=== PATIENT | female | born 1970 | race Caucasian/White ===

== ENCOUNTER 2019-11-27 11:54 | Emergency (ER) | payer OTHER, SELFPAY ==
[2019-11-27] VITALS (25 sets, daily range): BP systolic 115–133; BP diastolic 71–85; PULSE 66–80; RESP 12–19; TEMP 36.6; O2SAT 98–100
--- NOTE | ~2019-11-27 | XR_ITS ---
EXAMINATION: XR chest 1V portable EXAM DATE: 11/27/2019 12:35 INDICATION: Palpitations, shortness of breath, weakness. TECHNIQUE: Portable AP frontal chest x-ray was obtained. Comparison is made to prior examination from 07/09/2018. FINDINGS: The lungs are clear. There are no pleural effusions. The cardiomediastinal silhouette is within normal limits. There is no pneumothorax suspected. The bones and soft tissues are unremarkab le. There are cholecystectomy clips. IMPRESSION: No acute cardiopulmonary findings. Reviewed, dictated and finalized at location A.
--- NOTE | 2019-11-27 12:20 | ECG_ITS ---
Measurements Intervals [place] Rate: 69 P: 22 WI: 166 QRS: 0 QRSD: 89 T: 19 QT: 428 QTc: 462 Interpretive Statements SINUS RHYTHM BASELINE ARTIFACT- I, II, III, AVR, AVL, AVF NORMAL ECG Electronically Signed On 11-27-2019 13:50:03 CDT by Yariel Beltran D.O.
--- NOTE | 2019-11-27 12:35 | ED.DIZZY ---
HPI - Dizziness General Chief Complaint: Dizziness Stated Complaint: irregular hr Time Seen by Provider: 11/27/19 12:10 Source: patient Mode of arrival: ambulatory Limitations: no limitations History of Present Illness HPI Narrative: A 49 y/o female pt presents to the ED, with c/o dizziness, SOB, confusion, fatigue and generalized weakness x 2 weeks that has worsened over the last 4 days. Pt states that she has noticed a fluctuation in her pulse and states that at night her pulse is around 45 bpm, and during the day between 50-125 bpm. She notes difficulty waking from sleep, but denies cough, sneeze, rhinorrhea, or CP. Pt notes a PMHx of HTN, TIA, mixed connective tissue disease, and systemic lupus. She notes taking Methylprednisolone as needed for flare ups and Duloxetine for depression and pain relief. She notes last seeing her round cutter operator in October for a follow-up appointment. Pt states that she took her PRN steroid for a flare up last week. She denies hx of drinking and states she quit smoking last (11/22/2019). MD elicited complaint: dizziness and other (SOB, confusion, fatigue, generalized weakness) Pertinent past history: other (systemic lupus) Onset (ago): week(s) (2) Associated symptoms: shortness of breath, weakness (generalized) and other (confusion, fatigue, difficulty waking from sleep) Related Data Home Medications Medication Instructions Recorded Confirmed albuterol sulfate 2.5 mg CONTINUOUS NEBULIZATION PRN 11/27/19 PRN amlodipine 10 mg PO DAILY 11/27/19 buprenorphine 10 mcg TRANSDERMAL WEEKLY 11/27/19 duloxetine 60 mg PO DAILY 11/27/19 hydroxychloroquine 200 mg PO DAILY 11/27/19 hyoscyamine sulfate [Levsin] 0.125 mg PO DAILY 11/27/19 meloxicam 7.5 mg PO DAILY 11/27/19 methylprednisolone 4 mg PO DAILY PRN 11/27/19 mycophenolate mofetil 1,000 mg PO BID 11/27/19 rivaroxaban [Xarelto] 20 mg PO DAILY 11/27/19 ropinirole 1 mg PO HS 11/27/19 tizanidine 4 mg PO HS 11/27/19 tramadol 50 mg PO PRN 11/27/19 Allergies Allergy/AdvReac Type Severity Reaction Status Date / Time amitriptyline Allergy Intermediate Other Verified 09/18/18 00:02 aspartame Allergy Intermediate Other Verified 09/18/18 00:02 atomoxetine Allergy Intermediate Unknown Verified 09/18/18 00:02 gabapentin Allergy Intermediate Other Verified 09/18/18 00:02 nortriptyline Allergy Intermediate Other Verified 09/18/18 00:02 prednisone Allergy Intermediate Hyperactive Verified 09/18/18 00:02 methotrexate AdvReac Intermediate Diarrhea Verified 09/18/18 00:02 Review of Systems Review of Systems: All systems reviewed & are unremarkable except as noted in HPI and below Constitutional: Constitutional: Reports fatigue and Reports weakness (generalized) Cardiovascular: Cardiovascular: Denies chest pain Respiratory: Respiratory: Denies cough, Reports dyspnea and Denies other (sneezing, rhinorrhea) Neurologic: Reports confusion, Reports dizziness and Reports other (difficulty waking from sleep) [facility] Past Medical History Medical History (Updated 11/28/19 @ 00:00 by Background Daemon) Arthritis Asthma Colitis Depression Diverticulitis Fibromyalgia History of gastroesophageal reflux (GERD) History of hypercholesterolemia History of TIA (transient ischemic attack) Hypertension Mitral valve prolapse Pneumonia Pulmonary embolism Systemic lupus Surgical History Surgical History (Updated 11/27/19 @ 14:03 by [email or web address] Lieferheld) History of cholecystectomy History of hysterectomy Social History Social History (Updated 11/27/19 @ 14:05 by [place]) Tobacco type: cigarettes Smoking end date: 11/22/19 Course Vital Signs Vital signs: Vital Signs Pulse Rate 74 11/27/19 12:05 Respiratory Rate 13 11/27/19 12:05 Pulse Oximetry 99 11/27/19 12:05 Temperature 36.6 C 11/27/19 12:09 Pulse Rate 71 11/27/19 15:15 Respiratory Rate 16 11/27/19 15:15 Blood Pressure 122/84 11/27/19 15:
[2019-11-27 12:40] LABS: Eosinophils Absolute Auto 0.2 K/mm3 (0-0.3); Eosinophils Percent Auto 3.9 % (0-4.4); Hematocrit 42.3 % (37.0-47.0); Hemoglobin 13.5 g/dL (12.0-15.0); Immature Granulocyte Absolute 0.01 K/mm3 (0.00-0.031); Immature Granulocyte Percent A 0.2 % (0-0.5); Lymphocytes Absolute Auto 1.51 K/mm3 (0.9-3.2); Lymphocytes Percent Auto 37.2 % (18.3-44.2); Mean Corpuscular HGB Conc 31.9 g/dl (32-36); Mean Corpuscular Hemoglobin 30.1 pg (26-34); Mean Corpuscular Volume 94.4 fl (80-100); Mean Platelet Volume 11.4 fl (7.4-10.4); Monocytes Absolute Auto 0.3 K/mm3 (0.1-0.6); Monocytes Percent Auto 7.9 % (2.6-8.5); Neutrophils Percent Auto 49.8 % (45.5-73.1); Platelet Count Result 157 k/mm3 (150-375); Red Blood Count 4.48 M/mm3 (4.2-5.4); Red Cell Distribution Width 12.9 % (11.5-14.5); White Blood Count 4.1 K/mm3 (4.5-10.0)
[2019-11-27 12:53] LABS: Alanine Aminotransferase 48 U/L (4-35); Albumin Level 3.9 g/dL (3.5-5.1); Alkaline Phosphatase 121 U/L (38-126); Aspartate Amino Transferase 54 U/L (14-36); Bilirubin,Total 0.7 mg/dL (0.2-1.3); Blood Urea Nitrogen 18 mg/dL (7-17); Calcium 9.1 mg/dL (8.4-10.2); Carbon Dioxide 25 mmol/L (22-30); Chloride 104 mmol/L (98-107); Estimated CRCL calculation 95 ml/min; Estimated Glomerular Filt Rate > 60; Glucose 88 mg/dL (65-105); Potassium 4.1 mmol/L (3.4-5.0); Sodium 135 mmol/L (137-145)
[2019-11-27 13:08] LABS: Troponin I < 0.012 ng/mL (0.000-0.034)
[2019-11-27 13:37] LABS: Erythrocyte Sedimentation Rate 15 mm/hr (0-20)
[2019-11-27 14:42] LABS: Add Urine Microscopic? NO; Appearance Urine Clear (Clear); Bilirubin Urine Negative (Negative); Blood Urine Negative (Negative); Color Urine Straw (Yellow); Glucose Urine UA Negative (Negative); Ketones Urine Negative (Negative); Leukocyte Esterase Ur Negative LEU/UL (Negative); Nitrate Urine Negative (Negative); Protein Urine Negative (Negative); Specific Grav Ur 1.016 (1.001-1.035); Urobilinogen Urine Negative mg/dL (<2.0)
== END 2019-11-27 16:01 | disposition home or self-care (01) ==
PROVIDERS: Emergency Provider Emergency Medicine
DX: R00.2 Palpitations (principal); M19.90 Unspecified osteoarthritis, unspecified site; J45.909 Unspecified asthma, uncomplicated; F32.9 Major depressive disorder, single episode, unspecified; M79.7 Fibromyalgia; K21.9 Gastro-esophageal reflux disease without esophagitis; E78.00 Pure hypercholesterolemia, unspecified; Z86.73 Personal history of transient ischemic attack (TIA), and cerebral infarction without residual deficits; I10 Essential (primary) hypertension; I34.1 Nonrheumatic mitral (valve) prolapse; Z86.711 Personal history of pulmonary embolism; F17.210 Nicotine dependence, cigarettes, uncomplicated; Z79.01 Long term (current) use of anticoagulants; M35.1 Other overlap syndromes; M32.9 Systemic lupus erythematosus, unspecified
CPT/HCPCS: 36415; 71045; 80053; 81003; 84443; 84484; 85025; 85652; 93005; 99284

== ENCOUNTER 2020-01-22 13:43 | Emergency (ER) | payer OTHER, SELFPAY ==
--- NOTE | ~2020-01-22 | CT_ITS ---
EXAMINATION: CT abdomen pelvis w con EXAM DATE: 01/22/2020 15:30 INDICATION: Abdominal pain, history diverticulitis. TECHNIQUE: Spiral CT of the abdomen and pelvis was performed following intravenous injection of 100 m L Omnipaque 350. Axial, coronal and sagittal images were reviewed. The dose-length product (DLP) fo r this examination was 1424.60 mGy-cm. The exposure was tailored according to patient size (auto mA exposure control), and iterative reconstruction (ASIR) was used as additional dose reduction techniqu e. Comparison is made to prior examination from 02/07/2019. FINDINGS: The liver, spleen, adrenal glands and pancreas are unremarkable. There is cholelithiasis w ithin an otherwise unremarkable gallbladder. No evidence of obstructive biliary disease. Portal and splenic veins are patent. Kidneys enhance symmetrically. There is no hydronephrosis. The uterus is not identified and has likely been surgically resected. The bladder is unremarkable. There is no retroperitoneal or pelvic lymphadenopathy. The appendix is not positively visualized. There is no pericecal inflammatory change to suggest appe ndicitis. There is mild to moderate descending and sigmoid colonic diverticulosis. There is no adjac ent inflammatory change to suggest diverticulitis. There is rectosigmoid anastomosis. The stomach a nd small bowel are unremarkable. There is expected amount of colonic stool. No free intraperitonea l gas. The heart is normal in size. There are no pericardial or pleural effusions. The lung bases are unremarkable. There is large hemangioma in the T11 vertebral body. There are no osteoblastic or osteolytic lesions identified. IMPRESSION: 1. No acute intra-abdominal findings. 2. Colonic diverticulosis. Reviewed, dictated and finalized at location A.
[2020-01-22 13:49] VITALS: BP 151/95; PULSE 95; RESP 20; TEMP 36.6; O2SAT 98
[2020-01-22 14:11] LABS: Basophils Absolute Auto 0.1 K/mm3 (0.0-0.1); Basophils Percent Auto 0.7 % (0.2-1.2); Eosinophils Absolute Auto 0.3 K/mm3 (0-0.3); Eosinophils Percent Auto 3.9 % (0-4.4); Hematocrit 47.2 % (37.0-47.0); Hemoglobin 15.5 g/dL (12.0-15.0); Immature Granulocyte Absolute 0.02 K/mm3 (0.00-0.031); Immature Granulocyte Percent A 0.3 % (0-0.5); Lymphocytes Absolute Auto 2.68 K/mm3 (0.9-3.2); Lymphocytes Percent Auto 38.6 % (18.3-44.2); Mean Corpuscular HGB Conc 32.8 g/dl (32-36); Mean Corpuscular Hemoglobin 31.1 pg (26-34); Mean Corpuscular Volume 94.6 fl (80-100); Mean Platelet Volume 11.5 fl (7.4-10.4); Monocytes Absolute Auto 0.5 K/mm3 (0.1-0.6); Monocytes Percent Auto 7.8 % (2.6-8.5); Neutrophils Absolute Auto 3.4 K/mm3 (1.3-6.7); Neutrophils Percent Auto 48.7 % (45.5-73.1); Platelet Count Result 190 k/mm3 (150-375); Red Blood Count 4.99 M/mm3 (4.2-5.4); White Blood Count 6.9 K/mm3 (4.5-10.0)
[2020-01-22 14:40] VITALS: BP 145/84; PULSE 87; RESP 20; O2SAT 96
[2020-01-22 14:45] LABS: Alanine Aminotransferase 30 U/L (4-35); Albumin Level 4.5 g/dL (3.5-5.1); Alkaline Phosphatase 118 U/L (38-126); Aspartate Amino Transferase 50 U/L (14-36); Bilirubin,Total 0.7 mg/dL (0.2-1.3); Blood Urea Nitrogen 11 mg/dL (7-17); Calcium 9.5 mg/dL (8.4-10.2); Carbon Dioxide 27 mmol/L (22-30); Chloride 105 mmol/L (98-107); Estimated CRCL calculation 97 ml/min; Estimated Glomerular Filt Rate > 60; Glucose 127 mg/dL (65-105); Lipase 83 U/L (23-300); Potassium 4.1 mmol/L (3.4-5.0); Sodium 139 mmol/L (137-145)
[2020-01-22 14:48] LABS: Add Urine Microscopic? NO; Appearance Urine Clear (Clear); Bilirubin Urine Negative (Negative); Blood Urine Negative (Negative); Color Urine Straw (Yellow); Glucose Urine UA Negative (Negative); Ketones Urine Negative (Negative); Leukocyte Esterase Ur Negative LEU/UL (Negative); Nitrate Urine Negative (Negative); Protein Urine Negative (Negative); Specific Grav Ur 1.008 (1.001-1.035); Urobilinogen Urine Negative mg/dL (<2.0)
--- NOTE | 2020-01-22 14:51 | ED.ABDPAIN ---
HPI - Abdominal Pain General Chief Complaint: Abdominal Pain Stated Complaint: abd pain hx of bowel obs/ileus Time Seen by Provider: 01/22/20 14:41 History of Present Illness HPI narrative: Patient presents with 3 weeks of abdominal pain. She has a history of recent diverticulitis for which she took oral antibiotic. She said it did not help. In the past she had recurrent sigmoid diverticulitis, and they remove the sigmoid colon. She is also had her gallbladder out and a hysterectomy. Last week she had bowel impaction, which she removed herself, and it was then followed by days of loose stool. She again feels impacted. She gauges the pain at 8 out of 10. She has no drug allergies. She says she runs dehydration due to her lupus and mixed connective tissue disease and ulcerative colitis. She has been having chills but no documented fever, and night sweats. She smokes drinks but does not use drugs. MD elicited complaint: abdominal pain Pertinent past history: diverticulitis Onset (ago): week(s) Pain Consistency: constant Location: diffuse Severity: severe Related Data Home Medications Medication Instructions Recorded Confirmed albuterol sulfate 2.5 mg CONTINUOUS NEBULIZATION PRN 11/27/19 PRN amlodipine 10 mg PO DAILY 11/27/19 buprenorphine 10 mcg TRANSDERMAL WEEKLY 11/27/19 duloxetine 60 mg PO DAILY 11/27/19 hydroxychloroquine 200 mg PO DAILY 11/27/19 hyoscyamine sulfate [Levsin] 0.125 mg PO DAILY 11/27/19 meloxicam 7.5 mg PO DAILY 11/27/19 methylprednisolone 4 mg PO DAILY PRN 11/27/19 mycophenolate mofetil 1,000 mg PO BID 11/27/19 rivaroxaban [Xarelto] 20 mg PO DAILY 11/27/19 ropinirole 1 mg PO HS 11/27/19 tizanidine 4 mg PO HS 11/27/19 tramadol 50 mg PO PRN 11/27/19 [id number]-vit K tablet PO 01/22/20 [Adults Multivitamin] Allergies Allergy/AdvReac Type Severity Reaction Status Date / Time amitriptyline Allergy Intermediate Other Verified 01/22/20 13:57 aspartame Allergy Intermediate Other Verified 01/22/20 13:57 atomoxetine Allergy Intermediate Unknown Verified 01/22/20 13:57 gabapentin Allergy Intermediate Other Verified 01/22/20 13:57 nortriptyline Allergy Intermediate Other Verified 01/22/20 13:57 prednisone Allergy Intermediate Hyperactive Verified 01/22/20 13:57 methotrexate AdvReac Intermediate Diarrhea Verified 01/22/20 13:57 Review of Systems Review of Systems: Narrative: CONSTITUTIONAL: She has had chills, or sweats. EYES: Denies visual changes, redness, or discharge. ENT: Denies rhinorrhea, congestion, sore throat, or otalgia. CARDIOVASCULAR: Denies chest pain, palpitations, or edema. RESPIRATORY: Denies cough or dyspnea. GASTROINTESTINAL: She has abdominal pain, nausea, but not vomiting, or diarrhea. GENITOURINARY: Denies dysuria or hematuria. SKIN: Denies rash or itching. MUSCULOSKELETAL: Denies back pain, joint pain, or myalgia. NEUROLOGIC: Denies headache, numbness, or weakness. PSYCHIATRIC: Denies anxiety or depression. All systems reviewed & are unremarkable except as noted in HPI and below PMFSH Past Medical History Medical History Arthritis Asthma Colitis Depression Diverticulitis Fibromyalgia History of gastroesophageal reflux (GERD) History of hypercholesterolemia History of TIA (transient ischemic attack) Hypertension Mitral valve prolapse Pneumonia Pulmonary embolism Systemic lupus Surgical History Surgical History History of cholecystectomy History of hysterectomy Social History Social History (Updated 01/22/20 @ 14:55 by Yue Case MD) Smoking status: Current every day smoker Tobacco type: cigarettes Smoking end date: 11/22/19 Alcohol intake: current Alcohol use details: Rare Substance use: never Gender identity (if verbalized by the patient): Female Exam Narrative: Exam Narrative: GENERAL: Well-appearing, well
[2020-01-22] MEDS: MORPHINE SULFATE 4 MG/ML INJ IV PUSH ×2 (15:01→16:09)
[2020-01-22] MEDS: SODIUM CHLORIDE 0.9% IV 1,000 ML 999 ML IV CONT (15:01)
[2020-01-22] MEDS: ONDANSETRON INJ 4 MG/2 ML VIAL IV PUSH (15:01)
[2020-01-22 16:00] VITALS: BP 139/93; PULSE 79; RESP 20; O2SAT 98
[2020-01-22 17:02] VITALS: BP 143/82; PULSE 90; RESP 20; O2SAT 96
[2020-01-22 18:04] VITALS: BP 126/72; PULSE 83; RESP 20; O2SAT 98
[2020-01-22 19:13] VITALS: BP 110/61; PULSE 74; RESP 18; TEMP 37.1; O2SAT 99
== END 2020-01-22 19:16 | disposition home or self-care (01) ==
PROVIDERS: Emergency Provider Emergency Medicine; PCP Physician Assistant
DX: R10.84 Generalized abdominal pain (principal); K58.9 Irritable bowel syndrome, unspecified; M32.9 Systemic lupus erythematosus, unspecified; M19.90 Unspecified osteoarthritis, unspecified site; J45.909 Unspecified asthma, uncomplicated; M79.7 Fibromyalgia; K21.9 Gastro-esophageal reflux disease without esophagitis; Z86.73 Personal history of transient ischemic attack (TIA), and cerebral infarction without residual deficits; E78.00 Pure hypercholesterolemia, unspecified; I34.1 Nonrheumatic mitral (valve) prolapse; M35.1 Other overlap syndromes; I10 Essential (primary) hypertension; Z86.711 Personal history of pulmonary embolism; F17.210 Nicotine dependence, cigarettes, uncomplicated; Z90.49 Acquired absence of other specified parts of digestive tract; F32.9 Major depressive disorder, single episode, unspecified; Z79.01 Long term (current) use of anticoagulants
CPT/HCPCS: 36415; 74177; 80053; 81003; 81025; 83690; 85025; 96361; 96374; 96375; 96376; 99284; J2270; J2405; J7030; Q9967

== ENCOUNTER 2020-01-28 18:55 | Emergency (ER) | payer OTHER, SELFPAY ==
--- NOTE | ~2020-01-28 | CT_ITS ---
EXAMINATION: CT abdomen pelvis w con INDICATION: Abdominal pain, right lower back pain TECHNIQUE: Computed tomographic images of the abdomen and pelvis were obtained after the administrati on of 100 cc of Omnipaque 350 intravenous contrast. The dose-length product (DLP) was 1419.07 mGy-cm. Automated exposure control and iterative reconstruction technique were employed. COMPARISON: 01/22/2020, 07/09/2018 FINDINGS: A stable 7 mm nodule of the right lower lobe is consistent with old granulomatous disease. The gallbladder is surgically absent. There is mild enlargement of the common bile duct and central i ntrahepatic ducts which is likely due to post cholecystectomy state. A stable 7 mm low-attenuation le jony of the spleen likely reflects a cyst or lymphangioma. The liver, pancreas, and adrenal glands ar e normal. The kidneys are unremarkable. There is a surgical anastomosis in the rectum. A chronic port ocaval shunt is noted in the left upper quadrant. A large volume of colonic stool is present. The lonnie endix is normal. There is mild lumbar spondylosis. . Colonic diverticulosis is present without evide nce of diverticulitis. IMPRESSION: 1. No CT correlate for the patient's symptoms. Reviewed, dictated and finalized at location A.
[2020-01-28 18:56] VITALS: BP 154/99; PULSE 103; RESP 16; TEMP 36.7; O2SAT 97
--- NOTE | 2020-01-28 19:17 | ED.ABDPAIN ---
HPI - Abdominal Pain General Chief Complaint: Abdominal Pain Stated Complaint: Possible Rectal Problem, Abd Pain Time Seen by Provider: 01/28/20 19:05 Source: RN notes reviewed and old records reviewed History of Present Illness HPI narrative: Patient presents emergency department from home for abdominal pain. Patient states that she was in the emergency department approximately 1 week ago for abdominal pain. She states that that time she been constipated and had gone home she states that on Tuesday, January 24 she had a large bowel movement and she stated following this she had pain. She is afraid she could have had a rectal prolapse that time noted several small protrusions at her rectum since that time. She states that since that time she is had pain in the right lower abdomen going into the right flank described as aching. She denies any fevers nausea or vomiting or other symptoms. She states it hurts any attempt at having a bowel movement at this time Related Data Home Medications Medication Instructions Recorded Confirmed albuterol sulfate 2.5 mg CONTINUOUS NEBULIZATION PRN 11/27/19 PRN amlodipine 10 mg PO DAILY 11/27/19 buprenorphine 10 mcg TRANSDERMAL WEEKLY 11/27/19 duloxetine 60 mg PO DAILY 11/27/19 hydroxychloroquine 200 mg PO DAILY 11/27/19 hyoscyamine sulfate [Levsin] 0.125 mg PO DAILY 11/27/19 meloxicam 7.5 mg PO DAILY 11/27/19 methylprednisolone 4 mg PO DAILY PRN 11/27/19 mycophenolate mofetil 1,000 mg PO BID 11/27/19 rivaroxaban [Xarelto] 20 mg PO DAILY 11/27/19 ropinirole 1 mg PO HS 11/27/19 tizanidine 4 mg PO HS 11/27/19 tramadol 50 mg PO PRN 11/27/19 bsbjzhetescf-tce-kirq-FA-vit K tablet PO 01/22/20 [Adults Multivitamin] Allergies Allergy/AdvReac Type Severity Reaction Status Date / Time amitriptyline Allergy Intermediate Other Verified 01/28/20 18:59 aspartame Allergy Intermediate Other Verified 01/28/20 18:59 atomoxetine Allergy Intermediate Unknown Verified 01/28/20 18:59 gabapentin Allergy Intermediate Other Verified 01/28/20 18:59 nortriptyline Allergy Intermediate Other Verified 01/28/20 18:59 prednisone Allergy Intermediate Hyperactive Verified 01/28/20 18:59 methotrexate AdvReac Intermediate Diarrhea Verified 01/28/20 18:59 Review of Systems Review of Systems: Narrative: Gen.: Denies fevers or chills ENT: Denies congestion Respiratory: Denies shortness of breath or cough CV: Denies chest pain or palpitations GI: See HPI denies burning, urgency, frequency or hematuria Musculoskeletal: Denies back pain or muscle pain Neuro: Denies numbness, tingling, weakness or focal weakness Skin: Denies rash Except as documented, all other systems reviewed and negative PMFSH Past Medical History Medical History Arthritis Asthma Colitis Depression Diverticulitis Fibromyalgia History of gastroesophageal reflux (GERD) History of hypercholesterolemia History of TIA (transient ischemic attack) Hypertension Mitral valve prolapse Pneumonia Pulmonary embolism Systemic lupus Social History Social History Smoking status: Current every day smoker Tobacco type: cigarettes Smoking end date: 11/22/19 Alcohol intake: current Substance use: never Gender identity (if verbalized by the patient): Female Exam Narrative: Exam Narrative: APPEARANCE: No acute distress, nontoxic, resting in bed EYES: EOMI HEENT: Normocephalic, atraumatic, OMM RESPIRATORY: No respiratory distress Clear to auscultation bilaterally with no rhonchi wheezing or rales. CARDIOVASCULAR: Regular rate and rhythm without murmurs rubs or gallops. ABDOMINAL: Soft, nondistended, tender palpation right upper quadrant right lower quadrant, no tenderness left upper quadrant left lower quadrant, no rebound or guarding Rectal: Several hemorrhoids present with no active bleeding no fissures MUSCULOSKELETAl: Moves
[2020-01-28] MEDS: LACTATED RINGERS 1,000 ML 999 ML IV CONT (19:33)
[2020-01-28 19:55] LABS: Basophils Percent Auto 0.6 % (0.2-1.2); Eosinophils Absolute Auto 0.3 K/mm3 (0-0.3); Eosinophils Percent Auto 4.5 % (0-4.4); Hemoglobin 14.4 g/dL (12.0-15.0); Immature Granulocyte Absolute 0.01 K/mm3 (0.00-0.031); Immature Granulocyte Percent A 0.2 % (0-0.5); Lymphocytes Absolute Auto 2.47 K/mm3 (0.9-3.2); Lymphocytes Percent Auto 39.8 % (18.3-44.2); Mean Corpuscular HGB Conc 33.5 g/dl (32-36); Mean Corpuscular Hemoglobin 31.2 pg (26-34); Mean Corpuscular Volume 93.1 fl (80-100); Mean Platelet Volume 11.4 fl (7.4-10.4); Monocytes Absolute Auto 0.5 K/mm3 (0.1-0.6); Monocytes Percent Auto 8.4 % (2.6-8.5); Neutrophils Absolute Auto 2.9 K/mm3 (1.3-6.7); Neutrophils Percent Auto 46.5 % (45.5-73.1); Platelet Count Result 171 k/mm3 (150-375); Red Blood Count 4.62 M/mm3 (4.2-5.4); Red Cell Distribution Width 12.9 % (11.5-14.5); White Blood Count 6.2 K/mm3 (4.5-10.0)
[2020-01-28 19:57] LABS: Add Urine Microscopic? NO; Appearance Urine Clear (Clear); Bilirubin Urine Negative (Negative); Blood Urine Negative (Negative); Color Urine Yellow (Yellow); Glucose Urine UA Negative (Negative); Ketones Urine Negative (Negative); Leukocyte Esterase Ur Negative LEU/UL (Negative); Nitrate Urine Negative (Negative); Protein Urine Negative (Negative); Urobilinogen Urine Negative mg/dL (<2.0)
[2020-01-28 19:59] VITALS: BP 135/85; PULSE 79; RESP 18; O2SAT 96
[2020-01-28 20:05] LABS: Alanine Aminotransferase 32 U/L (4-35); Albumin Level 3.9 g/dL (3.5-5.1); Alkaline Phosphatase 119 U/L (38-126); Aspartate Amino Transferase 46 U/L (14-36); Bilirubin,Total 0.3 mg/dL (0.2-1.3); Blood Urea Nitrogen 14 mg/dL (7-17); Calcium 9.1 mg/dL (8.4-10.2); Carbon Dioxide 28 mmol/L (22-30); Chloride 106 mmol/L (98-107); Estimated CRCL calculation 95 ml/min; Estimated Glomerular Filt Rate > 60; Glucose 76 mg/dL (65-105); Lipase 78 U/L (23-300); Potassium 4.2 mmol/L (3.4-5.0); Sodium 138 mmol/L (137-145)
[2020-01-28 20:50] VITALS: BP 122/74; PULSE 80; RESP 18; O2SAT 97
[2020-01-28 21:46] VITALS: BP 128/76; PULSE 78; RESP 18; O2SAT 99
[2020-01-28] MEDS: MORPHINE SULFATE 4 MG/ML INJ IV PUSH (21:53)
[2020-01-28] MEDS: ONDANSETRON INJ 4 MG/2 ML VIAL IV PUSH (21:58)
[2020-01-28 22:38] VITALS: BP 141/84; PULSE 75; RESP 18; O2SAT 97
[2020-01-28 23:32] VITALS: BP 140/73; PULSE 70; RESP 15; O2SAT 97
== END 2020-01-28 23:35 | disposition home or self-care (01) ==
PROVIDERS: Emergency Provider Emergency Medicine; PCP Physician Assistant
DX: K64.9 Unspecified hemorrhoids (principal); R10.31 Right lower quadrant pain; M19.90 Unspecified osteoarthritis, unspecified site; J45.909 Unspecified asthma, uncomplicated; M79.7 Fibromyalgia; K21.9 Gastro-esophageal reflux disease without esophagitis; E78.00 Pure hypercholesterolemia, unspecified; Z86.73 Personal history of transient ischemic attack (TIA), and cerebral infarction without residual deficits; Z79.01 Long term (current) use of anticoagulants; I10 Essential (primary) hypertension; I34.1 Nonrheumatic mitral (valve) prolapse; Z86.711 Personal history of pulmonary embolism; M32.9 Systemic lupus erythematosus, unspecified
CPT/HCPCS: 36415; 74177; 80053; 81003; 81025; 83690; 85025; 96361; 96374; 96375; 99284; J0131; J2270; J2405; J7120; Q9967

== ENCOUNTER 2020-03-04 12:40 | Outpatient (CLI) | payer OTHER, SELFPAY ==
[2020-03-04 13:43] LABS: Basophils Percent Auto 0.4 % (0.2-1.2); Eosinophils Absolute Auto 0.1 K/mm3 (0-0.3); Eosinophils Percent Auto 1.6 % (0-4.4); Hematocrit 45.9 % (37.0-47.0); Hemoglobin 15.2 g/dL (12.0-15.0); Immature Granulocyte Absolute 0.02 K/mm3 (0.00-0.031); Immature Granulocyte Percent A 0.3 % (0-0.5); Lymphocytes Absolute Auto 1.14 K/mm3 (0.9-3.2); Lymphocytes Percent Auto 15.2 % (18.3-44.2); Mean Corpuscular HGB Conc 33.1 g/dl (32-36); Mean Corpuscular Hemoglobin 31.2 pg (26-34); Mean Corpuscular Volume 94.3 fl (80-100); Mean Platelet Volume 11.3 fl (7.4-10.4); Monocytes Absolute Auto 0.4 K/mm3 (0.1-0.6); Monocytes Percent Auto 4.9 % (2.6-8.5); Neutrophils Absolute Auto 5.8 K/mm3 (1.3-6.7); Neutrophils Percent Auto 77.6 % (45.5-73.1); Platelet Count Result 171 k/mm3 (150-375); Red Blood Count 4.87 M/mm3 (4.2-5.4); Red Cell Distribution Width 12.4 % (11.5-14.5); White Blood Count 7.5 K/mm3 (4.5-10.0)
[2020-03-04 13:51] LABS: Hemoglobin A1C 5.5 % (<5.7)
[2020-03-04 13:54] LABS: Cholesterol 120 mg/dL (0-200); HDL Direct 58 mg/dL; Triglycerides 56 mg/dL (<150)
[2020-03-04 13:56] LABS: Alanine Aminotransferase 29 U/L (4-35); Albumin Level 4.3 g/dL (3.5-5.1); Alkaline Phosphatase 147 U/L (38-126); Aspartate Amino Transferase 39 U/L (14-36); Bilirubin,Total 0.8 mg/dL (0.2-1.3); Blood Urea Nitrogen 13 mg/dL (7-17); Calcium 9.2 mg/dL (8.4-10.2); Carbon Dioxide 31 mmol/L (22-30); Chloride 105 mmol/L (98-107); Estimated Glomerular Filt Rate > 60; Glucose 118 mg/dL (65-105); Potassium 4.3 mmol/L (3.4-5.0); Sodium 139 mmol/L (137-145)
[2020-03-04 14:05] LABS: LDL Cholesterol Direct 45 mg/dL
== END 2020-03-04 12:41 | disposition home or self-care (01) ==
PROVIDERS: PCP Physician Assistant; Visit Provider Physician Assistant
DX: E78.2 Mixed hyperlipidemia (principal); I10 Essential (primary) hypertension; R53.83 Other fatigue; R73.9 Hyperglycemia, unspecified
CPT/HCPCS: 36415; 80053; 80061; 83036; 85025

== ENCOUNTER 2020-10-08 10:57 | Emergency (ER) | payer OTHER, SELFPAY ==
--- NOTE | ~2020-10-08 | CT_ITS ---
EXAMINATION: CT abdomen pelvis w con DATE: 10/08/2020 15:01 INDICATION: Right upper quadrant abdominal pain TECHNIQUE: Computed tomography (CT) of the abdomen and pelvis was performed with 100 mL Omnipaque-350 intravenous contrast. Automated exposure control and iterative reconstruction technique were employe d. The dose-length product was 1521.84 mGy-cm. COMPARISON: 01/28/2020 and 07/09/2018 FINDINGS: Unchanged 7 mm right lower lobe nodule consistent with old granulomatous disease.. Heart size is norm al. No pericardial or pleural effusion. Common bile duct measures up to 10 mm which is within normal limits post cholecystectomy with surgical clips the gallbladder fossa. No intrahepatic biliary ductal dilation. Liver, pancreas, bilateral adrenal glands and kidneys are normal. Again seen is a subcenti meter low-attenuation likely splenic cyst or hemangioma. Unchanged portacaval shunt in the left upper quadrant. Partially decompressed bladder is normal. The uterus is not identified and has likely been surgically resected. There is mild colonic diverticulosis with a sigmoid predominance. There is no adjacent inflammatory change to suggest diverticulitis. Anastomotic suture line at the rectum. Small bowel and appendix are normal. No free intraperitoneal gas or fluid. No pathologically enlarged abdom inal or pelvic lymphadenopathy. T11 hemangioma. Mild lumbar and lower thoracic spondylosis. Congenita lly unfused L5 spinous process. Tiny supraumbilical fat-containing ventral hernia. IMPRESSION: 1. No acute intra-abdominal/pelvic process. 2. Mild diverticulosis. Reviewed, dictated and finalized at location B. 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
[2020-10-08 11:26] VITALS: BP 181/96; PULSE 106; RESP 16; TEMP 36.5; O2SAT 99
[2020-10-08 11:38] LABS: Basophils Absolute Auto 0.1 K/mm3 (0.0-0.1); Basophils Percent Auto 1.1 % (0.2-1.2); Eosinophils Absolute Auto 0.5 K/mm3 (0-0.3); Eosinophils Percent Auto 9.7 % (0-4.4); Hematocrit 44.8 % (37.0-47.0); Hemoglobin 14.9 g/dL (12.0-15.0); Immature Granulocyte Absolute 0.01 K/mm3 (0.00-0.031); Immature Granulocyte Percent A 0.2 % (0-0.5); Mean Corpuscular HGB Conc 33.3 g/dl (32-36); Mean Corpuscular Hemoglobin 31.4 pg (26-34); Mean Corpuscular Volume 94.3 fl (80-100); Monocytes Absolute Auto 0.4 K/mm3 (0.1-0.6); Neutrophils Absolute Auto 2.4 K/mm3 (1.3-6.7); Platelet Count Result 176 k/mm3 (150-375); Red Blood Count 4.75 M/mm3 (4.2-5.4); Red Cell Distribution Width 12.1 % (11.5-14.5); White Blood Count 5.3 K/mm3 (4.5-10.0)
[2020-10-08 11:49] LABS: Alanine Aminotransferase 30 U/L (4-35); Albumin Level 3.9 g/dL (3.5-5.1); Alkaline Phosphatase 116 U/L (38-126); Anion Gap 7 mmol/L (8-16); Aspartate Amino Transferase 50 U/L (14-36); Bilirubin,Total 0.7 mg/dL (0.2-1.3); Blood Urea Nitrogen 11 mg/dL (7-17); Calcium 9.1 mg/dL (8.4-10.2); Carbon Dioxide 29 mmol/L (22-30); Chloride 102 mmol/L (98-107); Estimated CRCL calculation 96 ml/min; Estimated Glomerular Filt Rate > 60; Glucose 150 mg/dL (65-105); Lipase 79 U/L (23-300); Potassium 3.8 mmol/L (3.4-5.0); Sodium 138 mmol/L (137-145)
[2020-10-08 12:06] LABS: Add Urine Microscopic? NO; Appearance Urine Clear (Clear); Bilirubin Urine Negative (Negative); Blood Urine Negative (Negative); Color Urine Yellow (Yellow); Glucose Urine UA Negative (Negative); Ketones Urine Negative (Negative); Leukocyte Esterase Ur Negative LEU/UL (Negative); Nitrate Urine Negative (Negative); Protein Urine Negative (Negative); Specific Grav Ur 1.013 (1.001-1.035); Urobilinogen Urine Negative mg/dL (<2.0)
--- NOTE | 2020-10-08 16:01 | ED.GENADULT ---
HPI - General Adult General Chief complaint: Abdominal Pain Stated complaint: rt sided abd pain Time Seen by Provider: 10/08/20 12:42 History of Present Illness HPI narrative: Patient is a 50-year-old female who presents ER with right-sided abdominal pain. Ongoing for the last month but more persistent over the last week. Reports she occasionally will have some blood in her stool when she wipes and looks in the toilet. That is been more so over the last couple of days. No loss of consciousness or diarrhea. Denies straining or constipation. No fevers or chills or sweats. Has found no aggravating or alleviating factors. Related Data Home Medications Medication Instructions Recorded Confirmed albuterol sulfate 2.5 mg CONTINUOUS NEBULIZATION PRN 11/27/19 PRN amlodipine 10 mg PO DAILY 11/27/19 buprenorphine 10 mcg TRANSDERMAL WEEKLY 11/27/19 duloxetine 60 mg PO DAILY 11/27/19 hydroxychloroquine 200 mg PO DAILY 11/27/19 hyoscyamine sulfate [Levsin] 0.125 mg PO DAILY 11/27/19 meloxicam 7.5 mg PO DAILY 11/27/19 methylprednisolone 4 mg PO DAILY PRN 11/27/19 mycophenolate mofetil 1,000 mg PO BID 11/27/19 rivaroxaban [Xarelto] 20 mg PO DAILY 11/27/19 ropinirole 1 mg PO HS 11/27/19 tizanidine 4 mg PO HS 11/27/19 tramadol 50 mg PO PRN 11/27/19 okmbqryzhwgj-stq-pvxt-FA-vit K tablet PO 01/22/20 [Adults Multivitamin] Allergies Allergy/AdvReac Type Severity Reaction Status Date / Time amitriptyline Allergy Intermediate Other Verified 10/08/20 13:03 aspartame Allergy Intermediate Other Verified 10/08/20 13:03 atomoxetine Allergy Intermediate Unknown Verified 10/08/20 13:03 gabapentin Allergy Intermediate Other Verified 10/08/20 13:03 nortriptyline Allergy Intermediate Other Verified 10/08/20 13:03 prednisone Allergy Intermediate Hyperactive Verified 10/08/20 13:03 methotrexate AdvReac Intermediate Diarrhea Verified 10/08/20 13:03 Review of Systems Review of Systems: All systems reviewed & are unremarkable except as noted in HPI and below Constitutional: Constitutional: Denies chills, Denies fever(s) and Denies weakness ENT: Denies nasal congestion and Denies sore throat Cardiovascular: Cardiovascular: Denies chest pain, Denies rapid heart rate and Denies radiating jaw, neck or arm pain Respiratory: Respiratory: Denies cough and Denies dyspnea Gastrointestinal: Gastrointestinal: Reports abdominal pain, Denies constipation, Denies diarrhea, Denies nausea and Denies vomiting Comments: Rectal bleeding Genitourinary: Genitourinary: Denies nocturia, Denies dysuria and Denies flank pain PMFSH Past Medical History Medical History (Updated 10/08/20 @ 16:05 by Eris Green MD) Arthritis Asthma Colitis Depression Diverticulitis Fibromyalgia History of gastroesophageal reflux (GERD) History of hypercholesterolemia History of TIA (transient ischemic attack) Hypertension Mitral valve prolapse Pneumonia Pulmonary embolism Systemic lupus Surgical History Surgical History History of cholecystectomy History of hysterectomy Social History Social History Smoking status: Current every day smoker Tobacco type: cigarettes Smoking end date: 11/22/19 Alcohol intake: current Substance use: never Gender identity (if verbalized by the patient): Female Exam Narrative: Exam Narrative: GENERAL: Well-appearing, well-nourished, and in no acute distress. HEAD: Normocephalic, atraumatic. CHEST: Clear to auscultation. No respiratory distress. HEART: Regular rate and rhythm. Normal peripheral pulses. ABDOMEN: Soft, nontender, nondistended. Normal-appearing rectum on external exam without gross blood or occult blood on TONYA. EXTREMITIES: Normal range of motion. No edema. SKIN: Warm, dry, no rash. NEURO: Alert and oriented x3. PSYCH: Normal mood and affect. Course Course Emergency Course: [place]
[2020-10-08 16:34] VITALS: BP 171/74; PULSE 86; RESP 12; O2SAT 99
== END 2020-10-08 16:35 | disposition home or self-care (01) ==
PROVIDERS: Emergency Medicine; Emergency Provider Emergency Medicine; PCP Physician Assistant
DX: R10.9 Unspecified abdominal pain (principal); M19.90 Unspecified osteoarthritis, unspecified site; J45.909 Unspecified asthma, uncomplicated; M79.7 Fibromyalgia; K21.9 Gastro-esophageal reflux disease without esophagitis; E78.5 Hyperlipidemia, unspecified; I10 Essential (primary) hypertension
CPT/HCPCS: 36415; 74177; 80053; 81003; 81025; 83690; 85025; 86850; 86900; 86901; 99284; Q9967

== ENCOUNTER 2021-01-12 14:19 | Emergency (ER) | payer OTHER, SELFPAY ==
--- NOTE | ~2021-01-12 | CT_ITS ---
EXAMINATION: CT abdomen pelvis wo con DATE: 01/12/2021 15:50 INDICATION: Right flank pain. TECHNIQUE: Computed tomography (CT) of the abdomen and pelvis was performed without intravenous contr ast. Automated exposure control and iterative reconstruction technique were employed. The dose-length product was 1612.37 mGy-cm. COMPARISON: CT abdomen and pelvis 10/08/2020 FINDINGS: The visualized portions of the lung bases demonstrate mild atelectasis. A calcified right l nasim nodule is consistent with old granulomatous disease. No pleural effusion. The heart size is briseyda l. No pericardial effusion. The liver and spleen are normal. There are changes of cholecystectomy. Th e pancreas, adrenal glands, and kidneys are normal. There is an anastomosis in the rectosigmoid. Ther e is diverticulosis of the colon without evidence of diverticulitis. There are no dilated loops of dimas wel. The appendix is normal. There are no pathologically enlarged lymph nodes. There is no free intra peritoneal fluid. There is a periumbilical ventral hernia containing fat. There is a hemangioma in T1 2. There is moderate lumbar spondylosis. IMPRESSION: 1. Periumbilical ventral hernia containing fat. Reviewed, dictated and finalized at location A.
[2021-01-12 14:39] VITALS: BP 177/119; PULSE 108; RESP 18; TEMP 36.6; O2SAT 99
[2021-01-12] MEDS: MORPHINE SULFATE (*CRX) 4 MG/ML INJ IV PUSH (14:57)
[2021-01-12 15:02] VITALS: BP 164/87; PULSE 95; RESP 18; O2SAT 98
[2021-01-12 15:10] LABS: Basophils Absolute Auto 0.1 K/mm3 (0.0-0.1); Basophils Percent Auto 0.8 % (0.2-1.2); Eosinophils Absolute Auto 0.4 K/mm3 (0-0.3); Eosinophils Percent Auto 4.8 % (0-4.4); Hematocrit 44.7 % (37.0-47.0); Immature Granulocyte Absolute 0.03 K/mm3 (0.00-0.031); Immature Granulocyte Percent A 0.4 % (0-0.5); Lymphocytes Absolute Auto 1.95 K/mm3 (0.9-3.2); Lymphocytes Percent Auto 24.5 % (18.3-44.2); Mean Corpuscular HGB Conc 33.6 g/dl (32-36); Mean Corpuscular Hemoglobin 31.6 pg (26-34); Mean Corpuscular Volume 94.3 fl (80-100); Mean Platelet Volume 10.1 fl (7.4-10.4); Monocytes Absolute Auto 0.6 K/mm3 (0.1-0.6); Monocytes Percent Auto 7.5 % (2.6-8.5); Platelet Count Result 190 k/mm3 (150-375); Red Blood Count 4.74 M/mm3 (4.2-5.4); Red Cell Distribution Width 12.7 % (11.5-14.5)
[2021-01-12 15:15] LABS: Add Urine Microscopic? YES; Appearance Urine Clear (Clear); Bilirubin Urine Negative (Negative); Blood Urine Negative (Negative); Color Urine Yellow (Yellow); Glucose Urine UA Negative (Negative); Ketones Urine Negative (Negative); Leukocyte Esterase Ur Negative LEU/UL (Negative); Mucus Urine Rare /lpf; Nitrate Urine Negative (Negative); Protein Urine Negative (Negative); RBC Urine 0-2 /hpf (0-2); Specific Grav Ur 1.018 (1.001-1.035); Squamous Epithelial Cell Urine Rare /hpf (Few); WBC Urine 0-3 /hpf
[2021-01-12 15:24] LABS: Anion Gap 3 mmol/L (8-16); Blood Urea Nitrogen 11 mg/dL (7-17); Calcium 9.3 mg/dL (8.4-10.2); Carbon Dioxide 29 mmol/L (22-30); Chloride 109 mmol/L (98-107); Estimated CRCL calculation 95 ml/min; Estimated Glomerular Filt Rate > 60; Glucose 104 mg/dL (65-105); Potassium 3.8 mmol/L (3.4-5.0); Sodium 141 mmol/L (137-145)
[2021-01-12 15:32] VITALS: BP 177/95; PULSE 91; RESP 18; O2SAT 97
[2021-01-12 15:54] VITALS: BP 164/98; PULSE 95; RESP 16; O2SAT 97
[2021-01-12 16:02] VITALS: BP 165/97; PULSE 90; RESP 18; O2SAT 97
--- NOTE | 2021-01-12 16:22 | ED.GENADULT ---
HPI - General Adult General Chief complaint: Urogenital-Female Stated complaint: R FLANK PAIN, HEMATURIA Time Seen by Provider: 01/12/21 14:22 History of Present Illness HPI narrative: Patient is a 50-year-old female who presents ER with hematuria. Ongoing for last week. Occasionally she has dark red urine occasionally is light pink. If she increases her fluid intake it begins to clear up. Over the last day and a half she has developed right-sided flank pain going from her back into her right lower quadrant. No fevers or chills or sweats. Denies nausea or vomiting. Has found no relief with [id number] pain control. Denies previous history of kidney stones. Related Data Home Medications Medication Instructions Recorded Confirmed albuterol sulfate 2.5 mg CONTINUOUS NEBULIZATION PRN 11/27/19 PRN amlodipine 10 mg PO DAILY 11/27/19 buprenorphine 10 mcg TRANSDERMAL WEEKLY 11/27/19 duloxetine 60 mg PO DAILY 11/27/19 hydroxychloroquine 200 mg PO DAILY 11/27/19 hyoscyamine sulfate [Levsin] 0.125 mg PO DAILY 11/27/19 meloxicam 7.5 mg PO DAILY 11/27/19 methylprednisolone 4 mg PO DAILY PRN 11/27/19 mycophenolate mofetil 1,000 mg PO BID 11/27/19 rivaroxaban [Xarelto] 20 mg PO DAILY 11/27/19 ropinirole 1 mg PO HS 11/27/19 tizanidine 4 mg PO HS 11/27/19 tramadol 50 mg PO PRN 11/27/19 axsbpzlngzsn-ecy-cljz-FA-vit K tablet PO 01/22/20 [Adults Multivitamin] Allergies Allergy/AdvReac Type Severity Reaction Status Date / Time amitriptyline Allergy Intermediate Other Verified 01/12/21 14:45 aspartame Allergy Intermediate Other Verified 01/12/21 14:45 atomoxetine Allergy Intermediate Unknown Verified 01/12/21 14:45 gabapentin Allergy Intermediate Other Verified 01/12/21 14:45 nortriptyline Allergy Intermediate Other Verified 01/12/21 14:45 prednisone Allergy Intermediate Hyperactive Verified 01/12/21 14:45 methotrexate AdvReac Intermediate Diarrhea Verified 01/12/21 14:45 Review of Systems Review of Systems: All systems reviewed & are unremarkable except as noted in HPI and below Constitutional: Constitutional: Denies chills and Denies fever(s) Gastrointestinal: Gastrointestinal: Reports abdominal pain, Denies diarrhea, Denies nausea and Denies vomiting Genitourinary: Genitourinary: Denies abnormal vaginal bleeding, Reports hematuria, Denies nocturia, Denies dysuria, Reports flank pain and Denies vaginal discharge Musculoskeletal: Musculoskeletal: Denies back pain and Denies muscle cramps PMFSH Past Medical History Medical History (Updated 01/12/21 @ 16:42 by Eris Green MD) Arthritis Asthma Colitis Depression Diverticulitis Fibromyalgia History of gastroesophageal reflux (GERD) History of hypercholesterolemia History of TIA (transient ischemic attack) Hypertension Mitral valve prolapse Pneumonia Pulmonary embolism Systemic lupus Surgical History Surgical History History of cholecystectomy History of hysterectomy Social History Social History Smoking status: Current every day smoker Tobacco type: cigarettes Smoking end date: 11/22/19 Alcohol intake: current Substance use: never Gender identity (if verbalized by the patient): Female Exam Narrative: Exam Narrative: GENERAL: Well-appearing, well-nourished, and in no acute distress. HEAD: Normocephalic, atraumatic. CHEST: Clear to auscultation. No respiratory distress. HEART: Regular rate and rhythm. Normal peripheral pulses. ABDOMEN: Soft, nontender, nondistended. No CVA tenderness EXTREMITIES: Normal range of motion. No edema. NEURO: Alert and oriented x3. PSYCH: Normal mood and affect. Course Course Emergency Course: Patient informed of results. Pain improved with morphine. Discharge home. No etiology for patient's pain, may have passed a kidney stone. Vital Signs Vital signs: Vital Signs Temperat
== END 2021-01-12 16:52 | disposition home or self-care (01) ==
PROVIDERS: Emergency Provider Emergency Medicine; PCP Physician Assistant
DX: R10.9 Unspecified abdominal pain (principal); J45.909 Unspecified asthma, uncomplicated; E78.00 Pure hypercholesterolemia, unspecified; I10 Essential (primary) hypertension; I34.1 Nonrheumatic mitral (valve) prolapse; M32.9 Systemic lupus erythematosus, unspecified; K21.9 Gastro-esophageal reflux disease without esophagitis; M19.90 Unspecified osteoarthritis, unspecified site; M79.7 Fibromyalgia; F32.9 Major depressive disorder, single episode, unspecified; Z86.73 Personal history of transient ischemic attack (TIA), and cerebral infarction without residual deficits; Z79.01 Long term (current) use of anticoagulants; Z86.711 Personal history of pulmonary embolism; K43.9 Ventral hernia without obstruction or gangrene
CPT/HCPCS: 36415; 74176; 80048; 81001; 85025; 96374; 99284; J2270

== ENCOUNTER 2021-03-18 09:31 | Outpatient (CLI) | payer OTHER, SELFPAY ==
[2021-03-18 09:56] LABS: Basophils Percent Auto 0.7 % (0.2-1.2); Eosinophils Absolute Auto 0.2 K/mm3 (0-0.3); Eosinophils Percent Auto 3.6 % (0-4.4); Hematocrit 43.6 % (37.0-47.0); Hemoglobin 14.8 g/dL (12.0-15.0); Immature Granulocyte Absolute 0.01 K/mm3 (0.00-0.031); Immature Granulocyte Percent A 0.2 % (0-0.5); Lymphocytes Absolute Auto 1.65 K/mm3 (0.9-3.2); Lymphocytes Percent Auto 30.9 % (18.3-44.2); Mean Corpuscular HGB Conc 33.9 g/dl (32-36); Mean Corpuscular Hemoglobin 31.3 pg (26-34); Mean Corpuscular Volume 92.2 fl (80-100); Mean Platelet Volume 10.9 fl (7.4-10.4); Monocytes Absolute Auto 0.4 K/mm3 (0.1-0.6); Monocytes Percent Auto 8.1 % (2.6-8.5); Neutrophils Percent Auto 56.5 % (45.5-73.1); Platelet Count Result 188 k/mm3 (150-375); Red Blood Count 4.73 M/mm3 (4.2-5.4); Red Cell Distribution Width 12.6 % (11.5-14.5); White Blood Count 5.3 K/mm3 (4.5-10.0)
[2021-03-18 10:06] LABS: Alanine Aminotransferase 27 U/L (4-35); Albumin Level 4.3 g/dL (3.5-5.1); Alkaline Phosphatase 180 U/L (38-126); Anion Gap 4 mmol/L (8-16); Aspartate Amino Transferase 41 U/L (14-36); Blood Urea Nitrogen 9 mg/dL (7-17); Calcium 9.6 mg/dL (8.4-10.2); Carbon Dioxide 30 mmol/L (22-30); Chloride 108 mmol/L (98-107); Cholesterol 136 mg/dL (0-200); Estimated Glomerular Filt Rate > 60; Glucose 107 mg/dL (65-105); HDL Direct 69 mg/dL; Potassium 4.2 mmol/L (3.4-5.0); Sodium 142 mmol/L (137-145); Triglycerides 77 mg/dL (<150)
[2021-03-18 10:07] LABS: Hemoglobin A1C 5.4 % (<5.7)
[2021-03-18 10:17] LABS: LDL Cholesterol Direct 50 mg/dL
== END 2021-03-18 09:32 | disposition home or self-care (01) ==
PROVIDERS: PCP Physician Assistant; Visit Provider Physician Assistant
DX: E78.2 Mixed hyperlipidemia (principal); R19.7 Diarrhea, unspecified; R53.83 Other fatigue; I10 Essential (primary) hypertension; R73.9 Hyperglycemia, unspecified
CPT/HCPCS: 36415; 80053; 80061; 83036; 84443; 85025

== ENCOUNTER 2021-10-23 17:30 | Emergency (ER) | payer MEDICARE, SELFPAY ==
--- NOTE | ~2021-10-23 | XR_ITS ---
EXAMINATION: XR chest 1V portable DATE: 10/23/2021 18:23 INDICATION: Shortness of breath. Central chest pain. TECHNIQUE: A single frontal view of the chest was obtained. COMPARISON: Chest single view 11/27/2019, CT abdomen and pelvis 01/12/2021 FINDINGS: The chest demonstrates clear lungs without pneumonia, pleural effusion, or pneumothorax. Th e heart size is normal. IMPRESSION: 1. No acute cardiopulmonary disease. Reviewed, dictated and finalized at location E. 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
[2021-10-23 17:30] VITALS: BP 178/96; PULSE 109; PULSE 110; RESP 16; TEMP 35.9; O2SAT 97
--- NOTE | 2021-10-23 17:53 | ED.GENADULT ---
HPI - General Adult General Chief complaint: Unspecified Stated complaint: high blood pressure Time Seen by Provider: 10/23/21 17:55 History of Present Illness HPI narrative: 51-year-old female patient presents to ER with complaints of elevated blood pressure for the last 2 weeks. She states that it has been between 180-200 systolic. She has not experienced any chest pain or headache for the elevated blood pressure. She has however noticed gradual shortness of breath which has been increasing. Today she noticed that her stomach was getting swollen and her legs where swollen as well. She also complains about abdominal discomfort mostly in the upper abdomen. She denies any nausea or vomiting. She denies any palpitations. No recent cough. No recent exposure to COVID. She has had some chills off and on. Patient is not a smoker. She states that she had COVID in August of 2021. She is not vaccinated. Patient has a multitude of medical problems including all autoimmune disease with rheumatoid arthritis and SLE and ankylosing spondylitis. She also has had past history of pulmonary emboli in 2011 and is on Xarelto of since 2011. Patient states that she is in chronic pain all the time. Related Data Home Medications Medication Instructions Recorded Confirmed amlodipine 10 mg PO DAILY 11/27/19 10/23/21 duloxetine 60 mg PO DAILY 11/27/19 10/23/21 hydroxychloroquine 200 mg PO DAILY 11/27/19 10/23/21 meloxicam 7.5 mg PO DAILY 11/27/19 10/23/21 rivaroxaban [Xarelto] 20 mg PO DAILY 11/27/19 10/23/21 Adderall 15 mg PO BID 10/23/21 10/23/21 Biotene Moisturizing Mouth 1 spry BYMOUTH PRN PRN 10/23/21 10/23/21 Linzess 72 mcg PO DAILY 10/23/21 10/23/21 Tylenol 1,000 mg PO Q8H 10/23/21 10/23/21 budesonide-formoterol [Symbicort] 2 inh INHALATION BID 10/23/21 10/23/21 cetirizine 10 mg PO DAILY 10/23/21 10/23/21 famotidine 40 mg PO HS 10/23/21 10/23/21 fluticasone propionate 1 spray INTRANASAL BID 10/23/21 10/23/21 golimumab [Simponi] 50 mg SUBCUT MONTHLY 10/23/21 10/23/21 morphine 15 mg PO BID 10/23/21 10/23/21 Allergies Allergy/AdvReac Type Severity Reaction Status Date / Time amitriptyline Allergy Intermediate Other Verified 10/23/21 17:58 aspartame Allergy Intermediate Other Verified 10/23/21 17:58 atomoxetine Allergy Intermediate Unknown Verified 10/23/21 17:58 gabapentin Allergy Intermediate Other Verified 10/23/21 17:58 nortriptyline Allergy Intermediate Other Verified 10/23/21 17:58 prednisone Allergy Intermediate Hyperactive Verified 10/23/21 17:58 cyclobenzaprine Allergy Anxiety Verified 10/23/21 17:58 fluoxetine Allergy Unknown Verified 10/23/21 17:58 pregabalin Allergy Anxiety Verified 10/23/21 17:58 sulfasalazine Allergy Unknown Verified 10/23/21 17:58 sumatriptan Allergy Unknown Verified 10/23/21 17:58 methotrexate AdvReac Intermediate Diarrhea Verified 10/23/21 17:58 Review of Systems Review of Systems: All systems reviewed & are unremarkable except as noted in HPI and below Constitutional: Constitutional: Reports no additional constitutional complaints, Reports chills, Denies fatigue, Denies fever(s) and Denies weakness Eyes: Eyes: Reports no additional eye complaints ENT: Reports system reviewed and no additional complaints, except as documented, Denies dysphagia, Denies dizziness, Denies nasal congestion and Denies sore throat Cardiovascular: Cardiovascular: Reports no additional cardiovascular complaints, Denies chest pain, Reports rapid heart rate and Denies radiating jaw, neck or arm pain Respiratory: Respiratory: Denies chest congestion, Denies cough, Reports dyspnea and Denies wheezing Gastrointestinal: Gastrointestinal: Reports abdominal pain, Denies bloating, Denies constipation, Denies heartburn, Denies diarrhea, Denies nausea and Denies vomiting Genitourinary: Genitourinary: Reports no additional female genitourinary complaints Musculoskeletal: Musculoskeletal: Reports no additional musculoskeletal complain
--- NOTE | 2021-10-23 18:03 | ECG_ITS ---
Measurements Intervals [place] Rate: 101 P: 56 NC: 146 QRS: -30 QRSD: 96 T: 47 QT: 372 QTc: 483 Interpretive Statements SINUS TACHYCARDIA LEFT AXIS DEVIATION BORDERLINE R WAVE PROGRESSION, ANTERIOR LEADS BASELINE ARTIFACT- I, II, AVR BORDERLINE ECG Electronically Signed On 10-23-2021 20:52:32 COBBLER APPRENTICE by Yariel Beltran D.O.
[2021-10-23 18:25] LABS: Basophils Absolute Auto 0.05 K/mm3 (0.00-0.10); Basophils Percent Auto 0.6 % (0.0-1.0); Eosinophils Absolute Auto 0.33 K/mm3 (0.02-0.50); Eosinophils Percent Auto 3.9 % (1.0-6.0); Hematocrit 43.6 % (35.0-49.0); Hemoglobin 14.5 g/dL (12.0-15.0); Immature Granulocyte Absolute 0.03 K/mm3 (0.00-0.00); Immature Granulocyte Percent A 0.4 % (0.0-0.0); Lymphocytes Absolute Auto 2.07 K/mm3 (1.10-4.50); Lymphocytes Percent Auto 24.6 % (18.0-42.0); Mean Corpuscular HGB Conc 33.3 g/dL (32.0-36.0); Mean Corpuscular Volume 93.4 fL (78.0-102.0); Mean Platelet Volume 10.4 fl (9.2-11.8); Monocytes Absolute Auto 0.67 K/mm3 (0.10-0.90); Monocytes Percent Auto 7.9 % (2.0-11.0); Neutrophils Absolute Auto 5.3 K/mm3 (1.7-7.2); Neutrophils Percent Auto 62.6 % (50.0-70.0); Platelet Count Result 221 K/mm3 (150-420); Red Blood Count 4.67 M/mm3 (4.20-5.40); Red Cell Distribution Width 13.1 % (11.6-14.4); White Blood Count 8.4 K/mm3 (4.8-10.8)
[2021-10-23 18:33] VITALS: BP 161/83; PULSE 109; RESP 16; O2SAT 100
[2021-10-23 18:38] LABS: D Dimer 0.22 mg/L (0.19-0.50)
[2021-10-23 18:44] LABS: Alanine Aminotransferase 23 U/L (14-59); Albumin Level 3.2 g/dL (3.4-5.0); Alkaline Phosphatase 163 U/L (46-116); Anion Gap 8 mmol/L (8-16); Aspartate Amino Transferase 19 U/L (15-37); Bilirubin,Total 0.5 mg/dL (0.00-1.00); Blood Urea Nitrogen 11 mg/dL (7-18); Calcium 9.2 mg/dL (8.5-10.1); Carbon Dioxide 30 mmol/L (21-32); Chloride 100 mmol/L (98-108); Estimated CRCL calculation 90 ml/min; Estimated Glomerular Filt Rate > 60; Glucose 167 mg/dL (70-99); Magnesium 2.2 mg/dL (1.8-2.4); Osmolality Calculated 289 mOsm/kg (285-295); Potassium 3.2 mmol/L (3.5-5.1); Sodium 138 mmol/L (136-145); Total Protein 6.9 g/dL (6.4-8.2); Troponin I 19.8 ng/L (0.00-60.4)
[2021-10-23 18:49] VITALS: BP 171/97; PULSE 103; RESP 14; O2SAT 100
[2021-10-23 18:49] LABS: NT Pro B Type Natriuretic Pept 46 pg/mL (0-125)
--- NOTE | 2021-10-23 19:08 | PC.NURSE ---
Rn gave report to Amarilis MICHAEL
[2021-10-23 19:15] LABS: Add Urine Microscopic? NO; Appearance Urine Clear (Clear); Bilirubin Urine Negative (Negative); Blood Urine Negative (Negative); Color Urine Yellow (Yellow); Glucose Urine UA Negative (Negative); Ketones Urine Negative (Negative); Leukocyte Esterase Ur Negative (Negative); Nitrate Urine Negative (Negative); Protein Urine Negative (Negative); Urobilinogen Urine 0.2 mg/dL (0.2-1.0)
[2021-10-23] MEDS: cloNIDine HCL 0.1 MG TABLET PO (20:26)
[2021-10-23] MEDS: POTASSIUM BICARBONATE 25 MEQ TABEF 50 MEQ PO (20:26)
[2021-10-23 20:46] VITALS: BP 185/103; PULSE 102; RESP 25; TEMP 36.8; O2SAT 98
== END 2021-10-23 20:48 | disposition home or self-care (01) ==
PROVIDERS: Emergency Provider Emergency Medicine; PCP Internal Medicine
DX: I10 Essential (primary) hypertension (principal); R06.02 Shortness of breath; F17.200 Nicotine dependence, unspecified, uncomplicated; K21.9 Gastro-esophageal reflux disease without esophagitis; E78.00 Pure hypercholesterolemia, unspecified
CPT/HCPCS: 36415; 71045; 80053; 81003; 83735; 83880; 84484; 85025; 85380; 93005; 99284; A9270

== ENCOUNTER 2021-11-06 08:52 | Outpatient (CLI) | payer MEDICARE, SELFPAY ==
[2021-11-06 09:09] LABS: Basophils Absolute Auto 0.05 K/mm3 (0.00-0.10); Basophils Percent Auto 0.7 % (0.0-1.0); Eosinophils Absolute Auto 0.49 K/mm3 (0.02-0.50); Eosinophils Percent Auto 6.4 % (1.0-6.0); Hemoglobin 15.1 g/dL (12.0-15.0); Immature Granulocyte Absolute 0.02 K/mm3 (0.00-0.00); Immature Granulocyte Percent A 0.3 % (0.0-0.0); Lymphocytes Absolute Auto 2.81 K/mm3 (1.10-4.50); Lymphocytes Percent Auto 36.9 % (18.0-42.0); Mean Corpuscular HGB Conc 32.8 g/dL (32.0-36.0); Mean Corpuscular Hemoglobin 30.6 pg (27.0-31.0); Mean Corpuscular Volume 93.1 fL (78.0-102.0); Mean Platelet Volume 10.2 fl (9.2-11.8); Monocytes Percent Auto 9.2 % (2.0-11.0); Neutrophils Absolute Auto 3.5 K/mm3 (1.7-7.2); Neutrophils Percent Auto 46.5 % (50.0-70.0); Platelet Count Result 248 K/mm3 (150-420); Red Blood Count 4.94 M/mm3 (4.20-5.40); White Blood Count 7.6 K/mm3 (4.8-10.8)
[2021-11-06 09:19] LABS: Alanine Aminotransferase 24 U/L (14-59); Albumin Level 3.4 g/dL (3.4-5.0); Alkaline Phosphatase 149 U/L (46-116); Anion Gap 5 mmol/L (8-16); Aspartate Amino Transferase 22 U/L (15-37); Bilirubin,Total 0.7 mg/dL (0.00-1.00); Blood Urea Nitrogen 10 mg/dL (7-18); Calcium 9.5 mg/dL (8.5-10.1); Carbon Dioxide 32 mmol/L (21-32); Chloride 102 mmol/L (98-108); Estimated Glomerular Filt Rate > 60; Glucose 209 mg/dL (70-99); Osmolality Calculated 293 mOsm/kg (285-295); Potassium 4.3 mmol/L (3.5-5.1); Sodium 139 mmol/L (136-145)
[2021-11-06 10:52] LABS: Magnesium 2.1 mg/dL (1.8-2.4)
[2021-11-06 10:58] LABS: Hemoglobin A1C 6.3 % (<5.7)
== END 2021-11-06 08:53 | disposition home or self-care (01) ==
LOC: CHSLAB 08:54
PROVIDERS: PCP Internal Medicine; Visit Provider Internal Medicine
DX: D64.9 Anemia, unspecified (principal); I10 Essential (primary) hypertension; R73.01 Impaired fasting glucose
CPT/HCPCS: 36415; 80053; 83036; 83735; 85025

== ENCOUNTER 2021-11-24 13:53 | Outpatient (CLI) | payer MEDICARE, SELFPAY ==
--- NOTE | ~2021-11-24 | XR_ITS ---
EXAMINATION: XR hip BI 2V w AP pelvis DATE: 11/24/2021 14:24 INDICATION: Rheumatoid arthritis. TECHNIQUE: An anteroposterior pelvis on 2 radiographs and 2 views of each hip were obtained. COMPARISON: CT abdomen and pelvis 01/12/2021 FINDINGS: There is lumbar levocurvature and moderate spondylosis. No fracture. There is mild osteoart hritis of the hips. There is mild osteoarthritis of the sacroiliac joints. Osteitis pubis is noted. IMPRESSION: 1. Mild osteoarthritis of the hips. No evidence of inflammatory arthropathy. Reviewed, dictated and finalized at location A.
== END 2021-11-24 13:54 | disposition home or self-care (01) ==
LOC: CHSIMG 13:56
PROVIDERS: PCP Internal Medicine
DX: M05.79 Rheumatoid arthritis with rheumatoid factor of multiple sites without organ or systems involvement (principal)
CPT/HCPCS: 73521

== ENCOUNTER 2022-02-26 01:00 | Emergency (ER) | payer MEDICARE, SELFPAY ==
[2022-02-26 15:00] LABS: Hematocrit 42.6 % (35.0-49.0); Hemoglobin 14.2 g/dL (12.0-15.0); Mean Corpuscular HGB Conc 33.3 g/dL (32.0-36.0); Mean Corpuscular Hemoglobin 32.6 pg (27.0-31.0); Mean Corpuscular Volume 97.7 fL (78.0-102.0); Mean Platelet Volume 11.3 fl (9.2-11.8); Platelet Count Result 210 K/mm3 (150-420); Red Blood Count 4.36 M/mm3 (4.20-5.40); White Blood Count 7.7 K/mm3 (4.8-10.8)
[2022-02-26 15:01] LABS: Band Neutrophils Percent 0 % (0-6); Basophils Percent Manual 0 % (0-1); Eosinophils Absolute Manual 0.84 K/mm3 (0.02-0.5); Eosinophils Percent Manual 11 % (1-6); Lymphocytes Absolute Manual 3.85 K/mm3 (1.1-4.5); Lymphocytes Percent Manual 50 % (18-44); Monocytes Absolute Manual 1.07 K/mm3 (0.1-0.90); Monocytes Percent Manual 14 % (3-9); Neutrophils Absolute Manual 1.92 K/mm3 (1.7-7.2); Neutrophils Percent Manual 25 % (46-73); Platelet Estimate Adequate (Adequate); Total Cells Counted 100
[2022-02-26 15:02] LABS: Lactic Acid 0.8 mmol/L (0.4-2.0)
[2022-02-26 15:03] LABS: Anion Gap 3 mmol/L (8-16); Blood Urea Nitrogen 14 mg/dL (7-18); Carbon Dioxide 31 mmol/L (21-32); Chloride 106 mmol/L (98-108); Estimated Glomerular Filt Rate 51; Glucose 133 mg/dL (70-99); Osmolality Calculated 292 mOsm/kg (285-295); Potassium 4.1 mmol/L (3.5-5.1); Sodium 140 mmol/L (136-145)
[2022-02-26 15:04] LABS: Alanine Aminotransferase 35 U/L (14-59); Albumin Level 3.2 g/dL (3.4-5.0); Alkaline Phosphatase 123 U/L (46-116); Aspartate Amino Transferase 28 U/L (15-37); Bilirubin,Total 0.5 mg/dL (0.00-1.00); CRP < 0.2 mg/dL (0.0-0.9); Calcium 9.7 mg/dL (8.5-10.1); Total Protein 5.9 g/dL (6.4-8.2)
--- NOTE | 2022-03-18 15:12 | PM.EVENT ---
Event Note Event Note Event Note: Patient was seen during down time and had a clinical impression of GERD with some nausea vomiting Disposition home condition stable.
== END 2022-02-26 02:50 | disposition home or self-care (01) ==
PROVIDERS: Emergency Provider Emergency Medicine; PCP Internal Medicine
DX: K21.9 Gastro-esophageal reflux disease without esophagitis (principal); R11.2 Nausea with vomiting, unspecified
CPT/HCPCS: 36415; 80053; 83605; 85025; 86140; 99283; A9270

== ENCOUNTER 2022-03-02 00:33 | Day surgery (SDC) | payer MEDICARE, SELFPAY ==
[2022-02-25 09:03] VITALS: BMI 46.6
[2022-03-02 12:03] VITALS: BP 132/71; PULSE 74; RESP 20; TEMP 36.4; O2SAT 99
[2022-03-02] MEDS: LACTATED RINGERS 1,000 ML 150 ML IV CONT (12:05)
--- NOTE | 2022-03-02 12:11 | WPDANESEPPF ---
Anes - Initial Pre Proc Eval Procedure: Operation Date: 03/02/22 13:30 Proposed Procedures p Esophagogastroduodenoscopy - Rashid Guillermo MD Date/Time: 03/02/22 12:11 Surgeon: Rashid Guillermo MD Pre Op Diagnosis: nausea Patient Data Age: 51 Gender: F Height: 1.7 m Weight: 143.1 kg Last Vital Signs Temp 36.4 C 03/02/22 12:03 Pulse 74 03/02/22 12:03 Resp 20 03/02/22 12:03 BP 132/71 03/02/22 12:03 Pulse Ox 99 03/02/22 12:03 O2 Del Method Room Air 03/02/22 12:03 Allergies Allergy/AdvReac Type Severity Reaction Status Date / Time amitriptyline Allergy Intermediate Other Verified 03/02/22 12:00 aspartame Allergy Intermediate Other Verified 03/02/22 12:00 atomoxetine Allergy Intermediate Unknown Verified 03/02/22 12:00 gabapentin Allergy Intermediate Other Verified 03/02/22 12:00 nortriptyline Allergy Intermediate Other Verified 03/02/22 12:00 prednisone Allergy Intermediate Hyperactive Verified 03/02/22 12:00 cyclobenzaprine Allergy Anxiety Verified 03/02/22 12:00 fluoxetine Allergy Unknown Verified 03/02/22 12:00 pregabalin Allergy Anxiety Verified 03/02/22 12:00 sulfasalazine Allergy Unknown Verified 03/02/22 12:00 sumatriptan Allergy Unknown Verified 03/02/22 12:00 methotrexate AdvReac Intermediate Diarrhea Verified 03/02/22 12:00 methylprednisolone AdvReac Agitated Verified 03/02/22 12:00 Home Medications Medication Instructions Recorded Confirmed Type hydroxychloroquine 200 mg tablet 200 mg PO DAILY 11/27/19 03/02/22 History meloxicam 7.5 mg tablet 7.5 mg PO DAILY PRN Pain 11/27/19 03/02/22 History rivaroxaban 20 mg tablet (Xarelto) 20 mg PO DAILY 11/27/19 03/02/22 History Biotene Moisturizing Mouth 1 spry BYMOUTH PRN PRN Mouth 10/23/21 03/02/22 History Irritation Linzess 72 mcg PO DAILY 10/23/21 03/02/22 History Tylenol 1,000 mg PO Q8H 10/23/21 03/02/22 History budesonide-formoterol HFA 80 2 inh inhalation BID 10/23/21 03/02/22 History mcg-4.5 mcg/actuation aerosol inhaler (Symbicort) famotidine 40 mg tablet 40 mg PO HS 10/23/21 03/02/22 History fluticasone propionate 50 1 spray intranasal BID 10/23/21 03/02/22 History mcg/actuation nasal spray,suspension amoxicillin 500 mg capsule 1,000 mg PO Q12H 02/25/22 03/02/22 History duloxetine 60 mg capsule,delayed 120 mg PO DAILY 02/25/22 03/02/22 History release methadone 10 mg tablet 10 mg PO TID PRN Pain 02/25/22 03/02/22 History metronidazole 500 mg tablet 1,000 mg PO Q12H 02/25/22 03/02/22 History multivit with minerals-iron 18 1 tablet PO DAILY 02/25/22 03/02/22 History mg-folic ac 400 mcg-vit K 25 mcg tablet (Adults Multivitamin) pitolisant 17.8 mg tablet (Wakix) 17.8 mg PO DAILY 02/25/22 03/02/22 History propranolol 60 mg tablet 60 mg PO HS 02/25/22 03/02/22 History spironolactone 25 mg tablet 25 tablet PO DAILY 02/25/22 03/02/22 History tofacitinib 11 mg tablet,extended 11 mg PO DAILY 02/25/22 03/02/22 History release 24 hr (Xeljanz XR) Patient hx anesthesia problems: none Family hx anesthesia problems: none Results Review: All pre-operative results and documents have been reviewed as part of the pre-operative evaluation. FORMERLY [facility] Past Medical History Medical History Arthritis Asthma Colitis Depression Diverticulitis Fibromyalgia History of gastroesophageal reflux (GERD) History of hypercholesterolemia History of TIA (transient ischemic attack) Hypertension Mitral valve prolapse Pneumonia Pulmonary embolism Systemic lupus Surgical History Surgical History History of cholecystectomy History of hysterectomy Social History Social History Years smoked: 15 Smoking status: Current every day smoker Tobacco type: cigarettes Smoking end date: 11/22/19 Alcohol intake: current Alcohol use details: Rare Substance u
--- NOTE | 2022-03-02 12:36 | WPDGICN ---
Assessment and Plan Assessment and plan (1) Epigastric abdominal pain: Code(s): R10.13 - Epigastric pain Status: Acute Assessment and Plan: Patient with epigastric pain. May represent dyspepsia. Plan is for EGD to assess more thoroughly. She gives a history of H pylori several years ago. Plan is for initial endoscopic evaluation. Consider trial of pantoprazole. Further recommendations may be given after endoscopy. GI Consult Note Consult date/time: 03/02/22 12:36 Reason for consult: Epigastric pain HPI: Ree Carlson is a 51 year old female presents for EGD because of epigastric pain. Patient gives a history that she was having pneumonia in 2019. Apparently during that investigation was found to have H pylori. She was treated with triple antibiotic therapy. She did not have abdominal pain. Patient now reports over the last 1 month has had epigastric and substernal discomfort. She states she was empirically given treatment for H pylori with antibiotic therapy once again. She is now referred for an EGD for which she presents today. Patient is concerned over ongoing epigastric pain and nausea. Not specifically related to diet. She has been treated with Flagyl and amoxicillin. Current medication list does not list a PPI therapy. She patient has multiple allergies listed. Her family history is noncontributory. Review of Systems Review of Systems: Review of systems noncontributory. REPLACED BY [facility] Past Medical History Medical History Arthritis Asthma Colitis Depression Diverticulitis Fibromyalgia History of gastroesophageal reflux (GERD) History of hypercholesterolemia History of TIA (transient ischemic attack) Hypertension Mitral valve prolapse Pneumonia Pulmonary embolism Systemic lupus Surgical History Surgical History History of cholecystectomy History of hysterectomy Social History Social History Years smoked: 15 Smoking status: Current every day smoker Tobacco type: cigarettes Smoking end date: 11/22/19 Alcohol intake: current Alcohol use details: Rare Substance use: never Substance use type: marijuana Living arrangements: alone Gender identity (if verbalized by the patient): Female Meds Home Medications and Allergies Home Medications Medication Instructions Recorded Confirmed Type hydroxychloroquine 200 mg tablet 200 mg PO DAILY 11/27/19 03/02/22 History meloxicam 7.5 mg tablet 7.5 mg PO DAILY PRN Pain 11/27/19 03/02/22 History rivaroxaban 20 mg tablet (Xarelto) 20 mg PO DAILY 11/27/19 03/02/22 History Biotene Moisturizing Mouth 1 spry BYMOUTH PRN PRN Mouth 10/23/21 03/02/22 History Irritation Linzess 72 mcg PO DAILY 10/23/21 03/02/22 History Tylenol 1,000 mg PO Q8H 10/23/21 03/02/22 History budesonide-formoterol HFA 80 2 inh inhalation BID 10/23/21 03/02/22 History mcg-4.5 mcg/actuation aerosol inhaler (Symbicort) famotidine 40 mg tablet 40 mg PO HS 10/23/21 03/02/22 History fluticasone propionate 50 1 spray intranasal BID 10/23/21 03/02/22 History mcg/actuation nasal spray,suspension amoxicillin 500 mg capsule 1,000 mg PO Q12H 02/25/22 03/02/22 History duloxetine 60 mg capsule,delayed 120 mg PO DAILY 02/25/22 03/02/22 History release methadone 10 mg tablet 10 mg PO TID PRN Pain 02/25/22 03/02/22 History metronidazole 500 mg tablet 1,000 mg PO Q12H 02/25/22 03/02/22 History multivit with minerals-iron 18 1 tablet PO DAILY 02/25/22 03/02/22 History mg-folic ac 400 mcg-vit K 25 mcg tablet (Adults Multivitamin) pitolisant 17.8 mg tablet (Wakix) 17.8 mg PO DAILY 02/25/22 03/02/22 History propranolol 60 mg tablet 60 mg PO HS 02/25/22 03/02/22 History spironolactone 25 mg tablet 25 tablet PO DAILY 02/25/22 03/02/22 History tofacitinib 11 mg tablet,extended 11 mg PO DA
[2022-03-02 13:08] VITALS: BP 99/55; PULSE 76; RESP 18; O2SAT 96
[2022-03-02 13:18] VITALS: BP 115/59; PULSE 79; RESP 19; O2SAT 98
[2022-03-02 13:28] VITALS: BP 113/60; PULSE 77; RESP 18; O2SAT 98
== END 2022-03-02 13:51 | disposition home or self-care (01) ==
PROVIDERS: PCP Internal Medicine; Visit Provider Internal Medicine Gastroenterology
PROC: 0DJ08ZZ Inspection of Upper Intestinal Tract, Via Natural or Artificial Opening Endoscopic (ICD-10-PCS; CPT 43235; principal; 2022-03-02 13:30)
DX: R10.13 Epigastric pain (principal); R11.0 Nausea; K31.84 Gastroparesis; J45.909 Unspecified asthma, uncomplicated; M79.7 Fibromyalgia; I10 Essential (primary) hypertension; I34.1 Nonrheumatic mitral (valve) prolapse; M32.9 Systemic lupus erythematosus, unspecified; F17.210 Nicotine dependence, cigarettes, uncomplicated; Z79.01 Long term (current) use of anticoagulants; Z79.51 Long term (current) use of inhaled steroids; Z86.73 Personal history of transient ischemic attack (TIA), and cerebral infarction without residual deficits; E66.01 Morbid (severe) obesity due to excess calories; Z68.42 Body mass index [BMI] 45.0-49.9, adult
CPT/HCPCS: 43239; 87081; J2704; J7120

== ENCOUNTER 2022-03-23 08:11 | Outpatient (CLI) | payer MEDICARE, SELFPAY ==
--- NOTE | ~2022-03-23 | NM_ITS ---
EXAM: NM gastric emptying study DATE: 03/23/2022 14:08 INDICATION: Nausea. Retained gastric food. TECHNIQUE: A gastric emptying study was performed using the methodology of Teresa CAMP, et al. J Nucl Med 2007; 48:568-572. The patient was given a meal consisting of 2 scrambled eggs labeled with 0.942 mCi Tc-99m sulfur colloid, 2 slices of toast, two packages of jam, and approximately 120 mL of water . Simultaneous anterior and posterior 1-min images of the abdomen were obtained with the patient supi ne at multiple time points over a total period of 4 hours. The geometric mean of anterior and posteri or views was determined, and the percentage retention was calculated for each time point. COMPARISON: CT abdomen and pelvis 01/12/2021 FINDINGS: Gastric retention of the radiotracer-labeled meal was 83%, 70%, and 46% at the 1-hour, 2-h our, and 4-hour time points, respectively. With this technique, apparent rapid gastric emptying is fuller ggested by <30% gastric retention at 1 hour. Delayed gastric emptying is defined by gastric retention of >90% at 1 hour, >60% retention at 2 hours, or >10% retention at 4 hours. IMPRESSION: 1. Delayed gastric emptying. Reviewed, dictated and finalized at location A.
== END 2022-03-23 08:12 | disposition home or self-care (01) ==
PROVIDERS: PCP Internal Medicine; Visit Provider Internal Medicine Gastroenterology
DX: K30 Functional dyspepsia (principal)
CPT/HCPCS: 78264; A9541

== ENCOUNTER 2022-04-20 08:26 | Emergency (ER) | payer MEDICARE, SELFPAY ==
[2022-04-20] VITALS (11 sets, daily range): BP systolic 118–163; BP diastolic 70–93; PULSE 70–100; RESP 14–18; TEMP 36.1; O2SAT 97–100
--- NOTE | ~2022-04-20 | CT_ITS ---
EXAMINATION: CT abdomen pelvis w con DATE: 04/20/2022 11:21 INDICATION: Right upper quadrant abdominal pain for 3 days, nausea TECHNIQUE: Computed tomography (CT) of the abdomen and pelvis was performed with 100 ml Omnipaque 350 intravenous contrast. Automated exposure control and iterative reconstruction technique were employe d. Exam dose: 1562.88 mGy-cm total exam DLP. COMPARISON: 01/12/2021 CT abdomen pelvis FINDINGS: There is a calcified pulmonary granuloma in the posterior basilar right lower lobe consiste nt with old granulomatous disease. The lung bases are clear of infiltrate or consolidation. Normal heart size. No pericardial or pleural effusion. Status post cholecystectomy. There is hepatic steatosis. No hepatic, splenic, pancreatic, adrenal or renal space-occupying mass le jony is evident. No bile duct or pancreatic duct dilatation. No urinary tract calculus or hydroureteronephrosis. The urinary bladder is unremarkable. Status post hysterectomy. Normal appendix. There is a suture line of the sigmoid colon. Mild diverticulosis, predominantly the sigmoid and descending colon, with minimal involvement of the right colon. No CT evidence of divertic ulitis. No bowel obstruction, bowel wall thickening, pneumatosis or intraperitoneal free air. Normal caliber of the abdominal aorta. No intraperitoneal or retroperitoneal or pelvic mass lesion, a denopathy or ascites. Small fat-containing umbilical hernia. Left periumbilical small fat-containing hernia. Hemangioma of a lower thoracic vertebral body. Diffuse idiopathic skeletal hyperostosis of the thorac ic spine. Moderately severe degenerative disc disease in the lower lumbar spine. No suspicious osteolytic or osteoblastic lesions are noted. IMPRESSION: Hepatic steatosis Status post cholecystectomy Normal appendix Mild colonic diverticulosis; no evidence of diverticulitis Suture line of distal sigmoid colon; no bowel obstruction or free air Reviewed, dictated and finalized at Location A. Reviewed, dictated and finalized at location B.
--- NOTE | 2022-04-20 08:48 | ED.ABDPAIN ---
HPI - Abdominal Pain General Chief Complaint: Abdominal Pain Stated Complaint: abd pain Time Seen by Provider: 04/20/22 08:49 Source: patient and RN notes reviewed History of Present Illness HPI narrative: patient states that she has a history of diverticulitis and the pain feels similar. MD elicited complaint: abdominal pain Pertinent past history: diverticulitis Onset (ago): day(s) (3) Pain Consistency: intermittent Location: RUQ Severity: moderate Quality: stabbing and sharp Radiation: LUQ Migration to: no migration Exacerbating factors: eating Relieving factors: nothing Context: confirms history of similar episodes Associated symptoms: denies other symptoms Related Data Home Medications Medication Instructions Recorded Confirmed hydroxychloroquine 200 mg tablet 200 mg PO DAILY 11/27/19 04/20/22 meloxicam 7.5 mg tablet 7.5 mg PO DAILY PRN Pain 11/27/19 04/20/22 rivaroxaban 20 mg tablet (Xarelto) 20 mg PO DAILY 11/27/19 04/20/22 Biotene Moisturizing Mouth 1 spry BYMOUTH PRN PRN Mouth 10/23/21 04/20/22 Irritation Linzess 72 mcg PO DAILY 10/23/21 04/20/22 Tylenol 1,000 mg PO Q8H 10/23/21 04/20/22 budesonide-formoterol HFA 80 2 inh inhalation BID 10/23/21 04/20/22 mcg-4.5 mcg/actuation aerosol inhaler (Symbicort) famotidine 40 mg tablet 40 mg PO HS 10/23/21 04/20/22 fluticasone propionate 50 1 spray intranasal BID 10/23/21 04/20/22 mcg/actuation nasal spray,suspension duloxetine 60 mg capsule,delayed 120 mg PO DAILY 02/25/22 04/20/22 release methadone 10 mg tablet 10 mg PO TID PRN Pain 02/25/22 04/20/22 multivit with minerals-iron 18 1 tablet PO DAILY 02/25/22 04/20/22 mg-folic ac 400 mcg-vit K 25 mcg tablet (Adults Multivitamin) pitolisant 17.8 mg tablet (Wakix) 17.8 mg PO DAILY 02/25/22 04/20/22 propranolol 60 mg tablet 60 mg PO HS 02/25/22 04/20/22 spironolactone 25 mg tablet 25 tablet PO DAILY 02/25/22 04/20/22 tofacitinib 11 mg tablet,extended 11 mg PO DAILY 02/25/22 04/20/22 release 24 hr (Xeljanz XR) dextroamphetamine-amphetamine 20 20 mg PO DAILY 04/20/22 04/20/22 mg tablet Allergies Allergy/AdvReac Type Severity Reaction Status Date / Time amitriptyline Allergy Intermediate Other Verified 04/20/22 08:41 aspartame Allergy Intermediate Other Verified 04/20/22 08:41 atomoxetine Allergy Intermediate Unknown Verified 04/20/22 08:41 gabapentin Allergy Intermediate Other Verified 04/20/22 08:41 nortriptyline Allergy Intermediate Other Verified 04/20/22 08:41 prednisone Allergy Intermediate Hyperactive Verified 04/20/22 08:41 cyclobenzaprine Allergy Anxiety Verified 04/20/22 08:41 fluoxetine Allergy Unknown Verified 04/20/22 08:41 pregabalin Allergy Anxiety Verified 04/20/22 08:41 sulfasalazine Allergy Unknown Verified 04/20/22 08:41 sumatriptan Allergy Unknown Verified 04/20/22 08:41 methotrexate AdvReac Intermediate Diarrhea Verified 04/20/22 08:41 methylprednisolone AdvReac Agitated Verified 04/20/22 08:41 Review of Systems Review of Systems: All systems reviewed & are unremarkable except as noted in HPI and below Constitutional: Constitutional: Reports chills and Denies fever(s) Respiratory: Respiratory: Denies cough and Denies dyspnea Gastrointestinal: Gastrointestinal: Reports as per HPI, Denies constipation and Denies diarrhea Genitourinary: Genitourinary: Denies dysuria [facility] Past Medical History Medical History Arthritis Asthma Colitis Depression Diverticulitis Fibromyalgia History of gastroesophageal reflux (GERD) History of hypercholesterolemia History of TIA (transient ischemic attack) Hypertension Mitral valve prolapse Pneumonia Pulmonary embolism Systemic lupus Surgical History Surgical History History of cholecystectomy History of hysterectomy Social History Social History Years smoked:
--- NOTE | 2022-04-20 09:08 | PC.NURSE ---
PT IS AWARE OF NEED OF URINE SPECIMEN, TO NOTIFY RN WHEN SHE IS ABLE TO PROVIDE ONE. CALL LIGHT AT BEDSIDE.
[2022-04-20 09:24] LABS: Basophils Absolute Auto 0.02 K/mm3 (0.00-0.10); Basophils Percent Auto 0.5 % (0.0-1.0); Eosinophils Absolute Auto 0.16 K/mm3 (0.02-0.50); Eosinophils Percent Auto 3.8 % (1.0-6.0); Hematocrit 40.9 % (35.0-49.0); Hemoglobin 13.7 g/dL (12.0-15.0); Immature Granulocyte Absolute 0.01 K/mm3 (0.00-0.00); Immature Granulocyte Percent A 0.2 % (0.0-0.0); Lymphocytes Absolute Auto 1.43 K/mm3 (1.10-4.50); Lymphocytes Percent Auto 34.1 % (18.0-42.0); Mean Corpuscular HGB Conc 33.5 g/dL (32.0-36.0); Mean Corpuscular Hemoglobin 32.5 pg (27.0-31.0); Mean Corpuscular Volume 97.1 fL (78.0-102.0); Mean Platelet Volume 10.5 fl (9.2-11.8); Monocytes Absolute Auto 0.41 K/mm3 (0.10-0.90); Monocytes Percent Auto 9.8 % (2.0-11.0); Neutrophils Absolute Auto 2.2 K/mm3 (1.7-7.2); Neutrophils Percent Auto 51.6 % (50.0-70.0); Platelet Count Result 159 K/mm3 (150-420); Red Blood Count 4.21 M/mm3 (4.20-5.40); Red Cell Distribution Width 12.6 % (11.6-14.4); White Blood Count 4.2 K/mm3 (4.8-10.8)
[2022-04-20 09:38] LABS: CRP < 0.2 mg/dL (0.0-0.9)
[2022-04-20 09:38] LABS: Alanine Aminotransferase 47 U/L (14-59); Albumin Level 3.2 g/dL (3.4-5.0); Alkaline Phosphatase 108 U/L (46-116); Anion Gap 5 mmol/L (8-16); Aspartate Amino Transferase 34 U/L (15-37); Bilirubin,Total 0.6 mg/dL (0.00-1.00); Blood Urea Nitrogen 13 mg/dL (7-18); Calcium 8.8 mg/dL (8.5-10.1); Carbon Dioxide 31 mmol/L (21-32); Chloride 107 mmol/L (98-108); Estimated CRCL calculation 80 ml/min; Estimated Glomerular Filt Rate 54; Glucose 119 mg/dL (70-99); Lipase 73 U/L (73-393); Osmolality Calculated 297 mOsm/kg (285-295); Potassium 4.1 mmol/L (3.5-5.1); Sodium 143 mmol/L (136-145); Total Protein 5.7 g/dL (6.4-8.2)
[2022-04-20 09:43] LABS: Lactic Acid Reflex 0.6 mmol/L (0.4-2.0)
--- NOTE | 2022-04-20 10:15 | PC.NURSE ---
PT AMBULATORY TO RR AT THIS TIME. PT REPORTS TO ERP THAT SHE FEELS IF SHE MAY HAVE A BLOCKAGE, HOWEVER IS PASSING GAS WITHOUT DIFFICULTY AND NO CHANGE IN HER BOWEL HABITS, NO VOMITING, ABD DOES NOT APPEAR DISTENDED, RIGID, TAUGHT. ABD IS SOFT, PT REPORTS PAIN TO ALL QUANDRANTS. INITALLY PT REPORTS THIS FEELS LIKE MY DIVERTICULITIS. PT IS NOW TO HAVE CT. WILL COTNINUE TO MONITOR.
[2022-04-20 10:47] LABS: Add Urine Microscopic? NO; Appearance Urine Clear (Clear); Bilirubin Urine Negative (Negative); Blood Urine Negative (Negative); Color Urine Light Yellow (Yellow); Glucose Urine UA Negative (Negative); Ketones Urine Negative (Negative); Leukocyte Esterase Ur Negative LEU/UL (Negative); Nitrate Urine Negative (Negative); Protein Urine Negative (Negative); Urobilinogen Urine 0.2 mg/dL (0.2-1.0)
[2022-04-20] MEDS: HYDROmorphone HCL INJ (*CRX) 2 MG/ML VIAL 1 MG IV PUSH (10:48)
--- NOTE | 2022-04-20 10:53 | PC.NURSE ---
PAIN MEDICATION ADMINISTERED ORDERED. PT IS TALKING WITH IN EXAM ROOM WITHOUT DISTRESS NOTED. PT IS CHANGED INTO GOWN FOR HER STUDY. WILL CONTINUE TO MONITOR.
--- NOTE | 2022-04-20 11:46 | PC.NURSE ---
PT RETURNS FROM CT, TEXTING ON CELL WITHOUT DIFFICULTY. PT REPORTS PAIN HAS IMPROVED, BUT ITS COMING BACK, I HOPE THEY FIND SOMETHING WRONG. PT IS AWAITING RESULTS AT THIS TIME. WILL CONTINUE TO MONITOR.
== END 2022-04-20 12:20 | disposition home or self-care (01) ==
PROVIDERS: Emergency Provider Emergency Medicine; PCP Internal Medicine
DX: R10.11 Right upper quadrant pain (principal)
CPT/HCPCS: 36415; 74177; 80053; 81003; 83605; 83690; 85025; 86140; 96374; 99284; J1170; Q9967

== ENCOUNTER 2022-06-09 08:25 | Outpatient (CLI) | payer MEDICARE, SELFPAY ==
--- NOTE | ~2022-06-09 | XR_ITS ---
EXAMINATION: XR thoracic spine 3V DATE: 06/09/2022 09:00 INDICATION: Ankylosing spondylitis TECHNIQUE: AP, lateral and lateral swimmer's views of the thoracic spine were obtained. COMPARISON: None. FINDINGS: Bone alignment is normal. There is no fracture. There is mild loss of intervertebral disc s pace height at multiple levels in the thoracic spine. The vertebral body heights are maintained. Smal l degenerative osteophytes project from the anterior endplates of multiple vertebral bodies. IMPRESSION: 1. Moderate thoracic spondylosis without acute findings. Reviewed, dictated and finalized at location A.
== END 2022-06-09 08:26 | disposition home or self-care (01) ==
LOC: CHSIMG 08:32
DX: M45.0 Ankylosing spondylitis of multiple sites in spine (principal)
CPT/HCPCS: 72072

== ENCOUNTER 2022-06-10 16:48 | Outpatient (CLI) | payer MEDICARE, SELFPAY ==
--- NOTE | ~2022-06-10 | XR_ITS ---
XR knee RT min 4V 06/10/2022 17:47 Indication: Right knee pain Procedure: 4 views right knee Comparison: No prior studies for comparison. Findings: No fracture, subluxation or dislocation. There is anatomic alignment. No significant joint space narrowing. No joint effusion. Impression: 1: No significant bone or joint abnormality. Reviewed, dictated and finalized at location B. Impression: 1: No significant bone or joint abnormality.
--- NOTE | ~2022-06-10 | XR_ITS ---
EXAMINATION: XR knee LT min 4V DATE: 06/10/2022 17:48 INDICATION: Bilateral knee pain TECHNIQUE: 1. Weight bearing anteroposterior and Martin, sunrise, and flexed lateral views of the left knee w ere obtained. 2. Weight bearing anteroposterior and Martin, sunrise, and flexed lateral views of the right knee were obtained COMPARISON: None. FINDINGS: Alignment is normal at both knees. No fracture. Mild joint space are at the medial compartment of th e right knee. Joint spaces are normal at the medial compartment the left knee and bilateral at the la teral and patellofemoral compartments of both knees. No joint effusion/layering lipohemarthrosis. Sof t tissues are unremarkable. IMPRESSION: 1. Mild osteoarthritis at the medial compartment of the right knee. 2. Negative left knee radiographs. Reviewed, dictated and finalized at location A.
[2022-06-10 17:14] LABS: Basophils Absolute Auto 0.02 K/mm3 (0.00-0.10); Basophils Percent Auto 0.4 % (0.0-1.0); Eosinophils Absolute Auto 0.18 K/mm3 (0.02-0.50); Eosinophils Percent Auto 3.8 % (1.0-6.0); Hematocrit 40.1 % (35.0-49.0); Hemoglobin 13.6 g/dL (12.0-15.0); Immature Granulocyte Absolute 0.02 K/mm3 (0.00-0.00); Immature Granulocyte Percent A 0.4 % (0.0-0.0); Lymphocytes Absolute Auto 2.05 K/mm3 (1.10-4.50); Lymphocytes Percent Auto 43.7 % (18.0-42.0); Mean Corpuscular HGB Conc 33.9 g/dL (32.0-36.0); Mean Corpuscular Hemoglobin 32.9 pg (27.0-31.0); Mean Corpuscular Volume 96.9 fL (78.0-102.0); Mean Platelet Volume 9.9 fl (9.2-11.8); Monocytes Absolute Auto 0.46 K/mm3 (0.10-0.90); Monocytes Percent Auto 9.8 % (2.0-11.0); Neutrophils Percent Auto 41.9 % (50.0-70.0); Platelet Count Result 194 K/mm3 (150-420); Red Blood Count 4.14 M/mm3 (4.20-5.40); Red Cell Distribution Width 13.2 % (11.6-14.4); White Blood Count 4.7 K/mm3 (4.8-10.8)
[2022-06-10 17:31] LABS: Hemoglobin A1C 5.6 % (<5.7)
[2022-06-10 17:54] LABS: Alanine Aminotransferase 34 U/L (14-59); Albumin Level 3.4 g/dL (3.4-5.0); Alkaline Phosphatase 100 U/L (46-116); Anion Gap 7 mmol/L (8-16); Aspartate Amino Transferase 45 U/L (15-37); Bilirubin,Total 1.2 mg/dL (0.00-1.00); Blood Urea Nitrogen 10 mg/dL (7-18); Calcium 8.8 mg/dL (8.5-10.1); Carbon Dioxide 25 mmol/L (21-32); Chloride 111 mmol/L (98-108); Cholesterol 131 mg/dL (0-200); Estimated Glomerular Filt Rate > 60; Glucose 103 mg/dL (70-99); HDL Direct 56 mg/dL (40-60); LDL Cholesterol Calculated 64 mg/dL (<130); Osmolality Calculated 295 mOsm/kg (285-295); Potassium 4.4 mmol/L (3.5-5.1); Sodium 143 mmol/L (136-145); Thyroid Stimulating Hormone 0.58 uIU/mL (0.36-3.74); Total Protein 6.1 g/dL (6.4-8.2); Triglycerides 56 mg/dL (0-150); Vitamin B12 704 pg/mL (193-986)
== END 2022-06-10 16:49 | disposition home or self-care (01) ==
LOC: CHSLAB 16:55
DX: E66.9 Obesity, unspecified (principal); I10 Essential (primary) hypertension; F31.9 Bipolar disorder, unspecified; J45.909 Unspecified asthma, uncomplicated; Z79.899 Other long term (current) drug therapy
CPT/HCPCS: 36415; 73564; 80053; 80061; 82607; 83036; 84443; 85025

== ENCOUNTER 2022-07-01 16:50 | Outpatient (RCR) | payer MEDICARE, SELFPAY ==
--- NOTE | 2022-07-02 13:10 | PTOPEVAL1 ---
Assessment and note entered by JT File, PT Evaluation Information Assessment Status Evaluation Diagnosis generalized weakness Onset 06/11/22 Subjective Information patient reports she has a lot going on. she reports she has weakness in the legs and hips. she reports she has had a few bad falls about a week ago. she reports she is unsteady and feels like her legs can give out on her any time. she reports she has not tripped over objects or gotten dizzy. she reports she is worse in the mornings. she reports getting up quickly especially will make her symptoms worse. she reports she does try and walk daily. however, she reports she is worse sometimes when she is active several days in a row . she reports she has chronic pain in the back and hips. These treatments will address the objective and functional deficits as defined above. The patient will be advanced safely and appropriately in order for the patient to progress towards his/her prior level of function. Additional exercises will be introduced and as well as a comprehensive home exercise program upon discharge, if needed, ?to ensure carryover of functional gains achieved in the clinic. This treatment plan has been reviewed and agreement upon by the patient.
== END 2022-07-01 23:59 | disposition home or self-care (01) ==
LOC: CHSPT 16:50
DX: M62.81 Muscle weakness (generalized) (principal)
CPT/HCPCS: 97110; 97161

== ENCOUNTER 2022-10-05 18:26 | Emergency (ER) | payer MEDICARE, SELFPAY ==
[2022-10-05] VITALS (16 sets, daily range): BP systolic 102–161; BP diastolic 73–93; PULSE 86–110; RESP 18–20; TEMP 36.6–36.7; O2SAT 96–100
--- NOTE | ~2022-10-05 | XR_ITS ---
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 RESULT: Lines, tubes, and devices: Cholecystectomy clips. Lungs and pleura: Minimal streaky opacities in the left lower lung on the frontal view, likely withi n the lingula. Chronic minimal left posterior costophrenic angle blunting. Cardiomediastinal silhouette: Stable. Other: No acute osseous or upper abdominal finding. IMPRESSION: Minimal scar/atelectasis in the lingula. Chronic pleural scar in the left posterior costophrenic angl e. No acute cardiopulmonary process detected. Reviewed, dictated and finalized at location K. STANT PLANT CONTROLLER IMPRESSION: Minimal scar/atelectasis in the lingula. Chronic pleural scar in the left poste rior costophrenic angle. No acute cardiopulmonary process detected.
--- NOTE | ~2022-10-05 | XR_ITS ---
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 RESULT: Lines, tubes, and devices: None. Lungs and pleura: Slightly low volumes. Obscuration of left hemidiaphragm. Cardiomediastinal silhouette: Stable. Other: No acute osseous or upper abdominal finding. IMPRESSION: Left hemidiaphragm silhouette sign which may be secondary to artifact from technique or a left basila r consolidation. Consider PA and lateral views of the chest for further evaluation. Reviewed, dictated and finalized at location K. ERY STARTER IMPRESSION: Left hemidiaphragm silhouette sign which may be secondary to artifact from tech nique or a left basilar consolidation. Consider PA and lateral views of the sandy st for further evaluation.
--- NOTE | 2022-10-05 18:38 | ECG_ITS ---
Measurements Intervals [place] Rate: 108 P: 49 AR: 151 QRS: -32 QRSD: 96 T: 30 QT: 349 QTc: 469 Interpretive Statements SINUS TACHYCARDIA LEFT AXIS DEVIATION POOR R WAVE PROGRESSION, ANTERIOR LEADS INFERIOR INFARCT, AGE INDETERMINATE BASELINE ARTIFACT- I, II, III, AVR, AVL, AVF ABNORMAL ECG COMPARED TO ECG 10/23/2021 18:26:55 INFERIOR INFARCT, AGE INDETERMINATE NOW PRESENT Electronically Signed On 10-06-2022 6:25:55 AGRONOMY ADVISOR by Yariel Beltran D.O.
--- NOTE | 2022-10-05 18:59 | ED.CHESTPAIN ---
HPI - Chest Pain General Chief Complaint: Chest Pain Stated Complaint: chest pain, neck pain, shoulder pain, head pain Time Seen by Provider: 10/05/22 18:59 History of Present Illness HPI narrative: 52-year-old female patient with known history of hypertension, scleroderma, sarcoidosis and bilateral pulmonary embolism currently on treatment withdrawal to is present in herself to the ER with complaints of chest pain. Patient states that last 2-3 days she has not been feeling well and has had some chest discomfort and tonight it got worse. She describes the discomfort as a burning sensation that went from the epigastric area clear into the left shoulder and behind her ear. She felt a little lightheaded and hot but did not break out in any cold sweat. She is generally short of breath and there was no worsening of the shortness of breath with the chest discomfort. Patient states that she also felt some discomfort going down her left arm. There is no prior history of coronary artery syndrome however the patient does have significant risk factors with high blood pressure, obesity smoking and collagen disorder. She states that the pain was about 8-9 at home and it is down to 4. She denies any nausea or vomiting. Related Data Home Medications Medication Instructions Recorded Confirmed hydroxychloroquine 200 mg tablet 200 mg PO DAILY 11/27/19 10/05/22 meloxicam 7.5 mg tablet 7.5 mg PO DAILY PRN Pain 11/27/19 10/05/22 rivaroxaban 20 mg tablet (Xarelto) 20 mg PO DAILY 11/27/19 10/05/22 Linzess 72 mcg PO DAILY 10/23/21 10/05/22 Tylenol 1,000 mg PO Q8H 10/23/21 10/05/22 budesonide-formoterol HFA 80 2 inh inhalation BID 10/23/21 10/05/22 mcg-4.5 mcg/actuation aerosol inhaler (Symbicort) famotidine 40 mg tablet 40 mg PO HS 10/23/21 10/05/22 fluticasone propionate 50 1 spray intranasal BID 10/23/21 10/05/22 mcg/actuation nasal spray,suspension duloxetine 60 mg capsule,delayed 120 mg PO DAILY 02/25/22 10/05/22 release methadone 10 mg tablet 10 mg PO TID PRN Pain 02/25/22 10/05/22 multivit with minerals-iron 18 1 tablet PO DAILY 02/25/22 10/05/22 mg-folic ac 400 mcg-vit K 25 mcg tablet (Adults Multivitamin) pitolisant 17.8 mg tablet (Wakix) 17.8 mg PO DAILY 02/25/22 10/05/22 propranolol 60 mg tablet 60 mg PO HS 02/25/22 10/05/22 spironolactone 25 mg tablet 25 tablet PO DAILY 02/25/22 10/05/22 tofacitinib 11 mg tablet,extended 11 mg PO DAILY 02/25/22 10/05/22 release 24 hr (Xeljanz XR) dextroamphetamine-amphetamine 20 20 mg PO DAILY 04/20/22 10/05/22 mg tablet Allergies Allergy/AdvReac Type Severity Reaction Status Date / Time amitriptyline Allergy Intermediate Other Verified 10/05/22 18:38 aspartame Allergy Intermediate Other Verified 10/05/22 18:38 atomoxetine Allergy Intermediate Unknown Verified 10/05/22 18:38 gabapentin Allergy Intermediate Other Verified 10/05/22 18:38 nortriptyline Allergy Intermediate Other Verified 10/05/22 18:38 prednisone Allergy Intermediate Hyperactive Verified 10/05/22 18:38 cyclobenzaprine Allergy Anxiety Verified 10/05/22 18:38 fluoxetine Allergy Unknown Verified 10/05/22 18:38 pregabalin Allergy Anxiety Verified 10/05/22 18:38 sulfasalazine Allergy Unknown Verified 10/05/22 18:38 sumatriptan Allergy Unknown Verified 10/05/22 18:38 methotrexate AdvReac Intermediate Diarrhea Verified 10/05/22 18:38 methylprednisolone AdvReac Agitated Verified 10/05/22 18:38 Review of Systems Review of Systems: All systems reviewed & are unremarkable except as noted in HPI and below Constitutional: Constitutional: Reports no additional constitutional complaints and Reports fatigue Eyes: Eyes: Reports no additional eye complaints ENT: Reports system reviewed and no additional complaints, except as documented Cardiovascular: Cardiovascular: Reports chest pain, Denies rapid heart rate, Reports radiating jaw, neck or arm pain and Denies slow heart rate Respiratory: Respiratory: Denies chest congest
--- NOTE | 2022-10-05 19:11 | PC.NURSE ---
PT REPORTS HX OF BILAT PE, CURRENTLY TAKING XERALTO. REPORT TO FERNANDA DUVAL. FAMILY AT BEDSIDE. NAD NOTED.
[2022-10-05 19:26] LABS: Basophils Absolute Auto 0.03 K/mm3 (0.00-0.10); Basophils Percent Auto 0.5 % (0.0-1.0); Eosinophils Absolute Auto 0.32 K/mm3 (0.02-0.50); Eosinophils Percent Auto 5.7 % (1.0-6.0); Hematocrit 41.4 % (35.0-49.0); Hemoglobin 13.9 g/dL (12.0-15.0); Immature Granulocyte Absolute 0.02 K/mm3 (0.00-0.00); Immature Granulocyte Percent A 0.4 % (0.0-0.0); Lymphocytes Absolute Auto 1.51 K/mm3 (1.10-4.50); Mean Corpuscular HGB Conc 33.6 g/dL (32.0-36.0); Mean Corpuscular Volume 95.4 fL (78.0-102.0); Mean Platelet Volume 9.8 fl (9.2-11.8); Monocytes Percent Auto 8.9 % (2.0-11.0); Neutrophils Absolute Auto 3.2 K/mm3 (1.7-7.2); Neutrophils Percent Auto 57.5 % (50.0-70.0); Platelet Count Result 195 K/mm3 (150-420); Red Blood Count 4.34 M/mm3 (4.20-5.40); Red Cell Distribution Width 12.8 % (11.6-14.4); White Blood Count 5.6 K/mm3 (4.8-10.8)
[2022-10-05 19:48] LABS: Alanine Aminotransferase 26 U/L (14-59); Albumin Level 3.2 g/dL (3.4-5.0); Alkaline Phosphatase 111 U/L (46-116); Anion Gap 8 mmol/L (8-16); Aspartate Amino Transferase 25 U/L (15-37); Bilirubin,Total 0.6 mg/dL (0.00-1.00); Blood Urea Nitrogen 10 mg/dL (7-18); Calcium 8.6 mg/dL (8.5-10.1); Carbon Dioxide 28 mmol/L (21-32); Chloride 104 mmol/L (98-108); Estimated CRCL calculation 89 ml/min; Estimated Glomerular Filt Rate > 60; Glucose 99 mg/dL (70-99); NT Pro B Type Natriuretic Pept 20 pg/mL (0-125); Osmolality Calculated 289 mOsm/kg (285-295); Potassium 3.7 mmol/L (3.5-5.1); Sodium 140 mmol/L (136-145); Total Protein 6.3 g/dL (6.4-8.2)
[2022-10-05 19:58] LABS: Troponin I 7.4 ng/L (0.00-60.4)
[2022-10-05 21:30] LABS: Troponin I 7.6 ng/L (0.00-60.4)
[2022-10-05 21:41] LABS: Add Urine Microscopic? YES; Appearance Urine Clear (Clear); Bilirubin Urine Negative (Negative); Blood Urine Negative (Negative); Color Urine Light Yellow (Yellow); Glucose Urine UA Negative (Negative); Ketones Urine Negative (Negative); Leukocyte Esterase Ur Negative LEU/UL (Negative); Nitrate Urine Negative (Negative); Protein Urine Negative (Negative); pH Urine 5.5 (5.0-8.0)
[2022-10-05 21:45] LABS: Bacteria Urine 1+ /hpf; RBC Urine 0-2 /hpf (0-2); Squamous Epithelial Cell Urine Few /hpf (Few); WBC Urine 0-3 /hpf (0-3)
== END 2022-10-05 21:57 | disposition home or self-care (01) ==
PROVIDERS: Emergency Provider Emergency Medicine
DX: R07.89 Other chest pain (principal); R06.02 Shortness of breath; I10 Essential (primary) hypertension; F17.210 Nicotine dependence, cigarettes, uncomplicated; Z86.711 Personal history of pulmonary embolism; Z79.01 Long term (current) use of anticoagulants; Z79.1 Long term (current) use of non-steroidal anti-inflammatories (NSAID); Z86.73 Personal history of transient ischemic attack (TIA), and cerebral infarction without residual deficits
CPT/HCPCS: 36415; 71045; 71046; 80053; 81001; 83880; 84484; 85025; 93005; 99284

== ENCOUNTER 2023-01-07 14:26 | Emergency (ER) | payer MEDICARE, SELFPAY ==
[2023-01-07] VITALS (12 sets, daily range): BP systolic 151–172; BP diastolic 94–108; PULSE 108–131; RESP 16–20; TEMP 36.2; O2SAT 93–98
--- NOTE | 2023-01-07 14:34 | ED.RECABL ---
HPI - Recheck/Abnormal Lab/Rx General Chief Complaint: Arrhythmia/Palpitations Stated Complaint: Hypertension Time Seen by Provider: 01/07/23 14:27 Source: patient and RN notes reviewed Mode of arrival: ambulatory Limitations: no limitations History of Present Illness HPI narrative: patient has been working with her primary care physician to adjust blood pressure medicines and medication for her heart rate. She noticed today that her heart rate is elevated and her blood pressure is elevated as well despite recently being increased on her metoprolol and her lisinopril. She states she is not having any new symptoms no new complaints. Her doctor told her that if her heart rate got over 120 she should come to the emergency room. She also states that she had blood work 1 week ago without any significant abnormalities found. She also had an echocardiogram. Initial visit (ago): hour(s) (6) Description of abnormal result: elevated blood pressure and tachycardia Symptoms since prior visit: no new symptoms Associated symptoms: none Related Data Home Medications Medication Instructions Recorded Confirmed hydroxychloroquine 200 mg tablet 200 mg PO DAILY 11/27/19 10/05/22 meloxicam 7.5 mg tablet 7.5 mg PO DAILY PRN Pain 11/27/19 10/05/22 rivaroxaban 20 mg tablet (Xarelto) 20 mg PO DAILY 11/27/19 10/05/22 Linzess 72 mcg PO DAILY 10/23/21 10/05/22 Tylenol 1,000 mg PO Q8H 10/23/21 10/05/22 budesonide-formoterol HFA 80 2 inh inhalation BID 10/23/21 10/05/22 mcg-4.5 mcg/actuation aerosol inhaler (Symbicort) famotidine 40 mg tablet 40 mg PO HS 10/23/21 10/05/22 fluticasone propionate 50 1 spray intranasal BID 10/23/21 10/05/22 mcg/actuation nasal spray,suspension duloxetine 60 mg capsule,delayed 120 mg PO DAILY 02/25/22 10/05/22 release methadone 10 mg tablet 10 mg PO TID PRN Pain 02/25/22 10/05/22 multivit with minerals-iron 18 1 tablet PO DAILY 02/25/22 10/05/22 mg-folic ac 400 mcg-vit K 25 mcg tablet (Adults Multivitamin) pitolisant 17.8 mg tablet (Wakix) 17.8 mg PO DAILY 02/25/22 10/05/22 propranolol 60 mg tablet 60 mg PO HS 02/25/22 10/05/22 spironolactone 25 mg tablet 25 tablet PO DAILY 02/25/22 10/05/22 tofacitinib 11 mg tablet,extended 11 mg PO DAILY 02/25/22 10/05/22 release 24 hr (Xeljanz XR) dextroamphetamine-amphetamine 20 20 mg PO DAILY 04/20/22 10/05/22 mg tablet Allergies Allergy/AdvReac Type Severity Reaction Status Date / Time amitriptyline Allergy Intermediate Other Verified 10/05/22 18:38 aspartame Allergy Intermediate Other Verified 10/05/22 18:38 atomoxetine Allergy Intermediate Unknown Verified 10/05/22 18:38 gabapentin Allergy Intermediate Other Verified 10/05/22 18:38 nortriptyline Allergy Intermediate Other Verified 10/05/22 18:38 prednisone Allergy Intermediate Hyperactive Verified 10/05/22 18:38 cyclobenzaprine Allergy Anxiety Verified 10/05/22 18:38 fluoxetine Allergy Unknown Verified 10/05/22 18:38 pregabalin Allergy Anxiety Verified 10/05/22 18:38 sulfasalazine Allergy Unknown Verified 10/05/22 18:38 sumatriptan Allergy Unknown Verified 10/05/22 18:38 methotrexate AdvReac Intermediate Diarrhea Verified 10/05/22 18:38 methylprednisolone AdvReac Agitated Verified 10/05/22 18:38 Review of Systems Review of Systems: All systems reviewed & are unremarkable except as noted in HPI and below PMFSH Past Medical History Medical History Arthritis Asthma Colitis Depression Diverticulitis Fibromyalgia History of gastroesophageal reflux (GERD) History of hypercholesterolemia History of TIA (transient ischemic attack) Hypertension Mitral valve prolapse Pneumonia Pulmonary embolism Systemic lupus Surgical History Surgical History History of cholecystectomy History of hysterectomy Social History Social History Years smoked:
[2023-01-07] MEDS: LABETALOL HCL INJ 100 MG/20 ML VIAL IV PUSH ×2 (14:49→15:19)
== END 2023-01-07 15:40 | disposition home or self-care (01) ==
PROVIDERS: Emergency Provider Emergency Medicine
DX: R00.0 Tachycardia, unspecified (principal); I10 Essential (primary) hypertension; J45.909 Unspecified asthma, uncomplicated; F17.210 Nicotine dependence, cigarettes, uncomplicated; Z86.73 Personal history of transient ischemic attack (TIA), and cerebral infarction without residual deficits
CPT/HCPCS: 96374; 99284

== ENCOUNTER 2023-01-20 19:45 | Observation (INO) | payer MEDICARE, SELFPAY ==
[2023-01-20] VITALS (19 sets, daily range): BP systolic 125–164; BP diastolic 77–94; PULSE 98–135; RESP 13–25; TEMP 36.2–36.9; O2SAT 96–100; BMI 53.6
--- NOTE | ~2023-01-20 | XR_ITS ---
EXAMINATION: XR chest 1V portable DATE: 01/20/2023 20:30 INDICATION: Dizziness. TECHNIQUE: A single frontal view of the chest was obtained. COMPARISON: Chest 2 views 10/05/2022 FINDINGS: The chest demonstrates clear lungs without pneumonia, pleural effusion, or pneumothorax. Th e heart size is normal. IMPRESSION: 1. No acute cardiopulmonary disease. Reviewed, dictated and finalized at location E.
--- NOTE | 2023-01-20 19:47 | ECG_ITS ---
Measurements Intervals [place] Rate: 134 P: 61 CT: 130 QRS: -31 QRSD: 90 T: 53 QT: 313 QTc: 468 Interpretive Statements SINUS TACHYCARDIA LEFT AXIS DEVIATION PATTERN CONSISTENT WITH PULMONARY DISEASE INFERIOR INFARCT, AGE INDETERMINATE BASELINE ARTIFACT- V5-V6 ABNORMAL ECG COMPARISON TO PRIOR ECG 10-05-22 18:44:02 HEART RATE HAS INCREASED Electronically Signed On 01-20-2023 21:15:57 CDT by Yariel Beltran D.O.
[2023-01-20] MEDS: METOPROLOL TARTRATE INJ 5 MG/5 ML VIAL IV PUSH (20:20)
[2023-01-20 20:21] LABS: Basophils Absolute Auto 0.04 K/mm3 (0.00-0.10); Basophils Percent Auto 0.4 % (0.0-1.0); Eosinophils Absolute Auto 0.17 K/mm3 (0.02-0.50); Eosinophils Percent Auto 1.8 % (1.0-6.0); Hematocrit 41.7 % (35.0-49.0); Hemoglobin 14.1 g/dL (12.0-15.0); Immature Granulocyte Absolute 0.05 K/mm3 (0.00-0.00); Immature Granulocyte Percent A 0.5 % (0.0-0.0); Lymphocytes Absolute Auto 2.65 K/mm3 (1.10-4.50); Lymphocytes Percent Auto 28.1 % (18.0-42.0); Mean Corpuscular HGB Conc 33.8 g/dL (32.0-36.0); Mean Corpuscular Hemoglobin 32.6 pg (27.0-31.0); Mean Corpuscular Volume 96.5 fL (78.0-102.0); Mean Platelet Volume 10.3 fl (9.2-11.8); Monocytes Absolute Auto 0.66 K/mm3 (0.10-0.90); Neutrophils Absolute Auto 5.9 K/mm3 (1.7-7.2); Neutrophils Percent Auto 62.2 % (50.0-70.0); Platelet Count Result 220 K/mm3 (150-420); Red Blood Count 4.32 M/mm3 (4.20-5.40); White Blood Count 9.4 K/mm3 (4.8-10.8)
[2023-01-20 20:29] LABS: D Dimer 0.47 mg/L (0.19-0.50); INR 0.9; Partial Thromboplastin Time 22.1 SEC (23.90-30.70); Prothrombin Time 10.1 Seconds (9.50-12.10)
[2023-01-20 20:37] LABS: Alanine Aminotransferase 31 U/L (14-59); Albumin Level 3.1 g/dL (3.4-5.0); Alkaline Phosphatase 125 U/L (46-116); Anion Gap 9 mmol/L (8-16); Aspartate Amino Transferase 34 U/L (15-37); Bilirubin,Total 0.6 mg/dL (0.00-1.00); Blood Urea Nitrogen 7 mg/dL (7-18); Carbon Dioxide 26 mmol/L (21-32); Chloride 103 mmol/L (98-108); Estimated Glomerular Filt Rate 57; Glucose 191 mg/dL (70-99); Magnesium 1.8 mg/dL (1.8-2.4); NT Pro B Type Natriuretic Pept 98 pg/mL (0-125); Osmolality Calculated 289 mOsm/kg (285-295); Potassium 3.9 mmol/L (3.5-5.1); Sodium 138 mmol/L (136-145); Total Protein 6.6 g/dL (6.4-8.2); Troponin I 30.9 ng/L (0.00-60.4)
[2023-01-20] MEDS: SODIUM CHLORIDE 0.9% IV 1,000 ML 999 ML IV CONT (20:41)
[2023-01-20 21:24] LABS: Appearance Urine Clear (Clear); Bilirubin Urine Negative (Negative); Blood Urine Negative (Negative); Color Urine Yellow (Yellow); Glucose Urine UA 3+ (Negative); Ketones Urine Negative (Negative); Leukocyte Esterase Ur Negative LEU/UL (Negative); Nitrate Urine Negative (Negative); Protein Urine Negative (Negative); Specific Grav Ur 1.025 (1.010-1.020); Urobilinogen Urine 0.2 mg/dL (0.2-1.0)
--- NOTE | 2023-01-20 21:28 | ED.DIZZY ---
HPI - Dizziness General Chief Complaint: Dizziness Stated Complaint: Dizzyness Source: patient Mode of arrival: ambulatory Limitations: no limitations History of Present Illness HPI Narrative: this is a 52-year-old female with a history of PE presents with shortness of breath and tachycardia, the patient has been out of her Xarelto for the last couple of weeks and presents with elevated heart rate initially the 135 with a blood pressure 161/90 2 respiratory rate of about 13 O2 sats 100%. The patient denies any chest pain no abdominal pain no nausea or vomiting. She has been having lightheadedness and dizzy sensation for last since early this morning with no fainting spells did not pass out no syncopal episode no neurological deficits denies any flank pain or abdominal pain no dysuria no hematuria. There is no calf pain or tenderness no lower extremity edema. MD elicited complaint: dizziness and lightheadedness Onset (ago): hour(s) Timing: gradual onset Severity: moderate Description: lightheadedness Related Data Home Medications Medication Instructions Recorded Confirmed meloxicam 7.5 mg tablet 7.5 mg PO DAILY PRN Pain 11/27/19 01/20/23 Tylenol 1,000 mg PO Q8H 10/23/21 01/20/23 budesonide-formoterol HFA 80 2 inh inhalation BID 10/23/21 01/20/23 mcg-4.5 mcg/actuation aerosol inhaler (Symbicort) famotidine 40 mg tablet 40 mg PO HS 10/23/21 01/20/23 duloxetine 60 mg capsule,delayed 120 mg PO DAILY 02/25/22 01/20/23 release pitolisant 17.8 mg tablet (Wakix) 17.8 mg PO DAILY 02/25/22 01/20/23 tofacitinib 11 mg tablet,extended 11 mg PO DAILY 02/25/22 01/20/23 release 24 hr (Xeljanz XR) dextroamphetamine-amphetamine 20 20 mg PO DAILY 04/20/22 01/20/23 mg tablet aripiprazole 10 mg tablet 10 mg DAILY 01/20/23 01/20/23 bismuth subsalicylate 262 mg 2 tablet PO Q1H PRN upset stomach 01/20/23 01/20/23 chewable tablet ketorolac 10 mg tablet 10 mg PO Q6H PRN Pain 01/20/23 01/20/23 lisinopril 40 mg tablet 40 mg PO DAILY 01/20/23 01/20/23 loratadine 10 mg capsule 10 mg PO DAILY PRN Allergy Symptoms 01/20/23 01/20/23 metoprolol succinate 25 mg 25 mg PO DAILY 01/20/23 01/20/23 tablet,extended release 24 hr (Toprol XL) pregabalin 50 mg capsule 50 mg PO DAILY 01/20/23 01/20/23 tramadol 50 mg tablet 50 mg PO Q6H PRN Pain 01/20/23 01/20/23 Allergies Allergy/AdvReac Type Severity Reaction Status Date / Time amitriptyline Allergy Intermediate Other Verified 10/05/22 18:38 aspartame Allergy Intermediate Other Verified 10/05/22 18:38 atomoxetine Allergy Intermediate Unknown Verified 10/05/22 18:38 gabapentin Allergy Intermediate Other Verified 10/05/22 18:38 nortriptyline Allergy Intermediate Other Verified 10/05/22 18:38 prednisone Allergy Intermediate Hyperactive Verified 10/05/22 18:38 cyclobenzaprine Allergy Anxiety Verified 10/05/22 18:38 fluoxetine Allergy Unknown Verified 10/05/22 18:38 pregabalin Allergy Anxiety Verified 10/05/22 18:38 sulfasalazine Allergy Unknown Verified 10/05/22 18:38 sumatriptan Allergy Unknown Verified 10/05/22 18:38 methotrexate AdvReac Intermediate Diarrhea Verified 10/05/22 18:38 methylprednisolone AdvReac Agitated Verified 10/05/22 18:38 Review of Systems Review of Systems: All systems reviewed & are unremarkable except as noted in HPI and below PMFSH Past Medical History Medical History Arthritis Asthma Colitis Depression Diverticulitis Fibromyalgia History of gastroesophageal reflux (GERD) History of hypercholesterolemia History of TIA (transient ischemic attack) Hypertension Mitral valve prolapse Pneumonia Pulmonary embolism Systemic lupus Surgical History Surgical History History of cholecystectomy History of hysterectomy Social History Social History Years smoked: 15 Smoking status: Current every day
[2023-01-20 21:31] LABS: Amphetamine Screen Urine Positive (Negative); Barbiturate Screen Urine Negative (Negative); Benzodiazepines Screen Urine Negative (Negative); Cannabinoid Screen Urine Negative (Negative); Cocaine Screen Urine Negative (Negative); Methadone Screen Urine Negative (Negative); Opiate Screen Urine Negative (Negative); Phencyclidine Screen Urine Negative (Negative)
[2023-01-20 21:32] LABS: Add Urine Microscopic? YES; Bacteria Urine Trace /hpf; RBC Urine 0-2 /hpf (0-2); Squamous Epithelial Cell Urine Rare /hpf (Few); WBC Urine 0-3 /hpf (0-3)
[2023-01-20] MEDS: RIVAROXABAN 10 MG TABLET PO (21:43)
--- NOTE | 2023-01-20 22:42 | ADMGEN ---
This patient, Ree Carlson, was admitted to 2nd Floor Room 204-2. Patient/family oriented to hospital policies and general routines including ID bracelet, bed and alarms, visiting hours, pain management, procedures, bathroom and other care routines, personal items, smoking policy, room service/diet, and visiting hours. Information on how to activate the Rapid Response Team has been discussed. Patient/Family are encouraged to report perceived risks to care and to ask questions if they do not understand what they are told or what they should do.
[2023-01-20 23:04] LABS: Reflex Lactic Acid Yes or No Add Lactic
[2023-01-20] MEDS: SODIUM CHLORIDE 0.9% IV 1,000 ML 100 ML IV CONT (23:08)
--- NOTE | 2023-01-20 23:14 | PC.NURSE ---
Pt would like to speak w/social service worker w/care for herself due to chronic health conditions and Lupus.
--- NOTE | 2023-01-20 23:26 | PC.NURSE ---
Pt's home medications along w/her keys are locked in the med room on the 2nd floor. Pt's phone, it technical architect, and glasses are in pt room
--- NOTE | 2023-01-20 23:29 | PC.NURSE ---
This RN notified Saba Vu RN (charge nurse) of pt's suicide score and that the pt has not had suicidal thoughts for over 20 years.
[2023-01-21 03:30] VITALS: PULSE 90
[2023-01-21 04:00] VITALS: BP 117/51; PULSE 60; RESP 17; TEMP 36.3; O2SAT 96
[2023-01-21 05:27] LABS: Hematocrit 38.6 % (35.0-49.0); Mean Corpuscular HGB Conc 33.7 g/dL (32.0-36.0); Mean Corpuscular Hemoglobin 32.4 pg (27.0-31.0); Mean Corpuscular Volume 96.3 fL (78.0-102.0); Mean Platelet Volume 10.2 fl (9.2-11.8); Platelet Count Result 205 K/mm3 (150-420); Red Blood Count 4.01 M/mm3 (4.20-5.40); Red Cell Distribution Width 13.2 % (11.6-14.4); White Blood Count 7.4 K/mm3 (4.8-10.8)
[2023-01-21 05:44] LABS: Anion Gap 7 mmol/L (8-16); Blood Urea Nitrogen 7 mg/dL (7-18); Calcium 8.4 mg/dL (8.5-10.1); Carbon Dioxide 27 mmol/L (21-32); Chloride 108 mmol/L (98-108); Estimated CRCL calculation 94 ml/min; Estimated Glomerular Filt Rate > 60; Glucose 165 mg/dL (70-99); Osmolality Calculated 296 mOsm/kg (285-295); Potassium 3.8 mmol/L (3.5-5.1); Sodium 142 mmol/L (136-145)
[2023-01-21 05:54] LABS: Lactic Acid 1.5 mmol/L (0.4-2.0)
[2023-01-21] MEDS: traMADol HCL (*CRX) 50 MG TABLET PO (06:19)
[2023-01-21 08:00] VITALS: BP 117/61; PULSE 85; PULSE 88; RESP 14; TEMP 36.4; O2SAT 98
[2023-01-21] MEDS: BUDESONIDE/FORMOTEROL 80/4.5 MCG 6.9 GM INHALER (*SP) 2 PUFF INHALATION (09:19)
[2023-01-21] MEDS: DULoxetine HCL 30 MG CAPSULE.DR 120 MG PO (09:20)
[2023-01-21 09:21] VITALS: PULSE 72
[2023-01-21] MEDS: RIVAROXABAN 10 MG TABLET PO (09:21)
[2023-01-21] MEDS: METOPROLOL SUCCINATE EXT REL 25 MG TABCR PO (09:21)
[2023-01-21] MEDS: PREGABALIN (*CRX) 50 MG CAPSULE PO (09:21)
[2023-01-21] MEDS: lisinopriL 20 MG TABLET 40 MG PO (09:24)
--- NOTE | 2023-01-21 09:30 | PM.SD2 ---
Same Day Admit/Disch: HPI History of Present Illness Chief complaint: DEHYDRATION TACHYCARDIA SOB Narrative: Ree Carlson is a 52 year old female who presented to the ER at [facility] with Dyspnea and Tachycardia with significant hx of being out of her Xarelto for two weeks that she took for previous PE. Other PMH includes arthritis, asthma, colitis, depression, diverticulitis, FM, GERD, HLD, TIA, HTN, MVP, PE and Lupus. She was admitted to the hospital for observation after she was found to be overtly tachycardic in the ER. D-dimer was negative for active PE. Pt. states she has been out of her Xarelto because she is between PCP's. After admission to the hospital, her pulse decreased with IVF hydration and she is without complaint. Her Lactic acid has decreased from 3.0-->1.5, and her pulse is 70s-90s. She is agreeable to discharge today and we will provide her with a prescription for Xarelto. She denies any CP, dyspnea, N/V. PMFSH Past Medical History Medical History Arthritis Asthma Colitis Depression Diverticulitis Fibromyalgia History of gastroesophageal reflux (GERD) History of hypercholesterolemia History of TIA (transient ischemic attack) Hypertension Mitral valve prolapse Pneumonia Pulmonary embolism Systemic lupus Surgical History Surgical History History of cholecystectomy History of hysterectomy Social History Social History Years smoked: 20 Smoking status: Former smoker Tobacco type: cigarettes Second hand tobacco smoke exposure: No Smoking end date: 11/29/22 Alcohol intake: former Alcohol use details: Rare Substance use: current Substance use type: marijuana, amphetamines and prescription drug Last use: 01/06/2023 Lack of Transportation: No Lack of Food: Never True Current Housing: I Have Housing Concerned About Future Housing: No Difficulty Paying Gas/Electric Bills: No Difficulty Paying for Meds: No Currently Unemployed: No Education: High School Diploma/GED Difficulty w/ Childcare or Family Care: No Living arrangements: alone Gender identity (if verbalized by the patient): Female Spiritual care concerns: Yes ([employer]) Same Day Admit/Disch: Med Pre-admit Medications Home Medications Medication Instructions Recorded Confirmed Type meloxicam 7.5 mg tablet 7.5 mg PO DAILY PRN Pain 11/27/19 01/20/23 History Tylenol 1,000 mg PO Q8H 10/23/21 01/20/23 History budesonide-formoterol HFA 80 2 inh inhalation BID 10/23/21 01/20/23 History mcg-4.5 mcg/actuation aerosol inhaler (Symbicort) famotidine 40 mg tablet 40 mg PO HS 10/23/21 01/20/23 History duloxetine 60 mg capsule,delayed 120 mg PO DAILY 02/25/22 01/20/23 History release pitolisant 17.8 mg tablet (Wakix) 17.8 mg PO DAILY 02/25/22 01/20/23 History tofacitinib 11 mg tablet,extended 11 mg PO DAILY 02/25/22 01/20/23 History release 24 hr (Xeljanz XR) dextroamphetamine-amphetamine 20 20 mg PO DAILY 04/20/22 01/20/23 History mg tablet aripiprazole 10 mg tablet 10 mg DAILY 01/20/23 01/20/23 History bismuth subsalicylate 262 mg 2 tablet PO Q1H PRN upset stomach 01/20/23 01/20/23 History chewable tablet ketorolac 10 mg tablet 10 mg PO Q6H PRN Pain 01/20/23 01/20/23 History lisinopril 40 mg tablet 40 mg PO DAILY 01/20/23 01/20/23 History loratadine 10 mg capsule 10 mg PO DAILY PRN Allergy Symptoms 01/20/23 01/20/23 History metoprolol succinate 25 mg 25 mg PO DAILY 01/20/23 01/20/23 History tablet,extended release 24 hr (Toprol XL) pregabalin 50 mg capsule 50 mg PO DAILY 01/20/23 01/20/23 History tramadol 50 mg tablet 50 mg PO Q6H PRN Pain 01/20/23 01/20/23 History rivaroxaban 20 mg tablet (Xarelto) 20 mg PO DAILY #30 tabs 01/21/23 Rx Exam Const: General: comfortable and no acute di
--- NOTE | 2023-01-21 10:51 | PC.NURSE ---
Pt discharged home with stable VS. Home meds and car keys returned to pt. Medication instructions given to pt as well as follow up appointment with PCP. Pt verbalized understanding of instructions. RN transported to car via .
--- NOTE | 2023-01-25 14:08 | PC.NURSE ---
Unable to contact for discharge call back.
== END 2023-01-21 10:30 | disposition home or self-care (01) ==
LOC: CHSED 22:01 → CHS2ND 22:05
PROVIDERS: Nurse Practitioner Family; Admitting Provider Internal Medicine; Emergency Provider Emergency Medicine; Visit Provider Internal Medicine
DX: E86.0 Dehydration (principal); I10 Essential (primary) hypertension; J45.909 Unspecified asthma, uncomplicated; I34.1 Nonrheumatic mitral (valve) prolapse; K57.30 Diverticulosis of large intestine without perforation or abscess without bleeding; K21.9 Gastro-esophageal reflux disease without esophagitis; E78.5 Hyperlipidemia, unspecified; E78.00 Pure hypercholesterolemia, unspecified; M79.7 Fibromyalgia; M32.9 Systemic lupus erythematosus, unspecified; R00.0 Tachycardia, unspecified; F17.210 Nicotine dependence, cigarettes, uncomplicated; F32.A Depression, unspecified; Z86.711 Personal history of pulmonary embolism; Z86.73 Personal history of transient ischemic attack (TIA), and cerebral infarction without residual deficits
CPT/HCPCS: 36415; 71045; 80048; 80053; 80307; 81001; 83605; 83735; 83880; 84484; 85025; 85027; 85380; 85610; 85730; 87040; 93005; 96360; 96361; 96374; 99284; A9270; G0378; J7030

== ENCOUNTER 2023-06-01 07:57 | Outpatient (CLI) | payer MEDICARE, SELFPAY ==
[2023-06-01 08:38] LABS: Hemoglobin A1C 5.9 % (<5.7)
== END 2023-06-01 07:58 | disposition home or self-care (01) ==
DX: E11.9 Type 2 diabetes mellitus without complications (principal)
CPT/HCPCS: 36415; 83036

== ENCOUNTER 2023-08-05 18:06 | Emergency (ER) | payer MEDICARE, SELFPAY ==
[2023-08-05 18:06] VITALS: BP 144/105; PULSE 85; RESP 12; TEMP 37.1; O2SAT 99
--- NOTE | 2023-08-05 18:20 | ED.DIZZY ---
HPI - Dizziness General Chief Complaint: Dizziness Stated Complaint: dizziness Time Seen by Provider: 08/05/23 18:19 Source: patient and RN notes reviewed Mode of arrival: ambulatory Limitations: no limitations History of Present Illness MD elicited complaint: dizziness Onset (ago): day(s) (1) Timing: sudden onset Severity: moderate Description: lightheadedness and off-balance Context: change in body position Exacerbating factors: standing Relieving factors: remaining still Associated symptoms: other ( Headache and it hurts to take a deep breath in her lungs) Associated neuro symptoms: other (none) Related Data Home Medications Medication Instructions Recorded Confirmed Tylenol 1,000 mg PO Q8H 10/23/21 08/05/23 budesonide-formoterol HFA 80 2 inh inhalation BID 10/23/21 08/05/23 mcg-4.5 mcg/actuation aerosol inhaler (Symbicort) duloxetine 60 mg capsule,delayed 120 mg PO DAILY 02/25/22 08/05/23 release pitolisant 17.8 mg tablet (Wakix) 17.8 mg PO DAILY 02/25/22 08/05/23 dextroamphetamine-amphetamine 20 20 mg PO DAILY 04/20/22 08/05/23 mg tablet aripiprazole 10 mg tablet 10 mg DAILY 01/20/23 08/05/23 bismuth subsalicylate 262 mg 2 tablet PO Q1H PRN upset stomach 01/20/23 08/05/23 chewable tablet lisinopril 40 mg tablet 40 mg PO DAILY 01/20/23 08/05/23 metoprolol succinate 25 mg 25 mg PO DAILY 01/20/23 08/05/23 tablet,extended release 24 hr (Toprol XL) aripiprazole 5 mg tablet 5 mg PO DAILY 07/06/23 08/05/23 bupropion HCl 100 mg tablet 100 mg PO ONCE 07/06/23 08/05/23 buspirone 15 mg tablet 15 mg PO BID 07/06/23 08/05/23 diclofenac sodium 50 mg 50 mg PO BID 07/06/23 08/05/23 tablet,delayed release multivitamin 1 tablet PO DAILY 07/06/23 08/05/23 omeprazole 20 mg capsule,delayed 20 mg PO DAILY 07/06/23 08/05/23 release ropinirole 0.25 mg tablet 0.25 mg PO DAILY 08/05/23 08/05/23 tirzepatide 7.5 mg/0.5 mL 7.5 mg subcut WEEKLY 08/05/23 08/05/23 subcutaneous pen injector (Mounjaro) Allergies Allergy/AdvReac Type Severity Reaction Status Date / Time amitriptyline Allergy Intermediate Other Verified 08/05/23 19:03 aspartame Allergy Intermediate Other Verified 08/05/23 19:03 atomoxetine Allergy Intermediate Unknown Verified 08/05/23 19:03 gabapentin Allergy Intermediate Other Verified 08/05/23 19:03 nortriptyline Allergy Intermediate Other Verified 08/05/23 19:03 prednisone Allergy Intermediate Hyperactive Verified 08/05/23 19:03 cyclobenzaprine Allergy Anxiety Verified 08/05/23 19:03 fluoxetine Allergy Unknown Verified 08/05/23 19:03 pregabalin Allergy Anxiety Verified 08/05/23 19:03 sulfasalazine Allergy Unknown Verified 08/05/23 19:03 sumatriptan Allergy Unknown Verified 08/05/23 19:03 methotrexate AdvReac Intermediate Diarrhea Verified 08/05/23 19:03 methylprednisolone AdvReac Agitated Verified 08/05/23 19:03 Review of Systems Review of Systems: All systems reviewed & are unremarkable except as noted in HPI and below Gastrointestinal: Gastrointestinal: Denies nausea and Denies vomiting PMFSH Past Medical History Medical History Arthritis Asthma Colitis Depression Diverticulitis Fibromyalgia History of gastroesophageal reflux (GERD) History of hypercholesterolemia History of TIA (transient ischemic attack) Hypertension Mitral valve prolapse Pneumonia Pulmonary embolism Systemic lupus Surgical History Surgical History History of cholecystectomy History of hysterectomy Social History Social History Years smoked: 20 Smoking status: Former smoker Tobacco type: cigarettes Second hand tobacco smoke exposure: No Smoking end date: 11/29/22 Alcohol intake: former Alcohol use details: Rare Substance use: current Substance use type: marijuana, amphetamines and prescription drug Last use: 01/06/2023 Lack
--- NOTE | 2023-08-05 18:26 | ECG_ITS ---
Measurements Intervals [place] Rate: 76 P: 38 WI: 156 QRS: -34 QRSD: 89 T: 45 QT: 397 QTc: 447 Interpretive Statements SINUS RHYTHM LEFT AXIS DEVIATION INCOMPLETE RIGHT BUNDLE BRANCH BLOCK LOW QRS VOLTAGE IN PRECORDIAL LEADS PATTERN CONSISTENT WITH PULMONARY DISEASE BASELINE ARTIFACT- I, III, AVR, AVL, AVF, V1-V6 ABNORMAL ECG COMPARED TO ECG 01/20/2023 19:57:14 SINUS RHYTHM NOW PRESENT Electronically Signed On 08-05-2023 19:56:20 UTILITY SYSTEM OPERATOR by Yariel Beltran D.O.
[2023-08-05 18:39] LABS: Basophils Absolute Auto 0.04 K/mm3 (0.00-0.10); Basophils Percent Auto 0.6 % (0.0-1.0); Eosinophils Absolute Auto 0.33 K/mm3 (0.02-0.50); Eosinophils Percent Auto 4.6 % (1.0-6.0); Hematocrit 46.7 % (35.0-49.0); Hemoglobin 15.4 g/dL (12.0-15.0); Immature Granulocyte Absolute 0.04 K/mm3 (0.00-0.00); Immature Granulocyte Percent A 0.6 % (0.0-0.0); Lymphocytes Absolute Auto 2.23 K/mm3 (1.10-4.50); Lymphocytes Percent Auto 31.1 % (18.0-42.0); Mean Corpuscular Volume 96.9 fL (78.0-102.0); Mean Platelet Volume 10.6 fl (9.2-11.8); Monocytes Absolute Auto 0.53 K/mm3 (0.10-0.90); Monocytes Percent Auto 7.4 % (2.0-11.0); Neutrophils Percent Auto 55.7 % (50.0-70.0); Platelet Count Result 207 K/mm3 (150-420); Red Blood Count 4.82 M/mm3 (4.20-5.40); White Blood Count 7.2 K/mm3 (4.8-10.8)
[2023-08-05 18:53] LABS: D Dimer 0.19 mg/L (0.19-0.50); Partial Thromboplastin Time 27.6 SEC (23.90-30.70); Prothrombin Time 10.6 Seconds (9.50-12.10)
[2023-08-05 18:54] LABS: Alanine Aminotransferase 60 U/L (14-59); Albumin Level 3.3 g/dL (3.4-5.0); Alkaline Phosphatase 123 U/L (46-116); Anion Gap 7 mmol/L (8-16); Aspartate Amino Transferase 33 U/L (15-37); Bilirubin,Total 0.6 mg/dL (0.00-1.00); Blood Urea Nitrogen 16 mg/dL (7-18); Carbon Dioxide 30 mmol/L (21-32); Chloride 103 mmol/L (98-108); Estimated CRCL calculation 65 ml/min; Estimated Glomerular Filt Rate 43; Glucose 108 mg/dL (70-99); Osmolality Calculated 292 mOsm/kg (285-295); Potassium 3.7 mmol/L (3.5-5.1); Sodium 140 mmol/L (136-145); Total Protein 6.8 g/dL (6.4-8.2)
[2023-08-05] MEDS: MECLIZINE HCL 25 MG TABLET PO (19:06)
== END 2023-08-05 19:17 | disposition home or self-care (01) ==
PROVIDERS: Emergency Provider Emergency Medicine
DX: H81.10 Benign paroxysmal vertigo, unspecified ear (principal); J45.909 Unspecified asthma, uncomplicated; F32.A Depression, unspecified; I10 Essential (primary) hypertension; M32.9 Systemic lupus erythematosus, unspecified; Z79.899 Other long term (current) drug therapy; Z86.73 Personal history of transient ischemic attack (TIA), and cerebral infarction without residual deficits; Z86.711 Personal history of pulmonary embolism; Z87.891 Personal history of nicotine dependence
CPT/HCPCS: 36415; 80053; 85025; 85380; 85610; 85730; 93005; 99283; A9270

== ENCOUNTER 2024-05-09 15:16 | Outpatient (CLI) | payer MEDICARE, SELFPAY ==
[2024-05-09 15:37] LABS: Hematocrit 45.6 % (35.0-49.0); Hemoglobin 15.2 g/dL (12.0-15.0); Mean Corpuscular HGB Conc 33.3 g/dL (32-36); Mean Corpuscular Hemoglobin 31.1 pg (27.0-31.0); Mean Corpuscular Volume 93.4 fL (78.0-102.0); Mean Platelet Volume 10.4 fl (9.2-11.8); Platelet Count Result 182 K/mm3 (150-420); Red Blood Count 4.88 M/mm3 (4.20-5.40); Red Cell Distribution Width 13.2 % (11.6-14.4)
[2024-05-09 15:51] LABS: Hemoglobin A1C 5.4 % (<5.7)
[2024-05-09 16:21] LABS: Alanine Aminotransferase 23 U/L (14-59); Albumin Level 3.4 g/dL (3.4-5.0); Alkaline Phosphatase 111 U/L (46-116); Anion Gap 9 mmol/L (4-12); Aspartate Amino Transferase 28 U/L (15-37); Bilirubin,Total 1.1 mg/dL (0.00-1.00); Blood Urea Nitrogen 16 mg/dL (7-18); CRP 0.5 mg/dL (0.0-0.9); Carbon Dioxide 26 mmol/L (21-32); Chloride 105 mmol/L (98-108); Cholesterol 154 mg/dL (0-200); Estimated Glomerular Filt Rate 55; Free T4 Free Thyroxine 0.86 ng/dL (0.76-1.46); Glucose 107 mg/dL (70-99); HDL Direct 55 mg/dL (40-60); LDL Cholesterol Calculated 80 mg/dL (<130); Osmolality Calculated 291 mOsm/kg (285-295); Potassium 4.1 mmol/L (3.5-5.1); Sodium 140 mmol/L (136-145); Thyroid Stimulating Hormone 1.42 uIU/mL (0.36-3.74); Total Protein 6.1 g/dL (6.4-8.2); Triglycerides 96 mg/dL (0-150); Vitamin B12 715 pg/mL (193-986)
[2024-05-09 16:40] LABS: Erythrocyte Sedimentation Rate 9 mm/hr (0-20)
== END 2024-05-09 15:17 | disposition home or self-care (01) ==
LOC: CHSLAB 15:22
DX: E78.5 Hyperlipidemia, unspecified (principal); I10 Essential (primary) hypertension; E66.9 Obesity, unspecified; M45.9 Ankylosing spondylitis of unspecified sites in spine; M06.9 Rheumatoid arthritis, unspecified; F41.9 Anxiety disorder, unspecified; E11.9 Type 2 diabetes mellitus without complications
CPT/HCPCS: 36415; 80053; 80061; 82607; 83036; 84439; 84443; 85027; 85652; 86140

== ENCOUNTER 2024-07-28 16:19 | Emergency (ER) | payer MEDICARE, SELFPAY ==
[2024-07-28] VITALS (19 sets, daily range): BP systolic 100–119; BP diastolic 64–79; PULSE 74–85; RESP 18; TEMP 36.9; O2SAT 94–99
--- NOTE | ~2024-07-28 | CT_ITS ---
EXAMINATION: CT abdomen pelvis w con DATE: 07/28/2024 17:51 INDICATION: Rt. flank pain/ nausea/ diarrhea x3 days TECHNIQUE: Computed tomography (CT) of the abdomen and pelvis was performed with 100 mL Omnipaque-350 intravenous contrast. Automated exposure control and iterative reconstruction technique were employe d. The dose-length product was 1499.94 mGy-cm. COMPARISON: None. FINDINGS: Lower thorax: Unremarkable Liver: Normal. Biliary/Gallbladder: Gallbladder is absent. Mild intra and extrahepatic bile duct dilation likely sec ondary to cholecystectomy. Pancreas: No mass or duct dilation. Spleen: Normal. Adrenals:No mass. Kidneys: No suspicious mass, obstructing stone, or hydronephrosis. GI tract: No small or large bowel dilation. Normal appendix. Diverticulosis without diverticulitis. Mesentery/Peritoneum: No ascites, mass, or free air. Retroperitoneum: No mass. Pelvis: Normal urinary bladder. Absent uterus. Bilateral ovaries not visualized. Soft Tissues: Scattered prominent lower abdominal subcutaneous lymph nodes/injection granulomas. Bones: No acute osseous finding. IMPRESSION: No acute abdominopelvic process detected. Reviewed, dictated and finalized at location K. OCAPTIONER
[2024-07-28] MEDS: SODIUM CHLORIDE 0.9% IV 1,000 ML 999 ML IV CONT (16:57)
[2024-07-28] MEDS: MORPHINE SULFATE (*CRX) 4 MG/ML INJ IV PUSH (16:57)
[2024-07-28] MEDS: ONDANSETRON INJ 4 MG/2 ML VIAL IV PUSH (16:57)
--- NOTE | 2024-07-28 17:07 | PC.NURSE ---
pt informed of need for urine specimen. declined need to urinate at this time. call real in reach
[2024-07-28 17:13] LABS: Basophils Absolute Auto 0.03 K/mm3 (0.00-0.10); Basophils Percent Auto 0.6 % (0.0-1.0); Eosinophils Absolute Auto 0.26 K/mm3 (0.02-0.50); Eosinophils Percent Auto 5.1 % (1.0-6.0); Hematocrit 42.4 % (35.0-49.0); Hemoglobin 14.8 g/dL (12.0-15.0); Immature Granulocyte Absolute 0.02 K/mm3 (0.00-0.00); Immature Granulocyte Percent A 0.4 % (0.0-0.0); Lymphocytes Absolute Auto 2.08 K/mm3 (1.10-4.50); Lymphocytes Percent Auto 40.5 % (18.0-42.0); Mean Corpuscular HGB Conc 34.9 g/dL (32-36); Mean Corpuscular Hemoglobin 31.9 pg (27.0-31.0); Mean Corpuscular Volume 91.4 fL (78.0-102.0); Mean Platelet Volume 10.9 fl (9.2-11.8); Monocytes Absolute Auto 0.43 K/mm3 (0.10-0.90); Monocytes Percent Auto 8.4 % (2.0-11.0); Neutrophils Absolute Auto 2.32 K/mm3 (1.70-7.20); Platelet Count Result 205 K/mm3 (150-420); Red Blood Count 4.64 M/mm3 (4.20-5.40); Red Cell Distribution Width 12.8 % (11.6-14.4); White Blood Count 5.1 K/mm3 (4.8-10.8)
[2024-07-28 17:27] LABS: Alanine Aminotransferase 57 U/L (14-59); Albumin Level 3.5 g/dL (3.4-5.0); Alkaline Phosphatase 89 U/L (46-116); Anion Gap 10 mmol/L (4-12); Aspartate Amino Transferase 30 U/L (15-37); Bilirubin,Total 0.9 mg/dL (0.00-1.00); Blood Urea Nitrogen 21 mg/dL (7-18); CRP 1.2 mg/dL (0.0-0.9); Calcium 9.3 mg/dL (8.5-10.1); Carbon Dioxide 25 mmol/L (21-32); Chloride 103 mmol/L (98-108); Estimated CRCL calculation 55 ml/min; Estimated Glomerular Filt Rate 39; Glucose 84 mg/dL (70-99); Lipase 31 U/L (16-77); Osmolality Calculated 288 mOsm/kg (285-295); Partial Thromboplastin Time 31.7 Sec (23.9-30.70); Potassium 3.6 mmol/L (3.5-5.1); Prothrombin Time 10.7 Seconds (9.50-12.1); Sodium 138 mmol/L (136-145); Total Protein 6.6 g/dL (6.4-8.2)
--- NOTE | 2024-07-28 17:38 | PC.NURSE ---
pt to xray via wheelchair with xray staff.
--- NOTE | 2024-07-28 17:46 | PC.NURSE ---
pt return to room via wheelchair from xray dept. call farhan in reach
--- NOTE | 2024-07-28 18:34 | ED_ITS ---
HPI - Nausea/Vomiting/Diarrhea General Chief complaint: Nausea/Vomiting/Diarrhea Stated complaint: diarrhea Time Seen by Provider: 07/28/24 16:24 Source: patient Mode of arrival: ambulatory Limitations: no limitations History of Present Illness HPI Narrative: this is a 54-year-old female with history of ulcerative colitis presents with abdominal cramping with some diarrhea that is mucus and some streaks of blood currently no bleeding, with nausea vomiting and crampy abdominal pain. There is no fever chills no chest pain or shortness of breath. MD elicited complaint: nausea, vomiting and diarrhea Onset (ago): day(s) Description of vomiting: watery Description of diarrhea: blood and mucus Associated nausea: Yes Associated abdominal pain: Yes Related Data Home Medications Medication Instructions Recorded Confirmed Tylenol 1,000 mg PO Q8H 10/23/21 08/05/23 budesonide-formoterol HFA 80 2 inh inhalation BID 10/23/21 08/05/23 mcg-4.5 mcg/actuation aerosol inhaler (Symbicort) duloxetine 60 mg capsule,delayed 120 mg PO DAILY 02/25/22 08/05/23 release pitolisant 17.8 mg tablet (Wakix) 17.8 mg PO DAILY 02/25/22 08/05/23 dextroamphetamine-amphetamine 20 20 mg PO DAILY 04/20/22 08/05/23 mg tablet aripiprazole 10 mg tablet 10 mg DAILY 01/20/23 08/05/23 bismuth subsalicylate 262 mg 2 tablet PO Q1H PRN upset stomach 01/20/23 08/05/23 chewable tablet lisinopril 40 mg tablet 40 mg PO DAILY 01/20/23 08/05/23 metoprolol succinate 25 mg 25 mg PO DAILY 01/20/23 08/05/23 tablet,extended release 24 hr (Toprol XL) aripiprazole 5 mg tablet 5 mg PO DAILY 07/06/23 08/05/23 bupropion HCl 100 mg tablet 100 mg PO ONCE 07/06/23 08/05/23 buspirone 15 mg tablet 15 mg PO BID 07/06/23 08/05/23 diclofenac sodium 50 mg 50 mg PO BID 07/06/23 08/05/23 tablet,delayed release multivitamin 1 tablet PO DAILY 07/06/23 08/05/23 omeprazole 20 mg capsule,delayed 20 mg PO DAILY 07/06/23 08/05/23 release ropinirole 0.25 mg tablet 0.25 mg PO DAILY 08/05/23 08/05/23 tirzepatide 7.5 mg/0.5 mL 7.5 mg subcut WEEKLY 08/05/23 08/05/23 subcutaneous pen injector (Mounjaro) Allergies Allergy/AdvReac Type Severity Reaction Status Date / Time amitriptyline Allergy Intermediate Other Verified 08/05/23 19:03 aspartame Allergy Intermediate Other Verified 08/05/23 19:03 atomoxetine Allergy Intermediate Unknown Verified 08/05/23 19:03 gabapentin Allergy Intermediate Other Verified 08/05/23 19:03 nortriptyline Allergy Intermediate Other Verified 08/05/23 19:03 prednisone Allergy Intermediate Hyperactive Verified 08/05/23 19:03 cyclobenzaprine Allergy Anxiety Verified 08/05/23 19:03 fluoxetine Allergy Unknown Verified 08/05/23 19:03 pregabalin Allergy Anxiety Verified 08/05/23 19:03 sulfasalazine Allergy Unknown Verified 08/05/23 19:03 sumatriptan Allergy Unknown Verified 08/05/23 19:03 methotrexate AdvReac Intermediate Diarrhea Verified 08/05/23 19:03 methylprednisolone AdvReac Agitated Verified 08/05/23 19:03 Review of Systems Review of Systems: All systems reviewed & are unremarkable except as noted in HPI and below PMFSH Past Medical History Medical History Arthritis Asthma Colitis Depression Diverticulitis Fibromyalgia History of gastroesophageal reflux (GERD) History of hypercholesterolemia History of TIA (transient ischemic attack) Hypertension Mitral valve prolapse Pneumonia Pulmonary embolism Systemic lupus Surgical History Surgical History History of cholecystectomy History of hysterectomy Social History Social History Years smoked: 20 Smoking status: Former smoker Tobacco type: cigarettes Second hand tobacco smoke exposure: No Smoking end date: 11/29/22 Alcohol intake: former Alcohol use details: Rare Substance use: current Substance use type: marijuana, amphetamines and prescription drug Last use: 01/06/2023 Lack of Transportation: No Lack of Food: Never True Current Housing: I Have Housing Concerned About Future Housing: No Difficulty Paying Gas/Electric Bills: No Difficulty Paying for Meds: No Currently Unemployed: No Education: High School Diploma/GED Difficulty w/ Childcare or Family Care: No Living arrangements: alone Gender identity (if verbalized by the patient): Female Spiritual care concerns: Yes (Christianity Faith) Exam Const: General: healthy appearing and no acute distress Nutritional Appearance: well nourished Orientation/consciousness: patient oriented x3 Limitations: no limitations Neck: Neck: normal visual inspection Chest: Chest palpation & inspection: normal inspection of the chest Resp: Effort & Inspection: normal respiratory effort Auscultation: clear to auscultation bilaterally Cardio: Rate: regular rate Rhythm: regular rhythm GI: GI Palp: Yes Soft to palpation and Yes Tenderness to palpation present (GI) Auscultation: normal bowel sounds Urinary Catheter: Urinary Catheter: patent and draining and urine clear Back/Spine/Pelvis: Back: no CVA tenderness Skin: General skin exam: normal color Rashes: no rashes Course Course Emergency Course: Patient had blood work performed which normal white blood cell count the rest of her blood work was unremarkable, patient received pain medication with IV morphine, with IV Zofran and IV fluids. Patient with history of ulcerative colitis had his disease and which showed no acute intra-abdominal process. Vital Signs Vital signs: Vital Signs Temperature 36.9 C 07/28/24 16:19 Pulse Rate 85 07/28/24 16:19 Respiratory Rate 18 07/28/24 16:19 Blood Pressure 107/66 07/28/24 16:19 Pulse Oximetry 96 07/28/24 16:19 Oxygen Delivery Room Air 07/28/24 16:19 Temperature 36.9 C 07/28/24 16:19 Pulse Rate 85 07/28/24 16:19 Respiratory Rate 18 07/28/24 16:19 Blood Pressure 107/66 07/28/24 16:19 Pulse Oximetry 96 07/28/24 16:19 Oxygen Delivery Room Air 07/28/24 16:19 MDM - Nausea/Vomiting/Diarrhea Lab Data 07/28/24 17:07 07/28/24 17:07 Labs: Lab Results 07/28/24 Range/Units 17:07 WBC 5.1 (4.8-10.8) K/mm3 RBC 4.64 (4.20-5.40) M/mm3 Hgb 14.8 (12.0-15.0) g/dL Hct 42.4 (35.0-49.0) % MCV 91.4 (78.0-102.0) fL MCH 31.9 H (27.0-31.0) pg MCHC 34.9 (32-36) g/dL RDW 12.8 (11.6-14.4) % Plt Count 205 (150-420) K/mm3 MPV 10.9 (9.2-11.8) fl Immature Gran % (Auto) 0.4 H (0.0-0.0) % Neut % (Auto) 45.0 L (50.0-70.0) % Lymph % (Auto) 40.5 (18.0-42.0) % [place] % (Auto) 8.4 (2.0-11.0) % Eos % (Auto) 5.1 (1.0-6.0) % Baso % (Auto) 0.6 (0.0-1.0) % Lymph # (Auto) 2.08 (1.10-4.50) K/mm3 [place] # (Auto) 0.43 (0.10-0.90) K/mm3 Eos # (Auto) 0.26 (0.02-0.50) K/mm3 Baso # (Auto) 0.03 (0.00-0.10) K/mm3 Abs Immat Gran (auto) 0.02 H (0.00-0.00) K/mm3 Absolute Neuts (auto) 2.32 (1.70-7.20) K/mm3 Absolute Nucleated RBC 0.00 (0.00-0.00) K/mm3 Nucleated RBC % 0.0 (0-0.0) % PT 10.7 (9.50-12.1) Seconds INR 1.0 APTT 31.7 H (23.9-30.70) Sec Sodium 138 (136-145) mmol/L Potassium 3.6 (3.5-5.1) mmol/L Chloride 103 (98-108) mmol/L Carbon Dioxide 25 (21-32) mmol/L Anion Gap 10 (4-12) mmol/L BUN 21 H (7-18) mg/dL Creatinine 1.41 H (0.55-1.02) mg/dL Estim Creat Clear Calc 55 ml/min Estimated GFR 39 L (59 - ) Glucose 84 (70-99) mg/dL Calculated Osmolality 288 (285-295) mOsm/kg Lactic Acid 1.0 (0.4-2.0) mmol/L Calcium 9.3 (8.5-10.1) mg/dL Total Bilirubin 0.9 (0.00-1.00) mg/dL AST 30 (15-37) U/L ALT 57 (14-59) U/L Alkaline Phosphatase 89 (46-116) U/L C-Reactive Protein 1.2 H (0.0-0.9) mg/dL Total Protein 6.6 (6.4-8.2) g/dL Albumin 3.5 (3.4-5.0) g/dL Lipase 31 (16-77) U/L Critical Care Time Critical Care Time Critical Care Time: No Discharge Plan Discharge Clinical Impression: Gastroenteritis Ulcerative colitis Qualifiers: Ulcerative colitis location: unspecified ulcerative colitis location Digestive disease complication type: without complication Qualified Code(s): K51.90 - Ulcerative colitis, unspecified, without complications Patient Disposition: Home, Self-Care Condition: Stable Instructions: Antibiotic Form, Clear Liquid Diet (ED), Gastroenteritis (ED), Ulcerative Colitis (ED) Additional Instructions: take medication as prescribed and follow-up with primary in a week for further evaluation and treatment. Prescriptions: New methylprednisolone 4 mg tablets,dose pack See Rx Instructions .ROUTE .COMPLEX Qty: 21 0RF Rx Instructions: for 6 days ondansetron HCl 4 mg tablet 4 mg PO Q6H PRN (Reason: nausea and vomiting) Qty: 14 0RF No Action budesonide-formoterol [Symbicort] 80-4.5 mcg/actuation HFA aerosol inhaler 2 inh INHALATION BID Tylenol 1,000 mg PO Q8H dextroamphetamine-amphetamine 20 mg tablet 20 mg PO DAILY metoprolol succinate [Toprol XL] 25 mg tablet extended release 24 hr 25 mg PO DAILY lisinopril 40 mg tablet 40 mg PO DAILY bismuth subsalicylate 262 mg Tablet,Chewable 2 tablet PO Q1H PRN (Reason: upset stomach) Rx Instructions: do not exceed 16 tabs per 24 hrs aripiprazole 10 mg Tablet 10 mg DAILY Xarelto 20 mg tablet 20 mg PO DAILY Qty: 30 0RF Rx Instructions: must administer with evening meal ropinirole 0.25 mg tablet 0.25 mg PO DAILY Mounjaro 7.5 mg/0.5 mL pen injector 7.5 mg SUBCUT WEEKLY meclizine 25 mg tablet 25 mg PO TID PRN (Reason: dizziness) Qty: 30 0RF aripiprazole 5 mg tablet 5 mg PO DAILY omeprazole 20 mg capsule,delayed release(DR/EC) 20 mg PO DAILY diclofenac sodium 50 mg tablet,delayed release (DR/EC) 50 mg PO BID bupropion HCl 100 mg tablet 100 mg PO ONCE buspirone 15 mg tablet 15 mg PO BID multivitamin Tablet 1 tablet PO DAILY metoclopramide HCl [Reglan] 10 mg tablet 10 mg PO BID Qty: 60 4RF Rx Instructions: Take before largest meal of the day and at bedtime. duloxetine 60 mg Capsule,Delayed Release(Dr/Ec) 120 mg PO DAILY Wakix 17.8 mg Tablet 17.8 mg PO DAILY Follow-up/Referrals: Odin,Taylor [Other] Time of Disposition: 18:40
--- NOTE | 2024-07-30 12:29 | PC.NURSE ---
PRELIMINARY BLOOD CULTURE: NO GROWTH TO DATE.
== END 2024-07-28 18:47 | disposition home or self-care (01) ==
PROVIDERS: Emergency Provider Emergency Medicine
DX: K52.9 Noninfective gastroenteritis and colitis, unspecified (principal); K51.90 Ulcerative colitis, unspecified, without complications; I10 Essential (primary) hypertension; Z86.73 Personal history of transient ischemic attack (TIA), and cerebral infarction without residual deficits; Z87.891 Personal history of nicotine dependence
CPT/HCPCS: 36415; 74177; 80053; 83605; 83690; 85025; 85610; 85730; 86140; 87040; 96361; 96374; 96375; 99284; J2270; J2405; J7030; Q9967

== ENCOUNTER 2024-11-29 12:52 | Outpatient (RCR) | payer MEDICARE, SELFPAY ==
--- NOTE | 2024-11-29 13:49 | OPREHPOC ---
Outpatient Therapy Plan of Care This is a Multidisciplinary Plan of Care that may contain components documented by all disciplines (PT, OT, and ST.) PT Problem 1 PT Problem #1 Knowledge Deficit PT Goal 1 Goal / Goal Update Independent with HEP. Target Visit 4 PT Problem 2 PT Problem #2 Pain PT Goal 1 Goal / Goal Update Pt to report no more than 4/10 at rest. Pt to report no more than 5/10 pain with activity. Target Visit 10 PT Problem 3 PT Problem #3 Impaired Range of Motion PT Goal 1 Goal / Goal Update Pt to improve lumbar flexion to toes. Pt to improve R lumbar lateral flexion AROM to 30 degrees or better. Pt to improve lumbar extension to 25 degrees or better. Target Visit 10 PT Problem 4 PT Problem #4 Impaired Strength PT Goal 1 Goal / Goal Update Pt to improve hip strength to 5/5 bilaterally. Pt to improve upper and lower abdominal strength to 4+/5. Target Visit 10 PT Problem 5 PT Problem #5 Impaired Functional Mobility PT Goal 1 Goal / Goal Update Pt to report being able to sit for two hours at work before onset of back pain. Pt to be able to walk for more than 30 minutes before onset of back pain. Pt to note less than 30% disability on back index. Target Visit 10
--- NOTE | 2024-11-29 13:51 | PTOPEVAL1 ---
Assessment and note entered by Lanette Grimaldo, PT Evaluation Information Assessment Status Evaluation ICD-10 Condition Codes (PT) Pain in low back M54.50 Other ICD-10 Condition Codes ( M46.1 PT) Subjective Information Pt reports long standing history of R sided low back pain and SI joint pain. She recently had an MRI that shows posterior disc protrusions and central stenosis in the area of L4-S2. She recently got a lidocaine injection in the back for pain relief. She was also recently participating in a water aerobics class but has had to stop that due to it aggravating her back pain. Pain is localized to the low back and SI regions, however she reports when her pain is really aggravated it can go up into her ribs. 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 She takes her hot pack to work to get some pain relief . She also states that her doctor has talked to her about getting a nerve ablation to help relieve pain. Reported Pain Level Pain Score 6: Self Report Assessment PT Clinical Summary Mrs. Carlson is a 54 yo female presenting with low back pain after starting a water aerobics class around 6 months ago. Most recent MRI shows posterior disc protrusions and central canal stenosis in L4-S2 region and pt also has a history of sacroiliitis and ankylosing spondylitis. She demonstrates impaired abdominal and hip strength bilaterally as well as impaired lumbar AROM with pain at end ranges. Her pain interferes with her ability to work as a hotel receptionist as she's not able to sit for more than an hour without onset of back pain. She will benefit from skilled physical therapy intervention to reduce pain, improve mobility and allow her to perform daily functional tasks with less pain. Plan of Care Interventions Electrical Stimulation,Gait Training,Hot Pack/Cold Pack,Manual Therapy,Mechanical Traction,Neuro Re- education,Patient/Caregiver Education,Therapeutic Activities,Therapeutic Exercise,Self-Care/Home Management PT Services Indicated Yes Treatment Frequency and 2x/week for 10 visits Duration These treatments will address the objective and functional deficits as defined above. The patient will be advanced safely and appropriately in order for the patient to progress towards his/her prior level of function. Additional exercises will be introduced and as well as a comprehensive home exercise program upon discharge, if needed, ?to ensure carryover of functional gains achieved in the clinic. This treatment plan has been reviewed and agreement upon by the patient.
--- NOTE | 2024-12-20 08:54 | OPREHPOC ---
Outpatient Therapy Plan of Care This is a Multidisciplinary Plan of Care that may contain components documented by all disciplines (PT, OT, and ST.) PT Problem 1 PT Problem #1 Knowledge Deficit PT Goal 1 Goal / Goal Update Independent with HEP. Target Visit 4 Progress Met PT Problem 2 PT Problem #2 Pain PT Goal 1 Goal / Goal Update Pt to report no more than 4/10 at rest. Pt to report no more than 5/10 pain with activity. Target Visit 10 Progress Not Met PT Problem 3 PT Problem #3 Impaired Range of Motion PT Goal 1 Goal / Goal Update Pt to improve lumbar flexion to toes. Pt to improve R lumbar lateral flexion AROM to 30 degrees or better. Pt to improve lumbar extension to 25 degrees or better. Target Visit 10 Progress Not Met PT Problem 4 PT Problem #4 Impaired Strength PT Goal 1 Goal / Goal Update Pt to improve hip strength to 5/5 bilaterally. - met Pt to improve upper and lower abdominal strength to 4+/5. Target Visit 10 Progress Partially Met PT Problem 5 PT Problem #5 Impaired Functional Mobility PT Goal 1 Goal / Goal Update Pt to report being able to sit for two hours at work before onset of back pain. Pt to be able to walk for more than 30 minutes before onset of back pain. Pt to note less than 30% disability on back index. Target Visit 10 Progress Not Met
--- NOTE | 2024-12-20 08:55 | PTOPPROG ---
Assessment and note entered by Lanette Grimaldo, PT Evaluation Information Assessment Status Progress ICD-10 Condition Codes (PT) Pain in low back M54.50 Other ICD-10 Condition Codes ( M46.1 PT) Subjective Information Ree reports the severity of her back pain is relatively unchanged since starting PT. However she does report that her exercises have been helping and she's able to sit in her chair for longer periods of time at work before onset of pain. She reports she's getting an injection in her back today after PT and has a follow up appointment in [place] on the . She states that if the injection is effective, they'll move forward with a nerve ablation at that follow up appointment. Assessment PT Clinical Summary Mrs. Keenan has attended 6 total skilled physical therapy visits for chronic low back pain. Since beginning therapy her status is relatively unchanged, however she is now able to sit for longer periods of time at work before the onset of pain. She will be getting an injection in her low back today and may possibly get a nerve ablation at the end of the month. She would benefit from additional skilled physical therapy intevention but will hold therapy at this time pending pt's following up doctor and pt to continue independent performance of HEP. Plan of Care Interventions Electrical Stimulation,Gait Training,Hot Pack/Cold Pack,Manual Therapy,Mechanical Traction,Neuro Re- education,Patient/Caregiver Education,Therapeutic Activities,Therapeutic Exercise,Self-Care/Home Management PT Services Indicated Yes Treatment Frequency and Hold at this time pending injection and pt's Duration follow up with on 01/06/25 These treatments will address the objective and functional deficits as defined above. The patient will be advanced safely and appropriately in order for the patient to progress towards his/her prior level of function. Additional exercises will be introduced and as well as a comprehensive home exercise program upon discharge, if needed, ?to ensure carryover of functional gains achieved in the clinic. This treatment plan has been reviewed and agreement upon by the patient.
--- NOTE | 2024-12-20 09:55 | PTOPPROG ---
Assessment and note entered by Lanette Grimaldo, PT Evaluation Information Assessment Status Progress ICD-10 Condition Codes (PT) Pain in low back M54.50 Other ICD-10 Condition Codes ( M46.1 PT) Subjective Information Ree reports the severity of her back pain is relatively unchanged since starting PT. However she does report that her exercises have been helping and she's able to sit in her chair for longer periods of time at work before onset of pain. She reports she's getting an injection in her back today after PT and has a follow up appointment in [place] on the . She states that if the injection is effective, they'll move forward with a nerve ablation at that follow up appointment. Assessment PT Clinical Summary Mrs. Keenan has attended 6 total skilled physical therapy visits for chronic low back pain. Since beginning therapy her status is relatively unchanged, however she is now able to sit for longer periods of time at work before the onset of pain. She will be getting an injection in her low back today and may possibly get a nerve ablation at the end of the month. She would benefit from additional skilled physical therapy intervention to continue improving strength and reducing pain to be able to work and perform daily functional activities with less pain. Plan of Care Interventions Electrical Stimulation,Gait Training,Hot Pack/Cold Pack,Manual Therapy,Mechanical Traction,Neuro Re- education,Patient/Caregiver Education,Therapeutic Activities,Therapeutic Exercise,Self-Care/Home Management PT Services Indicated Yes Treatment Frequency and 2x/week for 6 additional visits Duration These treatments will address the objective and functional deficits as defined above. The patient will be advanced safely and appropriately in order for the patient to progress towards his/her prior level of function. Additional exercises will be introduced and as well as a comprehensive home exercise program upon discharge, if needed, ?to ensure carryover of functional gains achieved in the clinic. This treatment plan has been reviewed and agreement upon by the patient.
== END 2025-02-27 23:59 | disposition home or self-care (01) ==
LOC: CHSPT 12:52
PROVIDERS: Visit Provider Nurse Practitioner Adult Health
DX: M46.1 Sacroiliitis, not elsewhere classified (principal)
CPT/HCPCS: 97014; 97110; 97140; 97161; 97530; G0283

== ENCOUNTER 2025-01-29 13:50 | Emergency (ER) | payer MEDICARE, SELFPAY ==
[2025-01-29 13:50] VITALS: BP 126/72; PULSE 88; RESP 18; TEMP 36.4; O2SAT 98
--- OUTSIDE RECORDS SUMMARY | 2025-01-29 14:02 | XMS_ITS | Encounter Summary ---
Author Organization [facility] Healthcare Address [address] [place] [address] Care Team Providers Care Border Guard Name Role Phone Reggie Kimbrough MD Unavailable [phone] Mike Monsivais MD Unavailable [phone] Mynor Biswas MD Unavailable Clementina Polo MD Unavailable Martina Yanez Primary Care Provider [phone] Jorge Maravilla MD Primary Care Provider [phone] Taylor Newby Primary Care Provider Kieran Massey MD Unavailable [phone] Reason for Visit * Reason Onset Date Comments Scheduling Appointments 03/19/2020 Called f or DEXA appointment, No answer Encounter Details Date Type Department Care Team (Late st Contact Info) Description 03/19/2020 Telephone [facility] [address] [place] [phone] Jackie Tong RT Scheduling Appointments (Called for DEXA appointment, No answer) Social History Tobacco Use Types Packs/Day Years Used Date Smoking Tobacco: Former Cigarettes Smokeless Tobacco: Never Comments:quit february 14 Alcohol Use Standard Drinks/Week Comments Yes 0 (1 standard drink = 0.6 oz pur e alcohol) Very rarely PHQ-2 Answer Date Recorded PHQ-2 Score 0 08/10/2019 Comments No Sex and Gender Information Value Date Recorded Sex Assigned at Not on file Legal Sex Female 7:20 PM [employer] Gender Identity Not on file Sexual Orientation Straight 07/09/2020 12 :32 PM CDT Occupation Industry Job Start Date Job End Date 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 Not on file Not on file Not on file documented as of this encounter Plan of Treatment Not on file documented as of this encounter Visit Diagnoses Not on filedocumented in this encounter Additional Health Concerns Infection Onset Date Last Indicated Resolved Time Respiratory Infection (TONI), contact + droplet Comment:Automatically added due to negative COVID-19 result. 03/13/2020 03/13/2020 03/27/2020 3:0 7 AM CDT COVID: Suspected 07/02/2020 07/02/2020 07/03/2020 7:49 PM CDT Respiratory Infection (TONI), contact + droplet Comment:Automatically added due to negative COVID-19 result. 07/03/2020 07/03/2020 07/17/2020 3:0 6 AM [employer] COVID: Suspected 11/05/2020 11/06/2020 11/06/2020 11:21 PM [employer] COVID: Suspected 05/21/2021 05/22/2021 05/22/2021 6:46 PM CDT COVID: Suspected 08/20/2021 08/20/2021 08/20/2021 8:02 PM [employer] documented as of this encounter Care Teams Border Guard Relationship Specialty Start Date End Date Martina Yanez PA [address] [place] [address] PCP - General Internal Medicine 12/05/19 10/18/21 Jorge Maravilla MD [address] [place] [address] PCP - General Internal Medicine 10/19/21 01/16/23 Taylor Newby PA [address] [place] [address] PCP - General Physician Van Owner Operator 01/17/23 [place] [address] [place] [address] Consulting Physician Pain Management 01/12/18 09/26/24 Mike Monsivais MD [address] [place] [address] Consulting Physician Rheumatology 05/11/18 09/26/24 [place] [address] [facility] [address] [place] [address] Consulting Physician Ophthalmology 08/12/18 09/26/24 [place] [address] [facility] [address] [place] [address] Consulting Physician Obstetrics and Gynecology 10/09/19 09/26/24 Kieran Massey MD [address] [place] [address] Consulting Physician Internal Medicine 05/25/23 5 documented as of this encounter
--- OUTSIDE RECORDS SUMMARY | 2025-01-29 14:02 | XMS_ITS | Clinical Summary ---
Author Organization [facility] Address [address] [place] [address] Care Team Providers Care Kiln Labourer Name Role Phone Unavailable Primary Care Provider Unavailabl e Allergies Active Allergy Reactions Criticality Noted Date Comments Atomoxetine Anaphylaxis High 12/26/2024 Gabapentin Hallucination Low 12/26/2024 Methylprednisolone Unknown 12/26/2024 Prednisone Unknown 12/26/2024 Medications tirzepatide (Mounjaro) 10 mg/0.5 mL Pen Injector Inject 10 mg by subcutaneous injection every 7 days. Active pitolisant HCl (WAKIX ORAL) Take 13.8 mg by mouth daily. Active pregabalin (LYRICA) 150 mg Capsule Take 150 mg by mouth. Active ARIPiprazole (ABILIFY) 5 mg tablet Take 5 mg by mouth daily. Active diclofenac sodium (VOLTAREN) 75 mg Tablet, Delayed Release (E.C.) Take 75 mg by mouth 2 times daily. Active enoxaparin (LOVENOX) 120 mg/0.8 mL injection Inject 120 mg by subcutaneous injection. Active metoprolol succinate (TOPROL XL) 25 mg Extended Release 24 hour tablet Take 25 mg by mouth daily. Active omeprazole (PriLOSEC) 20 mg Capsule, Delayed Release(E.C.) Take 20 mg by mouth daily. Active lisinopriL (PRINIVIL) 5 mg tablet Take 5 mg by mouth daily. Active albuterol sulfate (VOSPIRE ER) 8 mg Extended Release 12 hour tablet Take 8.5 mg by mouth every 12 hours. Active budesonide-form oteroL (SYMBICORT) 160-4.5 mcg/actuation HFA Aerosol Inhaler Take 2 Puffs by inhalation 2 times daily. Active tiZANidine (ZANAFLEX) 2 mg Tablet Take 2 mg by mouth. Active buPROPion HCL (WELLBUTRIN SR) 100 mg Sustained Release 12 hour tablet Take 100 mg by mouth 2 times daily. Active busPIRone (BUSPAR) 15 mg Tablet Take 15 mg by mouth. Active Active Problems No known active problems Encounters Date Type Department Care Team Description 01/01/2025 External Device Data [facility] ABSTRACTION Provider, Abstract 01/01/2025 External Device Data [facility] ABSTRACTION Provider, Abstract 01/01/2025 External Device Data [facility] ABSTRACTION Provider, Abstract 12/26/2024 11:00 AM CDT Office Visit [facility] Bariatrics and General Surgery at the [address] [place] [address] Ingrid Vargas MD Morbid obesity with body mass index of 40.0-49.9 (CMS/[facility]) (Primary Dx) 12/20/2024 Chart Note [facility] Bariatrics and General Surgery at the [address] [place] [address] Ingrid Vargas MD 12/19/2024 Chart Note [facility] Bariatrics and General Surgery at the [address] [place] [address] Ingrid Vargas MD from Last 3 Months Social History Tobacco Use Types Packs/Day Years Used Date Smoking Tobacco: Never Assessed Comments Unknown Sex and Gender Information Value Date Recorded Sex Assigned at Not on file Legal Sex Female 10:49 PM CDT Gender Identity Not on file Sexual Orientation Not on file Last Filed Vital Signs Vital Sign Reading Time Taken Comments Blood Pressure 105/77 12/26/2024 10:53 AM CDT Pulse 87 12/26/2024 10:53 AM CDT Temperature - - Respiratory Rate - - Oxygen Saturation 100% 12/26/2024 10:53 AM CDT Inhaled Oxygen Concentration - - Weight 120.7 kg (266 lb) 12/26/2024 10:53 AM CDT Height 170.2 cm (5' 7 ) 12/26/2024 10:53 AM CDT Body Mass Index 41.66 12/26/2024 10:53 AM CDT Plan of Treatment Health Maintenance Due Date Last Done Comments DIABETES ANNUAL FOOT EXAM 1986 DIABETES ANNUAL RETINAL EXAM 1986 DIABETES MICROALBUMIN ANNUAL SCREEN 1986 LDL CHOLESTEROL ANNUAL 1986 DTAP/TDAP/TD VACCINES (1 - Tdap) 1987 HEPATITIS B VACCINES (1 of 3 - 19+ 3-dose series) 1987 ZOSTER VACCINE (1 of 2) 1987 BREAST CANCER SCREENING 04/01/2017 04/01/2016, 04/01 INFLUENZA VACCINE (#1) 2024 9, 06/28/2017, 06/24/2016, Additional history exists DIABETES HBA1C Q 6 MONTHS 06/01/2024 11/30/2023, 03/2021 COLORECTAL SCREENING Discontinued 06/16/2020, 06/16/2020, 09/12/2011 Colorectal Cancer Screening Discontinued FIT-DNA Q 3 years Discontinued FIT/FOBT Q 1 year Discontinued Flex Sig/CT Colonography Q 5 years Discontinued
--- OUTSIDE RECORDS SUMMARY | 2025-01-29 14:02 | XMS_ITS | Continuity of Care Document ---
Author Organization [facility] Address [address] [place] [address] Phone Care Team Providers Care Enterprise Software Engineer Name Role Phone Neeraj Dominguez MD Unavailable [...] Diagnoses Date Provider Providers [facility] [address], [place], [place], [id number] , tel:[phone] [facility] Ne No Information 5 Angelica Pickard. [facility] [place], [facility], [place]. tel:[phone] Referring Provider: Melva Alcaraz, [address], [place], [address]. tel:[phone] [facility], [address], [place], [place], [id number] , tel:[phone] [facility] HemorrhoidsAbdomi nal painPortal hypertension 5 Angelica Pickard. [address] [place] [address], [facility], [place]. tel:[phone] Referring Provider: Neeraj Dominguez, [facility] [place], [facility]. tel:[phone] [facility], [address], [place], [place], [id number] , tel:[phone] [facility] Left lower quadrant painDiarrheaDiver ticulitis 5 Erika Delaney. [address], [place], [address], [place]. tel:[phone] Referring Provider: Sariah Mar, [address] [place], [address]. tel:[phone] [facility], [address], [place], [place], [id number] , [phone] [facility] Abdominal pain (chief complaint) DiverticulitisRhe umatoid arthritis 4 Dominguez Neeraj. [facility] [place], [facility], [place]. tel:[phone] Referring Provider: Neeraj Dominguez, [facility] [place], [address]. tel:[phone] Family History Family Member Type Diagnosis Age At Onset No Information Payers Payer name Insurance type Covered republican ID Authorashley griffith(s) [facility] [id number] [place] [id number] Social History Type Description Quantity Date Captured [...] in 3- 4 weeks. had coilon resection [facility] 2009, 8 inches removed. well til 6 months later. had diverticulitis on CT, got antibiotics. pain better. occ diarrhea and contstipation. had had antibiotics 4 times in past [address] abd pelvis last week negative, [facility] [place]. CBC normal. Got antibiotics. Functional Status Date [...]
--- OUTSIDE RECORDS SUMMARY | 2025-01-29 14:02 | XMS_ITS | Referral Summary ---
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 Name Role Phone Taylor Newby Primary Care Provider Encounters Date Type Department Care Team Description 01/22/2025 Documentation [facility] Oncology 4 [facility] Medical Office [address]ld[address] [phone] Mariana Kimbrough RN 12/08/2024 11:04 AM CDT - 12/08/2024 12:09 PM CDT Emergency [facility] Emergency Department [address] [place] [address] Contusion of multiple sites of left leg, subsequent encounter (Primary Dx); Elevated LFTs; Decreased GFR Discharge Disposition: Discharge to home or self care 12/07/2024 7:04 PM CDT - 12/07/2024 8:37 PM CDT Emergency [facility] Emergency Department [address] [place] [address] Ecchymosis (Primary Dx) Discharge Disposition: Discharge to home or self care 12/07/2024 4:00 PM CDT Office Visit [facility] Care at [address] [phone] Lizett Gamboa NP Pain and swelling of left lower leg (Primary Dx) from Last 3 Months Allergies Active Allergy Reactions Criticality Noted Date Comments Amitriptyline Other (See comments) Low 11/12/2016 Depression Aspartame Atomoxetine Anaphylaxis High 08/25/2017 anaphylaxis Cyclobenzaprine Hcl Unknown 07/19/2014 Fluoxetine Fluoxetine Hcl Other (See comments) Low 07/07/2022 Gabapentin Other (See comments) Low 02/07/2018 Meperidine Rash Medium 05/22/2014 Nortriptyline Other (See comments) Low 02/07/2018 Prednisone Other (See comments) Low 02/07/2018 Pregabalin Other (See comments) Medium 10/08/2016 Other reaction(s): Hallucinations, Other (See Comments) PER PT PER PT PER PT Sulfasalazine Unknown 08/25/2017 Pt states she has lupus Sumatriptan Medications acetaminophen (TYLENOL) 500 mg tablet Take 2 tablets (1,000 mg total) by mouth every 8 (eight) hours as needed for pain Active multivitamin tablet Take 1 tablet by mouth daily Active budesonide-formot Cecilio (SYMBICORT) 80-4.5 mcg/actuation inhaler Inhale 2 puffs 2 (two) times a day 3 Inhaler 2 1 Active albuterol HFA (PROVENTIL HFA,VENTOLIN HFA,PROAIR HFA) 90 mcg/actuation inhaler Inhale 1 puff every 6 (six) hours as needed for wheezing or shortness of breath 3 Active ARIPiprazole (ABILIFY) 5 mg tablet Take 1 tablet (5 mg total) by mouth daily 3 Active OneTouch Ultra Test strip USE TO TEST BLOOD SUGAR DAILY NEEDED WHEN FEELING ILL 3 Active OneTouch Delica Plus Lancet 33 gauge misc USE TO TEST BLOOD SUGAR DAILY NEEDED WHEN FEELING ILL 3 Active metoprolol XL (TOPROL-XL) 25 mg extended release tablet Take 1 tablet (25 mg total) by mouth daily 3 Active busPIRone (BUSPAR) 15 mg tablet Take 2 tablets (30 mg total) by mouth 2 (two) times a day 3 Active buPROPion SR (WELLBUTRIN SR) 100 mg 12 hr tablet Take 1 tablet (100 mg total) by mouth daily [address] (VOLTAREN) 50 mg EC tablet Take 1 tablet (50 mg total) by mouth 2 (two) times a day 3 Active omeprazole (PriLOSEC) 20 mg capsule Take 1 capsule (20 mg total) by mouth daily Active methylphenidate ER (METADATE ER) 20 mg CR tabletIndications :Attention-Defici t Hyperactivity Disorder Take 1 tablet (20 mg total) by mouth 2 (two) times a day 60 tablet 4 Active lidocaine (LIDODERM) 5 % Place 1 patch on the skin as needed 4 Active lisinopriL (PRINIVIL,ZESTRIL ) 5 mg tablet Take 1 tablet (5 mg total) by mouth daily 4 Active rOPINIRole (REQUIP) 1 mg tablet Take 1 tablet (1 mg total) by mouth daily 4 Active Mounjaro 7.5 mg/0.5 mL pen injector INJECT 7.5 MG UNDER THE SKIN EVERY WEEK 4 Active Wakix 17.8 mg tabletIndications :Narcolepsy without cataplexy(347.00) Take two tablets (35.6 mg) by mouth daily upon awakening 60 tablet 10 5 Active enoxaparin (LOVENOX) 120 mg/0.8 mL syringeIndication s:Pulmonary embolism, unspecified chronicity, unspecified pulmonary embolism type, unspecified whether acute cor pulmonale present (HCC) iNJECT 0.8 ML UNDER THE SKIN EVERY 12 HOURS FOR 240 DOSES. Strength:120 mg/0.8ml 0.8 mL 3 5 Active dextroamphetamine -amphetamine (ADDERALL) 20 mg tabletIndications :Narcolepsy without cataplexy(347.00) Take 1 tablet (20 mg total) by mouth 2 (two) times a day 60 tablet 5 Active dextroamphetamine -amphetamine (ADDERALL) 20 mg tabletIndications :Narcolepsy without cataplexy(347.00) Take 1 tablet (20 mg total) by mouth 2 (two) times a day 60 tablet 5 025 Discontin ued(Reord er) Active Problems Problem Noted Date Diagnosed Date Contusion of multiple sites of left leg, subsequent encounter 12/08/2024 Elevated LFTs 12/08/2024 Decreased GFR 12/08/2024 Ecchymosis 12/07/2024 Type 2 diabetes mellitus wit h other specified complication, unspecified whether correction insulin use 06/25/2024 Pulmonary embolism, unspecif ied chronicity, unspecified pulmonary embolism type, unspecified whether acute cor pulmonale present 05/23/2023 Morbid obesity with body mas s index (BMI) of 50.0 to 59.9 in adult 01/24/2023 Assessment & Plan (01/24/2023 11:42 AM CDT): Patients current weight provides with a BMI over 53. Would highly encouraged her to keep the appointment with her dietitian and work on a weight reduction program. This will reduce stress on her hip and lower back. Arthritis of right hip 01/24/2023 Assessment & Plan (01/24/2023 11:41 AM CDT): Radiographically the patient has mild arthritis of the right hip. The groin pain may be a by product of a strain of the hip flexors and conjunction with any potential labral pathology. She is a poor operative candidate and would recommend conservative treatment with physical therapy. Long-term weight loss would likely be helpful. Patient was encouraged to continue with the stretching program as she completes out the formal therapy. Neck pain 08/08/2021 Assessment & Plan (08/08/2021 7:58 PM MEDIA SPECIALIST): Patient was persistent cervical thoracic and lumbar back pain. She also has rheumatoid on symptoms. She has not been responding to those medicines only. [employer] Consultant is concerned something else may be come into play. Will start with x-rays of C-spine and L-spine and T-spine. Start physical therapy. Her consider MRI upon completion of physical if the food seen improvement. Reviewed with patient next difficult to get an MRI done with therapy completion. She is very concerned about a hemangioma that was for T11 with previous MRIs. I have reviewed them the. She had MRIs done into 2016 and most recently in May of 2019. Hemangiomas appear to be present in L2, L4 and L5. They do seem to be stable. Chronic bilateral thoracic back pain 08/08/2021 Assessment & Plan (08/08/2021 7:58 PM MEDIA SPECIALIST): Patient was persistent cervical thoracic and lumbar back pain. She also has rheumatoid on symptoms. She has not been responding to those medicines only. Remed[employer] Consultant is concerned something else may be come into play. Will start with x-rays of C-spine and L-spine and T-spine. Start physical therapy. Her consider MRI upon completion of physical if the food seen improvement. Reviewed with patient next difficult to get an MRI done with therapy completion. She is very concerned about a hemangioma that was for T11 with previous MRIs. I have reviewed them the. She had MRIs done into does 2016 and most recently in May of 2019. Hemangiomas appear to be present in L2, L4 and L5. They do seem to be stable. Chronic midline low back pain 08/08/2021 Assessment & Plan (08/08/2021 7:59 PM MEDIA SPECIALIST): Patient was persistent cervical thoracic and lumbar back pain. She also has rheumatoid on symptoms. She has not been responding to those medicines only. Remediation Bioanal[employer] Consultant is concerned something else may be come into play. Will start with x-rays of C-spine and L-spine and T-spine. Start physical therapy. Her consider MRI upon completion of physical if the food seen improvement. Reviewed with patient next difficult to get an MRI done with therapy completion. She is very concerned about a hemangioma that was for T11 with previous MRIs. I have reviewed them the. She had MRIs done into does 2016 and most recently in May of 2019. Hemangiomas appear to be present in L2, L4 and L5. They do seem to be stable. Patient has full control of bowels and also bladder and no paresthesia in the perineum. Hip pain 08/08/2021 Assessment & Plan (08/08/2021 7:58 PM MEDIA SPECIALIST): Check hip x-rays and start physical therapy. Cigarette smoker 06/06/2021 Rhinorrhea 06/06/2021 Assessment & Plan (06/06/2021 11:30 PM CDT): Patient to presume positive COVID until results are available and self isolate for 10 days from the onset of sxs. Check COVID test thru [facility] collection site in [place]. If positive, complete quarantine and consider monoclonal antibodies. If negative, treat sxs and observe. Will start Antibiotic as suspect URI/sinusitis. Treat sxs with Tylenol, Cough/cold medication otc and add VitD 5,000IU daily and Zinc 50mg daily. Monitor sxs and call or go to the ER if has any of the following: --trouble breathing --persistent pain or pressure in the chest --new confusion --inability to wake or stay awake -- bluish lips or face If patient has been in close contact with anyone, they should be notified and instructed to quarantine per CDC guidelines for 14 days after last exposure to the positive COVID patient and monitor closely for symptoms of COVID. If they appear they should be tested. Close contact includes: --You were within 6 feet of someone who has COVID-19 for a total of 15 minutes or more --You provided care at home to someone who is sick with COVID-19 --You had direct physical contact with the person (hugged or kissed them) --You shared eating or drinking utensils --They sneezed, coughed, or somehow got respiratory droplets on you Additional Steps to avoid exposure/spread include: Avoid crowded places where close contact with others may occur, such as shopping centers, movie theaters, dormitories, or stadiums. Avoid transit where close contact with others may occur, such as planes, trains, and buses. Maintain a distance of approximately 6 feet from other people whenever possible (spacing out if you are in a line, leaving 2 seats in between others at a waiting room when possible). Wash your hands with soap and water often. If needed, use a hand scale balancer that contains at least 60% alcohol. Clean and disinfect frequently touched surfaces such as tables, doorknobs, countertops, etc daily. Avoid touching your eyes, nose, and mouth when possible. Medicare annual wellness visit, subsequent 04/23 Assessment & Plan (04/23/2021 10:25 PM CDT): Encouraged healthy lifestyle, good nutrition and exercise. Encouraged Calcium and Vitamin D and weight bearing exercise for bone health. Reviewed immunizations. Reviewed age appropirate screenings. Medicare Wellness Documentation is completed within the chart Fatigue 03/07/2021 Assessment & Plan (03/07/2021 6:05 PM CDT): Probably multifactorial. Check labs and followup to re-evaluate Tinea cruris 03/07/2021 Assessment & Plan (03/07/2021 6:05 PM CDT): lotrisone to a clean dry area. Use hair spinner after shower. Will also try short course of diflucan since she is having difficulty getting control of the rash. Check DM labs. Diarrhea 03/07/2021 Assessment & Plan (03/07/2021 6:03 PM CDT): Unknown etiology but because she is concerned of her water sores smelling different and multiple people in her home as well as and the Community air having symptoms will go ahead and do stool cultures. Encouraged to monitor closely. Follow brat diet push fluids and monitor for signs and symptoms of dehydration. She is to follow-up in a few weeks if her symptoms worsen or do not improve or immediately if she starts to notice blood in her stool mucus or dark tarry stools. BMI 40.0-44.9, adult 03/05/2021 Assessment & Plan (06/24/2021 7:32 AM CDT): Obesity is unchanged. Discussed the patient's BMI. The BMI is above average. BMI management plan is completed. BMI Follow-up includes: nutrition counseling, exercise counseling and education provided. Assessment & Plan (03/05/2021 1:13 PM CDT): Obesity is unchanged. Discussed the patient's BMI. The BMI is above average. BMI management plan is completed. BMI Follow-up includes: nutrition counseling, exercise counseling and education provided. Morbid obesity with BMI of 40.0-44.9, adult 02/11 Assessment & Plan (06/24/2021 7:32 AM CDT): Obesity is unchanged. Discussed the patient's BMI. The BMI is above average. BMI management plan is completed. BMI Follow-up includes: nutrition counseling, exercise counseling and education provided. Assessment & Plan (05/03/2021 9:33 PM CDT): Obesity is unchanged. Discussed the patient's BMI. The BMI is above average. BMI management plan is completed. BMI Follow-up includes: nutrition counseling, exercise counseling and education provided. Assessment & Plan (03/05/2021 1:13 PM CDT): Obesity is unchanged. Discussed the patient's BMI. The BMI is above average. BMI management plan is completed. BMI Follow-up includes: nutrition counseling, exercise counseling and education provided. Urinary hesitancy 11/29/2020 Assessment & Plan (11/29/2020 10:26 AM CDT): This is a significant, separately identifiable problem that was evaluated and managed on the same day as the wellness exam Patient has noted increased need to reposition and feels like she is retaining urine. Denies any dysuria. Recommend referral to Urology for further evaluation. Acute non-recurrent frontal sinusitis 11/05/2020 Assessment & Plan (11/05/2020 10:07 AM MEDIA SPECIALIST): Start antibiotic, antihistamine (Claritin OR Zyrtec), Mucinex 12hour and Steroid nasal spray (Flonase). Push fluids. Rest. Supportive care. If sxs worsen or don\\'t improve, pt is to followup in the office. Advised this still could be COVID sxs so will test. See Congestion below Chronic nasal congestion 11/05/2020 Assessment & Plan (11/05/2020 10:08 AM MEDIA SPECIALIST): Patient to presume positive COVID until results are available and self isolate for 10 days from the onset of sxs. If negative, isolate until on antibiotic x 24hours and fever free x 24 hours without medication. Check COVID test thru [facility] collection site in [place]. Treat sxs with Tylenol, Cough/cold medication otc and add VitD 5,000IU daily and Zinc 50mg daily. Monitor sxs and call or go to the ER if has any of the following: --trouble breathing --persistent pain or pressure in the chest --new confusion --inability to wake or stay awake -- bluish lips or face If patient has been in close contact with anyone, they should be notified and instructed to quarantine per CDC guidelines for 14 days after last exposure to the positive COVID patient and monitor closely for symptoms of COVID. If they appear they should be tested. Close contact includes: --You were within 6 feet of someone who has COVID-19 for a total of 15 minutes or more --You provided care at home to someone who is sick with COVID-19 --You had direct physical contact with the person (hugged or kissed them) --You shared eating or drinking utensils --They sneezed, coughed, or somehow got respiratory droplets on you Additional Steps to avoid exposure/spread include: Avoid crowded places where close contact with others may occur, such as shopping centers, movie theaters, dormitories, or stadiums. Avoid transit where close contact with others may occur, such as planes, trains, and buses. Maintain a distance of approximately 6 feet from other people whenever possible (spacing out if you are in a line, leaving 2 seats in between others at a waiting room when possible). Wash your hands with soap and water often. If needed, use a hand scale balancer that contains at least 60% alcohol. Clean and disinfect frequently touched surfaces such as tables, doorknobs, countertops, etc daily. Avoid touching your eyes, nose, and mouth when possible. Narcolepsy 07/09/2020 Assessment & Plan (05/03/2021 9:36 PM CDT): Continue with Dr. Falk, Sleep medicine. Still working on medication regimen Assessment & Plan (11/29/2020 10:23 AM CDT): Continue per Sleep Dr. Falk Assessment & Plan (07/09/2020 10:48 PM CDT): Sleep specialist started her on Modafinil bid. Feels overstimulated, especially with later dose. Take one in the AM and monitor. Followup with Dr. Falk as instructed. History of colon polyps 05/21/2020 Overview (05/21/2020): Added automatically from request for surgery [id number] Hemorrhoid 04/09/2020 Overview (04/09/2020): Added automatically from request for surgery [id number] Assessment & Plan (04/12/2020 9:34 AM CDT): Awaiting recommendations from Dr. Aguilar/GI [facility] for screening mamm ogram for malignant neoplasm of breast 02/05/2020 Assessment & Plan (02/05/2020 10:27 PM CDT): Mammogram order provided Hyperglycemia 02/05/2020 Assessment & Plan (05/03/2021 9:33 PM CDT): Pre-diabetes/hyperglycemia is a precursor to Dm. Stressed importance of working on diet (decrease your simple sugars and one carbohydrate with each meal) and increase you exercise to achieve weight loss and this will help prevent you from progressing to diabetes. Assessment & Plan (03/07/2021 6:03 PM CDT): Pre-diabetes/hyperglycemia is a precursor to Dm. Stressed importance of working on diet (decrease your simple sugars and one carbohydrate with each meal) and increase you exercise to achieve weight loss and this will help prevent you from progressing to diabetes. Assessment & Plan (11/29/2020 10:22 AM CDT): Pre-diabetes/hyperglycemia is a precursor to Dm. Stressed importance of working on diet (decrease your simple sugars and one carbohydrate with each meal) and increase you exercise to achieve weight loss and this will help prevent you from progressing to diabetes. Assessment & Plan (02/05/2020 10:27 PM CDT): Check labs Mixed hyperlipidemia 02/05/2020 Assessment & Plan (05/03/2021 9:33 PM CDT): Encouraged patient to follow fat/low chol diet like the Mediterranean diet. Increase good fats in the diet. Increase exercise. Monitor labs as needed. Assessment & Plan (03/07/2021 6:02 PM CDT): Encouraged patient to follow fat/low chol diet like the Mediterranean diet. Increase good fats in the diet. Increase exercise. Monitor labs as needed. Assessment & Plan (11/29/2020 10:22 AM CDT): Encouraged patient to follow fat/low chol diet like the Mediterranean diet. Increase good fats in the diet. Increase exercise. Monitor labs as needed. Assessment & Plan (02/05/2020 10:27 PM CDT): Check labs Other fatigue 02/05/2020 Assessment & Plan (02/05/2020 10:26 PM CDT): Probably multifactorial. Check labs and followup to re-evaluate Slow transit constipation 02/05/2020 Assessment & Plan (05/03/2021 9:34 PM CDT): Continue linzess Assessment & Plan (11/29/2020 10:31 AM CDT): This is a significant, separately identifiable problem that was evaluated and managed on the same day as the wellness exam Discussed treatment options--she has tried multiple otc without consistent effects. Reviewed risks, benefit, alternatives, side effects and proper use. Start Linzess at 72mcg daily. If not enough to help with sxs can control Assessment & Plan (07/09/2020 10:47 PM CDT): Negative colonosocpy Start colace and increase fiber, exercise and fluids. Monitor. Assessment & Plan (02/05/2020 10:28 PM CDT): Increase fiber, exercise, fluids. Colace bid Polyp of colon 02/05/2020 Assessment & Plan (04/12/2020 9:34 AM CDT): Repeat colonoscopy scheduled Assessment & Plan (02/05/2020 10:29 PM CDT): Pt states had colonscopy a few years ago and told had large polyp and needed to repeat in [address] Garcia so will refer back to him as has her records and has other GI concerns. Mixed stress and urge urinary incontinence 09/11 Assessment & Plan (02/05/2020 10:20 PM CDT): Sxs have improved with weight loss. Will monitor IBS (irritable bowel syndrome) 05/07/2018 Overview (11/29/2020): Normal EGD and Colonoscopy 12/13/17 other than 12 mm polyp and mild gastritis - recommend repeat colonoscopy in 2020 Colonoscopy done 06/2020 -->2024 Assessment & Plan (05/03/2021 9:35 PM CDT): Continue FODMAP and bentyl prn Assessment & Plan (11/29/2020 10:14 AM CDT): Continue Bentyl and Linzess Assessment & Plan (07/09/2020 10:47 PM CDT): Continue fiber, exercise and fiber. Start colace. 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 Recommend continue cortisone. May add Recticare otc for comfort. Increase fiber, exercise and water to help normalize stools. Assessment & Plan (02/05/2020 10:19 PM CDT): Increase fiber, exercise, fluids. Continue Colace bid. Refer to GI for treatment of the constipation. Pending workup, may need referral to colorectal as pt concerned about side of the hemorrhoids. Portal hypertension 04/05/2018 Overview (02/05/2020): 2018 noted icidentally with some imaging. Pt states no longer present Sacroiliitis 03/08/2018 Fibromyalgia 03/08/2018 Overview (02/05/2020): Dr. Monsivais manages tramadol, cymbalta, butrans, tizanidide, mobic, plaquenil, Medrol prn and cellcept. Encouraged continued activity/exercise. Assessment & Plan (05/03/2021 9:35 PM CDT): Continue per Rheum Assessment & Plan (02/05/2020 10:06 PM CDT): Managed by dr. Monsivais. Encouraged continue activity/exercise Myofascial muscle pain 03/08/2018 Mixed connective tissue disease 03/08/2018 Assessment & Plan (05/03/2021 9:35 PM CDT): Continue per Rheumatology Assessment & Plan (11/29/2020 10:15 AM CDT): conitnue per Rheum Assessment & Plan (02/05/2020 10:21 PM CDT): Continue per Dr. Monsivais Assessment & Plan (08/10/2019 4:56 AM MEDIA SPECIALIST): Patient states she is on Butrans patch for this. She is due to have her patch changed on Tuesday. Patch is non formulary, patient advised to have family bring in home prescription to change if patient is still be here on Tuesday. Cocaine use disorder, moderate, in sustained rem ission 02/07/2018 Assessment & Plan (02/05/2020 2:18 PM CDT): History in 2002 No use since Ecstasy use disorder, moderate, in sustained rem ission 02/07/2018 Assessment & Plan (02/05/2020 2:18 PM CDT): 2002. NO use since Major depressive disorder, recurrent episode, mo derate 02/07/2018 Assessment & Plan (05/03/2021 9:35 PM CDT): Continue cymbalta -- Assessment & Plan (11/29/2020 10:23 AM CDT): Stable on cymbalta for pain and depression Assessment & Plan (02/05/2020 10:24 PM CDT): Stable with Cymbalta Hypertension 01/12/2018 Assessment & Plan (05/03/2021 9:30 PM CDT): Bp is stable/in acceptable range for any co-morbidities. Encouraged to limit sodium intake and exercise for weight control. Continue amlodipine Assessment & Plan (03/07/2021 6:02 PM CDT): Bp is stable/in acceptable range for any co-morbidities. Encouraged to limit sodium intake and exercise for weight control. Continue amlodipine Assessment & Plan (07/09/2020 10:46 PM CDT): Bp is stable/in acceptable range for any co-morbidities. Encouraged to limit sodium intake and exercise for weight control. Assessment & Plan (02/05/2020 10:18 PM CDT): Bp is stable/in acceptable range for any co-morbidities. Encouraged to limit sodium intake and exercise for weight control. Stable with amlodipine Assessment & Plan (08/10/2019 4:44 AM MEDIA SPECIALIST): Continue Norvasc with hold parameters GERD (gastroesophageal reflux disease) 8 Assessment & Plan (05/03/2021 9:34 PM CDT): Continue PPI and bentyl Assessment & Plan (11/29/2020 10:13 AM CDT): Continue PPI Assessment & Plan (02/05/2020 10:19 PM CDT): Continue with PPI prn Chronic anticoagulation 01/12/2018 Assessment & Plan (05/03/2021 9:33 PM CDT): History PE> Continue Xarelto Assessment & Plan (02/05/2020 10:22 PM CDT): Restart Xarelto. Pt states has history PE and Clotting factor. Will request records to determine clotting factor as she states she needs to be on AC for lifetime. Has been off for a few months as ran out. History of pulmonary embolism 01/12/2018 Overview (02/05/2020): History of PE in 2011. Request records from [facility] in [place] to determine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
--- OUTSIDE RECORDS SUMMARY | 2025-01-29 14:02 | XMS_ITS | CONTINUITY OF CARE DOCUMENT ---
Author Name jameson barba Address Unknown Organization [facility] Address [address] [place] [address] Phone [phone] Care Team Providers Care Er Registrar Name Role Phone Jayce Diez MD Unavailable MYA KINCAID MD Unavailable CHAVA LOMBARDO Unavailable [phone] PROBLEMS Condition Status Date Provider Notes SOB active Juan Zurita Chest pain active Jayce Diez MD Tobacco abuse active Jayce Diez MD Rheumatoid arthritis active Jayce Diez MD FAMILY HISTORY OF HEART DISEASE active Karla Diez MD h/o Pulmonary embolism active Jayce Diez MD ENCOUNTERS Date Type Provider Location Encounter Diag nosis - In-person encounter Office Visit Jayce Diez MD [facility] Chest painTobacco abuseRheumatoid arthritish/o Pulmonary embolismFAMILY HISTORY OF HEART DISEASE VITAL SIGNS Date Observation Value Provider blood pressure, diastolic 90 mm[Hg] Conner Sims'Jordan blood pressure, systolic 130 mm[Hg] Brie Sims'Jordan pulse rate 94 /min Cassie O'Jordan oxygen saturation, oximetry 98 % Cassie O'Jordan respiratory rate E&M 18 /min Cassie O'Jordan Body Mass Index (Ratio) 44.01 kg/m2 Gabo Sims'Jordan weight E&M 281 [lb_av] Cassie O'Jordan height E&M 67 [in_i] Cassie O'Jordan ALLERGIES Allergy Name Onset Date Reaction Criticality Status STRATERRA Low Criticality active TRAMADOL Low Criticality active IMITREX Low Criticality active HISTORY OF MEDICATION USE Medication Status Instructions Dates Provider Indications Com ments ENDOCET 7.5-325 MG ORAL TABLET active THREE TAIMES DAILY NEEDED Cassie O'Jordan REQUIP 5 MG ORAL TABLET active ONCE DAILY Cassie O'Jordan MULTIVITAMINS ORAL CAPSULE active ONE TAB. DAILY Cassie O'Jordan ASPIRIN 81 MG ORAL TABLET active ONE TAB. DAILY Cassie O'Jordan XARELTO 20 MG ORAL TABLET active One tab. daily with evening meal Cassie O'Jordan PLAQUENIL 200 MG ORAL TABLET active TWICE DAILY Cassie O'Jordan SULFADIAZINE TABLET active 50 MG TWO TAB TWICE DAILY Cassie O'Jordan ZOLOFT 50 MG ORAL TABLET active ONCE DAILY Cassie Sims'Jordan SOCIAL HISTORY Date Observation Value Provider smoking/tobacco cess ation, patient education and counseling yes Jayce Diez MD social history E&M Patient sandip escalante smokes every day. Smoking History: P atient currently smokes every day. Jayce Diez MD social history reviewed E&M revi ewed - no changes required Jayce Diez MD smoking, date started 2007 Cassie Ko smoking history, tot al pack/day 0.5 Cassie Ko cigarette use yes Cassie Ko smoking status current every day smoker U keturah Diez MD FAMILY HISTORY Family Member Condition Mother Family History of Co ronary Artery Disease: INSURANCE PROVIDERS Payer name Policy type / Coverage type [place] [employer] party ID [employer] Other [id number] TREATMENT PLAN Date Name Performer Cardiology:The Patie nt was reencouraged to stop smoking. Jayce Diez MD Cardiology:Continues on Xarelto Jayce Diez MD Cardiology Jayce Diez MD Date Name Complete Echo Complete Echo HISTORY OF PROCEDURES Procedure Date Procedure Name Provider Procedure Notes S tatus SNOMED-CT: 091709939 [id number] Current Medications Documented Jayce Diez MD completed SNOMED-CT: 844177590 Smoking Cessation Counseling Jayce Diez MD completed SNOMED-CT: 76051639 Physical Exam, Performed: Pulse Exam of Foot Jayce Diez MD completed
--- NOTE | 2025-01-29 14:32 | ED.SKABFB ---
HPI - Skin/Abscess/Foreign Bdy General Chief complaint: Abdominal Pain Stated complaint: possible infection Time Seen by Provider: 01/29/25 14:08 Source: patient Mode of arrival: ambulatory Limitations: no limitations History of Present Illness MD complaint: rash and discoloration Onset (ago): day(s) Tetanus up to date: yes Location: generalized (abdomen left side) Severity: mild Severity scale (1-10): 2 Quality: burning Pain Consistency: constant Relieving factors: none Exacerbating factors: none Context: none Associated symptoms: denies other symptoms Treatments prior to arrival: none Related Data Home Medications Medication Instructions Recorded Confirmed Last Taken Type Tylenol 1,000 mg PO Q8H 10/23/21 08/05/23 01/20/23 History budesonide-formoterol HFA 80 2 inh inhalation BID 10/23/21 08/05/23 01/20/23 History mcg-4.5 mcg/actuation aerosol inhaler (Symbicort) duloxetine 60 mg capsule,delayed 120 mg PO DAILY 02/25/22 08/05/23 1 Day Ago History release ~01/19/23 pitolisant 17.8 mg tablet (Wakix) 17.8 mg PO DAILY 02/25/22 08/05/23 01/20/23 History dextroamphetamine-amphetamine 20 20 mg PO DAILY 04/20/22 08/05/23 01/20/23 History mg tablet aripiprazole 10 mg tablet 10 mg DAILY 01/20/23 08/05/23 01/20/23 History bismuth subsalicylate 262 mg 2 tablet PO Q1H PRN upset stomach 01/20/23 08/05/23 01/20/23 History chewable tablet lisinopril 40 mg tablet 40 mg PO DAILY 01/20/23 08/05/23 1 Day Ago History ~01/19/23 metoprolol succinate 25 mg 25 mg PO DAILY 01/20/23 08/05/23 01/20/23 History tablet,extended release 24 hr (Toprol XL) aripiprazole 5 mg tablet 5 mg PO DAILY 07/06/23 08/05/23 Unknown History bupropion HCl 100 mg tablet 100 mg PO ONCE 07/06/23 08/05/23 Unknown History buspirone 15 mg tablet 15 mg PO BID 07/06/23 08/05/23 Unknown History diclofenac sodium 50 mg 50 mg PO BID 07/06/23 08/05/23 Unknown History tablet,delayed release multivitamin 1 tablet PO DAILY 07/06/23 08/05/23 Unknown History omeprazole 20 mg capsule,delayed 20 mg PO DAILY 07/06/23 08/05/23 Unknown History release ropinirole 0.25 mg tablet 0.25 mg PO DAILY 08/05/23 08/05/23 Unknown History tirzepatide 7.5 mg/0.5 mL 7.5 mg subcut WEEKLY 08/05/23 08/05/23 Unknown History subcutaneous pen injector (Mounjaro) Allergies Allergy/AdvReac Type Severity Reaction Status Date / Time amitriptyline Allergy Intermediate Other Verified 01/29/25 13:59 aspartame Allergy Intermediate Other Verified 01/29/25 13:59 atomoxetine Allergy Intermediate Unknown Verified 01/29/25 13:59 gabapentin Allergy Intermediate Other Verified 01/29/25 13:59 nortriptyline Allergy Intermediate Other Verified 01/29/25 13:59 prednisone Allergy Intermediate Hyperactive Verified 01/29/25 13:59 cyclobenzaprine Allergy Anxiety Verified 01/29/25 13:59 fluoxetine Allergy Unknown Verified 01/29/25 13:59 pregabalin Allergy Anxiety Verified 01/29/25 13:59 sulfasalazine Allergy Unknown Verified 01/29/25 13:59 sumatriptan Allergy Unknown Verified 01/29/25 13:59 methotrexate AdvReac Intermediate Diarrhea Verified 01/29/25 13:59 methylprednisolone AdvReac Agitated Verified 01/29/25 13:59 Review of Systems Review of Systems: All systems reviewed & are unremarkable except as noted in HPI and below Constitutional: Constitutional: Reports as per HPI Eyes: Eyes: Reports as per HPI ENT: Reports system reviewed and no additional complaints, except as documented Cardiovascular: Cardiovascular: Reports as per HPI Respiratory: Respiratory: Reports as per HPI Gastrointestinal: Gastrointestinal: Reports as per HPI Genitourinary: Genitourinary: Reports no additional female genitourinary complaints Musculoskeletal: Musculoskeletal: Reports no additional musculoskeletal complaints Integumentary/Breasts: Skin/Breast: Reports erythema and Reports rash Comments: left abdominal lower area erythema /Edema /cystic in nature. Neurologic: Reports system reviewed and no additional complaints, except as documented Psychiatric: Psychiatric: Reports no additional psychiatric complaints Endocrine: Endocrine: Reports no additional endocrine complaints Hematologic/Lymphatic: Hematologic/Lymphatic: Reports no additional hematologic/lymphatic complaints Allergic/Immunologic: Allergic/Immunologic: Reports no additional allergic/immunologic complaints [facility] Past Medical History Medical History Depression Arthritis Fibromyalgia History of gastroesophageal reflux (GERD) Diverticulitis Colitis Pneumonia Pulmonary embolism Asthma Hypertension History of hypercholesterolemia Mitral valve prolapse History of TIA (transient ischemic attack) Systemic lupus Surgical History Surgical History History of hysterectomy History of cholecystectomy Social History Social History Years smoked: 20 Smoking status: Former smoker Tobacco type: cigarettes Second hand tobacco smoke exposure: No Smoking end date: 11/29/22 Alcohol intake: former Alcohol use details: Rare Substance use: current Substance use type: marijuana, amphetamines and prescription drug Last use: 01/06/2023 Lack of Transportation: No Lack of Food: Never True Current Housing: I Have Housing Concerned About Future Housing: No Difficulty Paying Gas/Electric Bills: No Difficulty Paying for Meds: No Currently Unemployed: No Education: High School Diploma/GED Difficulty w/ Childcare or Family Care: No Living arrangements: alone Gender identity (if verbalized by the patient): Female Spiritual care concerns: Yes (Yarsani Zoroastrianism) Exam Const: General: healthy appearing Nutritional Appearance: well nourished Orientation/consciousness: patient oriented x3 HENMT: Head: normal to inspection Ears: external ears normal Face/Nose/Sinus: Normal external nose present Face and sinus: normal facial exam Mouth: Yes Normal oral and palatal mucosa present Eyes: Conjunctivae: conjunctivae normal Pupils: Equal, round and reactive pupils present EOM: EOMs intact bilaterally Neck: Neck: normal visual inspection Chest: Chest palpation & inspection: normal inspection of the chest Resp: Effort & Inspection: normal respiratory effort Auscultation: clear to auscultation bilaterally Cardio: Rate: regular rate Rhythm: regular rhythm GI: GI Palp: Yes Soft to palpation Back/Spine/Pelvis: Back: no CVA tenderness Skin: General skin exam: normal color Rashes: no rashes Wounds: wounds noted Other: Erythema/ edema the left lower quadrant of the abdomen on the skin, nonfluctuant nonmovable hard area around 5 x 7 cm Neuro: General: patient oriented x3 Cranial nerves: Yes Nystagmus not present Speech: normal speech Extrem: General: normal to inspection Psych: Mental Status: mental status grossly normal Affect: normal affect Attitude: cooperative Course Vital Signs Vital signs: Vital Signs Temperature 97.5 F L 01/29/25 13:50 Pulse Rate 88 01/29/25 13:50 Respiratory Rate 18 01/29/25 13:50 Blood Pressure 126/72 01/29/25 13:50 Pulse Oximetry 98 01/29/25 13:50 Oxygen Delivery Room Air 01/29/25 13:50 Temperature 97.5 F L 01/29/25 13:50 Pulse Rate 88 01/29/25 13:50 Respiratory Rate 18 01/29/25 13:50 Blood Pressure 126/72 01/29/25 13:50 Pulse Oximetry 98 01/29/25 13:50 Oxygen Delivery Room Air 01/29/25 13:50 MDM - Skin/Abscess/Foreign Bdy MDM Narrative Medical decision making narrative: patient has what seems to be a cyst in the lower left abdomen is her thymus and edematous and is very hard nonfluctuant non moveable. Is not abscess in nature it is definitely a cyst. However I do not think this is what causes the infection I think there is cellulitis on top of this. This cyst is still very pretty deep and not superficial not good to open and open it to infection. Will give her antibiotics for the cellulitis started on doxycycline here and send her home on doxycycline. Differential Diagnosis Differential diagnosis: Likely cellulitis and other (abdominal cyst ) Medical Records Attestation: I reviewed the patient's medical records. Lab Data Attestation: I reviewed the patient's lab results. ABG Data Attestation: I personally reviewed and interpreted this ABG as follows: Imaging Data Attestation: I personally reviewed and interpreted this imaging study as follows: Discharge Plan Discharge Clinical Impression: Cellulitis, Abdominal cyst Patient Disposition: Home Condition: Stable Instructions: Antibiotic Form, Cellulitis (ED) Patient Language: Botswanan Prescriptions: New doxycycline hyclate 100 mg tablet 100 mg PO Q12H Qty: 20 0RF No Action budesonide-formoterol [Symbicort] 80-4.5 mcg/actuation HFA aerosol inhaler 2 inh INHALATION BID Tylenol 1,000 mg PO Q8H dextroamphetamine-amphetamine 20 mg tablet 20 mg PO DAILY metoprolol succinate [Toprol XL] 25 mg tablet extended release 24 hr 25 mg PO DAILY lisinopril 40 mg tablet 40 mg PO DAILY bismuth subsalicylate 262 mg Tablet,Chewable 2 tablet PO Q1H PRN (Reason: upset stomach) Rx Instructions: do not exceed 16 tabs per 24 hrs aripiprazole 10 mg Tablet 10 mg DAILY Xarelto 20 mg tablet 20 mg PO DAILY Qty: 30 0RF Rx Instructions: must administer with evening meal ropinirole 0.25 mg tablet 0.25 mg PO DAILY Mounjaro 7.5 mg/0.5 mL pen injector 7.5 mg SUBCUT WEEKLY meclizine 25 mg tablet 25 mg PO TID PRN (Reason: dizziness) Qty: 30 0RF methylprednisolone 4 mg tablets,dose pack See Rx Instructions .ROUTE .COMPLEX Qty: 21 0RF Rx Instructions: for 6 days ondansetron HCl 4 mg tablet 4 mg PO Q6H PRN (Reason: nausea and vomiting) Qty: 14 0RF aripiprazole 5 mg tablet 5 mg PO DAILY omeprazole 20 mg capsule,delayed release(DR/EC) 20 mg PO DAILY diclofenac sodium 50 mg tablet,delayed release (DR/EC) 50 mg PO BID bupropion HCl 100 mg tablet 100 mg PO ONCE buspirone 15 mg tablet 15 mg PO BID multivitamin Tablet 1 tablet PO DAILY metoclopramide HCl [Reglan] 10 mg tablet 10 mg PO BID Qty: 60 4RF Rx Instructions: Take before largest meal of the day and at bedtime. duloxetine 60 mg Capsule,Delayed Release(Dr/Ec) 120 mg PO DAILY Wakix 17.8 mg Tablet 17.8 mg PO DAILY Follow-up/Referrals: UNKNOWN,DOCTOR [Non-Staff] - Time of Disposition: 14:55
[2025-01-29] MEDS: DOXYCYCLINE HYCLATE 100 MG TABLET PO (14:34)
--- OUTSIDE RECORDS SUMMARY | 2025-01-29 14:35 | XMS_ITS | Continuity of Care Document ---
Author Organization [facility] Address [address] [place] [address] Phone Care Team Providers Care Ware Dresser Name Role Phone Neeraj Dominguez MD Unavailable [...] Diagnoses Date Provider Providers [facility] [address], [place], [place], [id number] , tel:[phone] [facility] Ne No Information 5 Angelica Pickard. [facility] [place], [facility], [place]. tel:[phone] Referring Provider: Melva Alcaraz, [address], [place], [address]. tel:[phone] [facility], [address], [place], [place], [id number] , tel:[phone] [facility] HemorrhoidsAbdomi nal painPortal hypertension 5 Angelica Pickard. [address] [place] [address], [facility], [place]. tel:[phone] Referring Provider: Neeraj Dominguez, [facility] [place], [facility]. tel:[phone] [facility], [address], [place], [place], [id number] , tel:[phone] [facility] Left lower quadrant painDiarrheaDiver ticulitis 5 Erika Delaney. [address], [place], [address], [place]. tel:[phone] Referring Provider: Sariah Mar, [address] [place], [address]. tel:[phone] [facility], [address], [place], [place], [id number] , [phone] [facility] Abdominal pain (chief complaint) DiverticulitisRhe umatoid arthritis 4 Dominguez Neeraj. [facility] [place], [facility], [place]. tel:[phone] Referring Provider: Neeraj Dominguez, [facility] [place], [address]. tel:[phone] Family History Family Member Type Diagnosis Age At Onset No Information Payers Payer name Insurance type Covered republican ID Authorashley griffith(s) [facility] [id number] MEDICARE MB [id number] Social History Type Description Quantity Date Captured [...] 4 weeks. had coilon resection [facility] 2009, 8 inches removed. well til 6 months later. had diverticulitis on CT, got antibiotics. pain better. occ diarrhea and contstipation. had had antibiotics 4 times in past [address] abd pelvis last week negative, [facility] in [place]. CBC normal. Got antibiotics. Functional Status Date [...]
--- OUTSIDE RECORDS SUMMARY | 2025-01-29 14:35 | XMS_ITS | CONTINUITY OF CARE DOCUMENT ---
Author Name jameson barba Address Unknown Organization [facility] Address [address] [place] [address] Phone [phone] Care Team Providers Care Nonprofit Director Name Role Phone Rg SIBLEY, Jayce Unavailable MYA KINCAID MD Unavailable [phone] CHAVA LOMBARDO Unavailable [phone] PROBLEMS Condition Status Date Provider Notes SOB active Juan Zurita Chest pain active Jayce Diez MD Tobacco abuse active Jayce Diez MD Rheumatoid arthritis active Jayce Diez MD h/o Pulmonary embolism active Jayce Diez MD FAMILY HISTORY OF HEART DISEASE active Karla Diez MD ENCOUNTERS Date Type Provider Location Encounter Diag nosis - In-person encounter Office Visit Jayce Diez MD [facility] Chest painTobacco abuseRheumatoid arthritish/o Pulmonary embolismFAMILY [...] Payer name Policy type / Coverage type [place] red democrat ID [employer] Other [id number] TREATMENT PLAN Date Name Performer Cardiology:The Patie nt was reencouraged to stop smoking. Jayce Diez MD Cardiology:Continues on Xarelto Jayce Diez MD Cardiology Jayce Diez MD Date Name Complete Echo Complete Echo HISTORY OF PROCEDURES Procedure Date Procedure Name Provider Procedure Notes S tatus SNOMED-CT: 248208644 [id number] Current Medications Documented Jayce Diez MD completed SNOMED-CT: 241687937 Smoking Cessation Counseling Jayce Diez MD completed SNOMED-CT: 79332964 Physical Exam, Performed: Pulse Exam of Foot Jayce Diez MD completed
--- OUTSIDE RECORDS SUMMARY | 2025-01-29 14:35 | XMS_ITS | Clinical Summary ---
Author Organization [facility] Address [address] [place] [address] Care Team Providers Care Sales Recruitment Specialist Name Role Phone Unavailable Primary Care Provider [...] Abstract 12/26/2024 11:00 AM CDT Office Visit [facility] and General Surgery at the [address] [place] [address] Ingrid Vargas MD Morbid obesity with body mass index of 40.0-49.9 (CMS/[facility]) (Primary Dx) 12/20/2024 Chart Note [facility] Bariat[facility] and General Surgery at the [address] [place] [address] Ingrid Vargas MD 12/19/2024 Chart Note [facility] Bariatrics and General Surgery at the [address] [place] [address] Ingrid Vargas MD from Last 3 Months [...]
--- OUTSIDE RECORDS SUMMARY | 2025-01-29 14:35 | XMS_ITS | Referral Summary ---
Author Organization [facility] Address [address] [place] [address] Care Team Providers Care Document Reviewer Name Role Phone Taylor Newby Primary Care Provider Encounters Date Type Department Care Team Description 01/22/2025 Documentation [facility] Oncology 4 [facility] Medical Office [address] [phone] Mariana Kimbrough RN 12/08/2024 11:04 AM CDT - 12/08/2024 12:09 PM CDT Emergency [facility] Emergency Department [address] [place] [address] Contusion of multiple sites of left leg, subsequent encounter (Primary Dx); Elevated LFTs; Decreased GFR Discharge Disposition: Discharge to home or self care 12/07/2024 7:04 PM CDT - 12/07/2024 8:37 PM CDT Emergency [facility] Emergency Department [address] [place] [address] Ecchymosis (Primary Dx) Discharge Disposition: Discharge to home or self care 12/07/2024 4:00 PM CDT Office Visit [facility] Replaced By [facility] at [address] [phone] Lizett Gamboa NP Pain and [...] wit h other specified complication, unspecified whether jail insulin use 06/25/2024 Pulmonary embolism, unspecif ied [...] 08/08/2021 Assessment & Plan (08/08/2021 7:58 PM MANAGER MEDICAL): Patient was persistent cervical thoracic and lumbar back pain. She also has rheumatoid on symptoms. She has not been responding to those medicines only. Outsole Paraffiner is concerned something else may be come [...] 08/08/2021 Assessment & Plan (08/08/2021 7:58 PM MANAGER MEDICAL): Patient was persistent cervical thoracic and lumbar back pain. She also has rheumatoid on symptoms. She has not been responding to those medicines only. Outsole Paraffiner is concerned something else may be come [...] 08/08/2021 Assessment & Plan (08/08/2021 7:59 PM MANAGER MEDICAL): Patient was persistent cervical thoracic and lumbar back pain. She also has rheumatoid on symptoms. She has not been responding to those medicines only. Outsole Paraffiner is concerned something else may be come [...] 08/08/2021 Assessment & Plan (08/08/2021 7:58 PM MANAGER MEDICAL): Check hip x-rays and start physical therapy. Cigarette smoker 06/06/2021 Rhinorrhea 06/06/2021 Assessment & Plan (06/06/2021 11:30 PM CDT): Patient to presume positive COVID until results are available and self isolate for 10 days from the onset of sxs. Check COVID test thru [facility] collection site in [place]. If positive, complete quarantine and consider monoclonal [...] water often. If needed, use a hand yarn rewinder that contains at least 60% alcohol. Clean [...] lotrisone to a clean dry area. Use criminal justice department chair after shower. Will also try short course [...] 11/05/2020 Assessment & Plan (11/05/2020 10:07 AM MANAGER MEDICAL): Start antibiotic, antihistamine (Claritin OR Zyrtec), Mucinex 12hour and Steroid nasal spray (Flonase). Push fluids. Rest. Supportive care. If sxs worsen or don\\'t improve, pt is to followup in the office. Advised this still could be COVID sxs so will test. See Congestion below Chronic nasal congestion 11/05/2020 Assessment & Plan (11/05/2020 10:08 AM MANAGER MEDICAL): Patient to presume positive COVID until results are available and self isolate for 10 days from the onset of sxs. If negative, isolate until on antibiotic x 24hours and fever free x 24 hours without medication. Check COVID test thru [facility] collection site in [place]. Treat sxs with Tylenol, Cough/cold medication otc [...] water often. If needed, use a hand yarn rewinder that contains at least 60% alcohol. Clean [...] (05/21/2020): Added automatically from request for surgery [id number] Hemorrhoid 04/09/2020 Overview (04/09/2020): Added automatically from request for surgery [id number] Assessment & Plan (04/12/2020 9:34 AM CDT): [...] Monsivais Assessment & Plan (08/10/2019 4:56 AM MANAGER MEDICAL): Patient states she is on Butrans patch [...] amlodipine Assessment & Plan (08/10/2019 4:44 AM MANAGER MEDICAL): Continue Norvasc with hold parameters GERD (gastroesophageal [...] in 2011. Request records from [facility] in [place] to determine clotting factor. Assessment & Plan (03/02/2020 4:12 PM CDT): Encouraged patient to followup with pharmacist as I can not explain why her AC is so much as this is preferred by [facility]. Assessment & Plan (02/05/2020 10:23 PM CDT): History PE in 2011. Request records from [facility] in [place] to determine clotting factor. Assessment & Plan (08/10/2019 4:55 AM MANAGER MEDICAL): Continue Xarelto. Patient counseled on the importance [...] cymbalta Assessment & Plan (10/16/2017 3:50 PM MANAGER MEDICAL): Plan to refill alprazaolam to Xanax 0.25 [...] Monsivais Assessment & Plan (08/10/2019 4:44 AM MANAGER MEDICAL): With mixed connective tissue disorder. Continue with [...] 11/07/2008 Overview (02/05/2020): 2003 - dx at [facility] with spinal tap No current sxs. Resolved Problems Problem Noted Date Diagnosed Date Resolved Date BMI 45.0-49.9, adult 10/15/2020 021 Morbid obesity 10/15/2020 03/05/2021 Assessment & Plan (10/15/2020 7:43 AM MANAGER MEDICAL): Obesity is unchanged. Discussed the patient's BMI. [...] 02/05/2020 Assessment & Plan (08/10/2019 4:42 AM MANAGER MEDICAL): Suspected. Continue with ceftriaxone and azithromycin. Will order respiratory virus panel to rule out viral infection. Continue to monitor. Asthma exacerbation 08/10/2019 02/05/20 20 Assessment & Plan (08/10/2019 4:43 AM MANAGER MEDICAL): With possible undiagnosed COPD. Patient still having expiratory wheezing. Continue with Solu-Medrol 60 q.6. Continue with duo nebs every 4 hours. Continue Symbicort. Morbid obesity with BMI of 40.0-44.9, adult 08/10/2019 02/05/2020 Sciatica of right side 05/05/201802/04 Cervical radiculopathy 05/05/201802/04 Cervicalgia 05/05/2018 02/05/2020 Abdominal pain 04/05/2018 04/05/2018 Diverticulitis of colon 04/05/2018 0701/2018 Abdominal pain, left lower quadrant 04/05/2018 04/05/2018 Neuromuscular disorder 04/05/201802/04 Other chronic pain 02/07/2018 0 Connective tissue disease 02/07/2018 Leg pain 02/07/2018 02/05/2020 Lower back pain 02/07/2018 04/05/2018 Whole body pain 02/07/2018 04/05/2018 Body mass index (BMI) of 45. 0 to 49.9 in adult 10/16/2017 01/12/2018 Assessment & Plan (10/16/2017 3:51 PM MANAGER MEDICAL): As above. Mass 10/11/2017 01/12/2018 Assessment & Plan (10/16/2017 3:49 PM MANAGER MEDICAL): Plan to obtain CT scan of chest without contrast. Atypical chest pain 08/25/2017 02/05/20 20 Nausea & vomiting 08/25/2017 04/05/2018 Near syncope 08/25/2017 04/05/2018 Carbuncle, thigh 07/01/2017 01/12/2018 Assessment & Plan (07/06/2017 1:35 PM CDT): Plan to start Bactrim DS BID x 10 days. Continue with washing with mild soap. Apply warm compresses Multiple joint pain 02/28/2017 02/05/20 20 Overview (01/21/2018): Scheduled with [facility] 02/07/18 Assessment & Plan (02/28/2017 1:25 PM CDT): Awaiting lab results today-has appt with Dr. Monsivais this afternoon. ? If related to [id number]|2025-01-29 14:35:00|2025-01-29 14:35:00|XMS_ITS|ALECIA HO|External Medical Summaries|[id number]|" Clinical Summary Created on: January 29, 2025 Ree Carlson : 1970 Sex: Female Author Organization [facility] Address [address] [place] [phone] Care Team Providers Care Document Reviewer Name Role Phone Taylor Newby Primary Care [...] wit h other specified complication, unspecified whether intermodal dispatcher insulin use 06/25/2024 Pulmonary embolism, unspecif ied [...] 08/08/2021 Assessment & Plan (08/08/2021 7:58 PM MANAGER MEDICAL): Patient was persistent cervical thoracic and lumbar back pain. She also has rheumatoid on symptoms. She has not been responding to those medicines only. Outsole Paraffiner is concerned something else may be come [...] 08/08/2021 Assessment & Plan (08/08/2021 7:58 PM MANAGER MEDICAL): Patient was persistent cervical thoracic and lumbar back pain. She also has rheumatoid on symptoms. She has not been responding to those medicines only. Outsole Paraffiner is concerned something else may be come [...] 08/08/2021 Assessment & Plan (08/08/2021 7:59 PM MANAGER MEDICAL): Patient was persistent cervical thoracic and lumbar back pain. She also has rheumatoid on symptoms. She has not been responding to those medicines only. Outsole Paraffiner is concerned something else may be come [...] 08/08/2021 Assessment & Plan (08/08/2021 7:58 PM MANAGER MEDICAL): Check hip x-rays and start physical therapy. Cigarette smoker 06/06/2021 Rhinorrhea 06/06/2021 Assessment & Plan (06/06/2021 11:30 PM CDT): Patient to presume positive COVID until results are available and self isolate for 10 days from the onset of sxs. Check COVID test thru [facility] collection site in [place]. If positive, complete quarantine and consider monoclonal [...] water often. If needed, use a hand yarn rewinder that contains at least 60% alcohol. Clean [...] lotrisone to a clean dry area. Use criminal justice department chair after shower. Will also try short course [...] 11/05/2020 Assessment & Plan (11/05/2020 10:07 AM MANAGER MEDICAL): Start antibiotic, antihistamine (Claritin OR Zyrtec), Mucinex 12hour and Steroid nasal spray (Flonase). Push fluids. Rest. Supportive care. If sxs worsen or don\\'t improve, pt is to followup in the office. Advised this still could be COVID sxs so will test. See Congestion below Chronic nasal congestion 11/05/2020 Assessment & Plan (11/05/2020 10:08 AM MANAGER MEDICAL): Patient to presume positive COVID until results are available and self isolate for 10 days from the onset of sxs. If negative, isolate until on antibiotic x 24hours and fever free x 24 hours without medication. Check COVID test thru [facility] collection site in [place]. Treat sxs with Tylenol, Cough/cold medication otc [...] water often. If needed, use a hand yarn rewinder that contains at least 60% alcohol. Clean [...] (05/21/2020): Added automatically from request for surgery [id number] Hemorrhoid 04/09/2020 Overview (04/09/2020): Added automatically from request for surgery [id number] Assessment & Plan (04/12/2020 9:34 AM CDT): [...] Monsivais Assessment & Plan (08/10/2019 4:56 AM MANAGER MEDICAL): Patient states she is on Butrans patch [...] amlodipine Assessment & Plan (08/10/2019 4:44 AM MANAGER MEDICAL): Continue Norvasc with hold parameters GERD (gastroesophageal [...] in 2011. Request records from [facility] in [place] to determine clotting factor. Assessment & Plan (03/02/2020 4:12 PM CDT): Encouraged patient to followup with pharmacist as I can not explain why her AC is so much as this is preferred by [facility]. Assessment & Plan (02/05/2020 10:23 PM CDT): History PE in 2011. Request records from [facility] in [place] to determine clotting factor. Assessment & Plan (08/10/2019 4:55 AM MANAGER MEDICAL): Continue Xarelto. Patient counseled on the importance [...] cymbalta Assessment & Plan (10/16/2017 3:50 PM MANAGER MEDICAL): Plan to refill alprazaolam to Xanax 0.25 [...] Monsivais Assessment & Plan (08/10/2019 4:44 AM MANAGER MEDICAL): With mixed connective tissue disorder. Continue with [...] 11/07/2008 Overview (02/05/2020): 2003 - dx at [facility] with spinal tap No current sxs. Resolved Problems Problem Noted Date Diagnosed Date Resolved Date BMI 45.0-49.9, adult 10/15/2020 021 Morbid obesity 10/15/2020 03/05/2021 Assessment & Plan (10/15/2020 7:43 AM MANAGER MEDICAL): Obesity is unchanged. Discussed the patient's BMI. [...] 02/05/2020 Assessment & Plan (08/10/2019 4:42 AM MANAGER MEDICAL): Suspected. Continue with ceftriaxone and azithromycin. Will order respiratory virus panel to rule out viral infection. Continue to monitor. Asthma exacerbation 08/10/2019 02/05/20 20 Assessment & Plan (08/10/2019 4:43 AM MANAGER MEDICAL): With possible undiagnosed COPD. Patient still having [...] 01/12/2018 Assessment & Plan (10/16/2017 3:51 PM MANAGER MEDICAL): As above. Mass 10/11/2017 01/12/2018 Assessment & Plan (10/16/2017 3:49 PM MANAGER MEDICAL): Plan to obtain CT scan of chest without contrast. Atypical chest pain 08/25/2017 02/05/20 20 Nausea & vomiting 08/25/2017 04/05/2018 Near syncope 08/25/2017 04/05/2018 Carbuncle, thigh 07/01/2017 01/12/2018 Assessment & Plan (07/06/2017 1:35 PM CDT): Plan to start Bactrim DS BID x 10 days. Continue with washing with mild soap. Apply warm compresses Multiple joint pain 02/28/2017 02/05/20 Overview (01/21/2018): Scheduled with [facility] 02/07/18 Assessment & Plan (02/28/2017 1:25 PM CDT): Awaiting lab results today-has appt with Dr. Monsivais this afternoon. ? If related to lupus. Racing heart beat 02/28/2017 04/05/2018 Assessment & Plan (02/28/2017 8:50 PM CDT): Plan to check thyroid profile. Morbid obesity due to excess calories 02/28/2017 04/05/2018 Assessment & Plan (10/16/2017 3:50 PM MANAGER MEDICAL): Obesity is unchanged. Discussed the patient's BMI. [...]
--- OUTSIDE RECORDS SUMMARY | 2025-01-29 14:36 | XMS_ITS | Encounter Summary ---
Author Organization [facility] Healthcare Address [address] [place] [address] Care Team Providers Care Industrial Staff Nurse Name Role Phone Reggie Kimbrough MD Unavailable [phone] Mike Monsivais MD Unavailable [phone] Mynor Biswas MD Unavailable [phone] Clementina Polo MD Unavailable Martina aYnez Primary Care Provider [phone] Jorge Maravilla MD Primary Care Provider [phone] Taylor Newby Primary Care Provider Kieran Massey MD Unavailable [phone] Reason for Visit * Reason Onset Date Comments Scheduling Appointments 03/19/2020 Called f or DEXA appointment, No answer Encounter Details Date Type Department Care Team (Late st Contact Info) Description 03/19/2020 Telephone [facility] [address] [place] [id number] Jackie Tong RT Scheduling Appointments (Called for [...] on file Legal Sex Female 7:20 PM VETERANS' COUNSELOR Gender Identity Not on file Sexual Orientation [...] result. 07/03/2020 07/03/2020 07/17/2020 3:0 6 AM VETERANS' COUNSELOR COVID: Suspected 11/05/2020 11/06/2020 11/06/2020 11:21 PM VETERANS' COUNSELOR COVID: Suspected 05/21/2021 05/22/2021 05/22/2021 6:46 PM CDT COVID: Suspected 08/20/2021 08/20/2021 08/20/2021 8:02 PM VETERANS' COUNSELOR documented as of this encounter Care Teams Industrial Staff Nurse Relationship Specialty Start Date End Date Martina Yanez PA [address] [place] [address] PCP - General Internal Medicine 12/05/19 10/18/21 Jorge Maravilla MD [address] [place] [address] PCP - General Internal Medicine 10/19/21 01/16/23 Taylor Newby PA [address] [place] [id number] PCP - General Physician Operations Clerk 01/17/23 [place] [address] [place] [address] Consulting Physician Pain Management 01/12/18 09/26/24 Mike Monsivais MD [address] [facility] [address] [place] [address] Consulting Physician Rheumatology 05/11/18 09/26/24 [place] [address] [facility] [address] [place] [address] Consulting Physician Ophthalmology 08/12/18 09/26/24 [place] [address] [facility] [address] [place] [address] Consulting Physician Obstetrics and Gynecology 10/09/19 09/26/24 Kieran Massey MD [address] [place] [address] Consulting Physician Internal Medicine 05/25/23 5 documented as of this encounter
[2025-01-29 15:00] VITALS: BP 110/80; PULSE 83; RESP 18; TEMP 36.3
== END 2025-01-29 15:02 | disposition home or self-care (01) ==
PROVIDERS: Emergency Provider Family Medicine
DX: L03.311 Cellulitis of abdominal wall (principal); L72.9 Follicular cyst of the skin and subcutaneous tissue, unspecified; Z86.711 Personal history of pulmonary embolism; Z86.73 Personal history of transient ischemic attack (TIA), and cerebral infarction without residual deficits; I10 Essential (primary) hypertension; Z87.891 Personal history of nicotine dependence
CPT/HCPCS: 99283; A9270

== ENCOUNTER 2025-02-07 07:08 | Outpatient (CLI) | payer MEDICARE, SELFPAY ==
--- NOTE | ~2025-02-07 | US_ITS ---
Ultrasound of the left lower abdomen Clinical history: Cellulitis TECHNIQUE: Targeted sonographic imaging performed at the left lower quadrant abdominal wall at the ar ea of clinical concern. FINDINGS: At the area of concern, as an irregular fluid collection measuring up to approximately 4.7 x 2.7 cm in overall dimension, with mild internal debris or complexity. IMPRESSION: 4.7 x 2.7 cm irregular, complex fluid collection in the left lower abdominal wall at the area of clin ical concern. This could reflect abscess versus other cystic mass or collection. Correlate clinically . Consider aspiration. Reviewed, dictated and finalized at location M. IMPRESSION: 4.7 x 2.7 cm irregular, complex fluid collection in the left lower abdominal wa ll at the area of clinical concern. This could reflect abscess versus other cys tic mass or collection. Correlate clinically. Consider aspiration.
--- OUTSIDE RECORDS SUMMARY | 2025-02-07 07:13 | XMS_ITS | Referral Summary ---
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 Electronically signed by Caio Aguilar M.D. Caio Aguilar M.D. 06/16/2020 10:20:51 AM Number of Addenda: 0 Note Initiated On: 06/16/2020 9:32 AM Procedure Code(s): --- Professional --- 43453, Colonoscopy, flexible; diagnostic, including collection of specimen(s) by brushing or washing, when performed (separateprocedure) Diagnosis Code(s): --- Professional --- K57.30, Diverticulosis of large intestine without perforation orabscess without bleeding Z98.0, Intestinal bypass and anastomosis status K64.9, Unspecified hemorrhoids CPT copyright 2017 [employer]. All rights reserved. The codes documented in this report are preliminary and upon him coder reviewmay be revised to meet current compliance requirements. Recognized by the [employer] for promoting quality in endoscopy us Caio Aguilar MD ENDOSCOPY PROCEDURES Final Re sult * DIAGNOSTIC MAMMOGRAM BILATERAL W BOB (04/01/2016 12:40 PM CDT) Anatomical Region Laterality Modality Breast Bilateral Mammography 04/01/2016 12:4 0 PM CDT Narrative 04/01/2016 4:03 PM CDT Acc#: [id number] [facility] 0031 - Diag Mamm W Bob Bi DATE OF EXAM: Apr 01 2016 12:40PM DIAGNOSIS: OTH ABN AND INCONCLUSIVE FINDINGS ON DX CLINICAL HISTORY: lump in breast RESULT: BILATERAL DIAGNOSTIC MAMMOGRAM WITH TOMOSYNTHESIS, 04/01/16 HISTORY: Patient states she has three palpable lumps in the right breast which are all located superior and lateral. COMPARISON: No previous mammograms are available for comparison. TECHNIQUE: Full view digital CC, MLO, and ML views of the breasts were obtained using 2D and 3D technique with tomosynthesis. The images were subjected to R2/CAD analysis. FINDINGS: There are scattered areas of fibroglandular density. There is no evidence of a suspicious mass lesion, clustered microcalcifications, architectural distortion, or skin thickening. There are three markers in the upper outer right breast where the patient feels palpable abnormalities. There are no underlying abnormalities at these sites. Limited ultrasound of the right breast was performed where the patient has palpable abnormalities. No abnormality was seen on the ultrasound at these locations. IMPRESSION: 1. BIRADS CATEGORY 1, NEGATIVE. 2. ANNUAL BILATERAL SCREENING MAMMOGRAPHY IS RECOMMENDED. IMPRESSION OF OVERALL ASSESSMENT CATEGORY 1 -- NEGATIVE TECHNOLOGIST: RADHA PILLAI TECHNOLOGIST MEDICAL IMAGING DIRECTOR PRODUCT: DD2 TRANSCRIBE DATE/TIME: Apr 01 2016 1:43P RADIOLOGIST: LAURI GREEN M.D. READ ON: Apr 01 2016 1:34P ORDERING DR: ART TEJADA N.P. THIS DOCUMENT HAS BEEN ELECTRONICALLY SIGNED BY: LAURI GREEN M.D. ON: Apr 01 2016 4:03P Attending: ART TEJADA Requesting: ART TEJADA Requesting Attending Attending ID: [id number] Requesting ID: [id number] Report To 1 ID: Report To 1 Name: , Report To 1 FAX: -- Report To 2 ID: Report To 2 Name: , Report To 2 FAX: -- NextGen Order #: Procedure Note Provider, MD Emigdio - 01/04/2017 Acc#: [id number] [facility] 0031 - Diag Mamm W Bob Bi DATE OF EXAM: Apr 01 2016 12:40PM DIAGNOSIS: OTH ABN AND INCONCLUSIVE FINDINGS ON DX CLINICAL HISTORY: lump in breast RESULT: BILATERAL DIAGNOSTIC MAMMOGRAM WITH TOMOSYNTHESIS, 04/01/16 HISTORY: Patient states she has three palpable lumps in the right breast which are all located superior and lateral. COMPARISON: No previous mammograms are available for comparison. TECHNIQUE: Full view digital CC, MLO, and ML views of the breasts were obtained using 2D and 3D technique with tomosynthesis. The images were subjected to R2/CAD analysis. FINDINGS: There are scattered areas of fibroglandular density. There is no evidence of a suspicious mass lesion, clustered microcalcifications, architectural distortion, or skin thickening. There are three markers in the upper outer right breast where the patient feels palpable abnormalities. There are no underlying abnormalities at these sites. Limited ultrasound of the right breast was performed where the patient has palpable abnormalities. No abnormality was seen on the ultrasound at these locations. IMPRESSION: 1. BIRADS CATEGORY 1, NEGATIVE. 2. ANNUAL BILATERAL SCREENING MAMMOGRAPHY IS RECOMMENDED. IMPRESSION OF OVERALL ASSESSMENT CATEGORY 1 -- NEGATIVE TECHNOLOGIST: RADHA PILLAI, TECHNOLOGIST MEDICAL IMAGING DIRECTOR PRODUCT: DD2 TRANSCRIBE DATE/TIME: Apr 01 2016 1:43P RADIOLOGIST: LAURI GREEN M.D. READ ON: Apr 01 2016 1:34P ORDERING DR: ART TEJADA N.P. THIS DOCUMENT HAS BEEN ELECTRONICALLY SIGNED BY: LAURI GREEN M.D. ON: Apr 01 2016 4:03P Attending: ART TEJADA Requesting: ART TEJADA Requesting Attending Attending ID: [id number] Requesting ID: [id number] Report To 1 ID: Report To 1 Name: , Report To 1 FAX: -- Report To 2 ID: Report To 2 Name: , Report To 2 FAX: -- NextGen Order #: Historical Provider MD [facility] PROCEDURES Nava l Result * Serum Hepatitis panel (03/18/2015 4:25 PM CDT) HBV core ab, IgM Negative Negative HISTORICAL RESULTS HBV surface ag Negative Negative HISTO RICAL RESULTS HCV ab Negative Negative HISTORICAL RESULTS HAV ab, IgM Negative Negative HISTORIC AL RESULTS Serum 03/18/2015 4:25 PM CDT Mimi Kelley TECHNICAL ENGINEER LAB BLOOD ORDERABLES Nava l Result HISTORICAL RESULTS from Last 3 Months or Most Recently Relevant to Health Maintenance Insurance [facility] MEDICARE ADVANTAGE MEDICARE UHC MEDICARE ADVANTAGE Advance Directives For more information, please contact: [phone] * Full Code (Latest Code Status on File) Date Activated Date Inactivated Comments 05/23/2023 10:43 PM 05/25/2023 7:39 PM * Full Code Date Activated Date Inactivated Comments 06/16/2020 9:20 AM 06/16/2020 3:35 PM * Full Code Date Activated Date Inactivated Comments 08/10/2019 4:24 AM 08/14/2019 10:24 PM Care Teams Financial Reserve Clerk Relationship Specialty Start Date End Date Taylor Newby PA [address] [place] [address] PCP - General Physician Superintendent Track 01/17/23
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
--- OUTSIDE RECORDS SUMMARY | 2025-02-07 07:13 | XMS_ITS | Encounter Summary ---
Author Organization [facility] Address [address] [place] [address] Phone Care Team Providers Care Toll Test Worker Name Role Phone Taylor Newby Primary Care Provider Encounter Details Date Type Department Care Team (Late st Contact Info) Description 01/31/[address] [facility] Oncology [address] [place] [address] Medical Office [address] [facility] [address] [place] [address] Eduarda Vann, LEVY Social History Tobacco Use Types Packs/Day Years [...] often do you attend chur ch or restorationism services? Never 05/25/2023 Do you belong to any clubs o r organizations such as adventism groups, unions, fraternal or athletic groups, or [...] place to sleep or slept in a nursing home (including now)? No 05/25/2023 Personal Safety Answer Date Recorded Have you ever been in or are you currently in a harmful physical or emotional relationship or is someone making you feel afraid or unsafe? Denies 12/08/2024 Comments No Sex and Gender Information Value Date Recorded Sex Assigned at Not on file Legal Sex Female 7:20 PM DRESSMAKER OR TAILOR Gender Identity Not on file Sexual Orientation Straight 07/09/2020 12 :32 PM CDT Occupation Industry Job Start Date Job End Date 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 Not on file Not on file Not on file documented as of this encounter Miscellaneous Notes * Telephone Encounter - Mariana Kimbrough RN - 01/31/2025 12:27 PM CDT Eduarda, Was able to leave a message at [phone]./res * Telephone Encounter - Mariana Kimbrough RN - 01/31/2025 12:10 PM CDT Eduarda, I have tried to call this number and it is no longer in service * Telephone Encounter - Eduarda Vann CLT - 01/31/2025 11:13 AM CDT WANTS PATIENT TO STOP LOVENOX FOR COLONOSCOPY [phone] OPTION 4 documented in this encounter Plan of Treatment Not on file documented as of this encounter Visit Diagnoses Not on filedocumented in this encounter Care Teams Toll Test Worker Relationship Specialty Start Date End Date Taylor Newby PA [address] [place] [id number] PCP - General Physician Social Media Project Manager 01/17/23 documented as of this encounter
--- OUTSIDE RECORDS SUMMARY | 2025-02-07 07:13 | XMS_ITS | Encounter Summary ---
Author Organization [facility] Healthcare Address [address] [place] [address] Care Team Providers Care Mental Health Technician Name Role Phone Reggie Kimbrough MD Unavailable [phone] Mike Monsivais MD Unavailable [phone] Mynor Biswas MD Unavailable [phone] Clementina Polo MD Unavailable Martina Yanez Primary Care Provider [phone] Jorge Maravilla MD Primary Care Provider [phone] Taylor Newby Primary Care Provider Kieran Massey MD Unavailable [phone] Reason for Visit * Reason Onset Date Comments Scheduling Appointments 03/19/2020 Called f or DEXA appointment, No answer Encounter Details Date Type Department Care Team (Late st Contact Info) Description 03/19/2020 Telephone [facility] [address] [place] [phone] Jackie Tong RT Scheduling Appointments (Called for [...] on file Legal 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 07/03/2020 07/03/2020 07/17/2020 3:0 6 AM AIRCRAFT MAINTENANCE MANAGER COVID: Suspected 11/05/2020 11/06/2020 11/06/2020 11:21 PM AIRCRAFT MAINTENANCE MANAGER COVID: Suspected 05/21/2021 05/22/2021 05/22/2021 6:46 PM CDT COVID: Suspected 08/20/2021 08/20/2021 08/20/2021 8:02 PM AIRCRAFT MAINTENANCE MANAGER documented as of this encounter Care Teams Mental Health Technician Relationship Specialty Start Date End Date Martina Yanez PA [address] [place] [address] PCP - General Internal Medicine 12/05/19 10/18/21 Jorge Maravilla MD [address] [place] [address] PCP - General Internal Medicine 10/19/21 01/16/23 Taylor Newby PA [address] [place] [address] PCP - General Physician Actuarial Consultant 01/17/23 [place] [address] [place] [address] Consulting Physician Pain Management 01/12/18 09/26/24 Mike Monsivais MD [address] [facility] [address] [place] [address] Consulting Physician Rheumatology 05/11/18 09/26/24 [place] [address] [facility] [address] [place] [address] Consulting Physician Ophthalmology 08/12/18 09/26/24 [place] [address] [facility] [address] [place] [address] Consulting Physician Obstetrics and Gynecology 10/09/19 09/26/24 Kieran Massey MD [address] [place] [address] Consulting Physician Internal Medicine 05/25/23 5 documented as of this encounter
--- OUTSIDE RECORDS SUMMARY | 2025-02-07 07:13 | XMS_ITS | Clinical Summary ---
Author Organization [facility] Address [address] [place] [address] Care Team Providers Care Motor Teacher Name Role Phone Unavailable Primary Care Provider [...] Encounters Date Type Department Care Team Description 01/31/2025 External Device Data [facility] ABSTRACTION Provider, Abstract 01/30/2025 External Device Data [facility] ABSTRACTION Provider, Abstract 01/29/2025 External Device Data [facility] ABSTRACTION Provider, Abstract 01/01/2025 External Device Data [facility] ABSTRACTION Provider, Abstract 01/01/2025 External Device Data [facility] ABSTRACTION Provider, Abstract 01/01/2025 External Device Data [facility] ABSTRACTION Provider, Abstract 12/26/2024 11:00 AM CDT Office Visit [facility] Bariatrics and General Surgery at the [facility] Medicine [address] [place] [address] [address] [place] [address] Ingrid Vargas MD Morbid obesity with body mass index of 40.0-49.9 (CMS/HCC) (Primary Dx) 12/20/2024 Chart Note [facility] Bariatrics and General Surgery at the [address] [place] [address] Ingrid Vargas MD 12/19/2024 Chart Note [facility] Bariatrics and General Surgery at the [address] [place] [address] Ingrid Vargas MD from Last 3 Months [...] 10:53 AM CDT Height 170.2 cm (5' 7) 12/26/2024 10:53 AM CDT Body Mass Index [...]
--- OUTSIDE RECORDS SUMMARY | 2025-02-07 07:13 | XMS_ITS | Continuity of Care Document ---
Author Organization [facility] Address [address] [place] [address] Care Team Providers Care Environmental Engineering Aide Name Role Phone Taylor Newby Primary Care Physician [phone] Carlyn Calderon Unavailable Unavailable Encounter [facility] [id number] Date(s): 02/05/25 - 02/05/[address] [address]- (0 ) - Encounter Diagnosis Cellulitis(Discharge Diagnosis) - 02/05/25 Benign hypertension(Discharge Diagnosis) - 02/05/25 Discharge Disposition: Home or Self Care Attending Physician: Taylor Newby PA-C Encounter Type: Clinic Allergies, Adverse Reactions, Alerts Substance Criticality Severity Reaction Reaction Severity Status nortriptyline Unable to assess criticality Unknown Active amitriptyline Unable to assess criticality Unknown Active cyclobenzaprine Unable to assess criticality Unknown Active gabapentin Unable to assess criticality Unknown Active selective serotonin reuptake inhibitors Unable to assess criticality Unknown Active predniSONE Unable to assess criticality Unknown Active pregabalin Unable to assess criticality Unknown Active Morphine Sulfate Unable to assess criticality Unknown Active Strattera Unable to assess criticality Unknown Active FLUoxetine Unable to assess criticality Unknown Active sulfaSALAzine Unable to assess criticality Unknown Active SUMAtriptan Succinate Unable to assess criticality Unknown Active Aspartame Unable to assess criticality Unknown Active Assessment and Plan Future Appointments Appointment Date:04/18/2025 09:00:00 AM Scheduled Provider:Taylor Newby PA-C Location:[facility] Appointment Type:Check Up (JERS) Future Scheduled Tests Laboratory* Comprehensive Metabolic Panel 11/13/24 * Lipid Panel 11/13/24 * Sed Rate By Modified Westergren QST 11/13/24 Radiology* IR Facet Injection Lumb/Sacr Lv1 Bilat 12/06/24 * IR Facet Injection Lumb/Sacr Lv1 Bilat 01/02/25 * IR Injection Sacroiliac Joint Right 11/13/24 * MG Mammo Screening Bilateral w/ Bob. 04/24/24 Immunizations Given and Recorded Vaccine Date Status Refusal Reason pneumococcal 20-valent conjugate vaccine 06/26/24 Given influenza virus vaccine, inactivated 06/19/24 Delon rded influenza virus vaccine, inactivated 06/12/19 Delon rded influenza virus vaccine, inactivated 06/28/17 Delon rded pneumococcal 23-polyvalent vaccine 12/20/13 Record ed Medications Albuterol (Eqv-ProAir HFA) 90 mcg/inh inhalation aerosol See Instructions, 1-2 puffs every 4-6 hours as needed, # 8.5 gm, 3 Refill(s), Pharmacy: [facility] #[id number] Start Date: 05/30/24 Status: Ordered Quantity: 8.5 Unit: g Repeat number: 4 ARIPiprazole 5 mg oral tablet = 1 tab, Oral, Daily, # 30 tab, 1 Refill(s), Pharmacy: [facility] #[id number] Start Date: 11/25/24 Stop Date: 01/24/25 Status: Ordered Quantity: 30.0 Unit: Repeat number: 2 buPROPion 100 mg/12 hours (SR) oral tablet, extended release = 1 tab, Oral, BID, # 60 tab, 1 Refill(s), Pharmacy: [facility] #[id number] Start Date: 11/25/24 Stop Date: 01/24/25 Status: Ordered Quantity: 60.0 Unit: Repeat number: 2 busPIRone 15 mg oral tablet = 1 tab, Oral, TID, # 90 tab, 1 Refill(s), Pharmacy: [facility] #[id number] Start Date: 11/25/24 Stop Date: 01/24/25 Status: Ordered Quantity: 90.0 Unit: Repeat number: 2 Celebrate Multivitamin 0 Refill(s) Start Date: 05/30/24 Status: Ordered Repeat number: 1 dextroamphetamine-amphetamine 20 mg oral tablet 60 EA, 0 Refill(s), 0 Refill(s) Start Date: 03/28/24 Status: Ordered Repeat number: 1 diclofenac sodium 75 mg oral delayed release tablet = 1 tab, Oral, BID, # 180 tab, 2 Refill(s), Pharmacy: [facility] #[id number] Start Date: 08/28/24 Status: Ordered Quantity: 180.0 Unit: Repeat number: 3 doxycycline hyclate 100 mg oral tablet TAKE 1 TABLET BY MOUTH EVERY 12 HOURS Start Date: 02/05/25 Status: Ordered Repeat number: 1 enoxaparin 120 mg/0.8 mL injectable solution INJECT 0.8 ML UNDER THE SKIN EVERY 12 HOURS FOR 240 DOSES Start Date: 07/18/24 Status: Ordered Repeat number: 1 lisinopril 5 mg oral tablet = 1 tab, Oral, Daily, # 90 tab, 3 Refill(s), Pharmacy: [facility] #[id number] Start Date: 08/29/24 Status: Ordered Quantity: 90.0 Unit: Repeat number: 4 metoclopramide 10 mg oral tablet 60 EA, 0 Refill(s), TAKE 1 TABLET BY MOUTH TWICE DAILY BEFORE LARGEST MEAL OF THE DAY AND AT BEDTIME, 0 Refill(s) Start Date: 03/28/24 Status: Ordered Repeat number: 1 Metoprolol Succinate ER 25 mg oral tablet, extended release = 1 tab, Oral, Daily, # 90 tab, 3 Refill(s), Pharmacy: [facility] #[id number] Start Date: 11/02/24 Status: Ordered Quantity: 90.0 Unit: Repeat number: 1 Mounjaro 12.5 mg/0.5 mL subcutaneous solution 12.5 mg, Subcutaneous, every week, rotate injection sites, # 4 EA, 2 Refill(s), Pharmacy: [facility] #[id number] Start Date: 01/15/25 Status: Ordered Quantity: 4.0 Unit: Repeat number: 3 omeprazole 20 mg oral delayed release capsule = 1 cap, Oral, Daily, # 90 cap, 3 Refill(s), Pharmacy: [facility] #[id number] Start Date: 11/02/24 Status: Ordered Quantity: 90.0 Unit: Repeat number: 1 pregabalin 150 mg oral capsule = 1 cap, Oral, BID, # 180 cap, 0 Refill(s), Pharmacy: [facility] #[id number] Start Date: 10/18/24 Status: Ordered Quantity: 180.0 Unit: Repeat number: 1 rOPINIRole 1 mg oral tablet = 1 tab, Oral, Daily, # 90 tab, 1 Refill(s), Pharmacy: [facility] #[id number] Start Date: 01/22/25 Status: Ordered Quantity: 90.0 Unit: Repeat number: 1 Symbicort 160 mcg-4.5 mcg/inh inhalation aerosol 2 puffs, Inhale, BID, # 10.2 gm, 3 Refill(s), Pharmacy: [facility] #[id number] Start Date: 05/30/24 Status: Ordered Quantity: 10.2 Unit: g Repeat number: 4 tiZANidine 2 mg oral tablet 60 EA, 0 Refill(s), TAKE 1 TABLET BY MOUTH TWICE DAILY NEEDED FOR MUSCLE SPASM, 0 Refill(s) Start Date: 03/28/24 Status: Ordered Repeat number: 1 Tylenol 0 Refill(s) Start Date: 05/30/24 Status: Ordered Repeat number: 1 Wakix 17.8 mg oral tablet 39 tab, 0 Refill(s), 0 Refill(s) Start Date: 03/28/24 Status: Ordered Repeat number: 1 Problem List Condition Confirmation Course Effective Dates Status Health St atus Informant Chronic pain Confirmed Active Sacroiliitis Confirmed Active Lumbar spondylosis Confirmed Active Morbid obesity Confirmed Active Restless leg syndrome Confirmed Active Lumbar stenosis Confirmed Active Controlled diabetes mellitus type II without complication Confirmed Active Diagnosis Diagnosis Type Effective Dates Health Status Clinical Service Informant Cellulitis Discharge Diagnosis 02/05/25 Non-Specified Benign hypertension Discharge Diagnosis 02/05/25 Procedures Procedure Date Related Diagnosis Body Site Status Cholecystectomy Completed Colon Resection Completed Excisional biopsy of breast Completed Hysterectomy Completed Vital Signs Most recent to oldest [Reference Range]: 1 Peripheral Pulse Rate [60-100 bpm] 90 bp m (02/05/25 10:00 AM) Respiratory Rate [14-20 br/min] 20 br/mi n (02/05/25 10:00 AM) Blood Pressure [90-120/60-80 mmHg] 82/60 mmHg *LOW* (02/05/25 10:00 AM) Mean Arterial Pressure, Cuff [70-110 mmH g] 67 mmHg *LOW* (02/05/25 10:00 AM) Social History Social History Type Response Smoking Status Former smoker, quit more than 30 days ago; Number of years: 14; Stopped at age: 54; 1 entered on: 06/26/24 Sex Female Sex Representation Female (finding) 1quit in September of 2023 Patient Care team information Care Team Personnel Name: Carlyn Calderon LPN Position: Ambulatory - Monomer Purification Operator Member Role: Monomer Purification Operator Name: Taylor Newby PA-C Position: [facility] Auth Member Role: Primary Care Physician Address: [address] [place] [address] Telecom: Care Team Related Persons Name: BHAVANA KAUR Insurance Providers Guarantor name: AZUL MENDOZA myZamana Plan Information #: 1 Payer: [employer] Member Number: [id number] Policy Number: NA Group Number: NA Payer Identifier: NA Health Plan Information #: 2 Payer: [employer] Member Number: [id number] Policy Number: NA Group Number: NA Payer Identifier: NA
--- OUTSIDE RECORDS SUMMARY | 2025-02-07 07:13 | XMS_ITS | Encounter Summary ---
Author Organization [facility] Address [address] [place] [address] Phone Care Team Providers Care Metal Container Maker Name Role Phone Taylor Newby Primary Care Provider Encounter Details Date Type Department Care Team (Late st Contact Info) Description 02/05/2025 Telephone [facility] Oncology [address] [place] [address] [address] [facility] [address] [place] [address] Eduarda Vann, LEVY Social History Tobacco Use [...] often do you attend chur ch or hinduism services? Never 05/25/2023 Do you belong to any clubs o r organizations such as moravian groups, unions, fraternal or athletic groups, or [...] place to sleep or slept in a half-way (including now)? No 05/25/2023 Personal Safety Answer Date Recorded Have you ever been in or are you currently in a harmful physical or emotional relationship or is someone making you feel afraid or unsafe? 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 Not on file Not on file Not on file documented as of this encounter Miscellaneous Notes * Telephone Encounter - Mariana Kimbrough RN - 02/05/2025 4:32 PM CDT Called patient and explained to her that due to her dosing, it is not available in one injection. She does use asceptic technique during her injections, but she said she would try cleansing her abdominal skin with Hibiclens prior to her injection. Then, use an alcohol prep pad, let it dry and then perform her injection. Told her that would help./res * Telephone Encounter - Mariana Kimbrough RN - 02/05/2025 12:[address] Mcguire, I called Ree. She is currently on Enoxaparin 120 mg bid. The above injection site if from one of her enoxaparin injections. She went to an ER, and was told by the ER physician that she could do thisonce a day to cut down on the possibility of infections from these injections twice a day. Althoughthis sounds good, I looked up Enoxaparin dosing availability, and she will still have to inject 2 syringes. Enoxaparin is not prepared in syringes greater than 150 mg. I will call her and let her know. * Telephone Encounter - Eduarda Vann CLT - 02/05/2025 10:50 AM CDT Infection from injection site please call documented in this encounter Plan of Treatment Not on file documented as of this encounter Visit Diagnoses Not on filedocumented in this encounter Care Teams Metal Container Maker Relationship Specialty Start Date End Date Taylor Newby PA [address] [place] [address] PCP - General Physician Parts Counter Representative 01/17/23 documented as of this encounter
== END 2025-02-07 07:09 | disposition home or self-care (01) ==
DX: L03.90 Cellulitis, unspecified (principal)
CPT/HCPCS: 76705

== ENCOUNTER 2025-02-08 20:47 | Emergency (ER) | payer MEDICARE, SELFPAY ==
--- OUTSIDE RECORDS SUMMARY | 2025-02-08 20:50 | XMS_ITS | Clinical Summary ---
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 She also has rheumatoid on symptoms. She has not been responding to those medicines only. Olap Developer is concerned something else may be come [...] 08/08/2021 Assessment & Plan (08/08/2021 7:58 PM ENVELOPE FOLDER): Patient was persistent cervical thoracic and lumbar back pain. She also has rheumatoid on symptoms. She has not been responding to those medicines only. Olap Developer is concerned something else may be come [...] 08/08/2021 Assessment & Plan (08/08/2021 7:59 PM ENVELOPE FOLDER): Patient was persistent cervical thoracic and lumbar back pain. She also has rheumatoid on symptoms. She has not been responding to those medicines only. Olap Developer is concerned something else may be come [...] 08/08/2021 Assessment & Plan (08/08/2021 7:58 PM ENVELOPE FOLDER): Check hip x-rays and start physical therapy. Cigarette smoker 06/06/2021 Rhinorrhea 06/06/2021 Assessment & Plan (06/06/2021 11:30 PM CDT): Patient to presume positive COVID until results are available and self isolate for 10 days from the onset of sxs. Check COVID test thru [facility] collection site in [place]. If positive, complete quarantine and consider monoclonal [...] water often. If needed, use a hand assistant superintendent that contains at least 60% alcohol. Clean [...] lotrisone to a clean dry area. Use mathematics academic chair after shower. Will also try short [...] 11/05/2020 Assessment & Plan (11/05/2020 10:07 AM ENVELOPE FOLDER): Start antibiotic, antihistamine (Claritin OR Zyrtec), Mucinex 12hour and Steroid nasal spray (Flonase). Push fluids. Rest. Supportive care. If sxs worsen or don\'t improve, pt is to followup in the office. Advised this still could be COVID sxs so will test. See Congestion below Chronic nasal congestion 11/05/2020 Assessment & Plan (11/05/2020 10:08 AM ENVELOPE FOLDER): Patient to presume positive COVID until results are available and self isolate for 10 days from the onset of sxs. If negative, isolate until on antibiotic x 24hours and fever free x 24 hours without medication. Check COVID test thru [facility] collection site in [place]. Treat sxs with Tylenol, Cough/cold medication otc [...] water often. If needed, use a hand assistant superintendent that contains at least 60% alcohol. Clean [...] (05/21/2020): Added automatically from request for surgery [id number] Hemorrhoid 04/09/2020 Overview (04/09/2020): Added automatically from request for surgery [id number] Assessment & Plan (04/12/2020 9:34 AM CDT): [...] Monsivais Assessment & Plan (08/10/2019 4:56 AM ENVELOPE FOLDER): Patient states she is on Butrans patch [...] amlodipine Assessment & Plan (08/10/2019 4:44 AM ENVELOPE FOLDER): Continue Norvasc with hold parameters GERD (gastroesophageal [...] of PE in 2011. Request records from [facility] in [place] to determine clotting factor. Assessment & Plan (03/02/2020 4:12 PM CDT): Encouraged patient to followup with pharmacist as I can not explain why her AC is so much as this is preferred by [facility]. Assessment & Plan (02/05/2020 10:23 PM CDT): History PE in 2011. Request records from [facility] in [place] to determine clotting factor. Assessment & Plan (08/10/2019 4:55 AM ENVELOPE FOLDER): Continue Xarelto. Patient counseled on the importance [...] cymbalta Assessment & Plan (10/16/2017 3:50 PM ENVELOPE FOLDER): Plan to refill alprazaolam to Xanax 0.25 [...] Monsivais Assessment & Plan (08/10/2019 4:44 AM ENVELOPE FOLDER): With mixed connective tissue disorder. Continue with [...] Overview (02/05/2020): 2003 - dx at [facility] with spinal tap No current sxs. Resolved Problems Problem Noted Date Diagnosed Date Resolved Date BMI 45.0-49.9, adult 10/15/2020 021 Morbid obesity 10/15/2020 03/05/2021 Assessment & Plan (10/15/2020 7:43 AM ENVELOPE FOLDER): Obesity is unchanged. Discussed the patient's BMI. [...] 02/05/2020 Assessment & Plan (08/10/2019 4:42 AM ENVELOPE FOLDER): Suspected. Continue with ceftriaxone and azithromycin. Will order respiratory virus panel to rule out viral infection. Continue to monitor. Asthma exacerbation 08/10/2019 02/05/20 20 Assessment & Plan (08/10/2019 4:43 AM ENVELOPE FOLDER): With possible undiagnosed COPD. Patient still having [...] 01/12/2018 Assessment & Plan (10/16/2017 3:51 PM ENVELOPE FOLDER): As above. Mass 10/11/2017 01/12/2018 Assessment & Plan (10/16/2017 3:49 PM ENVELOPE FOLDER): Plan to obtain CT scan of chest without contrast. Atypical chest pain 08/25/2017 02/05/20 20 Nausea & vomiting 08/25/2017 04/05/2018 Near syncope 08/25/2017 04/05/2018 Carbuncle, thigh 07/01/2017 01/12/2018 Assessment & Plan (07/06/2017 1:35 PM CDT): Plan to start Bactrim DS BID x 10 days. Continue with washing with mild soap. Apply warm compresses Multiple joint pain 02/28/2017 02/05/20 20 Overview (01/21/2018): Scheduled with [facility] 02/07/18 Assessment & Plan (02/28/2017 1:25 PM CDT): Awaiting lab results today-has appt with Dr. Monsivais this afternoon. ? If related to lupus. Racing heart beat 02/28/2017 04/05/2018 Assessment & Plan (02/28/2017 8:50 PM CDT): Plan to check thyroid profile. Morbid obesity due to excess calories 02/28/2017 04/05/2018 Assessment & Plan (10/16/2017 3:50 PM ENVELOPE FOLDER): Obesity is unchanged. Discussed the patient's BMI. [...] Depression Assessment & Plan (08/10/2019 4:45 AM ENVELOPE FOLDER): Continue Zoloft Assessment & Plan (02/28/2017 8:49 [...] Type Department Care Team Description 02/05/2025 Telephone [facility] Oncology 4 [facility] Medical Office [facility] B [address] [address] Eduarda Vann, CLT 01/31/2025 Documentation [facility] Oncology [address] [place] [address] Office [facility] B [facility] [address] [place] [address] Mariana Kimbrough RN 01/31/2025 Telephone [facility] Oncology [address] [place] [address] Office [facility] B [facility] [address] [place] [address] Eduarda Vann, CLT 01/22/[address] Office [facility] [address] [facility] [address] [place] [address] Mariana Kimbrough, FERNANDA 12/08/2024 11:04 AM CDT - 12/08/2024 12:09 PM CDT Emergency [facility] Emergency Department [address] [place] [address] Contusion of multiple sites of left leg, subsequent encounter (Primary Dx); Elevated LFTs; Decreased GFR Discharge Disposition: Discharge to home or self care 12/07/2024 7:04 PM CDT - 12/07/2024 8:37 PM CDT Emergency [facility] Emergency Department [address] [place] [address] Ecchymosis (Primary Dx) Discharge Disposition: Discharge to home or self care 12/07/2024 4:00 PM CDT Office Visit [facility] Care at [address] [address] Lizett Gamboa NP Pain and [...] History Date Comments Asthma Asthma; Comments : [facility] 09/30/2014 - Depression [...] often do you attend chur ch or roman catholic services? Never 05/25/2023 Do you belong to any clubs o r organizations such as mormonism groups, unions, fraternal or athletic groups, or [...] place to sleep or slept in a longterm (including now)? No 05/25/2023 Personal Safety Answer Date Recorded Have you ever been in or are you currently in a harmful physical or emotional relationship or is someone making you feel afraid or unsafe? Denies 12/08/2024 Comments No Sex and Gender Information Value Date Recorded Sex Assigned at Not on file Legal Sex Female 7:20 PM ENVELOPE FOLDER Gender Identity Not on file Sexual Orientation [...] BLOOD ORDERABLES Final R esult [facility] ([place]) 1 [facility] [place] [address] * Differential, auto (12/08/2024 10:43 AM CDT) Neutrophil abs 4.1 1.5 - 6.5 K/cumm Imm gran abs 0.0 0.0 - 0.1 K/cumm [facility] ([place]) Lymphocyte abs 1.8 0.8 - 3.3 K/cumm [facility] ([place]) Monocyte abs 0.4 0.2 - 0.8 K/cumm [facility] ([place]) Eosinophil abs 0.2 0.0 - 0.5 K/cumm [facility] ([place]) Basophil abs 0.0 0.0 - 0.1 K/cumm [facility] ([place]) Neutrophil pct 62.6 % [facility] ([place]) Comment: Interpretive Data Percent cell count reference ranges are not reported, since discordance with absolute values may lead to misinterpretation of CBC data. Current Interpretive Data was last revised on 2017. Imm gran pct 0.2 % [facility] ([place]) Comment: Interpretive Data Percent cell count reference [...] 2017. Monocyte pct 6.5 % [facility] ([place]) Comment: Interpretive Data Percent cell count reference ranges are not reported, since discordance with absolute values may lead to misinterpretation of CBC data. Current Interpretive Data was last revised on 2017. Eosinophil pct 3.1 % [facility] ([place]) Comment: Interpretive Data Percent cell count reference [...] Final R esult [facility] ([place]) 1 [facility] Department [place] [address] * (ABNORMAL) CBC with auto differential (12/08/2024 [...] Final R esult [facility] ([place] 1 [facility] [place] [address] * (ABNORMAL) Comprehensive metabolic panel (12/08/2024 10:43 [...] BLOOD ORDERABLES Final R esult [facility] ([place]) 1 [facility] [place] [address] * US VEIN DUPLEX LOWER EXTREMITY LEFT [...] Liat Walsh M.D. FT: FT Report ID: [id number] Reading Location: [id number] Procedure Note Liat Vail MD - 12/08/2024 [...] Liat Walsh M.D. FT: FT Report ID: [id number] Reading Location: [id number] Result [facility] Jaiden Evans MD IMG US PROCEDURES Final Resu lt * ECG 12 lead (12/08/2024 9:35 AM CDT) 12/08/2024 9:35 AM CDT Narrative [facility] - 12/08/2024 1:54 PM CDT Vent Rate: 76 bpm RR Interval: 783 msec AK Interval: 157 msec QRS Duration: 106 msec QT Interval: 374 msec QTC Interval: 405 msec P-R-T [place]: 12 - -24 - 11 degrees IMPRESSION: SINUS RHYTHM BORDERLINE LEFT AXIS DEVIATION [QRS AXIS < -20] BORDERLINE ECG Electronically Signed By: Iftikhar Zuniga MD, [facility] Jaiden Evans MD ECG ORDERABLES Final Result Performing Organization Address City/State/[facility] Co de Phone Number [facility] * Hemoglobin A1c (03/18/2021) SCRIBED Hemoglobin A1c 5.4 <5.7 [facility] Blood specimen (specimen) 03/18/2021 Martina Yanez PA LAB BLOOD ORDERABLES Final Result Performing Organization Address City/[facility]/ZIP Co de Phone Number [facility] * Lipid [...] Aguilar MD - 06/16/2020 9:32 AM CDT [facility] Patient Name: Azul Carlson Procedure Date: 06/16/2020 9:32 AM Date of : 1970 Admit Type: Outpatient Age: 50 Gender: Female Attending MD: Caio Aguilar M.D. Room: [facility] ENDOSCOPY ROOM 2 Note Status: Finalized Patient [...] was passed under direct vision. The Colonoscope [id number] was introduced through the anusand advanced to [...] 9:32 AM Procedure Code(s): --- Professional --- 99932, Colonoscopy, flexible; diagnostic, including collection of specimen(s) by brushing or washing, when performed (separateprocedure) Diagnosis Code(s): --- Professional --- K57.30, Diverticulosis of large intestine without perforation orabscess without bleeding Z98.0, Intestinal bypass and anastomosis status K64.9, Unspecified hemorrhoids CPT copyright 2017 [employer]. All rights reserved. The codes documented in this report are preliminary and upon construction mgr reviewmay be revised to meet current compliance requirements. Recognized by the [employer] for promoting quality in endoscopy us Caio Aguilar MD ENDOSCOPY PROCEDURES Final Re sult * DIAGNOSTIC MAMMOGRAM BILATERAL W BOB (04/01/2016 12:40 PM CDT) Anatomical Region Laterality Modality Breast Bilateral Mammography 04/01/2016 12:4 0 PM CDT Narrative 04/01/2016 4:03 PM CDT Acc#: [id number] [facility] 0031 - Diag Mamm W Bob Bi [...] NEGATIVE TECHNOLOGIST: RADHA PILLAI, TECHNOLOGIST MEDICAL IMAGING BATTERY FILLER: SUNI TRANSCRIBE DATE/TIME: Apr 01 2016 1:43P RADIOLOGIST: LAURI GREEN M.D. READ ON: Apr 01 2016 1:34P ORDERING DR: ART TEJADA N.P. THIS DOCUMENT HAS BEEN ELECTRONICALLY SIGNED BY: LAURI GREEN M.D. ON: Apr 01 2016 4:03P Attending: ART TEJADA Requesting: ART TEJADA Requesting Attending Attending ID: [id number] Requesting ID: [id number] Report To 1 ID: Report To 1 Name: , Report To 1 FAX: -- Report To 2 ID: Report To 2 Name: , Report To 2 FAX: -- NextGen Order #: Procedure Note Provider, MD Emigdio - 01/04/2017 Acc#: [id number] [facility] 0031 - Diag Mamm W Bob Bi [...] NEGATIVE TECHNOLOGIST: RADHA PILLAI, TECHNOLOGIST MEDICAL IMAGING BATTERY FILLER: DD2 TRANSCRIBE DATE/TIME: Apr 01 2016 1:43P RADIOLOGIST: LAURI GREEN M.D. READ ON: Apr 01 2016 1:34P ORDERING DR: ART TEJADA N.P. THIS DOCUMENT HAS BEEN ELECTRONICALLY SIGNED BY: LAURI GREEN M.D. ON: Apr 01 2016 4:03P Attending: ART TEJADA Requesting: ART TEJADA Requesting Attending Attending ID: [id number] Requesting ID: [id number] Report To 1 ID: Report To 1 [...] Serum 03/18/2015 4:25 PM CDT Mimi Kelley STRIPPER CUTTER MACHINE LAB BLOOD ORDERABLES Nava l Result HISTORICAL RESULTS from Last 3 Months or Most Recently Relevant to Health Maintenance Insurance MEDICARE ADVANTAGE [facility] MEDICARE Address: [facility] [address] [place] [address] MEDICARE [facility] MEDICARE ADVANTAGE [facility] MEDICARE Address: [address] [address] [place] [address] Advance Directives For more information, please contact: [phone] * Full Code (Latest Code Status on File) Date Activated Date Inactivated Comments 05/23/2023 10:43 PM 05/25/2023 7:39 PM * Full Code Date Activated Date Inactivated Comments 06/16/2020 9:20 AM 06/16/2020 3:35 PM * Full Code Date Activated Date Inactivated Comments 08/10/2019 4:24 AM 08/14/2019 10:24 PM Care Teams Slackline Operator Relationship Specialty Start Date End Date Taylor Newby PA [address] [place] [address] PCP - General Physician Wireless Sales Associate 01/17/23
--- OUTSIDE RECORDS SUMMARY | 2025-02-08 20:50 | XMS_ITS | Continuity of Care Document ---
Author Organization [facility] Address [address] [place] [address] Phone Care Team Providers Care Testing And Regulating Technician Name Role Phone Neeraj Dominguez MD Unavailable [...] Diagnoses Date Provider Providers Copied on [facility]counter [facility], [address], [place], [place], [address] , tel:[phone] [facility] Ne No Information 5 Angelica Pickard. [facility] [place], [place], [place]. tel:[phone] Referring Provider: Melva Alcaraz, [address], [place], [address]. tel:[phone] [facility], [address], [place], [place], [address] , tel:[phone] [facility] HemorrhoidsAbdomi nal painPortal hypertension 5 Angelica Pickard. [facility] [place], [address], [place]. tel:[phone] Referring Provider: Neeraj Dominguez, [facility] [place], [place]. tel:[phone] [facility], [address], [place], [place], [id number] , tel:[phone] [facility] Left lower quadrant painDiarrheaDiver ticulitis 5 Erika Delaney. [address] [facility], [place], [address], [place]. tel:[phone] Referring Provider: Sariah Mar, [address] [facility], [place], [address]. tel:[phone] [facility], [address], [place], [place], [address] , [phone] [facility] Abdominal pain (chief complaint) DiverticulitisRhe umatoid arthritis 4 Dominguez Neeraj. [facility] [place], [place], [place], [place]. tel:[phone] Referring Provider: Neeraj Dominguez, [facility] [place], [address]. tel:[phone] Family History Family Member Type Diagnosis Age At Onset No Information Payers Payer name Insurance type Covered alliance party ID Authorashley griffith(s) [facility] [id number] MEDICARE MB [id number] Social History Type Description Quantity Date Captured Comments Sex Female Smoking Status No Information Sexual Orientation Choose not to disclose Chief Complaint And Reason For Visit No Information Reason For Referral Reason For Referral No Information History Of Present Illness Encounter Date Complaint History Of Prese nt Illness Abdominal pain Onset: 4 weeks a go. Severity is 4. Duration is 20 Days. Abdominal pain (comments) LLQ pa in 3- 4 weeks. had coilon resection [facility] 2009, 8 inches removed. well til 6 months later. had diverticulitis on CT, got antibiotics. pain better. occ diarrhea and contstipation. had had antibiotics 4 times in past [address] abd pelvis last week negative, [facility] [place]. CBC normal. Got antibiotics. Functional Status Date [...]
--- OUTSIDE RECORDS SUMMARY | 2025-02-08 20:50 | XMS_ITS | Clinical Summary ---
Author Organization [facility] Address [address] [place] [address] Care Team Providers Care Damper Worker Name Role Phone Unavailable Primary Care Provider [...] Abstract 12/26/2024 11:00 AM CDT Office Visit [facility]ariatrics and General Surgery at the [facility] Medicine [address] [place] [address] RD [address] [place] [address] Ingrid Vargas MD Morbid obesity with body mass index of 40.0-49.9 (CMS/HCC) (Primary Dx) 12/20/2024 Chart Note [facility] Bariatrics and General Surgery at the [address] [place] [address] Ingrid Vargas MD 12/19/2024 Chart Note [facility] Bariatrics and General Surgery at the [address] [place] [address] Ingrid Vargas MD from Last 3 Months [...]
--- OUTSIDE RECORDS SUMMARY | 2025-02-08 20:50 | XMS_ITS | Encounter Summary ---
Author Organization [facility] Address [address] [place] [address] Phone Care Team Providers Care Email Administrator Name Role Phone Taylor Newby Primary Care Provider Encounter Details Date Type Department Care Team (Late st Contact Info) Description 02/05/2025 Telephone [facility] Oncology [address] [place] [address] [address] [facility] [address] [place] [address] Eduarda Vann, LEVY Social History Tobacco Use [...] often do you attend chur ch or mormon services? Never 05/25/2023 Do you belong to any clubs o r organizations such as buddhism groups, unions, fraternal or athletic groups, or [...] place to sleep or slept in a correction (including now)? No 05/25/2023 Personal Safety Answer Date Recorded Have you ever been in or are you currently in a harmful physical or emotional relationship or is someone making you feel afraid or unsafe? Denies 12/08/2024 Comments No Sex and Gender Information Value Date Recorded Sex Assigned at Not on file Legal Sex Female 7:20 PM HYDROGRAPHICAL TECHNICAL OFFICER Gender Identity Not on file Sexual Orientation [...] on filedocumented in this encounter Care Teams Email Administrator Relationship Specialty Start Date End Date Taylor Newby PA [address] [place] [address] PCP - General Physician Psych Tech 01/17/23 documented as of this encounter
--- OUTSIDE RECORDS SUMMARY | 2025-02-08 20:50 | XMS_ITS | Encounter Summary ---
Author Organization [facility] Address [address] [place] [address] Phone Care Team Providers Care Thermo Cementing Folder Operator Name Role Phone Taylor Newby Primary Care Provider Encounter Details Date Type Department Care Team (Late st Contact Info) Description 01/31/2025 Telephone [facility] Oncology [address] [place] [address] [address] [facility] [address] [place] [address] Eduarda Vann, LEVY Social History Tobacco Use [...] often do you attend chur ch or yazidi services? Never 05/25/2023 Do you belong to any clubs o r organizations such as restorationist groups, unions, fraternal or athletic groups, or [...] place to sleep or slept in a skilled nursing (including now)? No 05/25/2023 Personal Safety Answer Date Recorded Have you ever been in or are you currently in a harmful physical or emotional relationship or is someone making you feel afraid or unsafe? Denies 12/08/2024 Comments No Sex and Gender Information Value Date Recorded Sex Assigned at Not on file Legal Sex Female 7:20 PM SHOT GRINDER OPERATOR Gender Identity Not on file Sexual Orientation Straight 07/09/2020 12 :32 PM CDT Occupation Industry Job Start Date Job End Date 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 Not on file Not on file Not on file documented as of this encounter Miscellaneous Notes * Telephone Encounter - Mariana Kimbrough RN - 01/31/2025 12:27 PM CDT Eduadra, Was able to leave a message at [phone]./res * Telephone Encounter - Mariana Kimbrough RN - 01/31/2025 12:10 PM CDT Eduarda, I have tried to call this number and it is no longer in service * Telephone Encounter - Eduarda Vann CLT - 01/31/2025 11:13 AM CDT WANTS PATIENT TO STOP LOVENOX FOR COLONOSCOPY [phone] OPTION 4 documented in this encounter Plan of Treatment Not on file documented as of this encounter Visit Diagnoses Not on filedocumented in this encounter Care Teams Thermo Cementing Folder Operator Relationship Specialty Start Date End Date Taylor Newby PA [address] [place] [address] PCP - General Physician Set Up Mechanic Crown Assembly Machine 01/17/23 documented as of this encounter
--- OUTSIDE RECORDS SUMMARY | 2025-02-08 20:50 | XMS_ITS | Encounter Summary ---
Author Organization [facility] Healthcare Address [address] [place] [address] Care Team Providers Care Rn Primary Care Name Role Phone Reggie Kimbrough MD Unavailable [phone] Mike Monsivais MD Unavailable [phone] Mynor Biswas MD Unavailable [phone] Clementina Polo MD Unavailable Martina Yanez Primary Care Provider [phone] Jorge Maravilla MD Primary Care Provider Taylor Newby Primary Care Provider Kieran Massey MD Unavailable [phone] Reason for Visit * Reason Onset Date Comments Scheduling Appointments 03/19/2020 Called f or DEXA appointment, No answer Encounter Details Date Type Department Care Team (Late st Contact Info) Description 03/19/2020 Telephone [facility] [address] [place] [id number] Jackie Tong RT Scheduling Appointments (Called for [...] on file Legal Sex Female 7:20 PM HELICOPTER SPECIALIST Gender Identity Not on file Sexual Orientation [...] result. 07/03/2020 07/03/2020 07/17/2020 3:0 6 AM HELICOPTER SPECIALIST COVID: Suspected 11/05/2020 11/06/2020 11/06/2020 11:21 PM HELICOPTER SPECIALIST COVID: Suspected 05/21/2021 05/22/2021 05/22/2021 6:46 PM CDT COVID: Suspected 08/20/2021 08/20/2021 08/20/2021 8:02 PM HELICOPTER SPECIALIST documented as of this encounter Care Teams Rn Primary Care Relationship Specialty Start Date End Date Martina Yanez PA [address] [place] [address] PCP - General Internal Medicine 12/05/19 10/18/21 Jorge Maravilla MD [address] [place] [address] PCP - General Internal Medicine 10/19/21 01/16/23 Taylor Newby PA [address] [place] [address] PCP - General Physician Caustics Loader 01/17/23 [place] [address] [place] [address] Consulting Physician Pain Management 01/12/18 09/26/24 Mike Monsivais MD [address] [facility] [address] [place] [address] Consulting Physician Rheumatology 05/11/18 09/26/24 [place] [address] [facility] [address] [place] [address] Consulting Physician Ophthalmology 08/12/18 09/26/24 [place] [address] [facility] [address] [place] [address] Consulting Physician Obstetrics and Gynecology 10/09/19 09/26/24 Kieran Massey MD [address] [place] [address] Consulting Physician Internal Medicine 05/25/23 5 documented as of this encounter
--- OUTSIDE RECORDS SUMMARY | 2025-02-08 20:50 | XMS_ITS | CONTINUITY OF CARE DOCUMENT ---
Author Name jameson barba Address Unknown Organization [facility] Address [address] [facility] [address] [place] [address] Phone [phone] Care Team Providers Care Continuous Drier Operator Name Role Phone Rg SIBLEY, Jayce Unavailable [phone] MYA KINCAID MD Unavailable CHAVA LOMBARDO Unavailable PROBLEMS Condition Status Date Provider Notes SOB active Juan Zurita Chest pain active Jayce Diez MD Tobacco abuse active Jayce Diez MD Rheumatoid arthritis active Jayce Diez MD h/o Pulmonary embolism active Jayce Diez MD FAMILY HISTORY OF HEART DISEASE active Karla Diez MD ENCOUNTERS Date Type Provider Location Encounter Diag nosis - In-person encounter Office Visit Jayce Diez MD [facility] Office Chest painTobacco abuseRheumatoid arthritish/o Pulmonary embolismFAMILY [...] Payer name Policy type / Coverage type Haslet red libertarian ID [employer] Other [id number] TREATMENT PLAN Date Name Performer Cardiology:The Patie nt was reencouraged to stop smoking. Jayce Diez MD Cardiology:Continues on Xarelto Jayce Diez MD Cardiology Jayce Diez MD Date Name Complete Echo Complete Echo HISTORY OF PROCEDURES Procedure Date Procedure Name Provider Procedure Notes S tatus SNOMED-CT: 763273212 [id number] Current Medications Documented Jayce Diez MD completed SNOMED-CT: 571466175 Smoking Cessation Counseling Jayce Diez MD completed SNOMED-CT: 98246176 Physical Exam, Performed: Pulse Exam of Foot Jayce Diez MD completed
--- OUTSIDE RECORDS SUMMARY | 2025-02-08 20:50 | XMS_ITS | Referral Summary ---
Author Organization Address [address] [place] [address] Care Team Providers Care Manager Hris Name Role Phone Taylor Newby Primary Care Provider Encounters Date Type Department Care Team Description 02/05/2025 Telephone [facility] Oncology [address] [place] [address] Office [facility] [address] [place] [address] Eduarda Vann, CLT 01/31/2025 Documentation [facility] Oncology [address] [place] [address] Office [facility] [address] [place] [address] Mariana Kimbrough, FERNANDA 01/31/2025 Telephone [facility] Oncology [address] [place] [address] [address] [place] [address] Eduarda Vann, CLT 01/22/2025 Documentation [facility] Oncology [address] [place] [address] Office [facility] [address] [place] [address] Mariana Kimbrough, FERNANDA 12/08/2024 11:04 AM CDT - 12/08/2024 12:09 PM CDT Emergency [facility] Emergency Department [address] [place] [address] Contusion of multiple sites of left leg, subsequent encounter (Primary Dx); Elevated LFTs; Decreased GFR Discharge Disposition: Discharge to home or self care 12/07/2024 7:04 PM CDT - 12/07/2024 8:37 PM CDT Emergency [facility] Emergency Department [address] [place] [address] Ecchymosis (Primary Dx) Discharge Disposition: Discharge to home or self care 12/07/2024 4:00 PM CDT Office Visit [facility] at [address] [address] Lizett Gamboa NP Pain and [...] h other specified complication, unspecified whether terminal clerk insulin use 06/25/2024 Pulmonary embolism, unspecif ied [...] 08/08/2021 Assessment & Plan (08/08/2021 7:58 PM BEATER ROOM HELPER): Patient was persistent cervical thoracic and lumbar back pain. She also has rheumatoid on symptoms. She has not been responding to those medicines only. Rubber Engraver is concerned something else may be come [...] 08/08/2021 Assessment & Plan (08/08/2021 7:58 PM BEATER ROOM HELPER): Patient was persistent cervical thoracic and lumbar back pain. She also has rheumatoid on symptoms. She has not been responding to those medicines only. Rubber Engraver is concerned something else may be come [...] 08/08/2021 Assessment & Plan (08/08/2021 7:59 PM BEATER ROOM HELPER): Patient was persistent cervical thoracic and lumbar back pain. She also has rheumatoid on symptoms. She has not been responding to those medicines only. Rubber Engraver is concerned something else may be come [...] 08/08/2021 Assessment & Plan (08/08/2021 7:58 PM BEATER ROOM HELPER): Check hip x-rays and start physical therapy. Cigarette smoker 06/06/2021 Rhinorrhea 06/06/2021 Assessment & Plan (06/06/2021 11:30 PM CDT): Patient to presume positive COVID until results are available and self isolate for 10 days from the onset of sxs. Check COVID test thru [facility] collection site in [place]. If positive, complete quarantine and consider monoclonal [...] water often. If needed, use a hand accounting systems analyst that contains at least 60% alcohol. Clean [...] lotrisone to a clean dry area. Use chair lift operator after shower. Will also try short course [...] 11/05/2020 Assessment & Plan (11/05/2020 10:07 AM BEATER ROOM HELPER): Start antibiotic, antihistamine (Claritin OR Zyrtec), Mucinex 12hour and Steroid nasal spray (Flonase). Push fluids. Rest. Supportive care. If sxs worsen or don\'t improve, pt is to followup in the office. Advised this still could be COVID sxs so will test. See Congestion below Chronic nasal congestion 11/05/2020 Assessment & Plan (11/05/2020 10:08 AM BEATER ROOM HELPER): Patient to presume positive COVID until results are available and self isolate for 10 days from the onset of sxs. If negative, isolate until on antibiotic x 24hours and fever free x 24 hours without medication. Check COVID test thru [facility] collection site in [place]. Treat sxs with Tylenol, Cough/cold medication otc [...] water often. If needed, use a hand accounting systems analyst that contains at least 60% alcohol. Clean [...] (05/21/2020): Added automatically from request for surgery [id number] Hemorrhoid 04/09/2020 Overview (04/09/2020): Added automatically from request for surgery [id number] Assessment & Plan (04/12/2020 9:34 AM CDT): [...] Monsivais Assessment & Plan (08/10/2019 4:56 AM BEATER ROOM HELPER): Patient states she is on Butrans patch [...] amlodipine Assessment & Plan (08/10/2019 4:44 AM BEATER ROOM HELPER): Continue Norvasc with hold parameters GERD (gastroesophageal [...] in 2011. Request records from [facility] in [place] to determine clotting factor. Assessment & Plan (03/02/2020 4:12 PM CDT): Encouraged patient to followup with pharmacist as I can not explain why her AC is so much as this is preferred by [facility]. Assessment & Plan (02/05/2020 10:23 PM CDT): History PE in 2011. Request records from [facility] in [place] to determine clotting factor. Assessment & Plan (08/10/2019 4:55 AM BEATER ROOM HELPER): Continue Xarelto. Patient counseled on the importance [...] cymbalta Assessment & Plan (10/16/2017 3:50 PM BEATER ROOM HELPER): Plan to refill alprazaolam to Xanax 0.25 [...] Monsivais Assessment & Plan (08/10/2019 4:44 AM BEATER ROOM HELPER): With mixed connective tissue disorder. Continue with [...] 11/07/2008 Overview (02/05/2020): 2003 - dx at [facility] with spinal tap No current sxs. Resolved Problems Problem Noted Date Diagnosed Date Resolved Date BMI 45.0-49.9, adult 10/15/2020 021 Morbid obesity 10/15/2020 03/05/2021 Assessment & Plan (10/15/2020 7:43 AM BEATER ROOM HELPER): Obesity is unchanged. Discussed the patient's BMI. [...] 02/05/2020 Assessment & Plan (08/10/2019 4:42 AM BEATER ROOM HELPER): Suspected. Continue with ceftriaxone and azithromycin. Will order respiratory virus panel to rule out viral infection. Continue to monitor. Asthma exacerbation 08/10/2019 02/05/20 20 Assessment & Plan (08/10/2019 4:43 AM BEATER ROOM HELPER): With possible undiagnosed COPD. Patient still having [...] 01/12/2018 Assessment & Plan (10/16/2017 3:51 PM BEATER ROOM HELPER): As above. Mass 10/11/2017 01/12/2018 Assessment & Plan (10/16/2017 3:49 PM BEATER ROOM HELPER): Plan to obtain CT scan of chest [...] 02/05/20 20 Overview (01/21/2018): Scheduled with [facility] Management 02/07/18 Assessment & Plan (02/28/2017 1:25 PM CDT): Awaiting lab results today-has appt with Dr. Monsivais this afternoon. ? If related to lupus. Racing heart beat 02/28/2017 04/05/2018 Assessment & Plan (02/28/2017 8:50 PM CDT): Plan to check thyroid profile. Morbid obesity due to excess calories 02/28/2017 04/05/2018 Assessment & Plan (10/16/2017 3:50 PM BEATER ROOM HELPER): Obesity is unchanged. Discussed the patient's BMI. [...] Depression Assessment & Plan (08/10/2019 4:45 AM BEATER ROOM HELPER): Continue Zoloft Assessment & Plan (02/28/2017 8:49 [...] often do you attend chur ch or adventist services? Never 05/25/2023 Do you belong to any clubs o r organizations such as anabaptism groups, unions, fraternal or athletic groups, or [...] on file Legal Sex Female 7:20 PM BEATER ROOM HELPER Gender Identity Not on file Sexual Orientation [...] BLOOD ORDERABLES Final R esult [facility] [address] [facility] [place] [address] * Differential, auto (12/08/2024 10:43 AM CDT) [...] Final R esult [facility] ([facility] [address] [facility] [place] [address] * (ABNORMAL) CBC with auto differential (12/08/2024 [...] Final R esult [facility] ([facility]) [address] [facility] [place] [address] * (ABNORMAL) Comprehensive metabolic panel (12/08/2024 10:43 [...] Final R esult [facility] ([facility]) [address] [facility] [place] [address] * US VEIN DUPLEX LOWER EXTREMITY LEFT [...] Liat Walsh M.D. FT: FT Report ID: [id number] Reading Location: [id number] Procedure Note Liat Vail MD - 12/08/2024 [...] Liat Walsh M.D. FT: FT Report ID: [id number] Reading Location: [id number] Jaiden Evans MD IMG US PROCEDURES Final Resu lt * ECG 12 lead (12/08/2024 9:35 AM CDT) 12/08/2024 9:35 AM CDT Narrative [facility] - 12/08/2024 1:54 PM CDT Vent Rate: 76 bpm RR Interval: 783 msec [place] Interval: 157 msec QRS Duration: 106 msec QT Interval: 374 msec QTC Interval: 405 msec P-R-T Milligan: 12 - -24 - 11 degrees IMPRESSION: SINUS RHYTHM BORDERLINE LEFT AXIS DEVIATION [QRS AXIS < -20] BORDERLINE ECG Electronically Signed By: Iftikhar Zuniga MD, [facility] us Jaiden Evans MD ECG ORDERABLES Final Result [facility] * Hemoglobin A1c (03/18/2021) SCRIBED Hemoglobin A1c 5.4 <5.7 [facility] Blood specimen (specimen) 03/18/2021 Martina LOWERY LAB BLOOD ORDERABLES Final Result Performing Organization Address City/[facility] Co de Phone Number [facility] * Lipid panel (03/18/2021) SCRIBED Cholesterol, Total 136 0 - 200 [facility] SCRIBED HDL 69 0 [facility] SCRIBED LDL 50 0 [facility] SCRIBED Triglycerides 77 <150 [facility] Blood specimen (specimen) 03/18/2021 Martina LOWERY LAB BLOOD ORDERABLES Final Result Performing Organization Address [facility] Co de Phone Number [facility] * COLONOSCOPY (06/16/2020 9:32 AM CDT) Anatomical Region Laterality Modality Other Narrative Procedure Note Caio Aguilar MD - 06/16/2020 9:32 AM CDT [facility] Patient Name: Azul Carlson Procedure Date: 06/16/2020 9:32 AM Date of : 1970 Admit Type: Outpatient Age: 50 Gender: Female Attending MD: Caio Aguilar M.D. Room: [facility] ENDOSCOPY ROOM 2 Note Status: Finalized Patient [...] was passed under direct vision. The Colonoscope [id number] was introduced through the anusand advanced to [...] 9:32 AM Procedure Code(s): --- Professional --- 55898, Colonoscopy, flexible; diagnostic, including collection of specimen(s) by brushing or washing, when performed (separateprocedure) Diagnosis Code(s): --- Professional --- K57.30, Diverticulosis of large intestine without perforation orabscess without bleeding Z98.0, Intestinal bypass and anastomosis status K64.9, Unspecified hemorrhoids CPT copyright 2017 [employer]. All rights reserved. The codes documented in this report are preliminary and upon computer forensics examiner reviewmay be revised to meet current compliance requirements. Recognized by the [employer] for promoting quality in endoscopy us Caio Aguilar MD ENDOSCOPY PROCEDURES Final Re sult * DIAGNOSTIC MAMMOGRAM BILATERAL W BOB (04/01/2016 12:40 PM CDT) Anatomical Region Laterality Modality Breast Bilateral Mammography 04/01/2016 12:4 0 PM CDT Narrative 04/01/2016 4:03 PM CDT Acc#: [id number] [facility] 0031 - Diag Mamm W Bob [...] NEGATIVE TECHNOLOGIST: RADHA PILLAI TECHNOLOGIST MEDICAL IMAGING PATTERN FILER: DD2 TRANSCRIBE DATE/TIME: Apr 01 2016 1:43P RADIOLOGIST: LAURI GREEN M.D. READ ON: Apr 01 2016 1:34P ORDERING DR: ART TEJADA N.P. THIS DOCUMENT HAS BEEN ELECTRONICALLY SIGNED BY: LAURI GREEN M.D. ON: Apr 01 2016 4:03P Attending: ART TEJADA Requesting: ART TEJADA Requesting Attending Attending ID: [id number] Requesting ID: [id number] Report To 1 ID: Report To 1 Name: , Report To 1 FAX: -- Report To 2 ID: Report To 2 Name: , Report To 2 FAX: -- NextGen Order #: Procedure Note Provider, MD Emigdio - 01/04/2017 Acc#: [id number] [facility] 0031 - Diag Mamm W Bob [...] NEGATIVE TECHNOLOGIST: RADHA PILLAI, TECHNOLOGIST MEDICAL IMAGING PATTERN FILER: DD2 TRANSCRIBE DATE/TIME: Apr 01 2016 1:43P RADIOLOGIST: LAURI GREEN M.D. READ ON: Apr 01 2016 1:34P ORDERING DR: ART TEJADA N.P. THIS DOCUMENT HAS BEEN ELECTRONICALLY SIGNED BY: LAURI GREEN M.D. ON: Apr 01 2016 4:03P Attending: ART TEJADA Requesting: ART TEJADA Requesting Attending Attending ID: [id number] Requesting ID: [id number] Report To 1 ID: Report To 1 [...] Serum 03/18/2015 4:25 PM CDT Mimi Kelley FAILURE ANALYSIS TECHNICIAN LAB BLOOD ORDERABLES Nava l Result HISTORICAL RESULTS from Last 3 Months or Most Recently Relevant to Health Maintenance Insurance [facility] MEDICARE ADVANTAGE [facility] Address: [address] [address] [place] [address] MEDICARE UHC MEDICARE ADVANTAGE Advance Directives For more information, please contact: [phone] * Full Code (Latest Code Status on File) Date Activated Date Inactivated Comments 05/23/2023 10:43 PM 05/25/2023 7:39 PM * Full Code Date Activated Date Inactivated Comments 06/16/2020 9:20 AM 06/16/2020 3:35 PM * Full Code Date Activated Date Inactivated Comments 08/10/2019 4:24 AM 08/14/2019 10:24 PM Care Teams Manager Hris Relationship Specialty Start Date End Date Taylor Newby PA [address] [place] [address] PCP - General Physician Window Glazier 01/17/23
[2025-02-08 21:00] VITALS: BP 122/83; PULSE 86; RESP 15; TEMP 36.6; O2SAT 99
--- NOTE | 2025-02-08 21:02 | ED.SKABFB ---
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 She has been on doxycycline by the primary doctor. An ultrasound was ordered and done yesterday but no one has seen the results today per the patient. I will review ultrasound. Pain is increased in this left lower abdomen area. this all started about a week ago. MD complaint: lesion ( Left lower abdomen hardened area) Onset (ago): week(s) ( One week) Location: generalized ( left lower abdomen nodularity where she gives Lovenox shots twice a day) Severity: moderate Severity scale (1-10): 4 Quality: sharp Pain Consistency: constant Relieving factors: none Exacerbating factors: palpation Context: other ( patient has left lower abdomen nodularity after Lovenox given in the area 1 week ago for beginning symptoms) Associated symptoms: denies other symptoms Treatments prior to arrival: other ( patient finished antibiotic of doxycycline today) Related Data Home Medications ?Medication ?Instructions ?Recorded ?Confirmed ?Last Taken ?Type Tylenol 1,000 mg PO Q8H 10/23/21 08/05/23 01/20/23 History budesonide-formoterol HFA 80 2 inh inhalation BID 10/23/21 08/05/23 01/20/23 History mcg-4.5 mcg/actuation aerosol inhaler (Symbicort) duloxetine 60 mg capsule,delayed 120 mg PO DAILY 02/25/22 08/05/23 1 Day Ago History release ~01/19/23 pitolisant 17.8 mg tablet (Wakix) 17.8 mg PO DAILY 02/25/22 08/05/23 01/20/23 History dextroamphetamine-amphetamine 20 20 mg PO DAILY 04/20/22 08/05/23 01/20/23 History mg tablet aripiprazole 10 mg tablet 10 mg DAILY 01/20/23 08/05/23 01/20/23 History bismuth subsalicylate 262 mg 2 tablet PO Q1H PRN upset stomach 01/20/23 08/05/23 01/20/23 History chewable tablet lisinopril 40 mg tablet 40 mg PO DAILY 01/20/23 08/05/23 1 Day Ago History ~01/19/23 metoprolol succinate 25 mg 25 mg PO DAILY 01/20/23 08/05/23 01/20/23 History tablet,extended release 24 hr (Toprol XL) aripiprazole 5 mg tablet 5 mg PO DAILY 07/06/23 08/05/23 Unknown History bupropion HCl 100 mg tablet 100 mg PO ONCE 07/06/23 08/05/23 Unknown History buspirone 15 mg tablet 15 mg PO BID 07/06/23 08/05/23 Unknown History diclofenac sodium 50 mg 50 mg PO BID 07/06/23 08/05/23 Unknown History tablet,delayed release multivitamin 1 tablet PO DAILY 07/06/23 08/05/23 Unknown History omeprazole 20 mg capsule,delayed 20 mg PO DAILY 07/06/23 08/05/23 Unknown History release ropinirole 0.25 mg tablet 0.25 mg PO DAILY 08/05/23 08/05/23 Unknown History tirzepatide 7.5 mg/0.5 mL 7.5 mg subcut WEEKLY 08/05/23 08/05/23 Unknown History subcutaneous pen injector (Brynn) Allergies Allergy/AdvReac Type Severity Reaction Status Date / Time amitriptyline Allergy Intermediate Other Verified 02/08/25 21:03 aspartame Allergy Intermediate Other Verified 02/08/25 21:03 atomoxetine Allergy Intermediate Unknown Verified 02/08/25 21:03 gabapentin Allergy Intermediate Other Verified 02/08/25 21:03 nortriptyline Allergy Intermediate Other Verified 02/08/25 21:03 prednisone Allergy Intermediate Hyperactive Verified 02/08/25 21:03 cyclobenzaprine Allergy Anxiety Verified 02/08/25 21:03 fluoxetine Allergy Unknown Verified 02/08/25 21:03 pregabalin Allergy Anxiety Verified 02/08/25 21:03 sulfasalazine Allergy Unknown Verified 02/08/25 21:03 sumatriptan Allergy Unknown Verified 02/08/25 21:03 methotrexate AdvReac Intermediate Diarrhea Verified 02/08/25 21:03 methylprednisolone AdvReac Agitated Verified 02/08/25 21:03 Review of Systems Review of Systems: All systems reviewed & are unremarkable except as noted in HPI and below Constitutional: Constitutional: Reports no additional constitutional complaints Eyes: Eyes: Reports no additional eye complaints ENT: Reports system reviewed and no additional complaints, except as documented Cardiovascular: Cardiovascular: Reports no additional cardiovascular complaints Respiratory: Respiratory: Reports no additional respiratory complaints Gastrointestinal: Gastrointestinal: Reports no additional gastrointestinal complaints Genitourinary: Genitourinary: Reports no additional female genitourinary complaints Musculoskeletal: Musculoskeletal: Reports no additional musculoskeletal complaints Integumentary/Breasts: Skin/Breast: Reports system reviewed and no additional complaints, except as docu Neurologic: Reports system reviewed and no additional complaints, except as documented Psychiatric: Psychiatric: Reports no additional psychiatric complaints Endocrine: Endocrine: Reports no additional endocrine complaints Hematologic/Lymphatic: Hematologic/Lymphatic: Reports no additional hematologic/lymphatic complaints Allergic/Immunologic: Allergic/Immunologic: Reports no additional allergic/immunologic complaints PMFSH Past Medical History Medical History Depression Arthritis Fibromyalgia History of gastroesophageal reflux (GERD) Diverticulitis Colitis Pneumonia Pulmonary embolism Asthma Hypertension History of hypercholesterolemia Mitral valve prolapse History of TIA (transient ischemic attack) Systemic lupus Surgical History Surgical History History of hysterectomy History of cholecystectomy Social History Social History Years smoked: 20 Smoking status: Former smoker Tobacco type: cigarettes Second hand tobacco smoke exposure: No Smoking end date: 11/29/22 Alcohol intake: former Alcohol use details: Rare Substance use: current Substance use type: marijuana, amphetamines and prescription drug Last use: 01/06/2023 Lack of Transportation: No Lack of Food: Never True Current Housing: I Have Housing Concerned About Future Housing: No Difficulty Paying Gas/Electric Bills: No Difficulty Paying for Meds: No Currently Unemployed: No Education: High School Diploma/GED Difficulty w/ Childcare or Family Care: No Living arrangements: alone Gender identity (if verbalized by the patient): Female Spiritual care concerns: Yes ([employer] Confucianism) Exam Const: General: healthy appearing Nutritional Appearance: well nourished Orientation/consciousness: patient oriented x3 HENMT: Head: normal to inspection Ears: external ears normal Face/Nose/Sinus: Normal external nose present Eyes: Conjunctivae: conjunctivae normal Pupils: Equal, round and reactive pupils present EOM: EOMs intact bilaterally Neck: Neck: normal visual inspection Chest: Chest palpation & inspection: normal inspection of the chest Resp: Effort & Inspection: normal respiratory effort and not labored Auscultation: clear to auscultation bilaterally and no crackles Cardio: Rate: regular rate Rhythm: regular rhythm Heart sounds: no murmurs GI: Inspection: non-distended GI Palp: Yes Soft to palpation and No Tenderness to palpation present (GI) Auscultation: normal bowel sounds : General: Yes bladder normal to palpation Back/Spine/Pelvis: Back: no CVA tenderness Skin: General skin exam: No normal color Rashes: no rashes Wounds: no wounds Other: left lower abdomen skin of the pannus has a nodularity formation of irregularity around 5 x 4 cm; this area is tender to palpation Neuro: General: patient oriented x3 Cranial nerves: Yes Nystagmus not present Speech: normal speech Extrem: General: normal to inspection Psych: Mental Status: mental status grossly normal Affect: normal affect Attitude: cooperative Course Vital Signs Vital signs: Vital Signs Temperature 36.6 C 02/08/25 21:00 Pulse Rate 86 02/08/25 21:00 Respiratory Rate 15 02/08/25 21:00 Blood Pressure 122/83 02/08/25 21:00 Pulse Oximetry 99 02/08/25 21:00 Oxygen Delivery Room Air 02/08/25 21:00 Temperature 36.6 C 02/08/25 21:00 Pulse Rate 86 02/08/25 21:00 Respiratory Rate 15 02/08/25 21:00 Blood Pressure 122/83 02/08/25 21:00 Pulse Oximetry 99 02/08/25 21:00 Oxygen Delivery Room Air 02/08/25 21:00 MDM - Skin/Abscess/Foreign Bdy MDM Narrative Medical decision making narrative: patient is a 54-year-old female with left lower abdomen skin nodularity/irregularity seen on ultrasound done yesterday as a complex lesion. I reviewed the ultrasound from yesterday. Aspiration suggested. She finished doxycycline today. We will get labs to see if her body is responding to this area. This is not an area that is good for opening in emergency room as it overlies the intestinal tract. This is also a very deep structure. We will need a surgeon to assist us with this if there is a body response in her laboratory studies. Workup was negative for acute stress response. Lab Data Attestation: I reviewed the patient's lab results. 02/08/25 21:39 02/08/25 21:39 Labs: Lab Results 02/08/25 Range/Units 21:39 WBC 5.5 (4.8-10.8) K/mm3 RBC 4.24 (4.20-5.40) M/mm3 Hgb 13.1 (12.0-15.0) g/dL Hct 39.5 (35.0-49.0) % MCV 93.2 (78.0-102.0) fL MCH 30.9 (27.0-31.0) pg MCHC 33.2 (32-36) g/dL RDW 13.2 (11.6-14.4) % Plt Count 186 (150-420) K/mm3 MPV 10.7 (9.2-11.8) fl Immature Gran % (Auto) 0.2 H (0.0-0.0) % Neut % (Auto) 50.8 (50.0-70.0) % Lymph % (Auto) 36.6 (18.0-42.0) % Sumner % (Auto) 8.5 (2.0-11.0) % Eos % (Auto) 3.4 (1.0-6.0) % Baso % (Auto) 0.5 (0.0-1.0) % Lymph # (Auto) 2.02 (1.10-4.50) K/mm3 Sumner # (Auto) 0.47 (0.10-0.90) K/mm3 Eos # (Auto) 0.19 (0.02-0.50) K/mm3 Baso # (Auto) 0.03 (0.00-0.10) K/mm3 Abs Immat Gran (auto) 0.01 H (0.00-0.00) K/mm3 Absolute Neuts (auto) 2.80 (1.70-7.20) K/mm3 Absolute Nucleated RBC 0.00 (0.00-0.00) K/mm3 Nucleated RBC % 0.0 (0-0.0) % Sodium 137 (137-145) mmol/L Potassium 3.6 (3.4-5.0) mmol/L Chloride 110 H (98-107) mmol/L Carbon Dioxide 25 (22-30) mmol/L Anion Gap 2 L (4-12) mmol/L BUN 19 H D (7-17) mg/dL Creatinine 1.03 H (0.7-1.0) mg/dL Estim Creat Clear Calc 72 ml/min Estimated GFR 55 L (59 - ) Glucose 91 (65-110) mg/dL Calculated Osmolality 286 (285-295) mOsm/kg Lactic Acid 0.8 (0.4-2.0) mmol/L Calcium 8.5 (8.4-10.2) mg/dL Total Bilirubin 0.6 (0.2-1.3) mg/dL AST 36 (14-36) U/L ALT 32 (6-35) U/L Alkaline Phosphatase 77 (38-126) U/L C-Reactive Protein < 0.5 (<1.0) mg/dL Total Protein 5.7 L (6.3-8.2) g/dL Albumin 3.2 L (3.5-5.1) g/dL Imaging Data Attestation: I personally reviewed and interpreted this imaging study as follows: Radiologist's impression: Ultrasound abdomen soft tissue of concerning area done yesterday here at this facility shows 4.7 x 2.7 cm irregular, complex fluid collection in the left lower abdominal wall at the area of clinical concern. This could reflect abscess versus other cystic mass or collection. Correlate clinically. Consider aspiration. Discharge Plan Discharge Clinical Impression: Mass of soft tissue Patient Disposition: Home Condition: Stable Instructions: Antibiotic Form, Soft Tissue Mass (ED) Additional Instructions: please follow-up with the primary doctor in the next week. You will need to see a surgeon to have this area aspirated in the next 1-2 weeks. Meanwhile I have given pain medication for as needed. Come back to the ER for worse symptoms. At this time your blood work does not show a response to this area. I added an antibiotic to cross cover possible residual infection. Patient Language: Tongan Prescriptions: New hydrocodone-acetaminophen 5-325 mg tablet 1 tablet PO Q8H PRN (Reason: pain) Qty: 20 0RF Rx Instructions: 1-2 tabs per dose cephalexin 500 mg capsule 500 mg PO BID 7 Days Qty: 14 0RF No Action budesonide-formoterol [Symbicort] 80-4.5 mcg/actuation HFA aerosol inhaler 2 inh INHALATION BID Tylenol 1,000 mg PO Q8H dextroamphetamine-amphetamine 20 mg tablet 20 mg PO DAILY metoprolol succinate [Toprol XL] 25 mg tablet extended release 24 hr 25 mg PO DAILY lisinopril 40 mg tablet 40 mg PO DAILY bismuth subsalicylate 262 mg Tablet,Chewable 2 tablet PO Q1H PRN (Reason: upset stomach) Rx Instructions: do not exceed 16 tabs per 24 hrs aripiprazole 10 mg Tablet 10 mg DAILY Xarelto 20 mg tablet 20 mg PO DAILY Qty: 30 0RF Rx Instructions: must administer with evening meal ropinirole 0.25 mg tablet 0.25 mg PO DAILY Mounjaro 7.5 mg/0.5 mL pen injector 7.5 mg SUBCUT WEEKLY meclizine 25 mg tablet 25 mg PO TID PRN (Reason: dizziness) Qty: 30 0RF methylprednisolone 4 mg tablets,dose pack See Rx Instructions .ROUTE .COMPLEX Qty: 21 0RF Rx Instructions: for 6 days ondansetron HCl 4 mg tablet 4 mg PO Q6H PRN (Reason: nausea and vomiting) Qty: 14 0RF doxycycline hyclate 100 mg tablet 100 mg PO Q12H Qty: 20 0RF aripiprazole 5 mg tablet 5 mg PO DAILY omeprazole 20 mg capsule,delayed release(DR/EC) 20 mg PO DAILY diclofenac sodium 50 mg tablet,delayed release (DR/EC) 50 mg PO BID bupropion HCl 100 mg tablet 100 mg PO ONCE buspirone 15 mg tablet 15 mg PO BID multivitamin Tablet 1 tablet PO DAILY metoclopramide HCl [Reglan] 10 mg tablet 10 mg PO BID Qty: 60 4RF Rx Instructions: Take before largest meal of the day and at bedtime. duloxetine 60 mg Capsule,Delayed Release(Dr/Ec) 120 mg PO DAILY Wakix 17.8 mg Tablet 17.8 mg PO DAILY Follow-up/Referrals: UNKNOWN,DOCTOR [Non-Staff] - Time of Disposition: 22:20
--- NOTE | 2025-02-08 21:09 | PC.NURSE ---
DR PALACIOS AT THE BEDSIDE
--- OUTSIDE RECORDS SUMMARY | 2025-02-08 21:12 | XMS_ITS | Encounter Summary ---
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 Never 05/25/2023 Do you belong to any clubs o r organizations such as zoroastrian groups, unions, fraternal or athletic groups, or [...] place to sleep or slept in a alf (including now)? No 05/25/2023 Personal Safety Answer Date Recorded Have you ever been in or are you currently in a harmful physical or emotional relationship or is someone making you feel afraid or unsafe? 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 Gender Identity Not on file Sexual [...] Was able to leave a message at [phone]./res * Telephone Encounter - Mariana Kimbrough RN - 01/31/2025 12:10 PM CDT Eduarda, I have tried to call this number and it is no longer in service * Telephone Encounter - Eduarda Vann CLT - 01/31/2025 11:13 AM CDT WANTS PATIENT TO STOP LOVENOX FOR COLONOSCOPY [phone] OPTION 4 documented in this encounter Plan of Treatment Not on file documented as of this encounter Visit Diagnoses Not on filedocumented in this encounter Care Teams Band Reamer Machine Operator Relationship Specialty Start Date End Date Taylor Newby PA [address] [place] [id number] PCP - General Physician Logistics/Shipper 01/17/23 documented as of this encounter
--- OUTSIDE RECORDS SUMMARY | 2025-02-08 21:12 | XMS_ITS | Referral Summary ---
Author Organization [facility] Address [address] [place] [id number] Care Team Providers Care Director Of Financial Planning Name Role Phone Taylor Newby Primary Care Provider Encounters Date Type Department Care Team Description 02/05/[address] [facility] On[facility] [address] [place] [address] Office [facility] [address] [place] [address] Eduarda Vann, CLT 01/31/[address] [facility] [address] [place] [address] Office [facility] [address] [place] [address] Mariana Kimbrough, FERNANDA 01/31/[address] [facility] [address] [place] [address] [address] [facility] [address] [place] [address] Eduarda Vann, CLT 01/22/[address] [facility] [address] [place] [address] Office [facility] [address] [place] [address] Mariana Kimbrough, FERNANDA 12/08/2024 11:04 AM CDT - 12/08/2024 12:09 PM CDT Emergency [facility] Emergency Department [address] [place] [address] Contusion of multiple sites of left leg, subsequent encounter (Primary Dx); Elevated LFTs; Decreased GFR Discharge Disposition: Discharge to home or self care 12/07/2024 7:04 PM CDT - 12/07/2024 8:37 PM CDT Emergency [facility] Emergency Department [address] [place] [address] Ecchymosis (Primary Dx) Discharge Disposition: Discharge to home or self care 12/07/2024 4:00 PM CDT Office Visit [facility] at [address] [address] Lizett Gamboa NP Pain and [...] wit h other specified complication, unspecified whether exterminator helper insulin use 06/25/2024 Pulmonary embolism, unspecif ied [...] 08/08/2021 Assessment & Plan (08/08/2021 7:58 PM TRADE ANALYST): Patient was persistent cervical thoracic and lumbar back pain. She also has rheumatoid on symptoms. She has not been responding to those medicines only. Marine Equipment Sales Engineer is concerned something else may be come [...] 08/08/2021 Assessment & Plan (08/08/2021 7:58 PM TRADE ANALYST): Patient was persistent cervical thoracic and lumbar back pain. She also has rheumatoid on symptoms. She has not been responding to those medicines only. Marine Equipment Sales Engineer is concerned something else may be come [...] 08/08/2021 Assessment & Plan (08/08/2021 7:59 PM TRADE ANALYST): Patient was persistent cervical thoracic and lumbar back pain. She also has rheumatoid on symptoms. She has not been responding to those medicines only. Marine Equipment Sales Engineer is concerned something else may be come [...] 08/08/2021 Assessment & Plan (08/08/2021 7:58 PM TRADE ANALYST): Check hip x-rays and start physical therapy. Cigarette smoker 06/06/2021 Rhinorrhea 06/06/2021 Assessment & Plan (06/06/2021 11:30 PM CDT): Patient to presume positive COVID until results are available and self isolate for 10 days from the onset of sxs. Check COVID test thru [facility] collection site in [place]. If positive, complete quarantine and consider monoclonal [...] water often. If needed, use a hand pharmacy grad intern that contains at least 60% alcohol. Clean [...] to a clean dry area. Use chair mechanic after shower. Will also try short course [...] 11/05/2020 Assessment & Plan (11/05/2020 10:07 AM TRADE ANALYST): Start antibiotic, antihistamine (Claritin OR Zyrtec), Mucinex 12hour and Steroid nasal spray (Flonase). Push fluids. Rest. Supportive care. If sxs worsen or don\'t improve, pt is to followup in the office. Advised this still could be COVID sxs so will test. See Congestion below Chronic nasal congestion 11/05/2020 Assessment & Plan (11/05/2020 10:08 AM TRADE ANALYST): Patient to presume positive COVID until results are available and self isolate for 10 days from the onset of sxs. If negative, isolate until on antibiotic x 24hours and fever free x 24 hours without medication. Check COVID test thru [facility] collection site in [place]. Treat sxs with Tylenol, Cough/cold medication otc [...] water often. If needed, use a hand pharmacy grad intern that contains at least 60% alcohol. Clean [...] (05/21/2020): Added automatically from request for surgery [id number] Hemorrhoid 04/09/2020 Overview (04/09/2020): Added automatically from request for surgery [id number] Assessment & Plan (04/12/2020 9:34 AM CDT): [...] Monsivais Assessment & Plan (08/10/2019 4:56 AM TRADE ANALYST): Patient states she is on Butrans patch [...] amlodipine Assessment & Plan (08/10/2019 4:44 AM TRADE ANALYST): Continue Norvasc with hold parameters GERD (gastroesophageal [...] in 2011. Request records from [facility] in [place] to determine clotting factor. Assessment & Plan (03/02/2020 4:12 PM CDT): Encouraged patient to followup with pharmacist as I can not explain why her AC is so much as this is preferred by [facility]. Assessment & Plan (02/05/2020 10:23 PM CDT): History PE in 2011. Request records from [facility] in [place] to determine clotting factor. Assessment & Plan (08/10/2019 4:55 AM TRADE ANALYST): Continue Xarelto. Patient counseled on the importance [...] cymbalta Assessment & Plan (10/16/2017 3:50 PM TRADE ANALYST): Plan to refill alprazaolam to Xanax 0.25 [...] Monsivais Assessment & Plan (08/10/2019 4:44 AM TRADE ANALYST): With mixed connective tissue disorder. Continue with [...] 11/07/2008 Overview (02/05/2020): 2003 - dx at [facility] with spinal tap No current sxs. Resolved Problems Problem Noted Date Diagnosed Date Resolved Date BMI 45.0-49.9, adult 10/15/2020 021 Morbid obesity 10/15/2020 03/05/2021 Assessment & Plan (10/15/2020 7:43 AM TRADE ANALYST): Obesity is unchanged. Discussed the patient's BMI. [...] 02/05/2020 Assessment & Plan (08/10/2019 4:42 AM TRADE ANALYST): Suspected. Continue with ceftriaxone and azithromycin. Will order respiratory virus panel to rule out viral infection. Continue to monitor. Asthma exacerbation 08/10/2019 02/05/20 20 Assessment & Plan (08/10/2019 4:43 AM TRADE ANALYST): With possible undiagnosed COPD. Patient still having [...] 01/12/2018 Assessment & Plan (10/16/2017 3:51 PM TRADE ANALYST): As above. Mass 10/11/2017 01/12/2018 Assessment & Plan (10/16/2017 3:49 PM TRADE ANALYST): Plan to obtain CT scan of chest without contrast. Atypical chest pain 08/25/2017 02/05/20 20 Nausea & vomiting 08/25/2017 04/05/2018 Near syncope 08/25/2017 04/05/2018 Carbuncle, thigh 07/01/2017 01/12/2018 Assessment & Plan (07/06/2017 1:35 PM CDT): Plan to start Bactrim DS BID x 10 days. Continue with washing with mild soap. Apply warm compresses Multiple joint pain 02/28/2017 02/05/20 20 Overview (01/21/2018): Scheduled with [facility] 02/07/18 Assessment & Plan (02/28/2017 1:25 PM CDT): Awaiting lab results today-has appt with Dr. Monsivais this afternoon. ? If related to lupus. Racing heart beat 02/28/2017 04/05/2018 Assessment & Plan (02/28/2017 8:50 PM CDT): Plan to check thyroid profile. Morbid obesity due to excess calories 02/28/2017 04/05/2018 Assessment & Plan (10/16/2017 3:50 PM TRADE ANALYST): Obesity is unchanged. Discussed the patient's BMI. [...] Depression Assessment & Plan (08/10/2019 4:45 AM TRADE ANALYST): Continue Zoloft Assessment & Plan (02/28/2017 8:49 [...] often do you attend chur ch or alevism services? Never 05/25/2023 Do you belong to any clubs o r organizations such as taoist groups, unions, fraternal or athletic groups, or [...] place to sleep or slept in a senior living (including now)? No 05/25/2023 Personal Safety Answer Date Recorded Have you ever been in or are you currently in a harmful physical or emotional relationship or is someone making you feel afraid or unsafe? Denies 12/08/2024 Comments No Sex and Gender Information Value Date Recorded Sex Assigned at Not on file Legal Sex Female 7:20 PM TRADE ANALYST Gender Identity Not on file Sexual Orientation [...] BLOOD ORDERABLES Final R esult [facility] [place] [address] * Differential, auto (12/08/2024 10:43 AM CDT) [...] Final R esult [facility] ([place] [place] [address] * (ABNORMAL) CBC with auto differential (12/08/2024 [...] Final R esult [facility] ([place] [address] [facility] [place] [address] * (ABNORMAL) Comprehensive metabolic panel (12/08/2024 10:43 [...] Final R esult [facility] ([place] [place] [address] * US VEIN DUPLEX LOWER EXTREMITY LEFT [...] Liat Walsh M.D. FT: FT Report ID: [id number] Reading Location: [id number] Procedure Note Liat Vail MD - 12/08/2024 [...] Liat Walsh M.D. FT: FT Report ID: [id number] Reading Location: [id number] Jaiden Evans MD IMG US PROCEDURES Final Resu lt * ECG 12 lead (12/08/2024 9:35 AM CDT) 12/08/2024 9:35 AM CDT Narrative [facility] - 12/08/2024 1:54 PM CDT Vent Rate: 76 bpm RR Interval: 783 msec OK Interval: 157 msec QRS Duration: 106 msec QT Interval: 374 msec QTC Interval: 405 msec P-R-T [place]: 12 - -24 - 11 degrees IMPRESSION: SINUS RHYTHM BORDERLINE LEFT AXIS DEVIATION [QRS AXIS < -20] BORDERLINE ECG Electronically Signed By: Iftikhar Zuniga MD, [facility] us Jaiden Evans MD ECG ORDERABLES Final Result [facility] * Hemoglobin A1c (03/18/2021) SCRIBED Hemoglobin A1c 5.4 <5.7 [facility] Blood specimen (specimen) 03/18/2021 [facility] BLOOD ORDERABLES Final Result Performing Organization Address City/[facility] Co de Phone Number [facility] * Lipid panel (03/18/2021) SCRIBED Cholesterol, Total 136 0 - 200 [facility] SCRIBED HDL 69 0 [facility] SCRIBED LDL 50 0 [facility] SCRIBED Triglycerides 77 <150 [facility] Blood specimen (specimen) 03/18/2021 [facility] BLOOD ORDERABLES Final Result Performing Organization Address [facility] Co de Phone Number [facility] * COLONOSCOPY (06/16/2020 9:32 AM CDT) Anatomical Region Laterality Modality Other Narrative Procedure Note Caio Aguilar MD - 06/16/2020 9:32 AM CDT [facility] Patient Name: Azul Carlson Procedure Date: 06/16/2020 9:32 AM Date of : 1970 Admit Type: Outpatient Age: 50 Gender: Female Attending MD: Caio Aguilar M.D. Room: [facility] ENDOSCOPY ROOM 2 Note Status: Finalized Patient [...] was passed under direct vision. The Colonoscope [id number] was introduced through the anusand advanced to [...] 9:32 AM Procedure Code(s): --- Professional --- 86539, Colonoscopy, flexible; diagnostic, including collection of specimen(s) by brushing or washing, when performed (separateprocedure) Diagnosis Code(s): --- Professional --- K57.30, Diverticulosis of large intestine without perforation orabscess without bleeding Z98.0, Intestinal bypass and anastomosis status K64.9, Unspecified hemorrhoids CPT copyright 2017 [employer]. All rights reserved. The codes documented in this report are preliminary and upon director of healthcare systems reviewmay be revised to meet current compliance requirements. Recognized by the [employer] for promoting quality in endoscopy us Caio Aguilar MD ENDOSCOPY PROCEDURES Final Re sult * DIAGNOSTIC MAMMOGRAM BILATERAL W BOB (04/01/2016 12:40 PM CDT) Anatomical Region Laterality Modality Breast Bilateral Mammography 04/01/2016 12:4 0 PM CDT Narrative 04/01/2016 4:03 PM CDT Acc#: [id number] [facility] 0031 - Diag Mamm W Bob [...] NEGATIVE TECHNOLOGIST: RADHA PILLAI TECHNOLOGIST MEDICAL IMAGING MARGIN ANALYST: DD2 TRANSCRIBE DATE/TIME: Apr 01 2016 1:43P RADIOLOGIST: LAURI GREEN M.D. READ ON: Apr 01 2016 1:34P ORDERING DR: ART TEJADA N.P. THIS DOCUMENT HAS BEEN ELECTRONICALLY SIGNED BY: LAURI GREEN M.D. ON: Apr 01 2016 4:03P Attending: ART TEJADA Requesting: ART TEJADA Requesting Attending Attending ID: [id number] Requesting ID: [id number] Report To 1 ID: Report To 1 Name: , Report To 1 FAX: -- Report To 2 ID: Report To 2 Name: , Report To 2 FAX: -- NextGen Order #: Procedure Note Provider, MD Emigdio - 01/04/2017 Acc#: [id number] [facility] 0031 - Diag Mamm W Bob [...] NEGATIVE TECHNOLOGIST: RADHA PILLAI, TECHNOLOGIST MEDICAL IMAGING MARGIN ANALYST: DD2 TRANSCRIBE DATE/TIME: Apr 01 2016 1:43P RADIOLOGIST: LAURI GREEN M.D. READ ON: Apr 01 2016 1:34P ORDERING DR: ART TEJADA N.P. THIS DOCUMENT HAS BEEN ELECTRONICALLY SIGNED BY: LAURI GREEN M.D. ON: Apr 01 2016 4:03P Attending: ART TEJADA Requesting: ART TEJADA Requesting Attending Attending ID: [id number] Requesting ID: [id number] Report To 1 ID: Report To 1 [...] Serum 03/18/2015 4:25 PM CDT Mimi Kelley MANUFACTURE SPECIALIST LAB BLOOD ORDERABLES Nava l Result HISTORICAL RESULTS from Last 3 Months or Most Recently Relevant to Health Maintenance Insurance [facility] MEDICARE ADVANTAGE [facility] Address: [address] [address] [place] [address] MEDICARE UHC MEDICARE ADVANTAGE Advance Directives For more information, please contact: [phone] * Full Code (Latest Code Status on File) Date Activated Date Inactivated Comments 05/23/2023 10:43 PM 05/25/2023 7:39 PM * Full Code Date Activated Date Inactivated Comments 06/16/2020 9:20 AM 06/16/2020 3:35 PM * Full Code Date Activated Date Inactivated Comments 08/10/2019 4:24 AM 08/14/2019 10:24 PM Care Teams Director Of Financial Planning Relationship Specialty Start Date End Date Taylor Newby PA [address] [place] [address] PCP - General Physician Manual Lathe Operator 01/17/23
--- OUTSIDE RECORDS SUMMARY | 2025-02-08 21:12 | XMS_ITS | Clinical Summary ---
Author Organization [facility] Address [address] [place] [address] Care Team Providers Care Leasing Property Manager Name Role Phone Taylor Newby Primary Care [...] other specified complication, unspecified whether long term care phlebotomist insulin use 06/25/2024 Pulmonary embolism, unspecif ied [...] 08/08/2021 Assessment & Plan (08/08/2021 7:58 PM MULTIPLE SPINDLE SCREW MACHINE OPERATOR): Patient was persistent cervical thoracic and lumbar back pain. She also has rheumatoid on symptoms. She has not been responding to those medicines only. Rehab Aid is concerned something else may be come [...] 08/08/2021 Assessment & Plan (08/08/2021 7:58 PM MULTIPLE SPINDLE SCREW MACHINE OPERATOR): Patient was persistent cervical thoracic and lumbar back pain. She also has rheumatoid on symptoms. She has not been responding to those medicines only. Rehab Aid is concerned something else may be come [...] 08/08/2021 Assessment & Plan (08/08/2021 7:59 PM MULTIPLE SPINDLE SCREW MACHINE OPERATOR): Patient was persistent cervical thoracic and lumbar back pain. She also has rheumatoid on symptoms. She has not been responding to those medicines only. Rehab Aid is concerned something else may be come [...] 08/08/2021 Assessment & Plan (08/08/2021 7:58 PM MULTIPLE SPINDLE SCREW MACHINE OPERATOR): Check hip x-rays and start physical therapy. Cigarette smoker 06/06/2021 Rhinorrhea 06/06/2021 Assessment & Plan (06/06/2021 11:30 PM CDT): Patient to presume positive COVID until results are available and self isolate for 10 days from the onset of sxs. Check COVID test thru [facility] collection site in [place]. If positive, complete quarantine and consider monoclonal [...] water often. If needed, use a hand program writer that contains at least 60% alcohol. Clean [...] lotrisone to a clean dry area. Use electric wheelchair repairer after shower. Will also try short course [...] 11/05/2020 Assessment & Plan (11/05/2020 10:07 AM MULTIPLE SPINDLE SCREW MACHINE OPERATOR): Start antibiotic, antihistamine (Claritin OR Zyrtec), Mucinex 12hour and Steroid nasal spray (Flonase). Push fluids. Rest. Supportive care. If sxs worsen or don\'t improve, pt is to followup in the office. Advised this still could be COVID sxs so will test. See Congestion below Chronic nasal congestion 11/05/2020 Assessment & Plan (11/05/2020 10:08 AM MULTIPLE SPINDLE SCREW MACHINE OPERATOR): Patient to presume positive COVID until results are available and self isolate for 10 days from the onset of sxs. If negative, isolate until on antibiotic x 24hours and fever free x 24 hours without medication. Check COVID test thru [facility] collection site in [place]. Treat sxs with Tylenol, Cough/cold medication otc [...] water often. If needed, use a hand program writer that contains at least 60% alcohol. Clean [...] (05/21/2020): Added automatically from request for surgery [id number] Hemorrhoid 04/09/2020 Overview (04/09/2020): Added automatically from request for surgery [id number] Assessment & Plan (04/12/2020 9:34 AM CDT): [...] Monsivais Assessment & Plan (08/10/2019 4:56 AM MULTIPLE SPINDLE SCREW MACHINE OPERATOR): Patient states she is on Butrans patch [...] amlodipine Assessment & Plan (08/10/2019 4:44 AM MULTIPLE SPINDLE SCREW MACHINE OPERATOR): Continue Norvasc with hold parameters GERD (gastroesophageal [...] of PE in 2011. Request records from [facility] in [place] to determine clotting factor. Assessment & Plan (03/02/2020 4:12 PM CDT): Encouraged patient to followup with pharmacist as I can not explain why her AC is so much as this is preferred by [facility]. Assessment & Plan (02/05/2020 10:23 PM CDT): History PE in 2011. Request records from [facility] in [place] to determine clotting factor. Assessment & Plan (08/10/2019 4:55 AM MULTIPLE SPINDLE SCREW MACHINE OPERATOR): Continue Xarelto. Patient counseled on the importance [...] cymbalta Assessment & Plan (10/16/2017 3:50 PM MULTIPLE SPINDLE SCREW MACHINE OPERATOR): Plan to refill alprazaolam to Xanax 0.25 [...] Monsivais Assessment & Plan (08/10/2019 4:44 AM MULTIPLE SPINDLE SCREW MACHINE OPERATOR): With mixed connective tissue disorder. Continue with [...] 11/07/2008 Overview (02/05/2020): 2003 - dx at [facility] with spinal tap No current sxs. Resolved Problems Problem Noted Date Diagnosed Date Resolved Date BMI 45.0-49.9, adult 10/15/2020 021 Morbid obesity 10/15/2020 03/05/2021 Assessment & Plan (10/15/2020 7:43 AM MULTIPLE SPINDLE SCREW MACHINE OPERATOR): Obesity is unchanged. Discussed the patient's BMI. [...] 02/05/2020 Assessment & Plan (08/10/2019 4:42 AM MULTIPLE SPINDLE SCREW MACHINE OPERATOR): Suspected. Continue with ceftriaxone and azithromycin. Will order respiratory virus panel to rule out viral infection. Continue to monitor. Asthma exacerbation 08/10/2019 02/05/20 20 Assessment & Plan (08/10/2019 4:43 AM MULTIPLE SPINDLE SCREW MACHINE OPERATOR): With possible undiagnosed COPD. Patient still having [...] 01/12/2018 Assessment & Plan (10/16/2017 3:51 PM MULTIPLE SPINDLE SCREW MACHINE OPERATOR): As above. Mass 10/11/2017 01/12/2018 Assessment & Plan (10/16/2017 3:49 PM MULTIPLE SPINDLE SCREW MACHINE OPERATOR): Plan to obtain CT scan of chest without contrast. Atypical chest pain 08/25/2017 02/05/20 20 Nausea & vomiting 08/25/2017 04/05/2018 Near syncope 08/25/2017 04/05/2018 Carbuncle, thigh 07/01/2017 01/12/2018 Assessment & Plan (07/06/2017 1:35 PM CDT): Plan to start Bactrim DS BID x 10 days. Continue with washing with mild soap. Apply warm compresses Multiple joint pain 02/28/2017 02/05/20 20 Overview (01/21/2018): Scheduled with [facility] 02/07/18 Assessment & Plan (02/28/2017 1:25 PM CDT): Awaiting lab results today-has appt with Dr. Monsivais this afternoon. ? If related to lupus. Racing heart beat 02/28/2017 04/05/2018 Assessment & Plan (02/28/2017 8:50 PM CDT): Plan to check thyroid profile. Morbid obesity due to excess calories 02/28/2017 04/05/2018 Assessment & Plan (10/16/2017 3:50 PM MULTIPLE SPINDLE SCREW MACHINE OPERATOR): Obesity is unchanged. Discussed the patient's BMI. [...] Depression Assessment & Plan (08/10/2019 4:45 AM MULTIPLE SPINDLE SCREW MACHINE OPERATOR): Continue Zoloft Assessment & Plan (02/28/2017 8:49 [...] Type Department Care Team Description 02/05/2025 Telephone [facility] Oncology 4 [facility] Medical Office [facility] B [address] [address] Eduarda Vann, CLT 01/31/2025 Documentation [facility] Oncology [address] [place] [address] Office [facility] B [facility] [address] [place] [address] Mariana Kimbrough RN 01/31/2025 Telephone [facility] Oncology [address] [place] [address] Office [facility] B [facility] [address] [place] [address] Eduarda Vann, CLT 01/22/[address] Office [facility] B [facility] [address] [place] [address] Mariana Kimbrough, FERNANDA 12/08/2024 11:04 AM CDT - 12/08/2024 12:09 PM CDT Emergency [facility] Emergency Department [address] [place] [address] Contusion of multiple sites of left leg, subsequent encounter (Primary Dx); Elevated LFTs; Decreased GFR Discharge Disposition: Discharge to home or self care 12/07/2024 7:04 PM CDT - 12/07/2024 8:37 PM CDT Emergency [facility] Emergency Department [address] [place] [address] Ecchymosis (Primary Dx) Discharge Disposition: Discharge to home or self care 12/07/2024 4:00 PM CDT Office Visit [facility] Medical Group [facility] Care at [address] [address] Lizett Gamboa NP Pain and [...] History Date Comments Asthma Asthma; Comments : [facility] 09/30/2014 - Depression [...] often do you attend chur ch or yarsani services? Never 05/25/2023 Do you belong to any clubs o r organizations such as gnosticist groups, unions, fraternal or athletic groups, or [...] on file Legal Sex Female 7:20 PM MULTIPLE SPINDLE SCREW MACHINE OPERATOR Gender Identity Not on file Sexual [...] BLOOD ORDERABLES Final R esult [facility] ([place]) 1 [facility] [place] [address] * Differential, auto (12/08/2024 10:43 AM CDT) Neutrophil abs 4.1 1.5 - 6.5 K/cumm Imm gran abs 0.0 0.0 - 0.1 K/cumm [facility] ([place] Lymphocyte abs 1.8 0.8 - 3.3 K/cumm [facility] ([place]) Monocyte abs 0.4 0.2 - 0.8 K/cumm [facility] ([place]) Eosinophil abs 0.2 0.0 - 0.5 K/cumm [facility] ([place]) Basophil abs 0.0 0.0 - 0.1 K/cumm [facility] ([place]) Neutrophil pct 62.6 % [facility] ([place]) Comment: Interpretive Data Percent cell count reference ranges are not reported, since discordance with absolute values may lead to misinterpretation of CBC data. Current Interpretive Data was last revised on 2017. Imm gran pct 0.2 % [facility] ([place]) Comment: Interpretive Data Percent cell count reference [...] 2017. Monocyte pct 6.5 % [facility] ([place]) Comment: Interpretive Data Percent cell count reference ranges are not reported, since discordance with absolute values may lead to misinterpretation of CBC data. Current Interpretive Data was last revised on 2017. Eosinophil pct 3.1 % [facility] ([place]) Comment: Interpretive Data Percent cell count reference [...] Final R esult [facility] ([place]) 1 [facility] Department [place] [address] * (ABNORMAL) CBC with auto differential (12/08/2024 [...] Final R esult [facility] ([place]) 1 [facility] [place] [address] * (ABNORMAL) Comprehensive metabolic panel (12/08/2024 10:43 [...] 81 70 - 199 mg/dL [facility] ([place]) Comment: Interpretive Data Fasting glucose >/= 126 [...] BLOOD ORDERABLES Final R esult [facility] ([place]) 1 [facility] [place] [address] * US VEIN DUPLEX LOWER EXTREMITY LEFT [...] Liat Walsh M.D. FT: FT Report ID: [id number] Reading Location: [id number] Procedure Note Liat Vail MD - 12/08/2024 [...] Liat Walsh M.D. FT: FT Report ID: [id number] Reading Location: [id number] Result [facility] Jaiden Evans MD IMG US PROCEDURES Final Resu lt * ECG 12 lead (12/08/2024 9:35 AM CDT) 12/08/2024 9:35 AM CDT Narrative [facility] - 12/08/2024 1:54 PM CDT Vent Rate: 76 bpm RR Interval: 783 msec ND Interval: 157 msec QRS Duration: 106 msec QT Interval: 374 msec QTC Interval: 405 msec P-R-T [place]: 12 - -24 - 11 degrees IMPRESSION: SINUS RHYTHM BORDERLINE LEFT AXIS DEVIATION [QRS AXIS < -20] BORDERLINE ECG Electronically Signed By: Iftikhar Zuniga MD, [facility] Jaiden Evans MD ECG ORDERABLES Final Result Performing Organization Address City/State/[facility] Co de Phone Number [facility] [employer] [facility] * Hemoglobin A1c (03/18/2021) SCRIBED Hemoglobin A1c 5.4 <5.7 [facility] Blood specimen (specimen) 03/18/2021 Martina Yanze PA LAB BLOOD ORDERABLES Final Result Performing Organization Address City/[facility] [address]/ZIP Co de Phone Number [facility] * Lipid [...] Aguilar MD - 06/16/2020 9:32 AM CDT [facility] Patient Name: Azul Carlson Procedure Date: 06/16/2020 9:32 AM Date of : 1970 Admit Type: Outpatient Age: 50 Gender: Female Attending MD: Caio Aguilar M.D. Room: [facility] ENDOSCOPY ROOM 2 Note Status: Finalized [...] was passed under direct vision. The Colonoscope [id number] was introduced through the anusand advanced to [...] 9:32 AM Procedure Code(s): --- Professional --- 25582, Colonoscopy, flexible; diagnostic, including collection of specimen(s) by brushing or washing, when performed (separateprocedure) Diagnosis Code(s): --- Professional --- K57.30, Diverticulosis of large intestine without perforation orabscess without bleeding Z98.0, Intestinal bypass and anastomosis status K64.9, Unspecified hemorrhoids CPT copyright 2017 [employer]. All rights reserved. The codes documented in this report are preliminary and upon back tender cylinder reviewmay be revised to meet current compliance requirements. Recognized by the [place] [employer] for promoting quality in endoscopy us Caio Aguilar MD ENDOSCOPY PROCEDURES Final Re sult * DIAGNOSTIC MAMMOGRAM BILATERAL W BOB (04/01/2016 12:40 PM CDT) Anatomical Region Laterality Modality Breast Bilateral Mammography 04/01/2016 12:4 0 PM CDT Narrative 04/01/2016 4:03 PM CDT Acc#: [id number] [facility] 0031 - Diag Mamm W Bob Bi [...] NEGATIVE TECHNOLOGIST: RADHA PILLAI, TECHNOLOGIST MEDICAL IMAGING CLIENT SERVICES COORDINATOR: SUNI TRANSCRIBE DATE/TIME: Apr 01 2016 1:43P RADIOLOGIST: LAURI GREEN M.D. READ ON: Apr 01 2016 1:34P ORDERING DR: ART TEJADA N.P. THIS DOCUMENT HAS BEEN ELECTRONICALLY SIGNED BY: LAURI GREEN M.D. ON: Apr 01 2016 4:03P Attending: ART TEJADA Requesting: ART TEJADA Requesting Attending Attending ID: [id number] Requesting ID: [id number] Report To 1 ID: Report To 1 Name: , Report To 1 FAX: -- Report To 2 ID: Report To 2 Name: , Report To 2 FAX: -- NextGen Order #: Procedure Note Provider, MD Emigdio - 01/04/2017 Acc#: [id number] [facility] 0031 - Diag Mamm W Bob Bi [...] NEGATIVE TECHNOLOGIST: RADHA PILLAI, TECHNOLOGIST MEDICAL IMAGING CLIENT SERVICES COORDINATOR: DD2 TRANSCRIBE DATE/TIME: Apr 01 2016 1:43P RADIOLOGIST: LAURI GREEN M.D. READ ON: Apr 01 2016 1:34P ORDERING DR: ART TEJADA N.P. THIS DOCUMENT HAS BEEN ELECTRONICALLY SIGNED BY: LAURI GREEN M.D. ON: Apr 01 2016 4:03P Attending: ART TEJADA Requesting: ART TEJADA Requesting Attending Attending ID: [id number] Requesting ID: [id number] Report To 1 ID: Report To 1 [...] Serum 03/18/2015 4:25 PM CDT Mimi Kelley ASSISTANT REAL ESTATE MANAGER LAB BLOOD ORDERABLES Nava l Result HISTORICAL RESULTS from Last 3 Months or Most Recently Relevant to Health Maintenance Insurance MEDICARE ADVANTAGE MEDICARE [facility] MEDICARE ADVANTAGE Advance Directives For more information, please contact: [phone] * Full Code (Latest Code Status on File) Date Activated Date Inactivated Comments 05/23/2023 10:43 PM 05/25/2023 7:39 PM * Full Code Date Activated Date Inactivated Comments 06/16/2020 9:20 AM 06/16/2020 3:35 PM * Full Code Date Activated Date Inactivated Comments 08/10/2019 4:24 AM 08/14/2019 10:24 PM Care Teams Leasing Property Manager Relationship Specialty Start Date End Date Taylor Newby PA [address] [place] [address] PCP - General Physician Workers Compensation Legal Secretary 01/17/23
--- OUTSIDE RECORDS SUMMARY | 2025-02-08 21:12 | XMS_ITS | Clinical Summary ---
Author Organization [facility] Address [address] [place] [address] Care Team Providers Care Plate Shear Operator Name Role Phone Unavailable Primary Care Provider [...] [facility] [address] [place] [address] [address] [place] [address] Ingrid Vargas MD Morbid obesity with body mass index of 40.0-49.9 (CMS/HCC) (Primary Dx) 12/20/2024 Chart Note [facility] Bariatrics and General Surgery at the [address] [place] [address] Ingrid Vargas MD 12/19/2024 Chart Note [facility] Bariatrics and General Surgery at the [address] [place] [address] Ingrid Vargas MD from Last 3 Months [...]
--- OUTSIDE RECORDS SUMMARY | 2025-02-08 21:12 | XMS_ITS | Encounter Summary ---
Author Organization [facility] Address [address] [place] [address] Phone Care Team Providers Care Residence Supervisor Name Role Phone Taylor Newby Primary Care Provider Encounter Details Date Type Department Care Team (Late st Contact Info) Description 02/05/2025 Telephone [facility] Oncology [address] [place] [address] [address] [facility] [address] [place] [address] Eduarda Vann, LEVY Social History Tobacco Use [...] often do you attend chur ch or worship services? Never 05/25/2023 Do you belong to any clubs o r organizations such as mandaen groups, unions, fraternal or athletic groups, or [...] on file Legal Sex Female 7:20 PM BATTERY RECHARGER Gender Identity Not on file Sexual Orientation [...] on filedocumented in this encounter Care Teams Residence Supervisor Relationship Specialty Start Date End Date Taylor Newby PA [address] [place] [address] PCP - General Physician Silviculture Professor 01/17/23 documented as of this encounter
--- OUTSIDE RECORDS SUMMARY | 2025-02-08 21:12 | XMS_ITS | CONTINUITY OF CARE DOCUMENT ---
Author Name jameson barba Address Unknown Organization [facility] Address [address] [place] [address] Phone [phone] Care Team Providers Care Grades 1 Through 5 Teacher Name Role Phone Rg SIBLEY, Jayce Unavailable MYA KINCAID MD Unavailable [phone] CHAVA LOMBARDO Unavailable PROBLEMS Condition Status Date Provider Notes SOB active Juan Zurita Chest pain active Jayce Diez MD Tobacco abuse active Jayce Diez MD Rheumatoid arthritis active Jayce Diez MD h/o Pulmonary embolism active Jayce Diez MD FAMILY HISTORY OF HEART DISEASE active Karla Diez MD ENCOUNTERS Date Type Provider Location Encounter Diag nosis - In-person encounter Office Visit Jayce Diez MD [facility] Office Chest painTobacco abuseRheumatoid arthritish/o Pulmonary [...] Payer name Policy type / Coverage type [place] [employer] party ID [facility] [employer] Other [id number] TREATMENT PLAN Date Name Performer Cardiology:The Patie nt was reencouraged to stop smoking. Jayce Diez MD Cardiology:Continues on Xarelto Jayce Diez MD Cardiology Jayce Diez MD Date Name Complete Echo Complete Echo HISTORY OF PROCEDURES Procedure Date Procedure Name Provider Procedure Notes S tatus SNOMED-CT: 922422813 [id number] Current Medications Documented Jayce Diez MD completed SNOMED-CT: 961741188 Smoking Cessation Counseling Jayce Diez MD completed SNOMED-CT: 03054799 Physical Exam, Performed: Pulse Exam of Foot Jayce Diez MD completed
--- OUTSIDE RECORDS SUMMARY | 2025-02-08 21:12 | XMS_ITS | Encounter Summary ---
Author Organization [facility] Address [address] [place] [address] Care Team Providers Care Heel Coverer Machine Operator Name Role Phone Reggie Kimbrough MD Unavailable [phone] Mike Monsivais MD Unavailable [phone] Mynor Biswas MD Unavailable [phone] Clementina Polo MD Unavailable Martina Yanez Primary Care Provider [phone] Jorge Maravilla MD Primary Care Provider [phone] Taylor Newby Primary Care Provider Kieran Massey MD Unavailable [phone] Reason for Visit * Reason Onset Date Comments Scheduling Appointments 03/19/2020 Called f or DEXA appointment, No answer Encounter Details Date Type Department Care Team (Late st Contact Info) Description 03/19/2020 Telephone [facility] [address] [place] [id number] Jackie Tong RT Scheduling Appointments (Called for [...] on file Legal Sex Female 7:20 PM GLASS TUBE BENDER Gender Identity Not on file Sexual Orientation [...] result. 07/03/2020 07/03/2020 07/17/2020 3:0 6 AM GLASS TUBE BENDER COVID: Suspected 11/05/2020 11/06/2020 11/06/2020 11:21 PM GLASS TUBE BENDER COVID: Suspected 05/21/2021 05/22/2021 05/22/2021 6:46 PM CDT COVID: Suspected 08/20/2021 08/20/2021 08/20/2021 8:02 PM GLASS TUBE BENDER documented as of this encounter Care Teams Heel Coverer Machine Operator Relationship Specialty Start Date End Date Matrina Yanez PA [address] [place] [address] PCP - General Internal Medicine 12/05/19 10/18/21 Jorge Maravilla MD [address] [place] [address] PCP - General Internal Medicine 10/19/21 01/16/23 Taylor Newby PA [address] [place] [address] PCP - General Physician Junior Technical Writer 01/17/23 [place] [address] [place] [address] Consulting Physician Pain Management 01/12/18 09/26/24 Mike Monsivais MD [address] [facility] [address] [place] [address] Consulting Physician Rheumatology 05/11/18 09/26/24 [place] [address] [facility] [address] [place] [address] Consulting Physician Ophthalmology 08/12/18 09/26/24 [place] [address] [facility] [address] [place] [address] Consulting Physician Obstetrics and Gynecology 10/09/19 09/26/24 Kieran Massey MD [address] [place] [address] Consulting Physician Internal Medicine 05/25/23 5 documented as of this encounter
--- NOTE | 2025-02-08 21:37 | PC.NURSE ---
LAB AT THE BEDSIDE
[2025-02-08 21:44] LABS: Basophils Absolute Auto 0.03 K/mm3 (0.00-0.10); Basophils Percent Auto 0.5 % (0.0-1.0); Eosinophils Absolute Auto 0.19 K/mm3 (0.02-0.50); Eosinophils Percent Auto 3.4 % (1.0-6.0); Hematocrit 39.5 % (35.0-49.0); Hemoglobin 13.1 g/dL (12.0-15.0); Immature Granulocyte Absolute 0.01 K/mm3 (0.00-0.00); Immature Granulocyte Percent A 0.2 % (0.0-0.0); Lymphocytes Absolute Auto 2.02 K/mm3 (1.10-4.50); Lymphocytes Percent Auto 36.6 % (18.0-42.0); Mean Corpuscular HGB Conc 33.2 g/dL (32-36); Mean Corpuscular Hemoglobin 30.9 pg (27.0-31.0); Mean Corpuscular Volume 93.2 fL (78.0-102.0); Mean Platelet Volume 10.7 fl (9.2-11.8); Monocytes Absolute Auto 0.47 K/mm3 (0.10-0.90); Monocytes Percent Auto 8.5 % (2.0-11.0); Neutrophils Percent Auto 50.8 % (50.0-70.0); Platelet Count Result 186 K/mm3 (150-420); Red Blood Count 4.24 M/mm3 (4.20-5.40); Red Cell Distribution Width 13.2 % (11.6-14.4); White Blood Count 5.5 K/mm3 (4.8-10.8)
[2025-02-08 21:57] LABS: Lactic Acid Reflex 0.8 mmol/L (0.4-2.0)
[2025-02-08 21:59] LABS: Alanine Aminotransferase 32 U/L (6-35); Albumin Level 3.2 g/dL (3.5-5.1); Alkaline Phosphatase 77 U/L (38-126); Anion Gap 2 mmol/L (4-12); Aspartate Amino Transferase 36 U/L (14-36); Bilirubin,Total 0.6 mg/dL (0.2-1.3); Blood Urea Nitrogen 19 mg/dL (7-17); CRP < 0.5 mg/dL (<1.0); Calcium 8.5 mg/dL (8.4-10.2); Carbon Dioxide 25 mmol/L (22-30); Chloride 110 mmol/L (98-107); Estimated CRCL calculation 72 ml/min; Estimated Glomerular Filt Rate 55; Glucose 91 mg/dL (65-110); Osmolality Calculated 286 mOsm/kg (285-295); Potassium 3.6 mmol/L (3.4-5.0); Sodium 137 mmol/L (137-145); Total Protein 5.7 g/dL (6.3-8.2)
[2025-02-08 22:34] VITALS: BP 118/76; PULSE 82; RESP 20; O2SAT 94
--- NOTE | 2025-02-11 13:21 | PC.NURSE ---
preliminary blood culture, no growth
--- NOTE | 2025-02-15 12:34 | PC.NURSE ---
final blood culture, no growth
== END 2025-02-08 22:34 | disposition home or self-care (01) ==
PROVIDERS: Emergency Provider Emergency Medicine
DX: R22.2 Localized swelling, mass and lump, trunk (principal); I10 Essential (primary) hypertension; J45.909 Unspecified asthma, uncomplicated; Z86.73 Personal history of transient ischemic attack (TIA), and cerebral infarction without residual deficits; Z86.711 Personal history of pulmonary embolism; Z87.891 Personal history of nicotine dependence
CPT/HCPCS: 36415; 80053; 83605; 85025; 86140; 87040; 99283

== ENCOUNTER 2025-03-21 20:27 | Emergency (ER) | payer MEDICARE, SELFPAY ==
[2025-03-21 20:30] VITALS: BP 157/91; PULSE 101; RESP 18; TEMP 36; O2SAT 96
--- OUTSIDE RECORDS SUMMARY | 2025-03-21 20:30 | XMS_ITS | Clinical Summary ---
Author Organization [facility] Address [address] [place] [phone] Care Team Providers Care Family Medicine Chair Name Role Phone Taylor Newby Primary Care [...] 60 tablet 5 025 Discontin ued(Reord er) dextroamphetamine -amphetamine (ADDERALL) 20 mg tabletIndications :Narcolepsy [...] wit h other specified complication, unspecified whether longterm insulin use 06/25/2024 Pulmonary embolism, unspecif ied [...] 08/08/2021 Assessment & Plan (08/08/2021 7:58 PM IMMIGRATION CONSULTANT): Patient was persistent cervical thoracic and lumbar back pain. She also has rheumatoid on symptoms. She has not been responding to those medicines only. Artificial Breeding Distributor is concerned something else may be come [...] 08/08/2021 Assessment & Plan (08/08/2021 7:58 PM IMMIGRATION CONSULTANT): Patient was persistent cervical thoracic and lumbar back pain. She also has rheumatoid on symptoms. She has not been responding to those medicines only. Artificial Breeding Distributor is concerned something else may be come [...] 08/08/2021 Assessment & Plan (08/08/2021 7:59 PM IMMIGRATION CONSULTANT): Patient was persistent cervical thoracic and lumbar back pain. She also has rheumatoid on symptoms. She has not been responding to those medicines only. Artificial Breeding Distributor is concerned something else may be come [...] 08/08/2021 Assessment & Plan (08/08/2021 7:58 PM IMMIGRATION CONSULTANT): Check hip x-rays and start physical therapy. Cigarette smoker 06/06/2021 Rhinorrhea 06/06/2021 Assessment & Plan (06/06/2021 11:30 PM CDT): Patient to presume positive COVID until results are available and self isolate for 10 days from the onset of sxs. Check COVID test thru [facility] collection site in [place]. If positive, complete quarantine and consider monoclonal [...] water often. If needed, use a hand aircraft instrument repairer that contains at least 60% alcohol. Clean [...] lotrisone to a clean dry area. Use hairmasters manager after shower. Will also try short course [...] 11/05/2020 Assessment & Plan (11/05/2020 10:07 AM IMMIGRATION CONSULTANT): Start antibiotic, antihistamine (Claritin OR Zyrtec), Mucinex 12hour and Steroid nasal spray (Flonase). Push fluids. Rest. Supportive care. If sxs worsen or don\'t improve, pt is to followup in the office. Advised this still could be COVID sxs so will test. See Congestion below Chronic nasal congestion 11/05/2020 Assessment & Plan (11/05/2020 10:08 AM IMMIGRATION CONSULTANT): Patient to presume positive COVID until results are available and self isolate for 10 days from the onset of sxs. If negative, isolate until on antibiotic x 24hours and fever free x 24 hours without medication. Check COVID test thru [facility] collection site in [place]. Treat sxs with Tylenol, Cough/cold medication otc [...] water often. If needed, use a hand aircraft instrument repairer that contains at least 60% alcohol. Clean [...] (05/21/2020): Added automatically from request for surgery [id number] Hemorrhoid 04/09/2020 Overview (04/09/2020): Added automatically from request for surgery [id number] Assessment & Plan (04/12/2020 9:34 AM CDT): [...] Monsivais Assessment & Plan (08/10/2019 4:56 AM IMMIGRATION CONSULTANT): Patient states she is on Butrans patch [...] amlodipine Assessment & Plan (08/10/2019 4:44 AM IMMIGRATION CONSULTANT): Continue Norvasc with hold parameters GERD (gastroesophageal [...] in 2011. Request records from [facility] in [place] to determine clotting factor. Assessment & Plan (03/02/2020 4:12 PM CDT): Encouraged patient to followup with pharmacist as I can not explain why her AC is so much as this is preferred by [facility]. Assessment & Plan (02/05/2020 10:23 PM CDT): History PE in 2011. Request records from [facility] in [place] to determine clotting factor. Assessment & Plan (08/10/2019 4:55 AM IMMIGRATION CONSULTANT): Continue Xarelto. Patient counseled on the importance [...] cymbalta Assessment & Plan (10/16/2017 3:50 PM IMMIGRATION CONSULTANT): Plan to refill alprazaolam to Xanax 0.25 [...] Monsivais Assessment & Plan (08/10/2019 4:44 AM IMMIGRATION CONSULTANT): With mixed connective tissue disorder. Continue with [...] resolved' Pseudotumor cerebri syndrome 11/07/2008 Overview (02/05/2020): 2002 - dx at [facility] with spinal tap No current sxs. Resolved Problems Problem Noted Date Diagnosed Date Resolved Date BMI 45.0-49.9, adult 10/15/2020 021 Morbid obesity 10/15/2020 03/05/2021 Assessment & Plan (10/15/2020 7:43 AM IMMIGRATION CONSULTANT): Obesity is unchanged. Discussed the patient's BMI. [...] 02/05/2020 Assessment & Plan (08/10/2019 4:42 AM IMMIGRATION CONSULTANT): Suspected. Continue with ceftriaxone and azithromycin. Will order respiratory virus panel to rule out viral infection. Continue to monitor. Asthma exacerbation 08/10/2019 02/05/20 20 Assessment & Plan (08/10/2019 4:43 AM IMMIGRATION CONSULTANT): With possible undiagnosed COPD. Patient still having [...] 01/12/2018 Assessment & Plan (10/16/2017 3:51 PM IMMIGRATION CONSULTANT): As above. Mass 10/11/2017 01/12/2018 Assessment & Plan (10/16/2017 3:49 PM IMMIGRATION CONSULTANT): Plan to obtain CT scan of chest without contrast. Atypical chest pain 08/25/2017 02/05/20 20 Nausea & vomiting 08/25/2017 04/05/2018 Near syncope 08/25/2017 04/05/2018 Carbuncle, thigh 07/01/2017 01/12/2018 Assessment & Plan (07/06/2017 1:35 PM CDT): Plan to start Bactrim DS BID x 10 days. Continue with washing with mild soap. Apply warm compresses Multiple joint pain 02/28/2017 02/05/20 Overview (01/21/2018): Scheduled with [facility] 02/07/18 Assessment & Plan (02/28/2017 1:25 PM CDT): Awaiting lab results today-has appt with Dr. Monsivais this afternoon. ? If related to lupus. Racing heart beat 02/28/2017 04/05/2018 Assessment & Plan (02/28/2017 8:50 PM CDT): Plan to check thyroid profile. Morbid obesity due to excess calories 02/28/2017 04/05/2018 Assessment & Plan (10/16/2017 3:50 PM IMMIGRATION CONSULTANT): Obesity is unchanged. Discussed the patient's BMI. [...] Depression Assessment & Plan (08/10/2019 4:45 AM IMMIGRATION CONSULTANT): Continue Zoloft Assessment & Plan (02/28/2017 8:49 [...] Type Department Care Team Description 02/05/2025 Telephone [facility] [address] [place] [address] Office [facility] [place] [address] [place] [phone] Eduarda Vann, CLT 01/31/2025 Documentation [facility] [address] [place] [address] Office [facility] [place] [address] [place] [phone] Mariana Kimbrough, FERNANDA 01/31/2025 Telephone [facility] [address] [place] [address] Office [facility] [place] [address] [place] [phone] Eduarda Vann, CLT 01/22/2025 Documentation [facility] [address] [place] [address] Office [facility] [place] [address] [place] [phone] Mariana Kimbrough, FERNANDA from Last 3 Months Immunizations Immunization Administration [...] History Date Comments Asthma Asthma; Comments : NHChantal 09/30/2014 - Depression Depression Hx Other Medical [...] any clubs o r organizations such as jewish groups, unions, fraternal or athletic groups, or [...] place to sleep or slept in a group home (including now)? No 05/25/2023 Personal Safety Answer Date Recorded Have you ever been in or are you currently in a harmful physical or emotional relationship or is someone making you feel afraid or unsafe? Denies 12/08/2024 Comments No Sex and Gender Information Value Date Recorded Sex Assigned at Not on file Legal Sex Female 7:20 PM IMMIGRATION CONSULTANT Gender Identity Not on file Sexual Orientation [...] 11/30/2023, 07/0 03/2021, 03/18/2017, Additional history exists Influenza Vaccine (#1) 2025 , 06/12/2019, 05/29/2019, Additional history exists Colon Cancer Screening-Colonoscopy 06/16/2025 06/16/2020, 12/13/2017, 07/28/2015 eGFR 12/08/2025 12/08/2024, 06/12, 05/25/2023, Additional history exists Hepatitis C Screening Completed 03/18/2015, 014 Colon Cancer Screening-CT Colonography Discontinued 06/16/2020, 12/13/2017, 07/28/2015 Colon Cancer Screening-DNA Stool Discontinued 06/16/2020, 12/13/2017, 07/28/2015 Colon Cancer Screening-FIT Discontinued 06/16, 12/13/2017, 07/28/2015 Colon Cancer Screening-Sigmoidoscopy Discontinued 06/16/2020, 12/13/2017, 07/28/2015 Procedures Procedure Name Priority Date/Time Associated Diagnosis Comments EGFR STAT 12/08/2024 10:43 AM CDT HEMOGLOBIN A1C Routine 03/18/2021 Hyperglycemia [...] 3 AM CDT 12/08/2024 10:46 AM CDT Jaiden Evans MD LAB BLOOD ORDERABLES Final R esult [facility] [address] Department of Laboratories [place] [id number] * Hemoglobin A1c (03/18/2021) SCRIBED Hemoglobin A1c 5.4 <5.7 [facility] Blood specimen (specimen) 03/18/2021 Martina LOWERY LAB BLOOD ORDERABLES Final Result [facility] * Lipid panel (03/18/2021) SCRIBED Cholesterol, Total 136 0 - 200 [facility] SCRIBED HDL 69 0 [facility] SCRIBED LDL 50 0 [facility] SCRIBED Triglycerides 77 <150 [facility] Blood specimen (specimen) 03/18/2021 Martina LOWERY LAB BLOOD ORDERABLES Final Result [facility] * COLONOSCOPY (06/16/2020 9:32 AM CDT) Anatomical Region Laterality Modality Other Narrative Procedure Note Caio Aguilar MD - 06/16/2020 9:32 AM CDT [facility] Patient Name: Azul Carlson Procedure Date: 06/16/2020 9:32 AM Date of : 1970 Admit Type: Outpatient Age: 50 Gender: Female Attending MD: Caio Aguilar M.D. Room: [facility] ENDOSCOPY ROOM 2 Note Status: Finalized Patient Profile: Refer to note in patient chart for documentation of history and physical. Procedure: Colonoscopy Indications: Last colonoscopy: 2018 Referring MD: SONIYA HermanC Providers: aCio Aguilar M.D. Impression: - Hemorrhoids found on [...] was passed under direct vision. The Colonoscope [id number] was introduced through the anusand advanced to [...] 9:32 AM Procedure Code(s): --- Professional --- 16832, Colonoscopy, flexible; diagnostic, including collection of specimen(s) by brushing or washing, when performed (separateprocedure) Diagnosis Code(s): --- Professional --- K57.30, Diverticulosis of large intestine without perforation orabscess without bleeding Z98.0, Intestinal bypass and anastomosis status K64.9, Unspecified hemorrhoids CPT copyright 2017 [employer]. All rights reserved. The codes documented in this report are preliminary and upon sole layer reviewmay be revised to meet current compliance requirements. Recognized by the [employer] [place] for promoting quality in endoscopy us Caio Aguilar MD ENDOSCOPY PROCEDURES Final Re sult * DIAGNOSTIC MAMMOGRAM BILATERAL W BOB (04/01/2016 12:40 PM CDT) Anatomical Region Laterality Modality Breast Bilateral Mammography 04/01/2016 12:4 0 PM CDT Narrative 04/01/2016 4:03 PM CDT Acc#: [id number] [facility] 0031 - Diag Mamm W Bob Bi [...] NEGATIVE TECHNOLOGIST: RADHA PILLAI TECHNOLOGIST MEDICAL IMAGING OPERATOR AUTOMATED PROCESS: DD2 TRANSCRIBE DATE/TIME: Apr 01 2016 1:43P RADIOLOGIST: LAURI GREEN M.D. READ ON: Apr 01 2016 1:34P ORDERING DR: ART TEJADA N.P. THIS DOCUMENT HAS BEEN ELECTRONICALLY SIGNED BY: LAURI GREEN M.D. ON: Apr 01 2016 4:03P Attending: ART TEJADA Requesting: ART TEJADA Requesting Attending Attending ID: [id number] Requesting ID: [id number] Report To 1 ID: Report To 1 Name: , Report To 1 FAX: -- Report To 2 ID: Report To 2 Name: , Report To 2 FAX: -- NextGen Order #: Procedure Note Provider, MD Emigdio - 01/04/2017 Acc#: [id number] [facility] 0031 - Diag Mamm W Bob Bi [...] NEGATIVE TECHNOLOGIST: RADHA PILLAI TECHNOLOGIST MEDICAL IMAGING OPERATOR AUTOMATED PROCESS: DD2 TRANSCRIBE DATE/TIME: Apr 01 2016 1:43P RADIOLOGIST: LAURI GREEN M.D. READ ON: Apr 01 2016 1:34P ORDERING DR: ART TEJADA N.P. THIS DOCUMENT HAS BEEN ELECTRONICALLY SIGNED BY: LAURI GREEN M.D. ON: Apr 01 2016 4:03P Attending: ART TEJADA Requesting: ART TEJADA Requesting Attending Attending ID: [id number] Requesting ID: [id number] Report To 1 ID: Report To 1 [...] Serum 03/18/2015 4:25 PM CDT Mimi Kelley MOTOR SCOOTER REPAIRER LAB BLOOD ORDERABLES Nava l Result Performing Organization Address City/State/[facility] Co de Phone Number HISTORICAL RESULTS from Last 3 Months or Most Recently Relevant to Health Maintenance Insurance UHC MEDICARE ADVANTAGE MEDICARE [facility] MEDICARE ADVANTAGE Advance Directives For more information, please contact: [phone] * Full Code (Latest Code Status on File) Date Activated Date Inactivated Comments 05/23/2023 10:43 PM 05/25/2023 7:39 PM * Full Code Date Activated Date Inactivated Comments 06/16/2020 9:20 AM 06/16/2020 3:35 PM * Full Code Date Activated Date Inactivated Comments 08/10/2019 4:24 AM 08/14/2019 10:24 PM Care Teams Family Medicine Chair Relationship Specialty Start Date End Date Taylor Newby PA [address] [place] [id number] PCP - General Physician [employer] Science Teacher 01/17/23
--- OUTSIDE RECORDS SUMMARY | 2025-03-21 20:30 | XMS_ITS | Clinical Summary ---
Author Organization [facility] Address [address] [place] [address] Care Team Providers Care Credit Coordinator Name Role Phone Unavailable Primary Care Provider [...] Encounters Date Type Department Care Team Description 02/26/2025 External Device Data [facility] ABSTRACTION Provider, Abstract 01/31/2025 External Device Data [facility]STRACTION Provider, Abstract 01/30/2025 External Device Data [facility]STRACTION Provider, Abstract 01/29/2025 External Device Data [facility]STRACTION Provider, Abstract 01/01/2025 External Device Data [facility]STRACTION Provider, Abstract 01/01/2025 External Device Data [facility] ABSTRACTION Provider, Abstract 01/01/2025 External Device Data [facility] ABSTRACTION Provider, Abstract 12/26/2024 11:00 AM CDT Office Visit [facility] at the [address] [place] [address] Ingrid Vargas MD Morbid obesity with body mass index of 40.0-49.9 (CMS/[facility]) (Primary Dx) 12/20/2024 Chart Note [facility] at the [address] [place] [phone] Ingrid Vargas MD from Last 3 Months [...] 1987 BREAST CANCER SCREENING 04/01/2017 04/01/2016, 04/01 DIABETES HBA1C Q 6 MONTHS 06/01/2024 11/30/2023, 03/2021 INFLUENZA VACCINE (#1) 2025 9, 06/28/2017, 06/24/2016, Additional history exists COLORECTAL SCREENING Discontinued 06/16/2020, 06/16/2020, 09/12/2011 Colorectal Cancer Screening Discontinued FIT-DNA Q 3 years Discontinued FIT/FOBT Q 1 year Discontinued Flex Sig/CT Colonography Q 5 years Discontinued
--- OUTSIDE RECORDS SUMMARY | 2025-03-21 20:30 | XMS_ITS | Referral Summary ---
Author Organization [facility] Address [address] [place] [address] Care Team Providers Care Software Test And Validation Engineer Name Role Phone Taylor Newby Primary Care Provider Encounters Date Type Department Care Team Description 02/05/2025 Telephone [facility] Oncology [address] [place] [address] [address] [place] [address] Eduarda Vann, CLT 01/31/2025 Documentation [facility] Oncology [address] [place] [address] [address] [place] [address] Mariana Kimbrough, FERNANDA 01/31/2025 Telephone [facility] Oncology [address] [place] [address] [address] [place] [address] Eduarda Vann, CLT 01/22/2025 Documentation [facility] Oncology [address] [place] [address] [address] [place] [address] Mariana Kimbrough, FERNANDA from Last 3 Months Allergies Active Allergy [...] wit h other specified complication, unspecified whether mcc insulin use 06/25/2024 Pulmonary embolism, unspecif ied [...] 08/08/2021 Assessment & Plan (08/08/2021 7:58 PM DIVISION SALES MANAGER): Patient was persistent cervical thoracic and lumbar back pain. She also has rheumatoid on symptoms. She has not been responding to those medicines only. Precision Filer Hand is concerned something else may be come [...] 08/08/2021 Assessment & Plan (08/08/2021 7:58 PM DIVISION SALES MANAGER): Patient was persistent cervical thoracic and lumbar back pain. She also has rheumatoid on symptoms. She has not been responding to those medicines only. Precision Filer Hand is concerned something else may be come [...] 08/08/2021 Assessment & Plan (08/08/2021 7:59 PM DIVISION SALES MANAGER): Patient was persistent cervical thoracic and lumbar back pain. She also has rheumatoid on symptoms. She has not been responding to those medicines only. Precision Filer Hand is concerned something else may be come [...] 08/08/2021 Assessment & Plan (08/08/2021 7:58 PM DIVISION SALES MANAGER): Check hip x-rays and start physical therapy. Cigarette smoker 06/06/2021 Rhinorrhea 06/06/2021 Assessment & Plan (06/06/2021 11:30 PM CDT): Patient to presume positive COVID until results are available and self isolate for 10 days from the onset of sxs. Check COVID test thru [facility] collection site in [place]. If positive, complete quarantine and consider monoclonal [...] water often. If needed, use a hand clerk rating that contains at least 60% alcohol. Clean [...] lotrisone to a clean dry area. Use chairlift operator after shower. Will also try short [...] 11/05/2020 Assessment & Plan (11/05/2020 10:07 AM DIVISION SALES MANAGER): Start antibiotic, antihistamine (Claritin OR Zyrtec), Mucinex 12hour and Steroid nasal spray (Flonase). Push fluids. Rest. Supportive care. If sxs worsen or don\'t improve, pt is to followup in the office. Advised this still could be COVID sxs so will test. See Congestion below Chronic nasal congestion 11/05/2020 Assessment & Plan (11/05/2020 10:08 AM DIVISION SALES MANAGER): Patient to presume positive COVID until results are available and self isolate for 10 days from the onset of sxs. If negative, isolate until on antibiotic x 24hours and fever free x 24 hours without medication. Check COVID test thru [facility] collection site in [place]. Treat sxs with Tylenol, Cough/cold medication otc [...] water often. If needed, use a hand clerk rating that contains at least 60% alcohol. Clean [...] (05/21/2020): Added automatically from request for surgery [id number] Hemorrhoid 04/09/2020 Overview (04/09/2020): Added automatically from request for surgery [id number] Assessment & Plan (04/12/2020 9:34 AM CDT): Awaiting recommendations from Dr. Aguilar/ULICES Esposito for screening mamm ogram for malignant neoplasm [...] Monsivais Assessment & Plan (08/10/2019 4:56 AM DIVISION SALES MANAGER): Patient states she is on Butrans patch [...] Assessment & Plan (02/05/2020 2:18 PM CDT): 2003. NO use since Major depressive disorder, recurrent [...] amlodipine Assessment & Plan (08/10/2019 4:44 AM DIVISION SALES MANAGER): Continue Norvasc with hold parameters GERD (gastroesophageal [...] in 2011. Request records from [facility] in [place] to determine clotting factor. Assessment & Plan (03/02/2020 4:12 PM CDT): Encouraged patient to followup with pharmacist as I can not explain why her AC is so much as this is preferred by [facility]. Assessment & Plan (02/05/2020 10:23 PM CDT): History PE in 2011. Request records from [facility] in [place] to determine clotting factor. Assessment & Plan (08/10/2019 4:55 AM DIVISION SALES MANAGER): Continue Xarelto. Patient counseled on the importance [...] cymbalta Assessment & Plan (10/16/2017 3:50 PM DIVISION SALES MANAGER): Plan to refill alprazaolam to Xanax 0.25 [...] Monsivais Assessment & Plan (08/10/2019 4:44 AM DIVISION SALES MANAGER): With mixed connective tissue disorder. Continue with [...] 11/07/2008 Overview (02/05/2020): 2003 - dx at [facility] with spinal tap No current sxs. Resolved Problems Problem Noted Date Diagnosed Date Resolved Date BMI 45.0-49.9, adult 10/15/2020 021 Morbid obesity 10/15/2020 03/05/2021 Assessment & Plan (10/15/2020 7:43 AM DIVISION SALES MANAGER): Obesity is unchanged. Discussed the patient's BMI. [...] 02/05/2020 Assessment & Plan (08/10/2019 4:42 AM DIVISION SALES MANAGER): Suspected. Continue with ceftriaxone and azithromycin. Will order respiratory virus panel to rule out viral infection. Continue to monitor. Asthma exacerbation 08/10/2019 02/05/20 20 Assessment & Plan (08/10/2019 4:43 AM DIVISION SALES MANAGER): With possible undiagnosed COPD. Patient still having [...] 01/12/2018 Assessment & Plan (10/16/2017 3:51 PM DIVISION SALES MANAGER): As above. Mass 10/11/2017 01/12/2018 Assessment & Plan (10/16/2017 3:49 PM DIVISION SALES MANAGER): Plan to obtain CT scan of chest without contrast. Atypical chest pain 08/25/2017 02/05/20 20 Nausea & vomiting 08/25/2017 04/05/2018 Near syncope 08/25/2017 04/05/2018 Carbuncle, thigh 07/01/2017 01/12/2018 Assessment & Plan (07/06/2017 1:35 PM CDT): Plan to start Bactrim DS BID x 10 days. Continue with washing with mild soap. Apply warm compresses Multiple joint pain 02/28/2017 02/05/20 20 Overview (01/21/2018): Scheduled with [facility] 02/07/18 Assessment & Plan (02/28/2017 1:25 PM CDT): Awaiting lab results today-has appt with Dr. Monsivais this afternoon. ? If related to lupus. Racing heart beat 02/28/2017 04/05/2018 Assessment & Plan (02/28/2017 8:50 PM CDT): Plan to check thyroid profile. Morbid obesity due to excess calories 02/28/2017 04/05/2018 Assessment & Plan (10/16/2017 3:50 PM DIVISION SALES MANAGER): Obesity is unchanged. Discussed the patient's BMI. [...] of tarsometatarsal joint 09/30/2014 04/05/2018 Overview (12/17/2016): Lisfranc's sprain Shoulder pain 09/13/2014 02/05/2020 Overview (12/17/2016): Shoulder pain Encounter for preventive health examination 05/03/2014 04/05/2018 Depression 04/17/2014 02/05/2020 Overview (12/17/2016): Depression Assessment & Plan (08/10/2019 4:45 AM DIVISION SALES MANAGER): Continue Zoloft Assessment & Plan (02/28/2017 8:49 [...] often do you attend chur ch or jain services? Never 05/25/2023 Do you belong to any clubs o r organizations such as rastafarian groups, unions, fraternal or athletic groups, or [...] on file Legal Sex Female 7:20 PM DIVISION SALES MANAGER Gender Identity Not on file Sexual [...] LAB BLOOD ORDERABLES Final R esult [facility]) [address] [facility] [place] [address] * Hemoglobin A1c (03/18/2021) SCRIBED Hemoglobin A1c 5.4 <5.7 [facility] Blood specimen (specimen) 03/18/2021 us Martina LOWERY LAB BLOOD ORDERABLES Final Result [...] Aguilar MD - 06/16/2020 9:32 AM CDT [facility] Patient Name: Azul Carlson Procedure Date: 06/16/2020 9:32 AM Date of : 1970 Admit Type: Outpatient Age: 50 Gender: Female Attending MD: Caio Aguilar M.D. [facility] 2 Note Status: Finalized Patient Profile: Refer to note in patient chart for documentation of history and physical. Procedure: Colonoscopy Indications: Last colonoscopy: 2018 Referring MD: Martina Yanez PA-C Providers: Caio Aguialr M.D. Impression: - Hemorrhoids found on perianal [...] was passed under direct vision. The Colonoscope [id number] was introduced through the anusand advanced to [...] 9:32 AM Procedure Code(s): --- Professional --- 48520, Colonoscopy, flexible; diagnostic, including collection of specimen(s) by brushing or washing, when performed (separateprocedure) Diagnosis Code(s): --- Professional --- K57.30, Diverticulosis of large intestine without perforation orabscess without bleeding Z98.0, Intestinal bypass and anastomosis status K64.9, Unspecified hemorrhoids CPT copyright 2017 [employer]. All rights reserved. The codes documented in this report are preliminary and upon education nurse reviewmay be revised to meet current compliance requirements. Recognized by the [place] [employer] for promoting quality in endoscopy us Caio Aguilar MD ENDOSCOPY PROCEDURES Final Re sult * DIAGNOSTIC MAMMOGRAM BILATERAL W BOB (04/01/2016 12:40 PM CDT) Anatomical Region Laterality Modality Breast Bilateral Mammography 04/01/2016 12:4 0 PM CDT Narrative 04/01/2016 4:03 PM CDT Acc#: [id number] [facility] 0031 - Diag Mamm W [...] NEGATIVE TECHNOLOGIST: RADHA PILLAI, TECHNOLOGIST MEDICAL IMAGING ASSISTANT PROFESSOR IN FAMILY STUDIES: SUNI TRANSCRIBE DATE/TIME: Apr 01 2016 1:43P RADIOLOGIST: LAURI GREEN M.D. READ ON: Apr 01 2016 1:34P ORDERING DR: ART TEJADA N.P. THIS DOCUMENT HAS BEEN ELECTRONICALLY SIGNED BY: LAURI GREEN M.D. ON: Apr 01 2016 4:03P Attending: ART TEJADA Requesting: ART TEJADA Requesting Attending Attending ID: [id number] Requesting ID: [id number] Report To 1 ID: Report To 1 Name: , Report To 1 FAX: -- Report To 2 ID: Report To 2 Name: , Report To 2 FAX: -- NextGen Order #: Procedure Note Provider, MD Emigdio - 01/04/2017 Acc#: [id number] [facility] 0031 - Diag Mamm W [...] NEGATIVE TECHNOLOGIST: RADHA PILLAI, TECHNOLOGIST MEDICAL IMAGING ASSISTANT PROFESSOR IN FAMILY STUDIES: DDMariya TRANSCRIBE DATE/TIME: Apr 01 2016 1:43P RADIOLOGIST: LAURI GREEN M.D. READ ON: Apr 01 2016 1:34P ORDERING DR: ART TEJADA N.P. THIS DOCUMENT HAS BEEN ELECTRONICALLY SIGNED BY: LAURI GREEN M.D. ON: Apr 01 2016 4:03P Attending: ART TEJADA Requesting: ART TEJADA Requesting Attending Attending ID: [id number] Requesting ID: [id number] Report To 1 ID: Report To 1 Name: , Report To 1 FAX: -- Report To 2 ID: Report To 2 Name: , Report To 2 FAX: -- NextGen Order #: us Historical Provider IMShanon MAMMO PROCEDURES Nava l Result * Serum Hepatitis panel (03/18/2015 4:25 PM CDT) HBV core ab, IgM Negative Negative HISTORICAL RESULTS HBV surface ag Negative Negative HISTO RICAL RESULTS HCV ab Negative Negative HISTORICAL RESULTS HAV ab, IgM Negative Negative HISTORIC AL RESULTS Serum 03/18/2015 4:25 PM CDT Mimi Kelley NP LAB BLOOD ORDERABLES Nava l Result Performing Organization Address City/[facility] Co de Phone Number HISTORICAL RESULTS from Last 3 Months or Most Recently Relevant to Health Maintenance Insurance MEDICARE ADVANTAGE MEDICARE [facility] MEDICARE ADVANTAGE Advance Directives For more information, please contact: [phone] * Full Code (Latest Code Status on File) Date Activated Date Inactivated Comments 05/23/2023 10:43 PM 05/25/2023 7:39 PM * Full Code Date Activated Date Inactivated Comments 06/16/2020 9:20 AM 06/16/2020 3:35 PM * Full Code Date Activated Date Inactivated Comments 08/10/2019 4:24 AM 08/14/2019 10:24 PM Care Teams Software Test And Validation Engineer Relationship Specialty Start Date End Date Taylor Newby PA [address] [place] [address] PCP - General Physician Fishing Gear Mechanic 01/17/23
--- OUTSIDE RECORDS SUMMARY | 2025-03-21 20:30 | XMS_ITS | Encounter Summary ---
Author Organization [facility] Address [address] [place] [address] Care Team Providers Care Dairy Laboratory Technician Name Role Phone Reggie Kimbrough MD Unavailable Mike Monsivais MD Unavailable [phone] Mynor Biswas MD Unavailable [phone] Clementina Polo MD Unavailable Martina Yanez Primary Care Provider [phone] Jorge Maravilla MD Primary Care Provider [phone] Taylor Newby Primary Care Provider Kieran Massey MD Unavailable [phone] Reason for Visit * Reason Onset Date Comments Scheduling Appointments 03/19/2020 Called f or DEXA appointment, No answer Encounter Details Date Type Department Care Team (Late st Contact Info) Description 03/19/2020 Telephone [facility] [address] [place] [id number] Jackie Tong RT Scheduling Appointments (Called for [...] on file Legal Sex Female 7:20 PM RADIATION CONTROL WORKER Gender Identity Not on file Sexual [...] result. 07/03/2020 07/03/2020 07/17/2020 3:0 6 AM RADIATION CONTROL WORKER COVID: Suspected 11/05/2020 11/06/2020 11/06/2020 11:21 PM RADIATION CONTROL WORKER COVID: Suspected 05/21/2021 05/22/2021 05/22/2021 6:46 PM CDT COVID: Suspected 08/20/2021 08/20/2021 08/20/2021 8:02 PM RADIATION CONTROL WORKER documented as of this encounter Care Teams Dairy Laboratory Technician Relationship Specialty Start Date End Date Martina Yanez PA [address] [place] [address] PCP - General Internal Medicine 12/05/19 10/18/21 Jorge Maravilla MD [address] [place] [address] PCP - General Internal Medicine 10/19/21 01/16/23 Taylor Newby PA [address] [place] [id number] PCP - General Physician Head Of Drama 01/17/23 [place] [address] [place] [address] Consulting Physician Pain Management 01/12/18 09/26/24 Mike Monsivais MD [address] [facility] [address] [place] [address] Consulting Physician Rheumatology 05/11/18 09/26/24 [place] [address] [facility] [address] [place] [address] Consulting Physician Ophthalmology 08/12/18 09/26/[address] [place] [address] [facility] [address] [place] [address] Consulting Physician Obstetrics and Gynecology 10/09/19 09/26/24 Kieran Massey MD [address] [place] [address] Consulting Physician Internal Medicine 05/25/23 5 documented as of this encounter
--- NOTE | 2025-03-21 20:36 | ED.SKABFB ---
HPI - Skin/Abscess/Foreign Bdy General Chief complaint: Skin/Abscess/Foreign Body Stated complaint: skin issue Time Seen by Provider: 03/21/25 20:34 Source: patient Mode of arrival: ambulatory Limitations: no limitations History of Present Illness HPI narrative: this is a 54-year-old female with history of hypertension history of pulmonary embolism presents with some on abscess nonfluctuant to the left lower abdomen it is warm red and tender to touch with no fever does have chills with no nausea vomiting no abdominal pain no chest pain no dysuria hematuria no diarrhea constipation. MD complaint: abscess/boil Onset (ago): day(s) Severity: moderate Severity scale (1-10): 6 Quality: aching Pain Consistency: constant Related Data Home Medications ?Medication ?Instructions ?Recorded ?Confirmed ?Last Taken ?Type Tylenol 1,000 mg PO Q8H 10/23/21 08/05/23 01/20/23 History budesonide-formoterol HFA 80 2 inh inhalation BID 10/23/21 08/05/23 01/20/23 History mcg-4.5 mcg/actuation aerosol inhaler (Symbicort) duloxetine 60 mg capsule,delayed 120 mg PO DAILY 02/25/22 08/05/23 1 Day Ago History release ~01/19/23 pitolisant 17.8 mg tablet (Wakix) 17.8 mg PO DAILY 02/25/22 08/05/23 01/20/23 History dextroamphetamine-amphetamine 20 20 mg PO DAILY 04/20/22 08/05/23 01/20/23 History mg tablet aripiprazole 10 mg tablet 10 mg DAILY 01/20/23 08/05/23 01/20/23 History bismuth subsalicylate 262 mg 2 tablet PO Q1H PRN upset stomach 01/20/23 08/05/23 01/20/23 History chewable tablet lisinopril 40 mg tablet 40 mg PO DAILY 01/20/23 08/05/23 1 Day Ago History ~01/19/23 metoprolol succinate 25 mg 25 mg PO DAILY 01/20/23 08/05/23 01/20/23 History tablet,extended release 24 hr (Toprol XL) aripiprazole 5 mg tablet 5 mg PO DAILY 07/06/23 08/05/23 Unknown History bupropion HCl 100 mg tablet 100 mg PO ONCE 07/06/23 08/05/23 Unknown History buspirone 15 mg tablet 15 mg PO BID 07/06/23 08/05/23 Unknown History diclofenac sodium 50 mg 50 mg PO BID 07/06/23 08/05/23 Unknown History tablet,delayed release multivitamin 1 tablet PO DAILY 07/06/23 08/05/23 Unknown History omeprazole 20 mg capsule,delayed 20 mg PO DAILY 07/06/23 08/05/23 Unknown History release ropinirole 0.25 mg tablet 0.25 mg PO DAILY 08/05/23 08/05/23 Unknown History tirzepatide 7.5 mg/0.5 mL 7.5 mg subcut WEEKLY 08/05/23 08/05/23 Unknown History subcutaneous pen injector (Brynn) Allergies Allergy/AdvReac Type Severity Reaction Status Date / Time amitriptyline Allergy Intermediate Other Verified 03/21/25 20:38 aspartame Allergy Intermediate Other Verified 03/21/25 20:38 atomoxetine Allergy Intermediate Unknown Verified 03/21/25 20:38 gabapentin Allergy Intermediate Other Verified 03/21/25 20:38 nortriptyline Allergy Intermediate Other Verified 03/21/25 20:38 prednisone Allergy Intermediate Hyperactive Verified 03/21/25 20:38 cyclobenzaprine Allergy Anxiety Verified 03/21/25 20:38 fluoxetine Allergy Unknown Verified 03/21/25 20:38 pregabalin Allergy Anxiety Verified 03/21/25 20:38 sulfasalazine Allergy Unknown Verified 03/21/25 20:38 sumatriptan Allergy Unknown Verified 03/21/25 20:38 methotrexate AdvReac Intermediate Diarrhea Verified 03/21/25 20:38 methylprednisolone AdvReac Agitated Verified 03/21/25 20:38 Review of Systems Review of Systems: All systems reviewed & are unremarkable except as noted in HPI and below PMFSH Past Medical History Medical History Depression Arthritis Fibromyalgia History of gastroesophageal reflux (GERD) Diverticulitis Colitis Pneumonia Pulmonary embolism Asthma Hypertension History of hypercholesterolemia Mitral valve prolapse History of TIA (transient ischemic attack) Systemic lupus Surgical History Surgical History History of hysterectomy History of cholecystectomy Social History Social History Years smoked: 20 Smoking status: Former smoker Tobacco type: cigarettes Second hand tobacco smoke exposure: No Smoking end date: 11/29/22 Alcohol intake: former Alcohol use details: Rare Substance use: current Substance use type: marijuana, amphetamines and prescription drug Last use: 01/06/2023 Lack of Transportation: No Lack of Food: Never True Current Housing: I Have Housing Concerned About Future Housing: No Difficulty Paying Gas/Electric Bills: No Difficulty Paying for Meds: No Currently Unemployed: No Education: High School Diploma/GED Difficulty w/ Childcare or Family Care: No Living arrangements: alone Gender identity (if verbalized by the patient): Female Spiritual care concerns: Yes (Spiritism Jehovah'S Witness) Exam Const: General: healthy appearing, no acute distress and alert Nutritional Appearance: well nourished Orientation/consciousness: patient oriented x3 Limitations: no limitations Eyes: Conjunctivae: conjunctivae normal Pupils: Equal, round and reactive pupils present Neck: Neck: normal visual inspection Chest: Chest palpation & inspection: normal inspection of the chest Resp: Effort & Inspection: normal respiratory effort Auscultation: clear to auscultation bilaterally Cardio: Rate: regular rate Rhythm: regular rhythm GI: GI Palp: Yes Soft to palpation : General: Yes bladder normal to palpation Skin: Wounds: wounds noted Other: Abscess nonfluctuant tender and warm to touch left lower quadrant of her abdomen with no drainage. Course Course Emergency Course: Patient received 1g IM ceftriaxone and 1g of p.o. Tylenol, will prescribe antibiotics and patient advised to follow with her primary. Vital Signs Vital signs: Vital Signs Temperature 36.0 C L 03/21/25 20:30 Pulse Rate 101 H 03/21/25 20:30 Respiratory Rate 18 03/21/25 20:30 Blood Pressure 157/91 H 03/21/25 20:30 Pulse Oximetry 96 03/21/25 20:30 Oxygen Delivery Room Air 03/21/25 20:30 Temperature 36.0 C L 03/21/25 20:30 Pulse Rate 101 H 03/21/25 20:30 Respiratory Rate 18 03/21/25 20:30 Blood Pressure 157/91 H 03/21/25 20:30 Pulse Oximetry 96 03/21/25 20:30 Oxygen Delivery Room Air 03/21/25 20:30 Critical Care Time Critical Care Time Critical Care Time: No Discharge Plan Discharge Clinical Impression: Abscess Patient Disposition: Home Condition: Stable Instructions: Antibiotic Form, Cellulitis (ED), Abscess (ED) Additional Instructions: advised patient to take medicine as prescribed and follow-up with her primary within the next 2 to 3 days for further evaluation and treatment. Patient Language: Serbian Prescriptions: New amoxicillin-pot clavulanate [Augmentin] 500-125 mg tablet 1 tablet PO TID Qty: 30 0RF tramadol 50 mg tablet 50 mg PO Q6H PRN (Reason: pain) Qty: 20 0RF No Action budesonide-formoterol [Symbicort] 80-4.5 mcg/actuation HFA aerosol inhaler 2 inh INHALATION BID Tylenol 1,000 mg PO Q8H dextroamphetamine-amphetamine 20 mg tablet 20 mg PO DAILY metoprolol succinate [Toprol XL] 25 mg tablet extended release 24 hr 25 mg PO DAILY lisinopril 40 mg tablet 40 mg PO DAILY bismuth subsalicylate 262 mg Tablet,Chewable 2 tablet PO Q1H PRN (Reason: upset stomach) Rx Instructions: do not exceed 16 tabs per 24 hrs aripiprazole 10 mg Tablet 10 mg DAILY Xarelto 20 mg tablet 20 mg PO DAILY Qty: 30 0RF Rx Instructions: must administer with evening meal ropinirole 0.25 mg tablet 0.25 mg PO DAILY Mounjaro 7.5 mg/0.5 mL pen injector 7.5 mg SUBCUT WEEKLY meclizine 25 mg tablet 25 mg PO TID PRN (Reason: dizziness) Qty: 30 0RF hydrocodone-acetaminophen 5-325 mg tablet 1 tablet PO Q8H PRN (Reason: pain) Qty: 20 0RF Rx Instructions: 1-2 tabs per dose cephalexin 500 mg capsule 500 mg PO BID 7 Days Qty: 14 0RF methylprednisolone 4 mg tablets,dose pack See Rx Instructions .ROUTE .COMPLEX Qty: 21 0RF Rx Instructions: for 6 days ondansetron HCl 4 mg tablet 4 mg PO Q6H PRN (Reason: nausea and vomiting) Qty: 14 0RF doxycycline hyclate 100 mg tablet 100 mg PO Q12H Qty: 20 0RF aripiprazole 5 mg tablet 5 mg PO DAILY omeprazole 20 mg capsule,delayed release(DR/EC) 20 mg PO DAILY diclofenac sodium 50 mg tablet,delayed release (DR/EC) 50 mg PO BID bupropion HCl 100 mg tablet 100 mg PO ONCE buspirone 15 mg tablet 15 mg PO BID multivitamin Tablet 1 tablet PO DAILY metoclopramide HCl [Reglan] 10 mg tablet 10 mg PO BID Qty: 60 4RF Rx Instructions: Take before largest meal of the day and at bedtime. duloxetine 60 mg Capsule,Delayed Release(Dr/Ec) 120 mg PO DAILY Wakix 17.8 mg Tablet 17.8 mg PO DAILY Follow-up/Referrals: UNKNOWN,DOCTOR [Primary Care Provider] - Stand Alone Forms: Work/School Release IP Time of Disposition: 20:42
[2025-03-21] MEDS: cefTRIAXone 1 GM, LIDOCAINE 1% LOCAL INJ 2.1 ML IM (20:46)
[2025-03-21] MEDS: ACETAMINOPHEN 500 MG TABLET 1000 MG PO (20:47)
--- OUTSIDE RECORDS SUMMARY | 2025-03-21 20:50 | XMS_ITS | Clinical Summary ---
Author Organization [facility] Address [address] [place] [address] Care Team Providers Care Rim Turning Machine Operator Name Role Phone Taylor Newby [...] 08/08/2021 Assessment & Plan (08/08/2021 7:58 PM SHAKE PACKER): Patient was persistent cervical thoracic and lumbar back pain. She also has rheumatoid on symptoms. She has not been responding to those medicines only. Lcac Radar Operator/Navigator is concerned something else may be come [...] 08/08/2021 Assessment & Plan (08/08/2021 7:58 PM SHAKE PACKER): Patient was persistent cervical thoracic and lumbar back pain. She also has rheumatoid on symptoms. She has not been responding to those medicines only. Lcac Radar Operator/Navigator is concerned something else may be come [...] 08/08/2021 Assessment & Plan (08/08/2021 7:59 PM SHAKE PACKER): Patient was persistent cervical thoracic and lumbar back pain. She also has rheumatoid on symptoms. She has not been responding to those medicines only. Lcac Radar Operator/Navigator is concerned something else may be come [...] 08/08/2021 Assessment & Plan (08/08/2021 7:58 PM SHAKE PACKER): Check hip x-rays and start physical therapy. Cigarette smoker 06/06/2021 Rhinorrhea 06/06/2021 Assessment & Plan (06/06/2021 11:30 PM CDT): Patient to presume positive COVID until results are available and self isolate for 10 days from the onset of sxs. Check COVID test thru [facility] collection site in [place]. If positive, complete quarantine and consider monoclonal [...] water often. If needed, use a hand system support analyst that contains at least 60% alcohol. [...] lotrisone to a clean dry area. Use psychology department chair after shower. Will also try [...] 11/05/2020 Assessment & Plan (11/05/2020 10:07 AM SHAKE PACKER): Start antibiotic, antihistamine (Claritin OR Zyrtec), Mucinex 12hour and Steroid nasal spray (Flonase). Push fluids. Rest. Supportive care. If sxs worsen or don\'t improve, pt is to followup in the office. Advised this still could be COVID sxs so will test. See Congestion below Chronic nasal congestion 11/05/2020 Assessment & Plan (11/05/2020 10:08 AM SHAKE PACKER): Patient to presume positive COVID until results are available and self isolate for 10 days from the onset of sxs. If negative, isolate until on antibiotic x 24hours and fever free x 24 hours without medication. Check COVID test thru [facility] collection site in [place]. Treat sxs with Tylenol, Cough/cold medication otc [...] water often. If needed, use a hand system support analyst that contains at least 60% alcohol. [...] (05/21/2020): Added automatically from request for surgery [id number] Hemorrhoid 04/09/2020 Overview (04/09/2020): Added automatically from request for surgery [id number] Assessment & Plan (04/12/2020 9:34 AM CDT): [...] Monsivais Assessment & Plan (08/10/2019 4:56 AM SHAKE PACKER): Patient states she is on Butrans patch [...] amlodipine Assessment & Plan (08/10/2019 4:44 AM SHAKE PACKER): Continue Norvasc with hold parameters GERD (gastroesophageal [...] in 2011. Request records from [facility] in [place] to determine clotting factor. Assessment & Plan (03/02/2020 4:12 PM CDT): Encouraged patient to followup with pharmacist as I can not explain why her AC is so much as this is preferred by [facility]. Assessment & Plan (02/05/2020 10:23 PM CDT): History PE in 2011. Request records from [facility] in [place] to determine clotting factor. Assessment & Plan (08/10/2019 4:55 AM SHAKE PACKER): Continue Xarelto. Patient counseled on the importance [...] cymbalta Assessment & Plan (10/16/2017 3:50 PM SHAKE PACKER): Plan to refill alprazaolam to Xanax 0.25 [...] Monsivais Assessment & Plan (08/10/2019 4:44 AM SHAKE PACKER): With mixed connective tissue disorder. Continue with [...] 11/07/2008 Overview (02/05/2020): 2002 - dx at [facility] with spinal tap No current sxs. Resolved Problems Problem Noted Date Diagnosed Date Resolved Date BMI 45.0-49.9, adult 10/15/2020 021 Morbid obesity 10/15/2020 03/05/2021 Assessment & Plan (10/15/2020 7:43 AM SHAKE PACKER): Obesity is unchanged. Discussed the patient's BMI. [...] 02/05/2020 Assessment & Plan (08/10/2019 4:42 AM SHAKE PACKER): Suspected. Continue with ceftriaxone and azithromycin. Will order respiratory virus panel to rule out viral infection. Continue to monitor. Asthma exacerbation 08/10/2019 02/05/20 20 Assessment & Plan (08/10/2019 4:43 AM SHAKE PACKER): With possible undiagnosed COPD. Patient still having [...] 01/12/2018 Assessment & Plan (10/16/2017 3:51 PM SHAKE PACKER): As above. Mass 10/11/2017 01/12/2018 Assessment & Plan (10/16/2017 3:49 PM SHAKE PACKER): Plan to obtain CT scan of chest [...] 04/05/2018 Assessment & Plan (10/16/2017 3:50 PM SHAKE PACKER): Obesity is unchanged. Discussed the patient's BMI. [...] Depression Assessment & Plan (08/10/2019 4:45 AM SHAKE PACKER): Continue Zoloft Assessment & Plan (02/28/2017 8:49 [...] Type Department Care Team Description 02/05/2025 Telephone [facility] Physicians [facility] Oncology [address] [place] [address] Office [facility] [address] [place] [phone] Eduarda Vann, CLT 01/31/2025 Documentation [facility] Oncology [address] [place] [address] Office [facility] [address] [place] [phone] Mariana Kimbrough, FERNANDA 01/31/2025 Telephone [facility] Oncology [address] [place] [address] Office [facility] [address] [place] [phone] Eduarda Vann, CLT 01/22/2025 Documentation [facility] Oncology [address] [place] [address] Office [facility] [address] [place] [phone] Mariana Kimbrough, FERNANDA from Last 3 Months [...] History Date Comments Asthma Asthma; Comments : UTChantal 09/30/2014 - Depression Depression Hx Other Medical [...] often do you attend chur ch or rastafari services? Never 05/25/2023 Do you belong to any clubs o r organizations such as spiritism groups, unions, fraternal or athletic groups, or [...] place to sleep or slept in a fpc (including now)? No 05/25/2023 Personal Safety Answer Date Recorded Have you ever been in or are you currently in a harmful physical or emotional relationship or is someone making you feel afraid or unsafe? Denies 12/08/2024 Comments No Sex and Gender Information Value Date Recorded Sex Assigned at Not on file Legal Sex Female 7:20 PM SHAKE PACKER Gender Identity Not on file Sexual Orientation [...] LAB BLOOD ORDERABLES Final R esult [facility] [address] Department of Laboratories [place] [id number] * Hemoglobin A1c (03/18/2021) SCRIBED Hemoglobin A1c [...] Aguilar MD - 06/16/2020 9:32 AM CDT [facility] Patient Name: Azul Carlson Procedure Date: 06/16/2020 9:32 AM Date of : 1970 Admit Type: Outpatient Age: 50 Gender: Female Attending MD: Caio Aguilar M.D. Room: [facility] ENDOSCOPY ROOM 2 Note Status: Finalized Patient [...] was passed under direct vision. The Colonoscope [id number] was introduced through the anusand advanced to [...] 9:32 AM Procedure Code(s): --- Professional --- 07913, Colonoscopy, flexible; diagnostic, including collection of specimen(s) by brushing or washing, when performed (separateprocedure) Diagnosis Code(s): --- Professional --- K57.30, Diverticulosis of large intestine without perforation orabscess without bleeding Z98.0, Intestinal bypass and anastomosis status K64.9, Unspecified hemorrhoids CPT copyright 2017 [employer]. All rights reserved. The codes documented in this report are preliminary and upon pan puller reviewmay be revised to meet current compliance requirements. Recognized by the [employer] for promoting quality in endoscopy us Caio Aguilar MD ENDOSCOPY PROCEDURES Final Re sult * DIAGNOSTIC MAMMOGRAM BILATERAL W BOB (04/01/2016 12:40 PM CDT) Anatomical Region Laterality Modality Breast Bilateral Mammography 04/01/2016 12:4 0 PM CDT Narrative 04/01/2016 4:03 PM CDT Acc#: [id number] [facility] 0031 - Diag Mamm [...] NEGATIVE TECHNOLOGIST: RADHA PILLAI TECHNOLOGIST MEDICAL IMAGING CASING TRIMMER: DD2 TRANSCRIBE DATE/TIME: Apr 01 2016 1:43P RADIOLOGIST: LAURI GREEN M.D. READ ON: Apr 01 2016 1:34P ORDERING DR: ART TEJADA N.P. THIS DOCUMENT HAS BEEN ELECTRONICALLY SIGNED BY: LAURI GREEN M.D. ON: Apr 01 2016 4:03P Attending: ART TEJADA Requesting: ART TEJADA Requesting Attending Attending ID: [id number] Requesting ID: [id number] Report To 1 ID: Report To 1 Name: , Report To 1 FAX: -- Report To 2 ID: Report To 2 Name: , Report To 2 FAX: -- NextGen Order #: Procedure Note Provider, MD Emigdio - 01/04/2017 Acc#: [id number] [facility] 0031 - Diag Mamm [...] NEGATIVE TECHNOLOGIST: RADHA PILLAI TECHNOLOGIST MEDICAL IMAGING CASING TRIMMER: DD2 TRANSCRIBE DATE/TIME: Apr 01 2016 1:43P RADIOLOGIST: LAURI GREEN M.D. READ ON: Apr 01 2016 1:34P ORDERING DR: ART TEJADA N.P. THIS DOCUMENT HAS BEEN ELECTRONICALLY SIGNED BY: LAURI GREEN M.D. ON: Apr 01 2016 4:03P Attending: ART TEJADA Requesting: ART TEJADA Requesting Attending Attending ID: [id number] Requesting ID: [id number] Report To 1 ID: Report To 1 [...] Serum 03/18/2015 4:25 PM CDT Mimi Kelley DYER AND WASHER LAB BLOOD ORDERABLES Nava l Result Performing Organization Address City/State/[facility] Co de Phone Number HISTORICAL RESULTS from Last 3 Months or Most Recently Relevant to Health Maintenance Insurance UHC MEDICARE ADVANTAGE MEDICARE [facility] MEDICARE [facility] Address: [address] [address] Advance Directives For more information, please contact: [phone] * Full Code (Latest Code Status on File) Date Activated Date Inactivated Comments 05/23/2023 10:43 PM 05/25/2023 7:39 PM * Full Code Date Activated Date Inactivated Comments 06/16/2020 9:20 AM 06/16/2020 3:35 PM * Full Code Date Activated Date Inactivated Comments 08/10/2019 4:24 AM 08/14/2019 10:24 PM Care Teams Rim Turning Machine Operator Relationship Specialty Start Date End Date Taylor Newby PA [address] [place] [id number] PCP - General Physician Heritage Consultant 01/17/23
--- OUTSIDE RECORDS SUMMARY | 2025-03-21 20:50 | XMS_ITS | Clinical Summary ---
Author Organization [facility] Address [address] [place] [address] Care Team Providers Care Program Support Specialist Name Role Phone Unavailable Primary Care [...] Abstract 12/26/2024 11:00 AM CDT Office Visit [facility] Bariatrics and General Surgery at the [address] [place] [address] Ingrid Vargas MD Morbid obesity with body mass index of 40.0-49.9 (CMS/[facility]) (Primary Dx) 12/20/2024 Chart Note [facility] Bariatrics and General Surgery at the [address] [place] [address] Ingrid Vargas MD from Last 3 Months [...]
--- OUTSIDE RECORDS SUMMARY | 2025-03-21 20:50 | XMS_ITS | Referral Summary ---
Author Organization [facility] Address [address] [place] [address] Care Team Providers Care Project Structural Engineer Name Role Phone Taylor Newby Primary Care Provider Encounters Date Type Department Care Team Description 02/05/2025 Telephone [facility] Oncology [address] [place] [address] [address] [place] [address] Eduarda Vann, CLT 01/31/2025 Documentation [facility] Oncology [address] [place] [address] [address] [place] [address] Mariana Kimbrough, FERNANDA 01/31/2025 Telephone [facility] Oncology [address] [place] [address] [address] [place] [address] Eduarda Vann, CLT 01/22/2025 Documentation [facility] Oncology [address] [place] [address] [address] [place] [address] Mariana Kimbrough, FERNANDA from Last 3 Months [...] wit h other specified complication, unspecified whether snf insulin use 06/25/2024 Pulmonary embolism, unspecif ied [...] 08/08/2021 Assessment & Plan (08/08/2021 7:58 PM BLANKER OPERATOR): Patient was persistent cervical thoracic and lumbar back pain. She also has rheumatoid on symptoms. She has not been responding to those medicines only. Nurseryperson is concerned something else may be come [...] 08/08/2021 Assessment & Plan (08/08/2021 7:58 PM BLANKER OPERATOR): Patient was persistent cervical thoracic and lumbar back pain. She also has rheumatoid on symptoms. She has not been responding to those medicines only. Nurseryperson is concerned something else may be come [...] 08/08/2021 Assessment & Plan (08/08/2021 7:59 PM BLANKER OPERATOR): Patient was persistent cervical thoracic and lumbar back pain. She also has rheumatoid on symptoms. She has not been responding to those medicines only. Nurseryperson is concerned something else may be come [...] 08/08/2021 Assessment & Plan (08/08/2021 7:58 PM BLANKER OPERATOR): Check hip x-rays and start physical therapy. Cigarette smoker 06/06/2021 Rhinorrhea 06/06/2021 Assessment & Plan (06/06/2021 11:30 PM CDT): Patient to presume positive COVID until results are available and self isolate for 10 days from the onset of sxs. Check COVID test thru [facility] collection site in [place]. If positive, complete quarantine and consider monoclonal [...] water often. If needed, use a hand event planning intern that contains at least 60% alcohol. [...] lotrisone to a clean dry area. Use traveling operator after shower. Will also try short [...] 11/05/2020 Assessment & Plan (11/05/2020 10:07 AM BLANKER OPERATOR): Start antibiotic, antihistamine (Claritin OR Zyrtec), Mucinex 12hour and Steroid nasal spray (Flonase). Push fluids. Rest. Supportive care. If sxs worsen or don\'t improve, pt is to followup in the office. Advised this still could be COVID sxs so will test. See Congestion below Chronic nasal congestion 11/05/2020 Assessment & Plan (11/05/2020 10:08 AM BLANKER OPERATOR): Patient to presume positive COVID until results are available and self isolate for 10 days from the onset of sxs. If negative, isolate until on antibiotic x 24hours and fever free x 24 hours without medication. Check COVID test thru [facility] collection site in [place]. Treat sxs with Tylenol, Cough/cold medication otc [...] water often. If needed, use a hand event planning intern that contains at least 60% alcohol. [...] (05/21/2020): Added automatically from request for surgery [id number] Hemorrhoid 04/09/2020 Overview (04/09/2020): Added automatically from request for surgery [id number] Assessment & Plan (04/12/2020 9:34 AM CDT): [...] Monsivais Assessment & Plan (08/10/2019 4:56 AM BLANKER OPERATOR): Patient states she is on Butrans [...] amlodipine Assessment & Plan (08/10/2019 4:44 AM BLANKER OPERATOR): Continue Norvasc with hold parameters GERD [...] in 2011. Request records from [facility] in [place] to determine clotting factor. Assessment & Plan (03/02/2020 4:12 PM CDT): Encouraged patient to followup with pharmacist as I can not explain why her AC is so much as this is preferred by [facility]. Assessment & Plan (02/05/2020 10:23 PM CDT): History PE in 2011. Request records from [facility] in [place] to determine clotting factor. Assessment & Plan (08/10/2019 4:55 AM BLANKER OPERATOR): Continue Xarelto. Patient counseled on the [...] cymbalta Assessment & Plan (10/16/2017 3:50 PM BLANKER OPERATOR): Plan to refill alprazaolam to Xanax [...] Monsivais Assessment & Plan (08/10/2019 4:44 AM BLANKER OPERATOR): With mixed connective tissue disorder. Continue [...] 11/07/2008 Overview (02/05/2020): 2003 - dx at [facility] with spinal tap No current sxs. Resolved Problems Problem Noted Date Diagnosed Date Resolved Date BMI 45.0-49.9, adult 10/15/2020 021 Morbid obesity 10/15/2020 03/05/2021 Assessment & Plan (10/15/2020 7:43 AM BLANKER OPERATOR): Obesity is unchanged. Discussed the patient's [...] 02/05/2020 Assessment & Plan (08/10/2019 4:42 AM BLANKER OPERATOR): Suspected. Continue with ceftriaxone and azithromycin. Will order respiratory virus panel to rule out viral infection. Continue to monitor. Asthma exacerbation 08/10/2019 02/05/20 20 Assessment & Plan (08/10/2019 4:43 AM BLANKER OPERATOR): With possible undiagnosed COPD. Patient still [...] 01/12/2018 Assessment & Plan (10/16/2017 3:51 PM BLANKER OPERATOR): As above. Mass 10/11/2017 01/12/2018 Assessment & Plan (10/16/2017 3:49 PM BLANKER OPERATOR): Plan to obtain CT scan of [...] 02/28/2017 02/05/20 20 Overview (01/21/2018): Scheduled with [facility] Pain Management 02/07/18 Assessment & Plan (02/28/2017 1:25 PM CDT): Awaiting lab results today-has appt with Dr. Monsivias this afternoon. ? If related to lupus. Racing heart beat 02/28/2017 04/05/2018 Assessment & Plan (02/28/2017 8:50 PM CDT): Plan to check thyroid profile. Morbid obesity due to excess calories 02/28/2017 04/05/2018 Assessment & Plan (10/16/2017 3:50 PM BLANKER OPERATOR): Obesity is unchanged. Discussed the patient's [...] Depression Assessment & Plan (08/10/2019 4:45 AM BLANKER OPERATOR): Continue Zoloft Assessment & Plan (02/28/2017 [...] place to sleep or slept in a usp (including now)? No 05/25/2023 Personal Safety Answer Date Recorded Have you ever been in or are you currently in a harmful physical or emotional relationship or is someone making you feel afraid or unsafe? Denies 12/08/2024 Comments No Sex and Gender Information Value Date Recorded Sex Assigned at Not on file Legal Sex Female 7:20 PM BLANKER OPERATOR Gender Identity Not on file Sexual [...] R esult [facility]) 1 [facility] Department [place] [address] * Hemoglobin A1c (03/18/2021) SCRIBED Hemoglobin A1c [...] Aguilar MD - 06/16/2020 9:[address] [facility] Patient Name: Azul Carlson Procedure Date: 06/16/2020 9:32 AM Date of : 1970 Admit Type: Outpatient Age: 50 Gender: Female Attending MD: Caio Aguilar M.D. Room: [facility] ENDOSCOPY ROOM 2 Note Status: Finalized [...] was passed under direct vision. The Colonoscope [id number] was introduced through the anusand advanced to [...] 9:32 AM Procedure Code(s): --- Professional --- 75189, Colonoscopy, flexible; diagnostic, including collection of specimen(s) by brushing or washing, when performed (separateprocedure) Diagnosis Code(s): --- Professional --- K57.30, Diverticulosis of large intestine without perforation orabscess without bleeding Z98.0, Intestinal bypass and anastomosis status K64.9, Unspecified hemorrhoids CPT copyright 2017 [employer]. All rights reserved. The codes documented in this report are preliminary and upon twine winder reviewmay be revised to meet current compliance requirements. Recognized by the [employer] for promoting quality in endoscopy us Caio Aguilar MD ENDOSCOPY PROCEDURES Final Re sult * DIAGNOSTIC MAMMOGRAM BILATERAL W BOB (04/01/2016 12:40 PM CDT) Anatomical Region Laterality Modality Breast Bilateral Mammography 04/01/2016 12:4 0 PM CDT Narrative 04/01/2016 4:03 PM CDT Acc#: [id number] [facility] 0031 - Diag Mamm W Bob [...] NEGATIVE TECHNOLOGIST: RADHA PILLAI, TECHNOLOGIST MEDICAL IMAGING IC ENGINEER: SUNI TRANSCRIBE DATE/TIME: Apr 01 2016 1:43P RADIOLOGIST: LAURI GREEN M.D. READ ON: Apr 01 2016 1:34P ORDERING DR: ART TEJADA N.P. THIS DOCUMENT HAS BEEN ELECTRONICALLY SIGNED BY: LAURI GREEN M.D. ON: Apr 01 2016 4:03P Attending: ART TEJADA Requesting: ART TEJADA Requesting Attending Attending ID: [id number] Requesting ID: [id number] Report To 1 ID: Report To 1 Name: , Report To 1 FAX: -- Report To 2 ID: Report To 2 Name: , Report To 2 FAX: -- NextGen Order #: Procedure Note Provider, MD Emigdio - 01/04/2017 Acc#: [id number] [facility] 0031 - Diag Mamm W Bob [...] NEGATIVE TECHNOLOGIST: RADHA PILLAI, TECHNOLOGIST MEDICAL IMAGING IC ENGINEER: DDMariya TRANSCRIBE DATE/TIME: Apr 01 2016 1:43P RADIOLOGIST: LAURI GREEN M.D. READ ON: Apr 01 2016 1:34P ORDERING DR: ART TEJADA N.P. THIS DOCUMENT HAS BEEN ELECTRONICALLY SIGNED BY: LAURI GREEN M.D. ON: Apr 01 2016 4:03P Attending: ART TEJADA Requesting: ART TEJADA Requesting Attending Attending ID: [id number] Requesting ID: [id number] Report To 1 ID: Report To 1 [...] CDT Mimi Kelley NP LAB BLOOD ORDERABLES Anva l Result Performing Organization Address City/[facility] Co de Phone Number HISTORICAL RESULTS from Last 3 Months or Most Recently Relevant to Health Maintenance Insurance MEDICARE ADVANTAGE MEDICARE [facility] MEDICARE ADVANTAGE Advance Directives For more information, please contact: [phone] * Full Code (Latest Code Status on File) Date Activated Date Inactivated Comments 05/23/2023 10:43 PM 05/25/2023 7:39 PM * Full Code Date Activated Date Inactivated Comments 06/16/2020 9:20 AM 06/16/2020 3:35 PM * Full Code Date Activated Date Inactivated Comments 08/10/2019 4:24 AM 08/14/2019 10:24 PM Care Teams Project Structural Engineer Relationship Specialty Start Date End Date Taylor Newby PA [address] [place] [address] PCP - General Physician Transcription Typist 01/17/23
--- OUTSIDE RECORDS SUMMARY | 2025-03-21 20:50 | XMS_ITS | Encounter Summary ---
Author Organization [facility] Healthcare Address [address] [place] [address] Care Team Providers Care Director Of Preclinical Research Name Role Phone Reggie Kimbrough MD Unavailable [phone] Mike Monsivais MD Unavailable [phone] Mynor Biswas MD Unavailable [phone] Clementina Polo MD Unavailable Martina Yanez Primary Care Provider [phone] Jorge Maravilla MD Primary Care Provider [phone] Taylor Newby Primary Care Provider Kieran Massey MD Unavailable [phone] Reason for Visit * Reason Onset Date Comments Scheduling Appointments 03/19/2020 Called f or DEXA appointment, No answer Encounter Details Date Type Department Care Team (Late st Contact Info) Description 03/19/2020 Telephone [facility] [address] [place] [address] Jackie Tong RT Scheduling Appointments (Called for [...] on file Legal Sex Female 7:20 PM DOCUMENT CONTROL SUPERVISOR Gender Identity Not on file Sexual Orientation [...] result. 07/03/2020 07/03/2020 07/17/2020 3:0 6 AM DOCUMENT CONTROL SUPERVISOR COVID: Suspected 11/05/2020 11/06/2020 11/06/2020 11:21 PM DOCUMENT CONTROL SUPERVISOR COVID: Suspected 05/21/2021 05/22/2021 05/22/2021 6:46 PM CDT COVID: Suspected 08/20/2021 08/20/2021 08/20/2021 8:02 PM DOCUMENT CONTROL SUPERVISOR documented as of this encounter Care Teams Director Of Preclinical Research Relationship Specialty Start Date End Date Martina Yanez PA [address] [place] [address] PCP - General Internal Medicine 12/05/19 10/18/21 Jorge Maravilla MD [address] [place] [address] PCP - General Internal Medicine 10/19/21 01/16/23 Taylor Newby PA [address] [place] [address] PCP - General Physician Education Rn 01/17/23 [place] [address] [place] [address] Consulting Physician Pain Management 01/12/18 09/26/24 Mike Monsivais MD [address] [facility] [address] [place] [address] Consulting Physician Rheumatology 05/11/18 09/26/24 [place] [address] [facility] [address] [place] [address] Consulting Physician Ophthalmology 08/12/18 09/26/24 [place] [address] [facility] [address] [place] [address] Consulting Physician Obstetrics and Gynecology 10/09/19 09/26/24 Kieran Massey MD [address] [place] [address] Consulting Physician Internal Medicine 05/25/23 5 documented as of this encounter
== END 2025-03-21 21:25 | disposition home or self-care (01) ==
LOC: CHSED 20:47
PROVIDERS: Emergency Provider Emergency Medicine
DX: L02.211 Cutaneous abscess of abdominal wall (principal); I10 Essential (primary) hypertension; Z86.711 Personal history of pulmonary embolism; Z86.73 Personal history of transient ischemic attack (TIA), and cerebral infarction without residual deficits; Z87.891 Personal history of nicotine dependence
CPT/HCPCS: 96372; 99283; A9270; J0696; J2003

== ENCOUNTER 2025-03-25 08:22 | Outpatient (CLI) | payer MEDICARE, SELFPAY ==
--- NOTE | ~2025-03-25 | US_ITS ---
US soft tissue abdomen Ordering provider: Radha Sibley History: . A CONTUSION OF THE ABDOMINAL WALL DURING AN INITIAL ENCOUNTE . TECHNIQUE: Ultrasound for the area of concern in the left lower abdomen is done Comparison: February 07, 2025 FINDINGS/impression: 7.2 x 6 x 3 cm hyperechoic area with fluid pockets suggestive of a hematoma with areas of liquefactio n. Follow-up advised. Reviewed, dictated and finalized at location A.
--- OUTSIDE RECORDS SUMMARY | 2025-03-25 08:28 | XMS_ITS | Encounter Summary ---
Author Organization [facility] Healthcare Address [address] [place] [address] Care Team Providers Care International Project Manager Name Role Phone Reggie Kimbrough MD Unavailable [phone] Mike Monsivais MD Unavailable [phone] Mynor Biswas MD Unavailable [phone] Clementina Polo MD Unavailable Martina Yanez Primary Care Provider [phone] Jorge Maravilla MD Primary Care Provider [phone] Taylor Newby Primary Care Provider Kieran Massey MD Unavailable [phone] Reason for Visit * Reason Onset Date Comments Scheduling Appointments 03/19/2020 Called f or DEXA appointment, No answer Encounter Details Date Type Department Care Team (Late st Contact Info) Description 03/19/2020 Telephone [facility] [address] [place] [id number] Jackie Tong RT Scheduling Appointments (Called for [...] on file Legal Sex Female 7:20 PM BUSINESS RULES ANALYST Gender Identity Not on file Sexual [...] result. 07/03/2020 07/03/2020 07/17/2020 3:0 6 AM BUSINESS RULES ANALYST COVID: Suspected 11/05/2020 11/06/2020 11/06/2020 11:21 PM BUSINESS RULES ANALYST COVID: Suspected 05/21/2021 05/22/2021 05/22/2021 6:46 PM CDT COVID: Suspected 08/20/2021 08/20/2021 08/20/2021 8:02 PM BUSINESS RULES ANALYST documented as of this encounter Care Teams International Project Manager Relationship Specialty Start Date End Date Martina Yanez PA [address] [place] [address] PCP - General Internal Medicine 12/05/19 10/18/21 Jorge Maravilla MD [address] [place] [address] PCP - General Internal Medicine 10/19/21 01/16/23 Taylor Newby PA [address] [place] [id number] PCP - General Physician Christmas Tree Farm Worker 01/17/23 [place] [address] [place] [address] Consulting Physician Pain Management 01/12/18 09/26/24 Mike Monsivais MD [address] [place] [address] Consulting Physician Rheumatology 05/11/18 09/26/24 [place] [address] [facility] [address] [place] [address] Consulting Physician Ophthalmology 08/12/18 09/26/24 [place] [address] [facility] [address] [place] [address] Consulting Physician Obstetrics and Gynecology 10/09/19 09/26/24 Kieran Massey MD [address] [place] [address] Consulting Physician Internal Medicine 05/25/23 5 documented as of this encounter
--- OUTSIDE RECORDS SUMMARY | 2025-03-25 08:28 | XMS_ITS | Clinical Summary ---
Author Organization [facility] Address [address] [place] [id number] Care Team Providers Care Consulting Technical Manager Name Role Phone Taylor Newby Primary [...] 08/08/2021 Assessment & Plan (08/08/2021 7:58 PM GROUND OPERATIONS CREW MEMBER): Patient was persistent cervical thoracic and lumbar back pain. She also has rheumatoid on symptoms. She has not been responding to those medicines only. Breakfast Manager is concerned something else may be [...] 08/08/2021 Assessment & Plan (08/08/2021 7:58 PM GROUND OPERATIONS CREW MEMBER): Patient was persistent cervical thoracic and lumbar back pain. She also has rheumatoid on symptoms. She has not been responding to those medicines only. Breakfast Manager is concerned something else may be [...] 08/08/2021 Assessment & Plan (08/08/2021 7:59 PM GROUND OPERATIONS CREW MEMBER): Patient was persistent cervical thoracic and lumbar back pain. She also has rheumatoid on symptoms. She has not been responding to those medicines only. Breakfast Manager is concerned something else may be [...] 08/08/2021 Assessment & Plan (08/08/2021 7:58 PM GROUND OPERATIONS CREW MEMBER): Check hip x-rays and start physical therapy. Cigarette smoker 06/06/2021 Rhinorrhea 06/06/2021 Assessment & Plan (06/06/2021 11:30 PM CDT): Patient to presume positive COVID until results are available and self isolate for 10 days from the onset of sxs. Check COVID test thru [facility] collection site in [place]. If positive, complete quarantine and consider monoclonal [...] water often. If needed, use a hand science teacher that contains at least 60% alcohol. Clean [...] lotrisone to a clean dry area. Use music department chair after shower. Will also try [...] 11/05/2020 Assessment & Plan (11/05/2020 10:07 AM GROUND OPERATIONS CREW MEMBER): Start antibiotic, antihistamine (Claritin OR Zyrtec), Mucinex 12hour and Steroid nasal spray (Flonase). Push fluids. Rest. Supportive care. If sxs worsen or don\'t improve, pt is to followup in the office. Advised this still could be COVID sxs so will test. See Congestion below Chronic nasal congestion 11/05/2020 Assessment & Plan (11/05/2020 10:08 AM GROUND OPERATIONS CREW MEMBER): Patient to presume positive COVID until results are available and self isolate for 10 days from the onset of sxs. If negative, isolate until on antibiotic x 24hours and fever free x 24 hours without medication. Check COVID test thru [facility] collection site in [place]. Treat sxs with Tylenol, Cough/cold medication otc [...] water often. If needed, use a hand science teacher that contains at least 60% alcohol. Clean [...] (05/21/2020): Added automatically from request for surgery [id number] Hemorrhoid 04/09/2020 Overview (04/09/2020): Added automatically from request for surgery [id number] Assessment & Plan (04/12/2020 9:34 AM CDT): [...] Monsivais Assessment & Plan (08/10/2019 4:56 AM GROUND OPERATIONS CREW MEMBER): Patient states she is on Butrans patch [...] amlodipine Assessment & Plan (08/10/2019 4:44 AM GROUND OPERATIONS CREW MEMBER): Continue Norvasc with hold parameters GERD (gastroesophageal [...] in 2011. Request records from [facility] in [place] to determine clotting factor. Assessment & Plan (03/02/2020 4:12 PM CDT): Encouraged patient to followup with pharmacist as I can not explain why her AC is so much as this is preferred by [facility]. Assessment & Plan (02/05/2020 10:23 PM CDT): History PE in 2011. Request records from [facility] in [place] to determine clotting factor. Assessment & Plan (08/10/2019 4:55 AM GROUND OPERATIONS CREW MEMBER): Continue Xarelto. Patient counseled on the importance [...] cymbalta Assessment & Plan (10/16/2017 3:50 PM GROUND OPERATIONS CREW MEMBER): Plan to refill alprazaolam to Xanax 0.25 [...] Monsivais Assessment & Plan (08/10/2019 4:44 AM GROUND OPERATIONS CREW MEMBER): With mixed connective tissue disorder. Continue with [...] 11/07/2008 Overview (02/05/2020): 2002 - dx at [facility] with spinal tap No current sxs. Resolved Problems Problem Noted Date Diagnosed Date Resolved Date BMI 45.0-49.9, adult 10/15/2020 021 Morbid obesity 10/15/2020 03/05/2021 Assessment & Plan (10/15/2020 7:43 AM GROUND OPERATIONS CREW MEMBER): Obesity is unchanged. Discussed the patient's BMI. [...] 02/05/2020 Assessment & Plan (08/10/2019 4:42 AM GROUND OPERATIONS CREW MEMBER): Suspected. Continue with ceftriaxone and azithromycin. Will order respiratory virus panel to rule out viral infection. Continue to monitor. Asthma exacerbation 08/10/2019 02/05/20 20 Assessment & Plan (08/10/2019 4:43 AM GROUND OPERATIONS CREW MEMBER): With possible undiagnosed COPD. Patient still having [...] 01/12/2018 Assessment & Plan (10/16/2017 3:51 PM GROUND OPERATIONS CREW MEMBER): As above. Mass 10/11/2017 01/12/2018 Assessment & Plan (10/16/2017 3:49 PM GROUND OPERATIONS CREW MEMBER): Plan to obtain CT scan of chest without contrast. Atypical chest pain 08/25/2017 02/05/20 20 Nausea & vomiting 08/25/2017 04/05/2018 Near syncope 08/25/2017 04/05/2018 Carbuncle, thigh 07/01/2017 01/12/2018 Assessment & Plan (07/06/2017 1:35 PM CDT): Plan to start Bactrim DS BID x 10 days. Continue with washing with mild soap. Apply warm compresses Multiple joint pain 02/28/2017 02/05/20 Overview (01/21/2018): Scheduled with [facility] 02/07/18 Assessment & Plan (02/28/2017 1:25 PM CDT): Awaiting lab results today-has appt with Dr. Monsivais this afternoon. ? If related to lupus. Racing heart beat 02/28/2017 04/05/2018 Assessment & Plan (02/28/2017 8:50 PM CDT): Plan to check thyroid profile. Morbid obesity due to excess calories 02/28/2017 04/05/2018 Assessment & Plan (10/16/2017 3:50 PM GROUND OPERATIONS CREW MEMBER): Obesity is unchanged. Discussed the patient's BMI. [...] Depression Assessment & Plan (08/10/2019 4:45 AM GROUND OPERATIONS CREW MEMBER): Continue Zoloft Assessment & Plan (02/28/2017 8:49 [...] Type Department Care Team Description 02/05/2025 Telephone [facility] Oncology [address] [place] [address] Office [facility] [address] [place] [phone] Eduarda Vann, CLT 01/31/2025 Documentation [facility] On[facility] [address] [place] [address] Office [facility] [address] [place] [phone] Mariana Kimbrough, FERNANDA 01/31/2025 Telephone [facility] [address] [place] [address] Office [facility] [address] [place] [phone] Eduarda Vann, CLT 01/22/2025 Documentation [facility] [address] [place] [address] Office [facility] [address] [place] [phone] Mariana Kimbrough, FERNANDA from Last 3 Months [...] History Date Comments Asthma Asthma; Comments : AZChantal 09/30/2014 - Depression Depression Hx Other Medical [...] often do you attend chur ch or adventism services? Never 05/25/2023 Do you belong to any clubs o r organizations such as congregational groups, unions, fraternal or athletic groups, or [...] place to sleep or slept in a long term (including now)? No 05/25/2023 Personal Safety Answer Date Recorded Have you ever been in or are you currently in a harmful physical or emotional relationship or is someone making you feel afraid or unsafe? Denies 12/08/2024 Comments No Sex and Gender Information Value Date Recorded Sex Assigned at Not on file Legal Sex Female 7:20 PM GROUND OPERATIONS CREW MEMBER Gender Identity Not on file Sexual Orientation [...] LAB BLOOD ORDERABLES Final R esult [facility] [address] Department of Laboratories [place] [id number] * Hemoglobin A1c (03/18/2021) SCRIBED Hemoglobin A1c [...] Aguilar MD - 06/16/2020 9:32 AM CDT [facility] Patient Name: Azul Carlson Procedure Date: 06/16/2020 9:32 AM Date of : 1970 Admit Type: Outpatient Age: 50 Gender: Female Attending MD: Caio Aguilar M.D. Room: [facility] ENDOSCOPY ROOM 2 Note Status: Finalized Patient [...] was passed under direct vision. The Colonoscope [id number] was introduced through the anusand advanced to [...] 9:32 AM Procedure Code(s): --- Professional --- 75193, Colonoscopy, flexible; diagnostic, including collection of specimen(s) by brushing or washing, when performed (separateprocedure) Diagnosis Code(s): --- Professional --- K57.30, Diverticulosis of large intestine without perforation orabscess without bleeding Z98.0, Intestinal bypass and anastomosis status K64.9, Unspecified hemorrhoids CPT copyright 2017 [employer]. All rights reserved. The codes documented in this report are preliminary and upon door maker reviewmay be revised to meet current compliance requirements. Recognized by the [employer] for promoting quality in endoscopy us Caio Aguilar MD ENDOSCOPY PROCEDURES Final Re sult * DIAGNOSTIC MAMMOGRAM BILATERAL W BOB (04/01/2016 12:40 PM CDT) Anatomical Region Laterality Modality Breast Bilateral Mammography 04/01/2016 12:4 0 PM CDT Narrative 04/01/2016 4:03 PM CDT Acc#: [id number] [facility] 0031 - Diag Mamm W Bob [...] NEGATIVE TECHNOLOGIST: RADHA PILLAI TECHNOLOGIST MEDICAL IMAGING FAMILY COACH: DD2 TRANSCRIBE DATE/TIME: Apr 01 2016 1:43P RADIOLOGIST: LAURI GREEN M.D. READ ON: Apr 01 2016 1:34P ORDERING DR: ART TEJADA N.P. THIS DOCUMENT HAS BEEN ELECTRONICALLY SIGNED BY: LAURI GREEN M.D. ON: Apr 01 2016 4:03P Attending: ART TEJADA Requesting: ART TEJADA Requesting Attending Attending ID: [id number] Requesting ID: [id number] Report To 1 ID: Report To 1 Name: , Report To 1 FAX: -- Report To 2 ID: Report To 2 Name: , Report To 2 FAX: -- NextGen Order #: Procedure Note Provider, MD Emigdio - 01/04/2017 Acc#: [id number] [facility] 0031 - Diag Mamm W Bob [...] NEGATIVE TECHNOLOGIST: RADHA PILLAI TECHNOLOGIST MEDICAL IMAGING FAMILY COACH: DD2 TRANSCRIBE DATE/TIME: Apr 01 2016 1:43P RADIOLOGIST: LAURI GREEN M.D. READ ON: Apr 01 2016 1:34P ORDERING DR: ART TEJADA N.P. THIS DOCUMENT HAS BEEN ELECTRONICALLY SIGNED BY: LAURI GREEN M.D. ON: Apr 01 2016 4:03P Attending: ART TEJADA Requesting: ART TEJADA Requesting Attending Attending ID: [id number] Requesting ID: [id number] Report To 1 ID: Report To 1 [...] Serum 03/18/2015 4:25 PM CDT Mimi Kelley POULTICE MACHINE OPERATOR LAB BLOOD ORDERABLES Nava l Result Performing Organization Address City/State/[facility] Co de Phone Number HISTORICAL RESULTS from Last 3 Months or Most Recently Relevant to Health Maintenance Insurance [employer] MEDICARE ADVANTAGE MEDICARE [facility] MEDICARE ADVANTAGE [facility] MEDICARE Address: [address] [address] Advance Directives For more information, please contact: [phone] * Full Code (Latest Code Status on File) Date Activated Date Inactivated Comments 05/23/2023 10:43 PM 05/25/2023 7:39 PM * Full Code Date Activated Date Inactivated Comments 06/16/2020 9:20 AM 06/16/2020 3:35 PM * Full Code Date Activated Date Inactivated Comments 08/10/2019 4:24 AM 08/14/2019 10:24 PM Care Teams Consulting Technical Manager Relationship Specialty Start Date End Date Taylor Newby PA [address] [place] [id number] PCP - General Physician Manager Machine 01/17/23
--- OUTSIDE RECORDS SUMMARY | 2025-03-25 08:28 | XMS_ITS | Clinical Summary ---
Author Organization [facility] Address [address] [place] [address] Care Team Providers Care Fretted Instrument Maker Hand Name Role Phone Unavailable Primary Care Provider [...] Abstract 12/26/2024 11:00 AM CDT Office Visit [facility] Bariatrics and General Surgery at the [facility] [address] [facility] [address] [place] [address] Ingrid Vargas MD Morbid obesity with body mass index of 40.0-49.9 (CMS/HCC) (Primary Dx) from Last 3 Months Social History Tobacco [...]
--- OUTSIDE RECORDS SUMMARY | 2025-03-25 08:28 | XMS_ITS | Referral Summary ---
Author Organization [facility] Address [address] [place] [id number] Care Team Providers Care Robotics Application Engineer Name Role Phone Taylor Newby Primary Care Provider Encounters Date Type Department Care Team Description 02/05/[address] [facility] [address] [place] [address] [address] [place] [address] Eduarda Vann, CLT 01/31/[address] [facility] [address] [place] [address] [address] [place] [address] Mariana Kimbrough, FERNANDA 01/31/[address] [facility] [address] [place] [address] [address] [place] [address] Eduarda Vann, CLT 01/22/[address] [facility] [address] [place] [address] [address] [place] [address] Mariana Kimbrough, FERNANDA from Last 3 Months [...] wit h other specified complication, unspecified whether fdc insulin use 06/25/2024 Pulmonary embolism, unspecif ied [...] 08/08/2021 Assessment & Plan (08/08/2021 7:58 PM ARCHIVES SPECIALIST): Patient was persistent cervical thoracic and lumbar back pain. She also has rheumatoid on symptoms. She has not been responding to those medicines only. Quality Assurance/R&D Lab Technician is concerned something else may be come [...] 08/08/2021 Assessment & Plan (08/08/2021 7:58 PM ARCHIVES SPECIALIST): Patient was persistent cervical thoracic and lumbar back pain. She also has rheumatoid on symptoms. She has not been responding to those medicines only. Quality Assurance/R&D Lab Technician is concerned something else may be come [...] 08/08/2021 Assessment & Plan (08/08/2021 7:59 PM ARCHIVES SPECIALIST): Patient was persistent cervical thoracic and lumbar back pain. She also has rheumatoid on symptoms. She has not been responding to those medicines only. Quality Assurance/R&D Lab Technician is concerned something else may be come [...] 08/08/2021 Assessment & Plan (08/08/2021 7:58 PM ARCHIVES SPECIALIST): Check hip x-rays and start physical therapy. Cigarette smoker 06/06/2021 Rhinorrhea 06/06/2021 Assessment & Plan (06/06/2021 11:30 PM CDT): Patient to presume positive COVID until results are available and self isolate for 10 days from the onset of sxs. Check COVID test thru [facility] collection site in [place]. If positive, complete quarantine and consider monoclonal [...] water often. If needed, use a hand singing telegram performer that contains at least 60% alcohol. Clean [...] lotrisone to a clean dry area. Use education department chair after shower. Will also try [...] 11/05/2020 Assessment & Plan (11/05/2020 10:07 AM ARCHIVES SPECIALIST): Start antibiotic, antihistamine (Claritin OR Zyrtec), Mucinex 12hour and Steroid nasal spray (Flonase). Push fluids. Rest. Supportive care. If sxs worsen or don\'t improve, pt is to followup in the office. Advised this still could be COVID sxs so will test. See Congestion below Chronic nasal congestion 11/05/2020 Assessment & Plan (11/05/2020 10:08 AM ARCHIVES SPECIALIST): Patient to presume positive COVID until results are available and self isolate for 10 days from the onset of sxs. If negative, isolate until on antibiotic x 24hours and fever free x 24 hours without medication. Check COVID test thru [facility] collection site in [place]. Treat sxs with Tylenol, Cough/cold medication otc [...] water often. If needed, use a hand singing telegram performer that contains at least 60% alcohol. Clean [...] (05/21/2020): Added automatically from request for surgery [id number] Hemorrhoid 04/09/2020 Overview (04/09/2020): Added automatically from request for surgery [id number] Assessment & Plan (04/12/2020 9:34 AM CDT): [...] Monsivais Assessment & Plan (08/10/2019 4:56 AM ARCHIVES SPECIALIST): Patient states she is on Butrans [...] amlodipine Assessment & Plan (08/10/2019 4:44 AM ARCHIVES SPECIALIST): Continue Norvasc with hold parameters GERD [...] in 2011. Request records from [facility] in [place] to determine clotting factor. Assessment & Plan (03/02/2020 4:12 PM CDT): Encouraged patient to followup with pharmacist as I can not explain why her AC is so much as this is preferred by [facility]. Assessment & Plan (02/05/2020 10:23 PM CDT): History PE in 2011. Request records from [facility] in [place] to determine clotting factor. Assessment & Plan (08/10/2019 4:55 AM ARCHIVES SPECIALIST): Continue Xarelto. Patient counseled on the [...] cymbalta Assessment & Plan (10/16/2017 3:50 PM ARCHIVES SPECIALIST): Plan to refill alprazaolam to Xanax [...] Monsivais Assessment & Plan (08/10/2019 4:44 AM ARCHIVES SPECIALIST): With mixed connective tissue disorder. Continue [...] 11/07/2008 Overview (02/05/2020): 2003 - dx at [facility] with spinal tap No current sxs. Resolved Problems Problem Noted Date Diagnosed Date Resolved Date BMI 45.0-49.9, adult 10/15/2020 021 Morbid obesity 10/15/2020 03/05/2021 Assessment & Plan (10/15/2020 7:43 AM ARCHIVES SPECIALIST): Obesity is unchanged. Discussed the patient's [...] 02/05/2020 Assessment & Plan (08/10/2019 4:42 AM ARCHIVES SPECIALIST): Suspected. Continue with ceftriaxone and azithromycin. Will order respiratory virus panel to rule out viral infection. Continue to monitor. Asthma exacerbation 08/10/2019 02/05/20 20 Assessment & Plan (08/10/2019 4:43 AM ARCHIVES SPECIALIST): With possible undiagnosed COPD. Patient still [...] 01/12/2018 Assessment & Plan (10/16/2017 3:51 PM ARCHIVES SPECIALIST): As above. Mass 10/11/2017 01/12/2018 Assessment & Plan (10/16/2017 3:49 PM ARCHIVES SPECIALIST): Plan to obtain CT scan of [...] 02/28/2017 02/05/20 20 Overview (01/21/2018): Scheduled with [facility] 02/07/18 Assessment & Plan (02/28/2017 1:25 PM CDT): Awaiting lab results today-has appt with Dr. Monsivais this afternoon. ? If related to lupus. Racing heart beat 02/28/2017 04/05/2018 Assessment & Plan (02/28/2017 8:50 PM CDT): Plan to check thyroid profile. Morbid obesity due to excess calories 02/28/2017 04/05/2018 Assessment & Plan (10/16/2017 3:50 PM ARCHIVES SPECIALIST): Obesity is unchanged. Discussed the patient's [...] Depression Assessment & Plan (08/10/2019 4:45 AM ARCHIVES SPECIALIST): Continue Zoloft Assessment & Plan (02/28/2017 8:49 [...] often do you attend chur ch or zoroastrianism services? Never 05/25/2023 Do you belong to any clubs o r organizations such as buddhist groups, unions, fraternal or athletic groups, or [...] place to sleep or slept in a long-term (including now)? No 05/25/2023 Personal Safety Answer Date Recorded Have you ever been in or are you currently in a harmful physical or emotional relationship or is someone making you feel afraid or unsafe? Denies 12/08/2024 Comments No Sex and Gender Information Value Date Recorded Sex Assigned at Not on file Legal Sex Female 7:20 PM ARCHIVES SPECIALIST Gender Identity Not on file Sexual [...] LAB BLOOD ORDERABLES Final R esult [facility] Department [place] [address] * Hemoglobin A1c (03/18/2021) SCRIBED Hemoglobin A1c [...] Aguilar MD - 06/16/2020 9:[address] [facility] Patient Name: Azul Carlson Procedure Date: 06/16/2020 9:32 AM Date of : 1970 Admit Type: Outpatient Age: 50 Gender: Female Attending MD: Caio Aguilar M.D. Room: [facility] ENDOSCOPY ROOM 2 Note Status: Finalized Patient [...] was passed under direct vision. The Colonoscope [id number] was introduced through the anusand advanced to [...] 9:32 AM Procedure Code(s): --- Professional --- 94560, Colonoscopy, flexible; diagnostic, including collection of specimen(s) by brushing or washing, when performed (separateprocedure) Diagnosis Code(s): --- Professional --- K57.30, Diverticulosis of large intestine without perforation orabscess without bleeding Z98.0, Intestinal bypass and anastomosis status K64.9, Unspecified hemorrhoids CPT copyright 2017 [employer]. All rights reserved. The codes documented in this report are preliminary and upon aoc aadc operations staff officer reviewmay be revised to meet current compliance requirements. Recognized by the [employer] for promoting quality in endoscopy us Caio Aguilar MD ENDOSCOPY PROCEDURES Final Re sult * DIAGNOSTIC MAMMOGRAM BILATERAL W BOB (04/01/2016 12:40 PM CDT) Anatomical Region Laterality Modality Breast Bilateral Mammography 04/01/2016 12:4 0 PM CDT Narrative 04/01/2016 4:03 PM CDT Acc#: [id number] [facility] [id number] - Diag Mamm W Bob [...] NEGATIVE TECHNOLOGIST: RADHA PILLAI, TECHNOLOGIST MEDICAL IMAGING INTERNET DATABASE SPECIALIST: SUNI TRANSCRIBE DATE/TIME: Apr 01 2016 1:43P RADIOLOGIST: LAURI GREEN M.D. READ ON: Apr 01 2016 1:34P ORDERING DR: ART TEJADA N.P. THIS DOCUMENT HAS BEEN ELECTRONICALLY SIGNED BY: LAURI GREEN M.D. ON: Apr 01 2016 4:03P Attending: ART TEJADA Requesting: ART TEJADA Requesting Attending Attending ID: [id number] Requesting ID: [id number] Report To 1 ID: Report To 1 Name: , Report To 1 FAX: -- Report To 2 ID: Report To 2 Name: , Report To 2 FAX: -- NextGen Order #: Procedure Note Provider, MD Emigdio - 01/04/2017 Acc#: [id number] [facility] [id number] - Diag Mamm W Bob [...] NEGATIVE TECHNOLOGIST: RADHA PILLAI, TECHNOLOGIST MEDICAL IMAGING INTERNET DATABASE SPECIALIST: DDMariya TRANSCRIBE DATE/TIME: Apr 01 2016 1:43P RADIOLOGIST: LAURI GREEN M.D. READ ON: Apr 01 2016 1:34P ORDERING DR: ART TEJADA N.P. THIS DOCUMENT HAS BEEN ELECTRONICALLY SIGNED BY: LAURI GREEN M.D. ON: Apr 01 2016 4:03P Attending: ART TEJADA Requesting: ART TEJADA Requesting Attending Attending ID: [id number] Requesting ID: [id number] Report To 1 ID: Report To 1 [...] ORDERABLES Nava l Result Performing Organization Address City/[facility] Co de Phone Number HISTORICAL RESULTS from Last 3 Months or Most Recently Relevant to Health Maintenance Insurance MEDICARE ADVANTAGE MEDICARE [facility] MEDICARE ADVANTAGE Advance Directives For more information, please contact: [phone] * Full Code (Latest Code Status on File) Date Activated Date Inactivated Comments 05/23/2023 10:43 PM 05/25/2023 7:39 PM * Full Code Date Activated Date Inactivated Comments 06/16/2020 9:20 AM 06/16/2020 3:35 PM * Full Code Date Activated Date Inactivated Comments 08/10/2019 4:24 AM 08/14/2019 10:24 PM Care Teams Robotics Application Engineer Relationship Specialty Start Date End Date Taylor Newby PA [address] [place] [address] PCP - General Physician Customer Relations Specialist 01/17/23
== END 2025-03-25 08:23 | disposition home or self-care (01) ==
LOC: CHSIMG 08:24
DX: S30.1XXA Contusion of abdominal wall, initial encounter (principal)
CPT/HCPCS: 76705

== ENCOUNTER 2025-04-29 18:04 | Outpatient (CLI) | payer MEDICARE, SELFPAY ==
--- OUTSIDE RECORDS SUMMARY | 2025-04-29 18:10 | XMS_ITS | Continuity of Care Document ---
Author Organization [facility] Address [address] [place] [address] Phone Care Team Providers Care Director Of Sports Performance Name Role Phone Neeraj Dominguez MD Unavailable [...] Diagnoses Date Provider Providers Copied on [facility], [address], [place], [place], [id number] , tel:[phone] [facility] No Information 5 Angelica Pickard. [facility] [place], [place], [facility], [place]. tel:[phone] Referring Provider: Melva Alcaraz, [address], [place], [address]. tel:[phone] [employer], [address], [place], [place], [id number] , tel:[phone] [facility] HemorrhoidsAbdomi nal painPortal hypertension 5 Angelica Pickard. [address] [place] [address], [facility], [place]. tel:[phone] Referring Provider: Neeraj Dominguez, [facility] [place], [place], [facility]. tel:[phone] [employer], [address], [place], [place], [id number] , tel:[phone] [facility] Left lower quadrant painDiarrheaDiver ticulitis 5 Erika Delaney. [address], [address], [place], [address], [place]. tel:[phone] Referring Provider: Sariah Mar, [address] [place], [address]. tel:[phone] [employer], [address], [place], [place], [id number] , [phone] [facility] Abdominal pain (chief complaint) DiverticulitisRhe umatoid arthritis 4 Dominguez Neeraj. [facility] [place], [place], [facility], [place]. tel:[phone] Referring Provider: Neeraj Dominguez, [facility] [place], [address]. tel:[phone] Family History Family Member Type Diagnosis Age At Onset No Information Payers Payer name Insurance type Covered republican ID Authorashley griffith(s) [facility] [id number] MEDICARE [place] [id number] Social History Type Description Quantity Date Captured [...] in 3- 4 weeks. had coilon resection [facility] 2009, 8 inches removed. well til 6 months later. had diverticulitis on CT, got antibiotics. pain better. occ diarrhea and contstipation. had had antibiotics 4 times in past [address] abd pelvis last week negative, [facility] in [place]. CBC normal. Got antibiotics. Functional Status Date [...]
--- OUTSIDE RECORDS SUMMARY | 2025-04-29 18:10 | XMS_ITS | Clinical Summary ---
Author Organization [facility] Address [address] [place] [id number] Care Team Providers Care Ophthalmology Surgical Technician Name Role Phone Taylor Newby Primary Care [...] Take 1 tablet by mouth daily Active budesonide-formo teroL (SYMBICORT) 80-4.5 mcg/actuation inhaler Inhale 2 puffs 2 (two) times a day 3 Inhaler 2 04/24/20 21 Active albuterol HFA (PROVENTIL HFA,VENTOLIN HFA,PROAIR HFA) 90 mcg/actuation inhaler Inhale 1 puff every 6 (six) hours as needed for wheezing or shortness of breath 01/20/20 23 Active ARIPiprazole (ABILIFY) 5 mg tablet Take 1 tablet (5 mg total) by mouth daily 11/27/19 23 Active OneTouch Ultra Test strip USE TO TEST BLOOD SUGAR DAILY NEEDED WHEN FEELING ILL 01/19/20 23 Active OneTouch Delica Plus Lancet 33 gauge misc USE TO TEST BLOOD SUGAR DAILY NEEDED WHEN FEELING ILL 01/19/20 23 Active metoprolol XL (TOPROL-XL) 25 mg extended release tablet Take 1 tablet (25 mg total) by mouth daily 12/21/19 23 Active busPIRone (BUSPAR) 15 mg tablet Take 2 tablets (30 mg total) by mouth 2 (two) times a day 05/03/20 23 Active buPROPion SR (WELLBUTRIN SR) 100 mg 12 hr tablet Take 1 tablet (100 mg total) by mouth daily 05/02/[address] (VOLTAREN) 50 mg EC tablet Take 1 tablet (50 mg total) by mouth 2 (two) times a day 02/27/20 23 Active omeprazole (PriLOSEC) 20 mg capsule Take 1 capsule (20 mg total) by mouth daily Active methylphenidate ER (METADATE ER) 20 mg CR tabletIndication s:Attention-Defi cit Hyperactivity Disorder Take 1 tablet (20 mg total) by mouth 2 (two) times a day 60 tablet 09/22/19 24 Active lidocaine (LIDODERM) 5 % Place 1 patch on the skin as needed 01/02/20 24 Active lisinopriL (PRINIVIL,ZESTRI L) 5 mg tablet Take 1 tablet (5 mg total) by mouth daily 08/29/20 24 Active rOPINIRole (REQUIP) 1 mg tablet Take 1 tablet (1 mg total) by mouth daily 07/24/20 24 Active Mounjaro 7.5 mg/0.5 mL pen injector INJECT 7.5 MG UNDER THE SKIN EVERY WEEK 09/07/20 24 Active Wakix 17.8 mg tabletIndication s:Narcolepsy without cataplexy(347.00 ) Take two tablets (35.6 mg) by mouth daily upon awakening 60 tablet 10 11/22/19 25 Active enoxaparin (LOVENOX) 120 mg/0.8 mL syringeIndicatio ns:Pulmonary embolism, unspecified chronicity, unspecified pulmonary embolism type, unspecified whether acute cor pulmonale present (HCC) iNJECT 0.8 ML UNDER THE SKIN EVERY 12 HOURS FOR 240 DOSES. Strength:120 mg/0.8ml 0.8 mL 3 12/11/19 25 Active warfarin (COUMADIN) 5 mg tablet Take 1 tablet (5 mg) by mouth daily or as directed by anticoagulation clinic. 30 tablet 2 04/18/20 25 026 Active dextroamphetamin e-amphetamine (ADDERALL) 20 mg tabletIndication s:Narcolepsy without cataplexy(347.00 ) Take 1 tablet (20 mg total) by mouth 2 (two) times a day 60 tablet 04/27/20 25 Active dextroamphetamin e-amphetamine (ADDERALL) 20 mg tabletIndication s:Narcolepsy without cataplexy(347.00 ) Take 1 tablet (20 mg total) by mouth 2 (two) times a day 60 tablet 03/18/20 25 025 Disconti nued(Reo rder) Active Problems Problem Noted Date Diagnosed Date Contusion of multiple sites of left leg, subsequent encounter 12/08/2024 Elevated LFTs 12/08/2024 Decreased GFR 12/08/2024 Ecchymosis 12/07/2024 Type 2 diabetes mellitus wit h other specified complication, unspecified whether termite treater insulin 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 She also has rheumatoid on symptoms. She has not been responding to those medicines only. Informatics Scientist is concerned something else may be come [...] 08/08/2021 Assessment & Plan (08/08/2021 7:58 PM SUPERVISOR [employer]CE ADJUSTMENT): Patient was persistent cervical thoracic and lumbar back pain. She also has rheumatoid on symptoms. She has not been responding to those medicines only. Informatics Scientist is concerned something else may be come [...] 08/08/2021 Assessment & Plan (08/08/2021 7:59 PM SUPERVISOR FORCE ADJUSTMENT): Patient was persistent cervical thoracic and lumbar back pain. She also has rheumatoid on symptoms. She has not been responding to those medicines only. Informatics Scientist is concerned something else may be come [...] 08/08/2021 Assessment & Plan (08/08/2021 7:58 PM SUPERVISOR FORCE ADJUSTMENT): Check hip x-rays and start physical therapy. Cigarette smoker 06/06/2021 Rhinorrhea 06/06/2021 Assessment & Plan (06/06/2021 11:30 PM CDT): Patient to presume positive COVID until results are available and self isolate for 10 days from the onset of sxs. Check COVID test thru [facility] collection site in [place]. If positive, complete quarantine and consider monoclonal [...] water often. If needed, use a hand transit planner that contains at least 60% alcohol. Clean [...] to a clean dry area. Use hair rooting machine operator after shower. Will also try short [...] 11/05/2020 Assessment & Plan (11/05/2020 10:07 AM SUPERVISOR [employer]CE ADJUSTMENT): Start antibiotic, antihistamine (Claritin OR Zyrtec), Mucinex 12hour and Steroid nasal spray (Flonase). Push fluids. Rest. Supportive care. If sxs worsen or don\'t improve, pt is to followup in the office. Advised this still could be COVID sxs so will test. See Congestion below Chronic nasal congestion 11/05/2020 Assessment & Plan (11/05/2020 10:08 AM SUPERVISOR FORCE ADJUSTMENT): Patient to presume positive COVID until results are available and self isolate for 10 days from the onset of sxs. If negative, isolate until on antibiotic x 24hours and fever free x 24 hours without medication. Check COVID test thru [facility] collection site in [place]. Treat sxs with Tylenol, Cough/cold medication otc [...] water often. If needed, use a hand transit planner that contains at least 60% alcohol. Clean [...] (05/21/2020): Added automatically from request for surgery [id number] Hemorrhoid 04/09/2020 Overview (04/09/2020): Added automatically from request for surgery [id number] Assessment & Plan (04/12/2020 9:34 AM CDT): [...] Monsivais Assessment & Plan (08/10/2019 4:56 AM SUPERVISOR FORCE ADJUSTMENT): Patient states she is on Butrans patch [...] amlodipine Assessment & Plan (08/10/2019 4:44 AM SUPERVISOR FORCE ADJUSTMENT): Continue Norvasc with hold parameters GERD (gastroesophageal [...] in 2011. Request records from [facility] in [place] to determine clotting factor. Assessment & Plan (03/02/2020 4:12 PM CDT): Encouraged patient to followup with pharmacist as I can not explain why her AC is so much as this is preferred by [facility]. Assessment & Plan (02/05/2020 10:23 PM CDT): History PE in 2011. Request records from [facility] in [place] to determine clotting factor. Assessment & Plan (08/10/2019 4:55 AM SUPERVISOR FORCE ADJUSTMENT): Continue Xarelto. Patient counseled on the importance [...] cymbalta Assessment & Plan (10/16/2017 3:50 PM SUPERVISOR FORCE ADJUSTMENT): Plan to refill alprazaolam to Xanax 0.25 [...] Monsivais Assessment & Plan (08/10/2019 4:44 AM SUPERVISOR FORCE ADJUSTMENT): With mixed connective tissue disorder. Continue with [...] 11/07/2008 Overview (02/05/2020): 2003 - dx at [facility] with spinal tap No current sxs. Resolved Problems Problem Noted Date Diagnosed Date Resolved Date BMI 45.0-49.9, adult 10/15/2020 021 Morbid obesity 10/15/2020 03/05/2021 Assessment & Plan (10/15/2020 7:43 AM SUPERVISOR FORCE ADJUSTMENT): Obesity is unchanged. Discussed the patient's BMI. [...] 02/05/2020 Assessment & Plan (08/10/2019 4:42 AM SUPERVISOR FORCE ADJUSTMENT): Suspected. Continue with ceftriaxone and azithromycin. Will order respiratory virus panel to rule out viral infection. Continue to monitor. Asthma exacerbation 08/10/2019 02/05/20 20 Assessment & Plan (08/10/2019 4:43 AM SUPERVISOR FORCE ADJUSTMENT): With possible undiagnosed COPD. Patient still having [...] 01/12/2018 Assessment & Plan (10/16/2017 3:51 PM SUPERVISOR FORCE ADJUSTMENT): As above. Mass 10/11/2017 01/12/2018 Assessment & Plan (10/16/2017 3:49 PM SUPERVISOR FORCE ADJUSTMENT): Plan to obtain CT scan of chest [...] 02/05/20 Overview (01/21/2018): Scheduled with [facility] 02/07/18 Assessment & Plan (02/28/2017 1:25 PM CDT): Awaiting lab results today-has appt with Dr. Monsivais this afternoon. ? If related to lupus. Racing heart beat 02/28/2017 04/05/2018 Assessment & Plan (02/28/2017 8:50 PM CDT): Plan to check thyroid profile. Morbid obesity due to excess calories 02/28/2017 04/05/2018 Assessment & Plan (10/16/2017 3:50 PM SUPERVISOR FORCE ADJUSTMENT): Obesity is unchanged. Discussed the patient's BMI. [...] Depression Assessment & Plan (08/10/2019 4:45 AM SUPERVISOR FORCE ADJUSTMENT): Continue Zoloft Assessment & Plan (02/28/2017 8:49 [...] Encounters Date Type Department Care Team Description 04/26/2025 Orders Only [facility] [address] [place] [address] [address] [place] [address] Raleigh Mcguire MD Chronic anticoagulation (Primary Dx); Recurrent pulmonary embolism (HCC) 04/25/2025 Orders Only [facility] [address] [place] [address] [address] [place] [address] Raleigh Mcguire MD Recurrent pulmonary emboli (HCC) (Primary Dx); long term (current) use of anticoagulants; Chronic anticoagulation 04/23/2025 12:00 PM CDT Lab [address] [place] [address] Pulmonary embolism, unspecified chronicity, unspecified pulmonary embolism type, unspecified whether acute cor pulmonale present (HCC) 04/22/2025 Orders Only [facility] [address] [place] [address] [address] [place] [address] Raleigh Mcguire MD Pulmonary embolism, unspecified chronicity, unspecified pulmonary embolism type, unspecified whether acute cor pulmonale present (HCC) (Primary Dx) 04/18/2025 2:15 PM CDT Office Visit [facility] [address] [place] [address] [address] [place] [address] Jhoana Breg NP Pulmonary embolism, unspecified chronicity, unspecified pulmonary embolism type, unspecified whether acute cor pulmonale present (HCC) (Primary Dx) 04/18/2025 1:45 PM CDT Lab [address] [place] [address] Pulmonary embolism, unspecified chronicity, unspecified pulmonary embolism type, unspecified whether acute cor pulmonale present (HCC) 04/18/[address] [place] [address] Jhoana Berg, MACHO 02/05/2025 Telephone [facility] [address] [place] [address] Office [facility] [address] [place] [address] Eduarda Vann, CLT 01/31/2025 Documentation [facility] [address] [place] [address] Office [facility] [address] [place] [address] Mariana Kimbrough RN 01/31/[address] [place] [address] Eduarda Vann, CLT from Last 3 Months Immunizations Immunization Administration [...] History Date Comments Asthma Asthma; Comments : KSA 09/30/2014 - Depression Depression Hx Other Medical [...] steatosis Hypertension Anxiety Narcolepsy 06/2020 Pulmonary embolism Pulmonary embolism Family History Medical History Relation Name Comments [...] e alcohol) Very rarely Social Connection and Isolation Panel Answer Date Recorded In a typical week, how many times do you talk on the phone with family, friends, or neighbors? More than three times a week 05/25/2023 How often do you get togethe r with friends or relatives? More than three times a week 05/25/2023 How often do you attend chur or scientology services? Never 05/25/2023 Do you belong to any clubs o r organizations such as christianity groups, unions, fraternal or athletic groups, or [...] place to sleep or slept in a snf (including now)? No 05/25/2023 Personal Safety Answer Date Recorded Have you ever been in or are you currently in a harmful physical or emotional relationship or is someone making you feel afraid or unsafe? Denies 12/08/2024 Comments No Sex and Gender Information Value Date Recorded Sex Assigned at Not on file Legal Sex Female 7:20 PM SUPERVISOR FORCE ADJUSTMENT Gender Identity Not on file Sexual Orientation [...] Sign Reading Time Taken Comments Blood Pressure 128/73 04/23/2025 12:01 PM CDT Pulse 80 04/23/2025 12:01 PM CDT Temperature 36.3 C (97.4 F) 04/23/2025 12:01 PM CDT Respiratory Rate 20 04/23/2025 12:0 1 PM CDT Oxygen Saturation 97% 04/23/2025 12: 01 PM CDT Inhaled Oxygen Concentration - - Weight 123.6 kg (272 lb 6.4 oz) 025 12:01 PM CDT Height 170.2 cm (5' 7) 04/18/2025 1:55 PM CDT Body Mass Index 42.66 04/18/2025 1:55 PM CDT Plan of Treatment Health Maintenance Due Date Last Done Comments Albumin Creatinine Ratio, Urine 1968 Dilated Eye Exam 1968 Foot Exam 1968 DTaP/Tdap/Td Vaccine (1 - Tdap) 1979 Hepatitis B Screening 1986 Breast Cancer Screening-Mammogram 04/01/2018 016 Zoster Vaccine (1 of 2) 2018 Hemoglobin [...] Cancer Screening-Colonoscopy 06/16/2025 06/16/2020, 12/13/2017, 07/28/2015 eGFR 04/18/2026 04/18/2025, 11/11, 06/25/2024, Additional history exists Hepatitis C Screening Completed 03/18/2015, 014 Colon Cancer Screening-CT Colonography Discontinued 06/16/2020, 12/13/2017, 07/28/2015 Colon Cancer Screening-DNA Stool Discontinued 06/16/2020, 12/13/2017, 07/28/2015 Colon Cancer Screening-FIT Discontinued 06/16, 12/13/2017, 07/28/2015 Colon Cancer Screening-Sigmoidoscopy Discontinued 06/16/2020, 12/13/2017, 07/28/2015 Procedures Procedure Name Priority Date/Time Associated Diagnosis Comments PROTIME-INR Routine 04/23/2025 12:05 PM CDT Pulmonary embolism, unspecified chronicity, unspecified pulmonary embolism type, unspecified whether acute cor pulmonale present (HCC) EGFR Routine 04/18/2025 1:45 PM CDT Pulmonary embolism, unspecified chronicity, unspecified pulmonary embolism type, unspecified whether acute cor pulmonale present (HCC) DIFFERENTIAL AUTO Routine 04/18/2025 1:4 5 PM CDT Pulmonary embolism, unspecified chronicity, unspecified pulmonary embolism type, unspecified whether acute cor pulmonale present (HCC) CBC WITH AUTO DIFFERENTIAL Routine 04/18/2025 1:45 PM CDT Pulmonary embolism, unspecified chronicity, unspecified pulmonary embolism type, unspecified whether acute cor pulmonale present (HCC) COMPREHENSIVE METABOLIC PANEL Routine 04/18/2025 1:45 PM CDT Pulmonary embolism, unspecified chronicity, unspecified pulmonary embolism type, unspecified whether acute cor pulmonale present (HCC) HEMOGLOBIN A1C Routine 03/18/2021 Hyperglycemia LIPID PANEL Routine 03/18/2021 Mixed hyperlipidemia COLONOSCOPY 06/16/2020 9:32 AM CDT DIAGNOSTIC MAMMOGRAM BILATERAL W BOB Routine 04/01/2016 12:40 PM CDT SERUM HEPATITIS PANEL Routine 03/18/2015 4:25 PM CDT from Last 3 Months or Most Recently Relevant to Health Maintenance Results * (ABNORMAL) Protime-INR (04/23/2025 12:05 PM CDT) PT 14.8(H) 10.2 - 13.5 sec [facility] ([place]) Comment:Testing performed by : [facility], [place], [address] INR 1.32(H) 0.90 - 1.20 [facility] SOL[facility] ([place]) Comment: Interpretive data Oral anticoagulant therapeutic ranges: Venous thromboembolism prophylaxis or treatment: 2.0-3.0 CARDIOLOGY Standard range: 2.0-3.0 High-intensity range: 2.5-3.5 Refer to indication-specific guidelines for appropriate target ranges for prosthetic heart valve replacement. Current interpretive data was last revised on 2019. Testing performed by: [facility], [facility], [place], [address] Blood 04/23/2025 12:0 5 PM CDT 04/23/2025 12:42 PM CDT Narrative [facility] ([place]) - 04/23/2025 1:06 PM CDT Starting on 04/22, 04/24, 04/26, 04/29, 05/02, us Jhoana Berg NP LAB BLOOD ORDERABLES Final Result [facility] ([place]) 1 [facility] Department [place] [address] * eGFR (04/18/2025 1:45 PM CDT) eGFR 72 >=60 mL/min/1. 73 m2 Comment: Interpretive Data [...] Current interpretive data was last reviewed 2021. Testing performed by: [facility], [facility], [place], [address] Blood 04/18/2025 1:45 PM CDT 04/18/2025 2:02 PM CDT us Raleigh Mcguire MD LAB BLOOD ORDERABLES Nava petersen Result [facility] ([place]) 1 [facility] Department [place] [address] * Differential, auto (04/18/2025 1:45 PM CDT) Neutrophil abs 2.35 1.50 - 6.50 K/cumm [facility] ([place]) Comment:Testing performed by : [facility] [address], Medical Office [facility] [address], [place] [address] Imm gran abs 0.01 0.00 - 0.10 K/cumm [facility] ([place]) Comment:Testing performed by : [facility] [address], Medical Office [facility] [address], [place] [address] Lymphocyte abs 1.30 0.80 - 3.30 K/cumm [facility] ([place]) Comment:Testing performed by : [facility] [address], Medical Office [address], [place] [address] Monocyte abs 0.42 0.20 - 0.80 K/cumm [facility] ([place]) Comment:Testing performed by : [facility] [address], Medical Office [facility] [address], [place] [address] Eosinophil abs 0.16 0.00 - 0.50 K/cumm [facility] ([place]) Comment:Testing performed by : [facility] [address], Medical Office [facility] [address], [place] [address] Basophil abs 0.04 0.00 - 0.10 K/cumm [facility] ([place]) Comment:Testing performed by : [facility] [address], Medical Office [facility] [address], [place] [address] Neutrophil pct 55.0 % [facility] ([place]) Comment: Interpretive Data Percent cell count reference ranges are not reported, since discordance with absolute values may lead to misinterpretation of CBC data. Current Interpretive Data was last revised on 2022. Testing performed by: [facility] [address], Medical Office [facility] [address], [place] [address] Imm gran pct 0.2 % [facility] ([place]) Comment: Interpretive Data Percent cell count reference ranges are not reported, since discordance with absolute values may lead to misinterpretation of CBC data. Current Interpretive Data was last revised on 2022. Testing performed by: [facility] [address], Medical Office [facility] [address], [place] [address] Lymphocyte pct 30.4 % [facility] ([place]) Comment: Interpretive Data Percent cell count reference ranges are not reported, since discordance with absolute values may lead to misinterpretation of CBC data. Current Interpretive Data was last revised on 2022. Testing performed by: [facility] [address], Medical Office [facility] [address], [place] [address] Monocyte pct 9.8 % [facility] ([place]) Comment: Interpretive Data Percent cell count reference ranges are not reported, since discordance with absolute values may lead to misinterpretation of CBC data. Current Interpretive Data was last revised on 2022. Testing performed by: [facility] [address], Medical Office [facility] [address], [place] [address] Eosinophil pct 3.7 % [facility] ([place]) Comment: Interpretive Data Percent cell count reference ranges are not reported, since discordance with absolute values may lead to misinterpretation of CBC data. Current Interpretive Data was last revised on 2022. Testing performed by: [facility] [address], Medical Office [facility] [address], [place] [address] Basophil pct 0.9 % [facility] ([place]) Comment: Interpretive Data Percent cell count reference ranges are not reported, since discordance with absolute values may lead to misinterpretation of CBC data. Current Interpretive Data was last revised on 2022. Testing performed by: [facility] [address], Medical Office [facility] [address], [place] [address] Blood 04/18/2025 1:45 PM CDT 04/18/2025 1:48 PM CDT Raleigh Mcguire MD LAB BLOOD ORDERABLES Nava l Result [facility] ([place]) 1 [facility] [place] [address] * CBC with auto differential (04/18/2025 1:45 PM CDT) WBC 4.28 3.80 - 9.90 K/cumm [facility] ([place]) Comment:Testing performed by : [facility] [address], Medical Office [facility] [address], [place] [address] Hgb 13.7 11.9 - 15.5 g/dL [facility] ([place]) Comment:Testing performed by : [facility] [address], Medical Office [facility] [address], [place] [address] Hct 40.9 35.6 - 45.5 % [facility] ([place]) Comment:Testing performed by : [facility] [address], Medical Office [facility] [address], [place] [address] Plt 202 150 - 400 K/cumm [facility] ([place]) Comment:Testing performed by : [facility] [address], Medical Office [facility] [address], [place] [address] MPV 9.7 9.1 - 12.3 fL [facility] ([place]) Comment:Testing performed by : [facility] [address], Medical Office [facility] [address], [place] [address] RBC 4.34 3.90 - 5.20 M/cumm [facility] ([place]) Comment:Testing performed by : [facility] [address], Medical Office [facility] [address], [place] [address] MCV 94.2 81.3 - 96.4 fL [facility] ([place]) Comment:Testing performed by : [facility] [address], Medical Office [facility] [address], [place] [address] MCH 31.6 27.1 - 33.3 pg [facility] ([place]) Comment:Testing performed by : [facility] [address], Medical Office [facility] [address], [place] [address] MCHC 33.5 32.3 - 35.7 g/dL [facility] ([place]) Comment:Testing performed by : [facility] [address], Medical Office [facility] [address], [place] [address] RDW CV 13.1 11.1 - 14.9 % [facility] ([place]) Comment:Testing performed by : [facility] [address], Medical Office [facility] [address], [place] [address] RDW SD 46.5 35.7 - 48.1 fL [facility] ([place]) Comment:Testing performed by : [facility] [address], Medical Office [facility] [address], [place] [address] Blood 04/18/2025 1:45 PM CDT 04/18/2025 1:48 PM CDT us Raleigh Mcguire MD LAB BLOOD ORDERABLES Nava petersen Result [facility] ([place]) 1 [facility] [place] [address] * (ABNORMAL) Comprehensive metabolic panel (04/18/2025 1:45 PM CDT) Sodium 143 135 - 145 mmol/L [facility] ([place]) Potassium, pl 4.4 3.3 - 4.9 mmol/L [facility] ([place]) Chloride 108 97 - 110 mmol/L [facility] ([place]) CO2 27 22 - 32 mmol/L [facility] ([place]) Anion gap 8 2 - 15 mmol/L [facility] ([place]) BUN 15 6 - 25 mg/dL [facility] ([place]) Creatinine 0.93 0.60 - 1.10 mg/dL [facility] ([place]) Glucose 112 70 - 199 mg/dL [facility] ([place]) [...] interpretive data was last revised 2022. Calcium 9.7 8.5 - 10.3 mg/dL [facility] ([place]) Bilirubin, total 0.4 0.1 - 1.2 mg/dL [facility] ([place]) Protein, pl 6.3(L) 6.5 - 8.5 g/dL [facility] ([place]) Albumin 3.6 3.5 - 5.0 g/dL [facility] ([place]) Alk phos 105 40 - 130 Units/L [facility] ([place]) ALT 40 7 - 45 Units/L [facility] ([place]) AST 30 10 - 45 Units/L [facility] ([place]) Blood 04/18/2025 1:45 PM CDT 04/18/2025 2:02 PM CDT us Raleigh Mcguire MD LAB BLOOD ORDERABLES Nava petersen Result [facility] ([place]) 1 [facility] Department [place] [address] * Hemoglobin A1c (03/18/2021) SCRIBED Hemoglobin A1c 5.4 <5.7 [facility] Blood specimen (specimen) 03/18/2021 Martina LOWERY LAB BLOOD ORDERABLES Final Result Performing Organization Address [facility] de Phone Number [facility] * Lipid panel (03/18/2021) SCRIBED Cholesterol, Total 136 0 - 200 [facility] SCRIBED HDL 69 0 [facility] SCRIBED LDL 50 0 [facility] SCRIBED Triglycerides 77 <150 [facility] Blood specimen (specimen) 03/18/2021 Martina LOWERY LAB BLOOD ORDERABLES Final Result Performing Organization Address [facility] [place] [facility] de Phone Number [facility] * COLONOSCOPY (06/16/2020 9:32 AM CDT) Anatomical Region Laterality Modality Other Narrative Procedure Note Caio Aguilar MD - 06/16/2020 9:32 AM CDT [facility] Patient Name: Azul Carlson Procedure Date: 06/16/2020 9:32 AM Date of : 1970 Admit Type: Outpatient Age: 50 Gender: Female Attending MD: Caio Aguilar M.D. Room: [facility] ENDOSCOPY ROOM 2 Note Status: Finalized Patient [...] was passed under direct vision. The Colonoscope [id number] was introduced through the anusand advanced to [...] 9:32 AM Procedure Code(s): --- Professional --- 93465, Colonoscopy, flexible; diagnostic, including collection of specimen(s) by brushing or washing, when performed (separateprocedure) Diagnosis Code(s): --- Professional --- K57.30, Diverticulosis of large intestine without perforation orabscess without bleeding Z98.0, Intestinal bypass and anastomosis status K64.9, Unspecified hemorrhoids CPT copyright 2017 [employer]. All rights reserved. The codes documented in this report are preliminary and upon clinical coder reviewmay be revised to meet current compliance requirements. Recognized by the [employer] for promoting quality in endoscopy us Caio Aguilar MD ENDOSCOPY PROCEDURES Final Re sult * DIAGNOSTIC MAMMOGRAM BILATERAL W BOB (04/01/2016 12:40 PM CDT) Anatomical Region Laterality Modality Breast Bilateral Mammography 04/01/2016 12:4 0 PM CDT Narrative 04/01/2016 4:03 PM CDT Acc#: [id number] [facility] 0031 - Diag Mamm W Bob [...] NEGATIVE TECHNOLOGIST: RADHA PILLAI TECHNOLOGIST MEDICAL IMAGING GILL BOX TENDER: DD2 TRANSCRIBE DATE/TIME: Apr 01 2016 1:43P RADIOLOGIST: LAURI GREEN M.D. READ ON: Apr 01 2016 1:34P ORDERING DR: ART TEJADA N.P. THIS DOCUMENT HAS BEEN ELECTRONICALLY SIGNED BY: LAURI GREEN M.D. ON: Apr 01 2016 4:03P Attending: ART TEJADA Requesting: ART TEJADA Requesting Attending Attending ID: [id number] Requesting ID: [id number] Report To 1 ID: Report To 1 Name: , Report To 1 FAX: -- Report To 2 ID: Report To 2 Name: , Report To 2 FAX: -- NextGen Order #: Procedure Note Provider, MD Emigdio - 01/04/2017 Acc#: [id number] [facility] 0031 - Diag Mamm W Bob [...] NEGATIVE TECHNOLOGIST: RADHA PILLAI TECHNOLOGIST MEDICAL IMAGING GILL BOX TENDER: SUNI TRANSCRIBE DATE/TIME: Apr 01 2016 1:43P RADIOLOGIST: LAURI GREEN M.D. READ ON: Apr 01 2016 1:34P ORDERING DR: ART TEJADA N.P. THIS DOCUMENT HAS BEEN ELECTRONICALLY SIGNED BY: LAURI GREEN M.D. ON: Apr 01 2016 4:03P Attending: ART TEJADA Requesting: ART TEJADA Requesting Attending Attending ID: [id number] Requesting ID: [id number] Report To 1 ID: Report To 1 [...] Serum 03/18/2015 4:25 PM CDT Mimi Kelley DYE PADDER OPERATOR LAB BLOOD ORDERABLES Nava l Result HISTORICAL RESULTS from Last 3 Months or Most Recently Relevant to Health Maintenance Insurance [facility] MEDICARE ADVANTAGE MEDICARE UHC MEDICARE ADVANTAGE Advance Directives For more information, please contact: [phone] * Full Code (Latest Code Status on File) Date Activated Date Inactivated Comments 05/23/2023 10:43 PM 05/25/2023 7:39 PM * Full Code Date Activated Date Inactivated Comments 06/16/2020 9:20 AM 06/16/2020 3:35 PM * Full Code Date Activated Date Inactivated Comments 08/10/2019 4:24 AM 08/14/2019 10:24 PM Care Teams Ophthalmology Surgical Technician Relationship Specialty Start Date End Date Taylor Newby PA [address] [place] [id number] PCP - General Physician Nanotechnology Technician 01/17/23
--- OUTSIDE RECORDS SUMMARY | 2025-04-29 18:10 | XMS_ITS | Encounter Summary ---
Author Organization [facility] Healthcare Address [address] [place] [address] Care Team Providers Care Terra Cotta Roofer Name Role Phone Reggie Kimbrough MD Unavailable [phone] Mike Monsivais MD Unavailable [phone] Mynor Biswas MD Unavailable [phone] Clementina Polo MD Unavailable Martina Yanez Primary Care Provider [phone] Jorge Maravilla MD Primary Care Provider [phone] Taylor Newby Primary Care Provider Kieran Massey MD Unavailable [phone] Reason for Visit * Reason Onset Date Comments Scheduling Appointments 03/19/2020 Called f or DEXA appointment, No answer Encounter Details Date Type Department Care Team (Late st Contact Info) Description 03/19/2020 Telephone [facility] [address] [place] [id number] Jackie Tong RT Scheduling Appointments (Called for [...] on file Legal Sex Female 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 07/03/2020 07/03/2020 07/17/2020 3:0 6 AM RECYCLING PROGRAM MANAGER COVID: Suspected 11/05/2020 11/06/2020 11/06/2020 11:21 PM RECYCLING PROGRAM MANAGER COVID: Suspected 05/21/2021 05/22/2021 05/22/2021 6:46 PM CDT COVID: Suspected 08/20/2021 08/20/2021 08/20/2021 8:02 PM RECYCLING PROGRAM MANAGER documented as of this encounter Care Teams Terra Cotta Roofer Relationship Specialty Start Date End Date Martina Yanez PA [address] [place] [address] PCP - General Internal Medicine 12/05/19 10/18/21 Jorge Maravilla MD [address] [place] [address] PCP - General Internal Medicine 10/19/21 01/16/23 Taylor Newby PA [address] [place] [address] PCP - General Physician Hospital Scientist 01/17/23 [place] [address] [place] [address] Consulting Physician Pain Management 01/12/18 09/26/24 Mike Monsivais MD [address] [facility] [address] [place] [address] Consulting Physician Rheumatology 05/11/18 09/26/24 [place] [address] [facility] [address] [place] [address] Consulting Physician Ophthalmology 08/12/18 09/26/24 [place] [address] [facility] [address] [place] [address] Consulting Physician Obstetrics and Gynecology 10/09/19 09/26/24 Kieran Massey MD [address] [place] [address] Consulting Physician Internal Medicine 05/25/23 5 documented as of this encounter
--- OUTSIDE RECORDS SUMMARY | 2025-04-29 18:10 | XMS_ITS | Clinical Summary ---
Author Organization [facility] Address [address] [place] [address] Care Team Providers Care Back Tufter Name Role Phone Unavailable Primary Care Provider [...] Encounters Date Type Department Care Team Description 04/16/2025 External Device Data STL ABSTRACTION Provider, Abstract 03/27/2025 External Device Data [facility] ABSTRACTION Provider, Abstract 03/27/2025 External Device Data [facility] ABSTRACTION Provider, Abstract 03/26/2025 External Device Data [facility] ABSTRACTION Provider, Abstract 02/26/2025 External Device Data [facility] ABSTRACTION Provider, Abstract 01/31/2025 External Device Data STL ABSTRACTION Provider, Abstract 01/30/2025 External Device Data STL ABSTRACTION Provider, Abstract 01/29/2025 External Device Data STL ABSTRACTION Provider, Abstract from Last 3 Months Social History Tobacco [...]
[2025-04-29 18:32] LABS: INR 1.4; Prothrombin Time 15.3 Seconds (9.50-12.1)
== END 2025-04-29 18:05 | disposition home or self-care (01) ==
LOC: CHSLAB 18:07
DX: I26.99 Other pulmonary embolism without acute cor pulmonale (principal); Z79.01 Long term (current) use of anticoagulants
CPT/HCPCS: 36415; 85610

== ENCOUNTER 2025-05-13 07:54 | Outpatient (RCR) | payer MEDICARE, SELFPAY ==
[2025-05-08 10:14] LABS: INR 1.4; Prothrombin Time 14.6 Seconds (9.50-12.1)
[2025-05-10 16:41] LABS: INR 1.5; Prothrombin Time 16.4 Seconds (9.50-12.1)
[2025-05-13 08:28] LABS: INR 1.4; Prothrombin Time 15.4 Seconds (9.50-12.1)
== END 2025-08-06 23:59 | disposition home or self-care (01) ==
LOC: CHSLAB 07:54
DX: I26.99 Other pulmonary embolism without acute cor pulmonale (principal); Z79.01 Long term (current) use of anticoagulants
CPT/HCPCS: 36415; 85610

== ENCOUNTER 2025-06-03 16:43 | Emergency (ER) | payer MEDICARE, SELFPAY ==
--- OUTSIDE RECORDS SUMMARY | 2015-05-28 19:00 | XMS_ITS | Continuity of Care Document ---
Author Organization [facility] Address [address] [place] [address] Phone Care Team Providers Care Carpentry Specialist Name Role Phone Neeraj Dominguez MD Unavailable Unavailable Allergies, Adverse Reactions, Alerts Substance Reaction Status Criticality CYCLOBENZAPRINE HCL Active No Infor mation SUMATRIPTAN SUCCINATE Active No Inf ormation sumatriptan Active No Information Medications Medication Instructions Dosage Effective Dates (start - stop) Status Comments dicyclomine 10 mg capsule take 1 capsule by oral route every 6 hours as needed for abdominal pain - Active ciprofloxacin 500 mg tablet take 1 tablet by oral route every 12 hours 500 MG - Active metronidazole 500 mg tablet take 1 tablet by oral route every 8 hours 500 MG - Active Xarelto 20 mg tablet take 1 tablet by oral route every day with the evening meal 20 MG - Active sulfasalazine 500 mg tablet take 1 tablet by oral route 4 times every day after meals 500 MG - Active Plaquenil 200 mg tablet take 1 tablet by oral route every day 200 MG - Active aspirin 81 mg tablet,delayed release take 1 tablet by oral route every day 81 MG - Active hydrocodone 10 mg-acetaminophen 325 mg tablet take 1 tablet by oral route every 4 - 6 hours as needed for pain 1.00 tablet - Active Abilify 2 mg tablet - Active Advance Directives Directive Yes / No Effective Date File Name No Information Encounters Encounter Description Practice Location Reason(s) For Visit Diagnoses Date Provider Providers Cop[facility] on [facility], [address], [place], [place], [id number] , tel:[phone] [facility] Ne No Information 5 Angelica Pickard. [facility] [place], [facility], [place]. tel:[phone] Referring Provider: Melva Alcaraz, [address], [place], [address]. tel:[phone] [employer], [address], [place], [place], [id number] , tel:[phone] [facility] HemorrhoidsAbdomi nal painPortal hypertension 5 Angelica Pickard. [address] [place] [address], [facility], [place]. tel:[phone] Referring Provider: Neeraj Dominguez, [facility] [place], [facility]. tel:[phone] [employer], [address], [place], [place], [id number] , tel:[phone] [facility] Left lower quadrant painDiarrheaDiver ticulitis 5 Erika Delaney. [address], [place], [address], [place]. tel:[phone] Referring Provider: Sariah Mar, [address] [place], [address]. tel:[phone] [employer], [address], [place], [place], [address] , [phone] [facility] Abdominal pain (chief complaint) DiverticulitisRhe umatoid arthritis 4 Dominguez Neeraj. [facility] [place], [place], [facility], [place]. tel:[phone] Referring Provider: Neeraj Dominguez, [facility] [place], [address]. tel:[phone] Family History Family Member Type Diagnosis Age At Onset No Information Payers Payer name Insurance type Covered alliance party ID Authorashley griffith(s) [facility] [id number] [place] [id number] Social History Type Description Quantity Date Captured Comments Sex Female Smoking Status No Information Chief Complaint And Reason For Visit No Information Reason For Referral Reason For Referral No Information History Of Present Illness Encounter Date Complaint History Of Prese nt Illness Abdominal pain Onset: 4 weeks a go. Severity is 4. Duration is 20 Days. Abdominal pain (comments) LLQ pa in 3- 4 weeks. had coilon resection [facility] 2009, 8 inches removed. well til 6 months later. had diverticulitis on CT, got antibiotics. pain better. occ diarrhea and contstipation. had had antibiotics 4 times in past [address] abd pelvis last week negative, [facility] in [place]. CBC normal. Got antibiotics. Functional Status Date Functional Assessmen t No Information Medications Administered Medication Instructions Dosage Effective Dates (start - stop) Status Comments No Drug Therapy Prescribed Instructions Date Instruction Additional Infor mation cont rx with plaquin al, sulphsalazine, no smoking. Related to Rheumatoid arthritis restart flagyll 500 mg TID, and cipro 500 BID 14 daysget old records, CT, colonoscopy reportssee 14 days, then schedule colonoscopy may need resection of colon to prevent more relapses Related to Diverticulitis Assessments Type Assessment Date No Information Patient Care Teams Name Effective Dates (start - stop) Status Members No Information
--- OUTSIDE RECORDS SUMMARY | 2015-05-28 19:00 | XMS_ITS | Continuity of Care Document ---
Author Organization [facility] Address [address] [place] [address] Phone Care Team Providers Care Vp Customer Service Name Role Phone Neeraj Dominguez MD Unavailable [...] Diagnoses Date Provider Providers [facility], [address], [place], [place], [id number] , tel:[phone] [facility] Ne No Information 5 Angelica Pickard. [facility] [place], [place], [facility], [place]. tel:[phone] Referring Provider: Melva Alcaraz, [address], [place], [address]. tel:[phone] [employer], [address], [place], [place], [address] , tel:[phone] [facility] HemorrhoidsAbdomi nal painPortal hypertension 5 Angelica Pickard. [address] [place] [address], [facility], [place]. tel:[phone] Referring Provider: Neeraj Dominguez, [facility] [place], [facility]. tel:[phone] [employer], [address], [place], [place], [address] , tel:[phone] [facility] Left lower quadrant painDiarrheaDiver ticulitis 5 Erika Delaney. [address], [address], [place], [address], [place]. tel:[phone] Referring Provider: Sariah Mar, [address] [place], [address]. tel:[phone] [employer], [address], [place], [place], [address] , [phone] [facility] Abdominal pain (chief complaint) DiverticulitisRhe umatoid arthritis 4 Dominguez Neeraj. [facility] [place], [place], [facility], [place]. tel:[phone] Referring Provider: Neeraj Dominguez, [facility] [place], [address]. tel:[phone] Family History Family Member Type Diagnosis Age At Onset No Information Payers Payer name Insurance type Covered green party ID Authorashley griffith(s) [facility] [id number] [place] [id number] Social History Type Description Quantity Date Captured [...] 3- 4 weeks. had coilon resection [facility] 2009, 8 inches removed. well til 6 months later. had diverticulitis on CT, got antibiotics. pain better. occ diarrhea and contstipation. had had antibiotics 4 times in past [address] abd pelvis last week negative, [facility] in [place]. CBC normal. Got antibiotics. Functional Status Date [...]
[2025-06-03] VITALS (7 sets, daily range): BP systolic 112–129; BP diastolic 73–82; PULSE 78–89; RESP 14–17; TEMP 36.5–36.6; O2SAT 98–100
--- NOTE | ~2025-06-03 | CT_ITS ---
EXAMINATION: CTA chest PE protocol DATE: 06/03/2025 18:00 CDT INDICATION: Chest pain TECHNIQUE: Computed tomographic angiography (CTA) of the chest was performed with 100 mL Omnipaque-350 intravenous contrast. The dose-length product was 919.75 mGy-cm. Maximum intensity projection 3D-reconstructions of the aorta and other arteries were constructed by the technologist on a separate workstation. COMPARISON: None. FINDINGS: Study is technically adequate without evidence for pulmonary embolism. Aorta within normal limits without aneurysm or dissection. No significant pleural or pericardial effusion. Status post cholecystectomy. No thoracic lymphadenopathy. Calcified granuloma right lower lobe. No pneumothorax. No focal airspace consolidation. No endobronchial lesions. Mild thoracic spondylosis. 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 IMPRESSION: 1. No acute cardiopulmonary disease. Reviewed, dictated and finalized at location O.
--- NOTE | ~2025-06-03 | XR_ITS ---
EXAMINATION: XR chest 1V portable 06/03/2025 17:16 INDICATION: Chest pain TECHNIQUE:A single AP portable upright frontal image of the chest was obtained. COMPARISON: 01/20/2023 FINDINGS: The lungs are clear. The cardiomediastinal silhouette is within normal limits. There are no pleural effusions. There is no pneumothorax suspected. IMPRESSION: 1: NO ACUTE CARDIOPULMONARY DISEASE. Reviewed, dictated and finalized at location Q.
--- NOTE | 2025-06-03 16:45 | ECG_ITS ---
Test Date: 2025-06-03 16:51:36 Measurements Intervals Arley Rate: 87 P: 52 AL: 155 QRS: -18 QRSD: 94 T: 48 QT: 352 QTc: 424 Interpretive Statements SINUS RHYTHM CONSIDER PREVIOUS INFERIOR INFARCTION BORDERLINE ECG No previous ECG available for comparison Electronically Signed On 06-04-2025 12:43:09 CDT by João Carballo M.D.
--- OUTSIDE RECORDS SUMMARY | 2025-06-03 16:46 | XMS_ITS | Encounter Summary ---
Author Organization [facility] Address [address] [place] [address] Care Team Providers Care Hvac Sales Representative Name Role Phone Reggie Kimbrough MD Unavailable Mike Monsivais MD Unavailable [phone] Mynor Biswas MD Unavailable [phone] Clementina Polo MD Unavailable Martina Yanez Primary Care Provider [phone] Jorge Maravilla MD Primary Care Provider [phone] Taylor Newby Primary Care Provider Kieran Massey MD Unavailable [phone] Reason for Visit * Reason Onset Date Comments Scheduling Appointments 03/19/2020 Called f or DEXA appointment, No answer Encounter Details Date Type Department Care Team (Late st Contact Info) Description 03/19/2020 Telephone [facility] [address] [place] [phone] Jackie Tong RT Scheduling Appointments (Called for [...] on file Legal Sex Female 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 07/03/2020 07/03/2020 07/17/2020 3:0 6 AM PROGRAMMER NUMERICAL CONTROL COVID: Suspected 11/05/2020 11/06/2020 11/06/2020 11:21 PM PROGRAMMER NUMERICAL CONTROL COVID: Suspected 05/21/2021 05/22/2021 05/22/2021 6:46 PM CDT COVID: Suspected 08/20/2021 08/20/2021 08/20/2021 8:02 PM PROGRAMMER NUMERICAL CONTROL documented as of this encounter Care Teams Hvac Sales Representative Relationship Specialty Start Date End Date Martina Yanez PA [address] [place] [address] PCP - General Internal Medicine 12/05/19 10/18/21 Jorge Maravilla MD [address] [place] [address] PCP - General Internal Medicine 10/19/21 01/16/23 Taylor Newby PA [address] [place] [address] PCP - General Physician Milk Vendor 01/17/23 [place] [address] [place] [address] Consulting Physician Pain Management 01/12/18 09/26/24 Mike Monsivais MD [address] [facility] [address] [place] [address] Consulting Physician Rheumatology 05/11/18 09/26/24 [place] [address] [facility] [address] [place] [address] Consulting Physician Ophthalmology 08/12/18 09/26/24 [place] [address] [facility] [address] [place] [address] Consulting Physician Obstetrics and Gynecology 10/09/19 09/26/24 Kieran Massey MD [address] [place] [address] Consulting Physician Internal Medicine 05/25/23 5 documented as of this encounter
--- OUTSIDE RECORDS SUMMARY | 2025-06-03 16:46 | XMS_ITS | Clinical Summary ---
Author Organization [facility] Address [address] [place] [id number] Care Team Providers Care Gallery Host Name Role Phone Taylor Newby Primary Care [...] (two) times a day 3 Inhaler 2 021 Active albuterol HFA (PROVENTIL HFA,VENTOLIN HFA,PROAIR HFA) 90 mcg/actuation inhaler Inhale 1 puff every 6 (six) hours as needed for wheezing or shortness of breath Active ARIPiprazole (ABILIFY) 5 mg tablet Take 1 tablet (5 mg total) by mouth daily Active OneTouch Ultra Test strip USE TO TEST BLOOD SUGAR DAILY NEEDED WHEN FEELING ILL Active OneTouch Delica Plus Lancet 33 gauge misc USE TO TEST BLOOD SUGAR DAILY NEEDED WHEN FEELING ILL Active metoprolol XL (TOPROL-XL) 25 mg extended release tablet Take 1 tablet (25 mg total) by mouth daily 023 Active busPIRone (BUSPAR) 15 mg tablet Take 2 tablets (30 mg total) by mouth 2 (two) times a day Active buPROPion SR (WELLBUTRIN SR) 100 mg 12 hr tablet Take 1 tablet (100 mg total) by mouth daily Active diclofenac DR (VOLTAREN) 50 mg EC tablet Take 1 tablet (50 mg total) by mouth 2 (two) times a day Active omeprazole (PriLOSEC) 20 mg capsule Take 1 capsule (20 mg total) by mouth daily Active lisinopriL (PRINIVIL,ZESTRIL ) 5 mg tablet Take 1 tablet (5 mg total) by mouth daily Active rOPINIRole (REQUIP) 1 mg tablet Take 1 tablet (1 mg total) by mouth daily Active Mounjaro 7.5 mg/0.5 mL pen injector INJECT 7.5 MG UNDER THE SKIN EVERY WEEK Active Wakix 17.8 mg tabletIndications :Narcolepsy without cataplexy(347.00) Take two tablets (35.6 mg) by mouth daily upon awakening 60 tablet 10 025 Active enoxaparin (LOVENOX) 120 mg/0.8 mL syringeIndication s:Pulmonary embolism, unspecified chronicity, unspecified pulmonary embolism type, unspecified whether acute cor pulmonale present (HCC),Chronic anticoagulation Inject 0.8 mL (120 mg total) under the skin every 12 (twelve) hours 48 mL 2 025 08/19 Active acetaminophen-cod eine (TYLENOL with CODEINE #3) 300-30 mg per tablet Take 1 tablet by mouth 3 (three) times a day as needed for pain 025 Active dextroamphetamine -amphetamine (ADDERALL) 30 mg tablet Take 1 tablet (30 mg total) by mouth 2 (two) times a day 60 tablet Active warfarin (COUMADIN) 5 mg tabletIndications :Chronic anticoagulation,H istory of pulmonary embolism Take 1 tablet (5 mg) by mouth daily or as directed by MD office. 30 tablet 3 025 01/25 Active warfarin (COUMADIN) 1 mg tabletIndications :Chronic anticoagulation,H istory of pulmonary embolism Take 4 tablets (4 mg) by mouth daily or as directed by MD office. 60 tablet 5 025 01/25 Active methylphenidate ER (METADATE ER) 20 mg CR tabletIndications :Attention-Defici t Hyperactivity Disorder Take 1 tablet (20 mg total) by mouth 2 (two) times a day 60 tablet 024 05/27 Discontinued( Alternate therapy) lidocaine (LIDODERM) 5 % Place 1 patch on the skin as needed 024 05/27 Discontinued enoxaparin (LOVENOX) 120 mg/0.8 mL syringeIndication s:Pulmonary embolism, unspecified chronicity, unspecified pulmonary embolism type, unspecified whether acute cor pulmonale present (HCC) iNJECT 0.8 ML UNDER THE SKIN EVERY 12 HOURS FOR 240 DOSES. Strength:120 mg/0.8ml 0.8 mL 3 025 05/21 Discontinued warfarin (COUMADIN) 5 mg tablet Take 1 tablet (5 mg) by mouth daily or as directed by anticoagulation clinic. 30 tablet 2 025 05/30 Discontinued( Duplicate order) dextroamphetamine -amphetamine (ADDERALL) 20 mg tabletIndications :Narcolepsy without cataplexy(347.00) Take 1 tablet (20 mg total) by mouth 2 (two) times a day 60 tablet 025 05/27 Discontinued( Reorder) dextroamphetamine -amphetamine (ADDERALL) 10 mg tablet Take 2 tablets (20 mg total) by mouth 2 (two) times a day 120 tablet 025 05/27 Discontinued warfarin (COUMADIN) 1 mg tabletIndications :Pulmonary embolism, unspecified chronicity, unspecified pulmonary embolism type, unspecified whether acute cor pulmonale present (HCC),Chronic anticoagulation Take 1 tablet (1 mg) by mouth daily or as directed by anticoagulation clinic. Pt. Is currently to take 6mg based on her INR results. Pt. Already has 5mg tablets at home. 30 tablet 2 025 05/30 Discontinued( Duplicate order) dextroamphetamine -amphetamine (ADDERALL) 30 mg tabletIndications :Narcolepsy without cataplexy(347.00) Take 0.6667 tablets (20 mg total) by mouth 2 (two) times a day 60 tablet 025 05/27 Discontinued warfarin (COUMADIN) 1 mg tabletIndications :Chronic anticoagulation,H istory of pulmonary embolism Take 1 tablet (1 mg) by mouth daily or as directed by MD office. 60 tablet 5 025 05/30 Discontinued( Duplicate order) Active Problems Problem Noted Date Diagnosed Date Contusion of multiple sites of left leg, subsequent encounter 12/08/2024 Elevated LFTs 12/08/2024 Decreased GFR 12/08/2024 Ecchymosis 12/07/2024 Type 2 diabetes mellitus wit h other specified complication, unspecified whether retirement insulin use 06/25/2024 Pulmonary embolism, unspecif ied [...] 08/08/2021 Assessment & Plan (08/08/2021 7:58 PM DAM WORKER): Patient was persistent cervical thoracic and lumbar back pain. She also has rheumatoid on symptoms. She has not been responding to those medicines only. Operations Agent is concerned something else may be come [...] 08/08/2021 Assessment & Plan (08/08/2021 7:58 PM DAM WORKER): Patient was persistent cervical thoracic and lumbar back pain. She also has rheumatoid on symptoms. She has not been responding to those medicines only. Operations Agent is concerned something else may be come [...] 08/08/2021 Assessment & Plan (08/08/2021 7:59 PM DAM WORKER): Patient was persistent cervical thoracic and lumbar back pain. She also has rheumatoid on symptoms. She has not been responding to those medicines only. Operations Agent is concerned something else may be come [...] 08/08/2021 Assessment & Plan (08/08/2021 7:58 PM DAM WORKER): Check hip x-rays and start physical therapy. Cigarette smoker 06/06/2021 Rhinorrhea 06/06/2021 Assessment & Plan (06/06/2021 11:30 PM CDT): Patient to presume positive COVID until results are available and self isolate for 10 days from the onset of sxs. Check COVID test thru [facility] collection site in [place]. If positive, complete quarantine and consider monoclonal [...] water often. If needed, use a hand manager image that contains at least 60% alcohol. Clean [...] lotrisone to a clean dry area. Use religion department chair after shower. Will also try [...] 11/05/2020 Assessment & Plan (11/05/2020 10:07 AM DAM WORKER): Start antibiotic, antihistamine (Claritin OR Zyrtec), Mucinex 12hour and Steroid nasal spray (Flonase). Push fluids. Rest. Supportive care. If sxs worsen or don\'t improve, pt is to followup in the office. Advised this still could be COVID sxs so will test. See Congestion below Chronic nasal congestion 11/05/2020 Assessment & Plan (11/05/2020 10:08 AM DAM WORKER): Patient to presume positive COVID until results are available and self isolate for 10 days from the onset of sxs. If negative, isolate until on antibiotic x 24hours and fever free x 24 hours without medication. Check COVID test thru [facility] collection site in [place]. Treat sxs with Tylenol, Cough/cold medication otc [...] water often. If needed, use a hand manager image that contains at least 60% alcohol. Clean [...] (05/21/2020): Added automatically from request for surgery [id number] Hemorrhoid 04/09/2020 Overview (04/09/2020): Added automatically from request for surgery [id number] Assessment & Plan (04/12/2020 9:34 AM CDT): [...] Assessment & Plan (11/29/2020 10:15 AM CDT): aleksnue per Rheum Assessment & Plan (02/05/2020 10:21 PM CDT): Continue per Dr. Mosnivais Assessment & Plan (08/10/2019 4:56 AM DAM WORKER): Patient states she is on Butrans [...] amlodipine Assessment & Plan (08/10/2019 4:44 AM DAM WORKER): Continue Norvasc with hold parameters GERD [...] in 2011. Request records from [facility] in [place] to determine clotting factor. Assessment & Plan (03/02/2020 4:12 PM CDT): Encouraged patient to followup with pharmacist as I can not explain why her AC is so much as this is preferred by [facility]. Assessment & Plan (02/05/2020 10:23 PM CDT): History PE in 2011. Request records from [facility] in [place] to determine clotting factor. Assessment & Plan (08/10/2019 4:55 AM DAM WORKER): Continue Xarelto. Patient counseled on the [...] cymbalta Assessment & Plan (10/16/2017 3:50 PM DAM WORKER): Plan to refill alprazaolam to Xanax [...] Monsivais Assessment & Plan (08/10/2019 4:44 AM DAM WORKER): With mixed connective tissue disorder. Continue [...] dx at [facility] with spinal tap No current sxs. Resolved Problems Problem Noted Date Diagnosed Date Resolved Date BMI 45.0-49.9, adult 10/15/2020 021 Morbid obesity 10/15/2020 03/05/2021 Assessment & Plan (10/15/2020 7:43 AM DAM WORKER): Obesity is unchanged. Discussed the patient's [...] 02/05/2020 Assessment & Plan (08/10/2019 4:42 AM DAM WORKER): Suspected. Continue with ceftriaxone and azithromycin. Will order respiratory virus panel to rule out viral infection. Continue to monitor. Asthma exacerbation 08/10/2019 02/05/20 20 Assessment & Plan (08/10/2019 4:43 AM DAM WORKER): With possible undiagnosed COPD. Patient still [...] 01/12/2018 Assessment & Plan (10/16/2017 3:51 PM DAM WORKER): As above. Mass 10/11/2017 01/12/2018 Assessment & Plan (10/16/2017 3:49 PM DAM WORKER): Plan to obtain CT scan of chest without contrast. Atypical chest pain 08/25/2017 02/05/20 20 Nausea & vomiting 08/25/2017 04/05/2018 Near syncope 08/25/2017 04/05/2018 Carbuncle, thigh 07/01/2017 01/12/2018 Assessment & Plan (07/06/2017 1:35 PM CDT): Plan to start Bactrim DS BID x 10 days. Continue with washing with mild soap. Apply warm compresses Multiple joint pain 02/28/2017 02/05/20 Overview (01/21/2018): Scheduled with [facility] 02/07/18 Assessment & Plan (02/28/2017 1:25 PM CDT): Awaiting lab results today-has appt with Dr. Monsivais this afternoon. ? If related to lupus. Racing heart beat 02/28/2017 04/05/2018 Assessment & Plan (02/28/2017 8:50 PM CDT): Plan to check thyroid profile. Morbid obesity due to excess calories 02/28/2017 04/05/2018 Assessment & Plan (10/16/2017 3:50 PM DAM WORKER): Obesity is unchanged. Discussed the patient's [...] Depression Assessment & Plan (08/10/2019 4:45 AM DAM WORKER): Continue Zoloft Assessment & Plan (02/28/2017 [...] Encounters Date Type Department Care Team Description 05/28/2025 Telephone [facility] [address] [place] [address] [address] [place] [phone] Geetha Calvillo RN 05/27/2025 10:15 AM CDT Office Visit [facility] [address] [facility] [address] [place] [phone] Liang Falk MD 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); Primary snoring 05/23/2025 Documentation [facility] [address] [place] [phone] Mariana Kimbrough RN 05/21/2025 2:45 PM CDT Office Visit [facility] [address] [place] [phone] Jhoana Berg NP Pulmonary embolism, unspecified chronicity, unspecified pulmonary embolism type, unspecified whether acute cor pulmonale present (HCC) (Primary Dx); Chronic anticoagulation 05/21/2025 2:15 PM CDT Lab [facility] [address] [facility] [address] [place] [address] Pulmonary embolism, unspecified chronicity, unspecified pulmonary embolism type, unspecified whether acute cor pulmonale present (HCC) 05/16/2025 Orders Only [facility] [address] [place] [phone] Raleigh Mcguire MD Pulmonary embolism, unspecified chronicity, unspecified pulmonary embolism type, unspecified whether acute cor pulmonale present (HCC) (Primary Dx); Chronic anticoagulation 05/14/2025 Orders Only [facility] [address] [place] [phone] Chris Mera MD Pulmonary embolism, unspecified chronicity, unspecified pulmonary embolism type, unspecified whether acute cor pulmonale present (HCC) (Primary Dx); Chronic anticoagulation 05/14/2025 Telephone [facility] [address] [place] [address] [address] [place] [phone] Gabbi Ha, FERNANDA 05/09/2025 [facility] [address] [place] [address] [address] [place] [phone] Mariana Kimbrough RN 05/02/2025 3:15 PM CDT Office Visit [facility] [address] [place] [address] [address] [place] [phone] Jhoana Berg NP Pulmonary embolism, unspecified chronicity, unspecified pulmonary embolism type, unspecified whether acute cor pulmonale present (HCC) (Primary Dx) 05/02/2025 2:45 PM CDT Lab [facility] [address] [facility] [address] [place] [address] Pulmonary embolism, unspecified chronicity, unspecified pulmonary embolism type, unspecified whether acute cor pulmonale present (HCC); Chronic anticoagulation 05/02/2025 Orders Only [facility] [address] [place] [phone] Raleigh Mcguire MD Recurrent pulmonary embolism (HCC) (Primary Dx); Chronic anticoagulation 05/02/2025 Orders Only [facility] [address] [place] [address] [address] [place] [phone] Raleigh Mcguire MD Pulmonary embolism, unspecified chronicity, unspecified pulmonary embolism type, unspecified whether acute cor pulmonale present (HCC) (Primary Dx); Chronic anticoagulation 05/01/2025 Telephone [facility] [address] [facility] [address] [place] [phone] Мария Wing MA 04/26/2025 Orders Only [facility] [address] [place] [address] [address] [place] [phone] Raleigh Mcguire MD Chronic anticoagulation (Primary Dx); Recurrent pulmonary embolism (HCC) 04/25/2025 Orders Only 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 [address] [place] [address] [facility] [address] [place] [address] Raleigh Mcguire MD Pulmonary embolism, unspecified chronicity, unspecified pulmonary embolism type, unspecified whether acute cor pulmonale present (HCC) (Primary Dx) 04/18/2025 2:15 PM CDT Office Visit [facility] [address] [place] [address] [address] [place] [phone] Jhoana Berg, MACHO Pulmonary embolism, unspecified chronicity, unspecified pulmonary embolism type, unspecified whether acute cor pulmonale present (HCC) (Primary Dx) 04/18/2025 1:45 PM CDT Lab [address] [place] [phone] Pulmonary embolism, unspecified chronicity, unspecified pulmonary embolism type, unspecified whether acute cor pulmonale present (HCC) 04/18/[address] [place] [phone] Jhoana Berg, BRICK WASHER from Last 3 Months Immunizations Immunization Administration [...] Rheumatoid arthritis (HCC) Rheum atoid arthritis; Comments: KSChantal 09/30/2014 - Adenomyosis 1992 Adenomyosis; Com ments: MU 06/05/2014 - Bilateral pulmonary embolism (HCC) 01/2012 Bilateral pulmonary emboli Diverticulosis 12/2009 diverticulosis; Comments: MU 06/05/2014 - Obesity Restless leg syndrome Mixed connective tissue disease Nodule of right lung 10/21/2016 stable on r epeat imaging Hepatic steatosis Hypertension Anxiety Narcolepsy 06/2020 Pulmonary embolism Pulmonary embolism Pulmonary embolism Pulmonary embolism Family History Medical [...] often do you attend chur ch or anglican services? Never 05/25/2023 Do you belong to any clubs o r organizations such as denominational groups, unions, fraternal or athletic groups, or [...] on file Legal Sex Female 7:20 PM DAM WORKER Gender Identity Not on file Sexual [...] Sign Reading Time Taken Comments Blood Pressure 117/70 05/27/2025 10:31 AM CDT Pulse 79 05/27/2025 10:31 AM CDT Temperature 36.3 C (97.4 F) 05/21/2025 2:19 PM CDT Respiratory Rate 20 05/21/2025 2:19 PM CDT Oxygen Saturation 99% 05/27/2025 10: 31 AM CDT Inhaled Oxygen Concentration - - Weight 120.4 kg (265 lb 6.4 oz) 025 10:31 AM CDT Height 170.2 cm (5' 7) 05/21/2025 2:19 PM CDT Body Mass Index 41.57 05/21/2025 2:19 PM CDT Plan of Treatment Health Maintenance [...] 06/16/2025 06/16/2020, 12/13/2017, 07/28/2015 eGFR 04/18/2026 04/18/2025, 032 05/2025, 06/25/2024, Additional history exists Hepatitis C Screening Completed 03/18/2015, 014 Colon Cancer Screening-CT Colonography Discontinued 06/16/2020, 12/13/2017, 07/28/2015 Colon Cancer Screening-DNA Stool Discontinued 06/16/2020, 12/13/2017, 07/28/2015 Colon Cancer Screening-FIT Discontinued 06/16, 12/13/2017, 07/28/2015 Colon Cancer Screening-Sigmoidoscopy Discontinued 06/16/2020, 12/13/2017, 07/28/2015 Procedures Procedure Name Priority Date/Time Associated Diagnosis Comments DIFFERENTIAL AUTO Routine 05/21/2025 2:1 0 PM CDT Pulmonary embolism, unspecified chronicity, unspecified pulmonary embolism type, unspecified whether acute cor pulmonale present (HCC) CBC WITH AUTO DIFFERENTIAL Routine 05/21/2025 2:10 PM CDT Pulmonary embolism, unspecified chronicity, unspecified pulmonary embolism type, unspecified whether acute cor pulmonale present (HCC) PROTIME-INR Routine 05/21/2025 2:10 PM CDT Pulmonary embolism, unspecified chronicity, unspecified pulmonary embolism type, unspecified whether acute cor pulmonale present (HCC) PROTIME-INR Routine 05/02/2025 2:40 PM CDT Pulmonary embolism, unspecified chronicity, unspecified pulmonary embolism type, unspecified whether acute cor pulmonale present (HCC) Chronic anticoagulation PROTIME-INR Routine 04/23/2025 12:05 PM CDT Pulmonary [...] Recently Relevant to Health Maintenance Results * Differential, auto (05/21/2025 2:10 PM CDT) Neutrophil abs 3.67 1.50 - 6.50 K/cumm [facility] ([place]) Comment:Testing performed by : [facility] [address], Medical Office [address], [place] [address] Imm gran abs 0.01 0.00 - 0.10 K/cumm [facility] ([place]) Comment:Testing performed by : [facility] [address], Medical [address], [place] [address] Lymphocyte abs 0.94 0.80 - 3.30 K/cumm [facility] ([place]) Comment:Testing performed by : [facility] [address], Medical Office [address], [place] [address] Monocyte abs 0.29 0.20 - 0.80 K/cumm [facility] ([place]) Comment:Testing performed by : [facility] [address], Medical Office [address], [place] [address] Eosinophil abs 0.15 0.00 - 0.50 K/cumm [facility] ([place]) Comment:Testing performed by : [facility] [address], Medical Office [address], [place] [address] Basophil abs 0.03 0.00 - 0.10 K/cumm [facility] ([place]) Comment:Testing performed by : [facility] [address], Medical [address], [place] [address] Neutrophil pct 72.1 % [facility] ([place]) Comment: Interpretive Data Percent cell count reference ranges are not reported, since discordance with absolute values may lead to misinterpretation of CBC data. Current Interpretive Data was last revised on 2022. Testing performed by: [facility] [address], Medical Office [address], [place] [address] Imm gran pct 0.2 % [facility] ([place]) Comment: Interpretive Data Percent cell count reference ranges are not reported, since discordance with absolute values may lead to misinterpretation of CBC data. Current Interpretive Data was last revised on 2022. Testing performed by: [facility] [address], Medical Office [address], [place] [address] Lymphocyte pct 18.5 % [facility] ([place]) Comment: Interpretive Data Percent cell count reference ranges are not reported, since discordance with absolute values may lead to misinterpretation of CBC data. Current Interpretive Data was last revised on 2022. Testing performed by: [facility] [address], Medical Office [address], [place] [address] Monocyte pct 5.7 % [facility] ([place]) Comment: Interpretive Data Percent cell count reference ranges are not reported, since discordance with absolute values may lead to misinterpretation of CBC data. Current Interpretive Data was last revised on 2022. Testing performed by: [facility] [address], Medical Office [address], [place] [address] Eosinophil pct 2.9 % [facility] ([place]) Comment: Interpretive Data Percent cell count reference ranges are not reported, since discordance with absolute values may lead to misinterpretation of CBC data. Current Interpretive Data was last revised on 2022. Testing performed by: [facility] [address], Medical Office [address], [place] [address] Basophil pct 0.6 % [facility] ([place]) Comment: Interpretive Data Percent cell count reference ranges are not reported, since discordance with absolute values may lead to misinterpretation of CBC data. Current Interpretive Data was last revised on 2022. Testing performed by: [facility] [address], Medical Office [address], [place] [address] Blood 05/21/2025 2:10 PM CDT 05/21/2025 2:16 PM CDT Estelle Alisha Garg BRICK WASHER LAB BLOOD ORDERABLES Final Result [facility] ([place]) [address] [facility] Department [place] [address] * CBC with auto differential (05/21/2025 2:10 PM CDT) WBC 5.09 3.80 - 9.90 K/cumm [facility] ([place]) Comment:Testing performed by : [facility] [address], Medical Office [facility] [address], [place] [address] Hgb 13.7 11.9 - 15.5 g/dL [facility] ([place]) Comment:Testing performed by : [facility] [address], Medical Office [facility] [address] [facility] [address], [place] [address] Hct 41.1 35.6 - 45.5 % [facility] ([place]) Comment:Testing performed by : [facility] [address], Medical Office [facility] B [facility] [address], [place] [address] Plt 181 150 - 400 K/cumm [facility] ([place]) Comment:Testing performed by : [facility] [address], Medical Office [facility] B [facility] [address], [place] [address] MPV 10.2 9.1 - 12.3 fL [facility] ([place]) Comment:Testing performed by : [facility] [address], Medical Office [facility] [address], [place] [address] RBC 4.44 3.90 - 5.20 M/cumm [facility] ([place]) Comment:Testing performed by : [facility] [address], Medical Office [facility] [address], [place] [address] MCV 92.6 81.3 - 96.4 fL [facility] ([place]) Comment:Testing performed by : [facility] [address], Medical Office [facility] [address], [place] [address] MCH 30.9 27.1 - 33.3 pg JASPAL SOL[facility] ([place]) Comment:Testing performed by : [facility] [address], Medical Office [address], [place] [address] MCHC 33.3 32.3 - 35.7 g/dL JASPAL [facility] ([place]) Comment:Testing performed by : [facility] [address], Medical Office [address], [place] [address] RDW CV 13.2 11.1 - 14.9 % J[facility]AL [facility] ([place]) Comment:Testing performed by : [facility] [address], Medical Office [address], [place] [address] RDW SD 45.6 35.7 - 48.1 fL JASPAL SOL[facility] ([place]) Comment:Testing performed by : [facility] [address], Medical Office [address], [place] [address] Blood 05/21/2025 2:10 PM CDT 05/21/2025 2:16 PM CDT Estelle Garg BRICK WASHER LAB BLOOD ORDERABLES Final Result J[facility]AL [facility] ([place]) [address] [place] [address] Department [place] [address] * (ABNORMAL) Protime-INR (05/21/2025 2:10 PM CDT) PT 18.9(H) 10.2 - 13.5 sec [facility]AL [facility] ([place]) Comment:Testing performed by : [facility], [facility], [place], [address] INR 1.69(H) 0.90 - 1.20 JASPAL SOL[facility] ([place]) Comment: Interpretive data Oral anticoagulant therapeutic ranges: Venous thromboembolism prophylaxis or treatment: 2.0-3.0 CARDIOLOGY Standard range: 2.0-3.0 High-intensity range: 2.5-3.5 Refer to indication-specific guidelines for appropriate target ranges for prosthetic heart valve replacement. Current interpretive data was last revised on 2019. Testing performed by: [facility], [place], [address] Blood 05/21/2025 2:10 PM CDT 05/21/2025 2:45 PM CDT Narrative [facility] ([place]) - 05/21/2025 2:54 PM CDT 05/06, 05/08, 05/10, 05/14, 05/16 us Estelle Garg NP LAB BLOOD ORDERABLES Final Result Performing Organization Address City/[facility]/ZIP Co de Phone Number [facility] ([place]) [address] [place] [address] Department [place] [address] * (ABNORMAL) Protime-INR (05/02/2025 2:40 PM CDT) PT 20.4(H) 10.2 - 13.5 sec JASPAL [facility] ([place]) Comment:Testing performed by : [place], [address] INR 1.83(H) 0.90 - 1.20 JASPAL [facility] ([place]) Comment: Interpretive data Oral anticoagulant therapeutic ranges: Venous thromboembolism prophylaxis or treatment: 2.0-3.0 CARDIOLOGY Standard range: 2.0-3.0 High-intensity range: 2.5-3.5 Refer to indication-specific guidelines for appropriate target ranges for prosthetic heart valve replacement. Current interpretive data was last revised on 2019. Testing performed by: [place], [address] Blood 05/02/2025 2:40 PM CDT 05/02/2025 2:51 PM CDT Narrative [facility] ([place]) - 05/02/2025 3:08 PM CDT Add PT/INR today us Raleigh Mcguire MD LAB BLOOD ORDERABLES Nava l Result [facility] ([place]) [address] [facility] Department [place] [address] * (ABNORMAL) Protime-INR (04/23/2025 12:05 PM CDT) PT 14.8(H) 10.2 - 13.5 sec [facility]AL [facility] ([place]) Comment:Testing performed by : [facility], [place], [address] INR 1.32(H) 0.90 - 1.20 JASPAL SOL[facility] ([place]) Comment: Interpretive data Oral anticoagulant therapeutic ranges: Venous thromboembolism prophylaxis or treatment: 2.0-3.0 CARDIOLOGY Standard range: 2.0-3.0 High-intensity range: 2.5-3.5 Refer to indication-specific guidelines for appropriate target ranges for prosthetic heart valve replacement. Current interpretive data was last revised on 2019. Testing performed by: [facility], [facility], [place], [address] Blood 04/23/2025 12:0 5 PM CDT 04/23/2025 12:42 PM CDT Narrative YOLISVIRGIL SOLIS ([place]) - 04/23/2025 1:06 PM CDT Starting on 04/22, 04/24, 04/26, 04/29, 05/02, us Jhoana Berg BRICK WASHER LAB BLOOD ORDERABLES Final Result J[facility]AL [facility] ([place]) [address] [place] [address] Department [place] [address] * eGFR (04/18/2025 1:45 PM CDT) eGFR [...] Inclusion of Race in Diagnosing Kidney Disease, MARIANNASKofi 2020). The CKD-EPI equation should not be used for patients with unstable renal function and has not been validated in children and those over 70. Current interpretive data was last reviewed 2021. Testing performed by: [facility], [facility], [place], [address] Blood 04/18/2025 1:45 PM CDT 04/18/2025 2:02 PM CDT us Raleigh Mcguire MD LAB BLOOD ORDERABLES Nava petersen Result [facility] ([place]) 1 [facility] Department [place] [address] * Differential, auto (04/18/2025 1:45 PM CDT) Neutrophil abs 2.35 1.50 - 6.50 K/cumm [facility] ([place]) Comment:Testing performed by : [facility] [address], Medical Office [facility] [address], [place] [address] Imm gran abs 0.01 0.00 - 0.10 K/cumm [facility] ([place]) Comment:Testing performed by : [facility] [address], Medical Office [facility] [address], [place] [address] Lymphocyte abs 1.30 0.80 - 3.30 K/cumm [facility] ([place]) Comment:Testing performed by : [facility] [address], Medical Office [facility] [address], [place] [address] Monocyte abs 0.42 0.20 - 0.80 K/cumm [facility] ([place]) Comment:Testing performed by : [facility] [address], Medical Office [facility] [address], [place] [address] Eosinophil abs 0.16 0.00 - 0.50 K/cumm [facility] ([place]) Comment:Testing performed by : [facility] [address], Medical Office [facility] [address], [place] [address] Basophil abs 0.04 0.00 - 0.10 K/cumm [facility] ([place]) Comment:Testing performed by : [facility] [address], Medical Office [address], [place] [address] Neutrophil pct 55.0 % [facility] ([place]) Comment: Interpretive Data Percent cell count reference ranges are not reported, since discordance with absolute values may lead to misinterpretation of CBC data. Current Interpretive Data was last revised on 2022. Testing performed by: [facility] [address], Medical Office dg [address], [place] [address] Imm gran pct 0.2 % [facility] ([place]) Comment: Interpretive Data Percent cell count reference ranges are not reported, since discordance with absolute values may lead to misinterpretation of CBC data. Current Interpretive Data was last revised on 2022. Testing performed by: [facility] [address], Medical Office [address], [place] [address] Lymphocyte pct 30.4 % [facility] ([place]) Comment: Interpretive Data Percent cell count reference ranges are not reported, since discordance with absolute values may lead to misinterpretation of CBC data. Current Interpretive Data was last revised on 2022. Testing performed by: [facility] [address], Medical Office [facility] [address], [place] [address] Monocyte pct 9.8 % [facility] ([place]) Comment: Interpretive Data Percent cell count reference ranges are not reported, since discordance with absolute values may lead to misinterpretation of CBC data. Current Interpretive Data was last revised on 2022. Testing performed by: [facility] [address], Medical Office [address], [place] [address] Eosinophil pct 3.7 % [facility] ([place]) Comment: Interpretive Data Percent cell count reference ranges are not reported, since discordance with absolute values may lead to misinterpretation of CBC data. Current Interpretive Data was last revised on 2022. Testing performed by: [facility] [address], Medical Office [address], [place] [address] Basophil pct 0.9 % [facility] ([place]) Comment: Interpretive Data Percent cell count reference ranges are not reported, since discordance with absolute values may lead to misinterpretation of CBC data. Current Interpretive Data was last revised on 2022. Testing performed by: [facility] [address], Medical Office [facility] B [facility] [address], [place] [address] Blood 04/18/2025 1:45 PM CDT 04/18/2025 1:48 PM CDT us Raleigh Mcguire MD LAB BLOOD ORDERABLES Nava nicola Result [facility] ([place]) 1 [facility] Department [place] [address] * CBC with auto differential (04/18/2025 1:45 PM CDT) WBC 4.28 3.80 - 9.90 K/cumm [facility] ([place]) Comment:Testing performed by : [facility] [address], Medical Office [facility] B [facility] [address], [place] [address] Hgb 13.7 11.9 - 15.5 g/dL [facility] ([place]) Comment:Testing performed by : [facility] [address], Medical Office [facility] B [facility] [address], [place] [address] Hct 40.9 35.6 - 45.5 % [facility] ([place]) Comment:Testing performed by : [facility] [address], Medical Office [facility] B [facility] [address], [place] [address] Plt 202 150 - 400 K/cumm [facility] ([place]) Comment:Testing performed by : [facility] [address], Medical Office [facility] B [facility] [address], [place] [address] MPV 9.7 9.1 - 12.3 fL [facility] ([place]) Comment:Testing performed by : [facility] [address], Medical Office [facility] [address], [place] [address] RBC 4.34 3.90 - 5.20 M/cumm [facility] ([place]) Comment:Testing performed by : [facility] [address], Medical Office [facility] [address], [place] [address] MCV 94.2 81.3 - 96.4 fL [facility] ([place]) Comment:Testing performed by : [facility] [address], Medical Office [facility] B [facility] [address], [place] [address] MCH 31.6 27.1 - 33.3 pg [facility] ([place]) Comment:Testing performed by : [facility] [address], Medical Office [facility] B [facility] [address], [place] [address] MCHC 33.5 32.3 - 35.7 g/dL [facility] ([place]) Comment:Testing performed by : [facility] [address], Medical Office [facility] [address], [place] [address] RDW CV 13.1 11.1 - 14.9 % [facility] ([place]) Comment:Testing performed by : [facility] [address], Medical Office [facility] [address], [place] [address] RDW SD 46.5 35.7 - 48.1 fL [facility] ([place]) Comment:Testing performed by : [facility] [address], Medical Office [facility] [address], [place] [address] Blood 04/18/2025 1:45 PM CDT 04/18/2025 1:48 PM CDT Raleigh Mcguire MD LAB BLOOD ORDERABLES Nava petersen Result [facility] ([place]) 1 [facility] Department [place] [address] * (ABNORMAL) Comprehensive metabolic panel (04/18/2025 1:45 [...] 1:45 PM CDT 04/18/2025 2:02 PM CDT Raleigh Mcguire MD LAB BLOOD ORDERABLES Nava l Result [facility] ([place]) 1 [facility] Department [place] [address] * Hemoglobin A1c (03/18/2021) SCRIBED Hemoglobin A1c [...] Aguilar MD - 06/16/2020 9:32 AM CDT [facility] Patient Name: Azul Carlson Procedure Date: 06/16/2020 9:32 AM Date of : 1970 Admit Type: Outpatient Age: 50 Gender: Female Attending MD: Caio Aguilar M.D. Room: [facility] ENDOSCOPY ROOM 2 Note Status: Finalized [...] was passed under direct vision. The Colonoscope [id number] was introduced through the anusand advanced to [...] 9:32 AM Procedure Code(s): --- Professional --- 50584, Colonoscopy, flexible; diagnostic, including collection of specimen(s) by brushing or washing, when performed (separateprocedure) Diagnosis Code(s): --- Professional --- K57.30, Diverticulosis of large intestine without perforation orabscess without bleeding Z98.0, Intestinal bypass and anastomosis status K64.9, Unspecified hemorrhoids CPT copyright 2017 [employer]. All rights reserved. The codes documented in this report are preliminary and upon selling specialist reviewmay be revised to meet current compliance requirements. Recognized by the [employer] for promoting quality in endoscopy us Caio Aguilar MD ENDOSCOPY PROCEDURES Final Re sult * DIAGNOSTIC MAMMOGRAM BILATERAL W BOB (04/01/2016 12:40 PM CDT) Anatomical Region Laterality Modality Breast Bilateral Mammography 04/01/2016 12:4 0 PM CDT Narrative 04/01/2016 4:03 PM CDT Acc#: [id number] [facility] 0031 - Diag Mamm W Bob [...] NEGATIVE TECHNOLOGIST: RADHA PILLAI, TECHNOLOGIST MEDICAL IMAGING TECHNOLOGY ASSISTANT: SUNI TRANSCRIBE DATE/TIME: Apr 01 2016 1:43P RADIOLOGIST: LAURI GREEN M.D. READ ON: Apr 01 2016 1:34P ORDERING DR: ART TEJADA N.P. THIS DOCUMENT HAS BEEN ELECTRONICALLY SIGNED BY: LAURI GREEN M.D. ON: Apr 01 2016 4:03P Attending: ART TEJADA Requesting: ART TEJADA Requesting Attending Attending ID: [id number] Requesting ID: [id number] Report To 1 ID: Report To 1 Name: , Report To 1 FAX: -- Report To 2 ID: Report To 2 Name: , Report To 2 FAX: -- NextGen Order #: Procedure Note Provider, MD Emigdio - 01/04/2017 Acc#: [id number] [facility] 0031 - Diag Mamm W Bob [...] NEGATIVE TECHNOLOGIST: RADHA PILLAI, TECHNOLOGIST MEDICAL IMAGING TECHNOLOGY ASSISTANT: DD2 TRANSCRIBE DATE/TIME: Apr 01 2016 1:43P RADIOLOGIST: LAURI GREEN M.D. READ ON: Apr 01 2016 1:34P ORDERING DR: ART TEJADA N.P. THIS DOCUMENT HAS BEEN ELECTRONICALLY SIGNED BY: LAURI GREEN M.D. ON: Apr 01 2016 4:03P Attending: ART TEJADA Requesting: ART TEJADA Requesting Attending Attending ID: [id number] Requesting ID: [id number] Report To 1 ID: Report To 1 [...] Serum 03/18/2015 4:25 PM CDT Mimi Kelley BRICK WASHER LAB BLOOD ORDERABLES Nava l Result HISTORICAL RESULTS from Last 3 Months or Most Recently Relevant to Health Maintenance Insurance [employer] MEDICARE ADVANTAGE MEDICARE [facility] MEDICARE ADVANTAGE Advance Directives For more information, please contact: [phone] * Full Code (Latest Code Status on File) Date Activated Date Inactivated Comments 05/23/2023 10:43 PM 05/25/2023 7:39 PM * Full Code Date Activated Date Inactivated Comments 06/16/2020 9:20 AM 06/16/2020 3:35 PM * Full Code Date Activated Date Inactivated Comments 08/10/2019 4:24 AM 08/14/2019 10:24 PM Care Teams Gallery Host Relationship Specialty Start Date End Date Taylor Newby PA [address] [place] [address] PCP - General Physician Investment Consultant 01/17/23
--- OUTSIDE RECORDS SUMMARY | 2025-06-03 16:46 | XMS_ITS | Clinical Summary ---
Author Organization [facility] Address [address] [place] [address] Care Team Providers Care Framing Consultant Name Role Phone Unavailable Primary Care Provider [...] Date Type Department Care Team Description 05/28/2025 External Device Data [facility] ABSTRACTION Provider, Abstract 04/16/2025 External Device Data [facility] ABSTRACTION Provider, [...]
[2025-06-03 17:02] LABS: Hematocrit 40.5 % (35.0-49.0); Hemoglobin 13.3 g/dL (12.0-15.0); Immature Granulocyte Percent A 0.0 % (0.0-0.0); Lymphocytes Absolute Auto 1.42 K/mm3 (1.10-4.50); Mean Corpuscular HGB Conc 32.8 g/dL (32-36); Mean Corpuscular Hemoglobin 30.5 pg (27.0-31.0); Mean Corpuscular Volume 92.9 fL (78.0-102.0); Nucleated Red Blood Cells Absolute Auto 0.00 K/mm3 (0.00-0.00); Nucleated Red Blood Cells Perc 0.0 % (0-0.0); Platelet Count Result 173 K/mm3 (150-420); Red Blood Count 4.36 M/mm3 (4.20-5.40); White Blood Count 4.1 K/mm3 (4.8-10.8)
--- OUTSIDE RECORDS SUMMARY | 2025-06-03 17:11 | XMS_ITS | Encounter Summary ---
Author Organization [facility] Healthcare Address [address] [place] [address] Care Team Providers Care Pourer Buggy Ladle Name Role Phone Reggie Kimbrough MD Unavailable [phone] Mike Monsivais MD Unavailable [phone] Mynor Biswas MD Unavailable [phone] Clementina Polo MD Unavailable Martina Yanez Primary Care Provider [phone] Jorge Maravilla MD Primary Care Provider [phone] Taylor Newby Primary Care Provider Kieran Massey MD Unavailable [phone] Reason for Visit * Reason Onset Date Comments Scheduling Appointments 03/19/2020 Called f or DEXA appointment, No answer Encounter Details Date Type Department Care Team (Late st Contact Info) Description 03/19/2020 Telephone [facility] [address] [place] [id number] Jackie Tong RT Scheduling Appointments (Called for [...] on file Legal Sex Female 7:20 PM BUNDLE TIER Gender Identity Not on file Sexual Orientation [...] result. 07/03/2020 07/03/2020 07/17/2020 3:0 6 AM BUNDLE TIER COVID: Suspected 11/05/2020 11/06/2020 11/06/2020 11:21 PM BUNDLE TIER COVID: Suspected 05/21/2021 05/22/2021 05/22/2021 6:46 PM CDT COVID: Suspected 08/20/2021 08/20/2021 08/20/2021 8:02 PM BUNDLE TIER documented as of this encounter Care Teams Pourer Buggy Ladle Relationship Specialty Start Date End Date Martina Yanez PA [address] [place] [address] PCP - General Internal Medicine 12/05/19 10/18/21 Jorge Maravilla MD [address] [place] [address] PCP - General Internal Medicine 10/19/21 01/16/23 Taylor Newby PA [address] [place] [address] PCP - General Physician Dehydrogenation Operator 01/17/23 [place] [address] [place] [address] Consulting Physician Pain Management 01/12/18 09/26/24 Mike Monsivais MD [address] [facility] [address] [place] [address] Consulting Physician Rheumatology 05/11/18 09/26/24 [place] [address] [facility] [address] [place] [address] Consulting Physician Ophthalmology 08/12/18 09/26/24 [place] [address] [facility] [address] [place] [address] Consulting Physician Obstetrics and Gynecology 10/09/19 09/26/24 Kieran Massey MD [address] [place] [address] Consulting Physician Internal Medicine 05/25/23 5 documented as of this encounter
--- OUTSIDE RECORDS SUMMARY | 2025-06-03 17:11 | XMS_ITS | Clinical Summary ---
Author Organization [facility] Address [address] [place] [address] Care Team Providers Care Transition Manager Name Role Phone Unavailable Primary Care Provider [...]
[2025-06-03 17:13] LABS: Alanine Aminotransferase 39 U/L (6-35); Albumin Level 3.6 g/dL (3.5-5.1); Alkaline Phosphatase 73 U/L (38-126); Anion Gap 5 mmol/L (4-12); Aspartate Amino Transferase 33 U/L (14-36); Bilirubin,Total 0.5 mg/dL (0.2-1.3); Blood Urea Nitrogen 18 mg/dL (7-17); Calcium 9.4 mg/dL (8.4-10.2); Carbon Dioxide 28 mmol/L (22-30); Chloride 110 mmol/L (98-107); Estimated CRCL calculation 73 ml/min; Estimated Glomerular Filt Rate 57; Glucose 65 mg/dL (65-110); Osmolality Calculated 295 mOsm/kg (285-295); Potassium 4.4 mmol/L (3.4-5.0); Sodium 143 mmol/L (137-145); Total Protein 6.4 g/dL (6.3-8.2)
[2025-06-03 17:14] LABS: INR 2.3; Prothrombin Time 23.2 Seconds (9.50-12.1)
[2025-06-03 17:22] LABS: NT Pro B Type Natriuretic Pept 37 pg/mL (19.9-100)
[2025-06-03 17:31] LABS: Troponin I < 0.012 ng/mL (0.000-0.034)
--- NOTE | 2025-06-03 18:13 | ED.CHESTPAIN ---
HPI - Chest Pain General Chief Complaint: Chest Pain Stated Complaint: chest pain Time Seen by Provider: 06/03/25 16:49 Source: patient Mode of arrival: ambulatory Limitations: no limitations History of Present Illness HPI narrative: 55-year-old with a history of PE on Xarelto here with a complains of sharp shooting pain in ER early this morning which radiated into chest lasted for few hours started having pain again this afternoon. She denies any shortness of breath. She states that she has been taking Xarelto as prescribed. MD complaint: chest pain Pertinent past history: other ( Pe) Onset (ago): day(s) (1) Timing of current episode: episodic Onset: during rest Pain location: left chest Pain radiation: none Severity: moderate Related Data Home Medications ?Medication ?Instructions ?Recorded ?Confirmed ?Last Taken ?Type Tylenol 1,000 mg PO Q8H 10/23/21 08/05/23 01/20/23 History budesonide-formoterol HFA 80 2 inh inhalation BID 10/23/21 08/05/23 01/20/23 History mcg-4.5 mcg/actuation aerosol inhaler (Symbicort) duloxetine 60 mg capsule,delayed 120 mg PO DAILY 02/25/22 08/05/23 1 Day Ago History release ~01/19/23 pitolisant 17.8 mg tablet (Wakix) 17.8 mg PO DAILY 02/25/22 08/05/23 01/20/23 History dextroamphetamine-amphetamine 20 20 mg PO DAILY 04/20/22 08/05/23 01/20/23 History mg tablet aripiprazole 10 mg tablet 10 mg DAILY 01/20/23 08/05/23 01/20/23 History bismuth subsalicylate 262 mg 2 tablet PO Q1H PRN upset stomach 01/20/23 08/05/23 01/20/23 History chewable tablet lisinopril 40 mg tablet 40 mg PO DAILY 01/20/23 08/05/23 1 Day Ago History ~01/19/23 metoprolol succinate 25 mg 25 mg PO DAILY 01/20/23 08/05/23 01/20/23 History tablet,extended release 24 hr (Toprol XL) aripiprazole 5 mg tablet 5 mg PO DAILY 07/06/23 08/05/23 Unknown History bupropion HCl 100 mg tablet 100 mg PO ONCE 07/06/23 08/05/23 Unknown History buspirone 15 mg tablet 15 mg PO BID 07/06/23 08/05/23 Unknown History diclofenac sodium 50 mg 50 mg PO BID 07/06/23 08/05/23 Unknown History tablet,delayed release multivitamin 1 tablet PO DAILY 07/06/23 08/05/23 Unknown History omeprazole 20 mg capsule,delayed 20 mg PO DAILY 07/06/23 08/05/23 Unknown History release ropinirole 0.25 mg tablet 0.25 mg PO DAILY 08/05/23 08/05/23 Unknown History tirzepatide 7.5 mg/0.5 mL 7.5 mg subcut WEEKLY 08/05/23 08/05/23 Unknown History subcutaneous pen injector (Brynn) Allergies Allergy/AdvReac Type Severity Reaction Status Date / Time amitriptyline Allergy Intermediate Other Verified 06/03/25 16:53 aspartame Allergy Intermediate Other Verified 06/03/25 16:53 atomoxetine Allergy Intermediate Unknown Verified 06/03/25 16:53 gabapentin Allergy Intermediate Other Verified 06/03/25 16:53 nortriptyline Allergy Intermediate Other Verified 06/03/25 16:53 prednisone Allergy Intermediate Hyperactive Verified 06/03/25 16:53 cyclobenzaprine Allergy Anxiety Verified 06/03/25 16:53 fluoxetine Allergy Unknown Verified 06/03/25 16:53 pregabalin Allergy Anxiety Verified 06/03/25 16:53 sulfasalazine Allergy Unknown Verified 06/03/25 16:53 sumatriptan Allergy Unknown Verified 06/03/25 16:53 methotrexate AdvReac Intermediate Diarrhea Verified 06/03/25 16:53 methylprednisolone AdvReac Agitated Verified 06/03/25 16:53 Review of Systems Review of Systems: All systems reviewed & are unremarkable except as noted in HPI and below Eyes: Eyes: Reports no additional eye complaints ENT: Reports system reviewed and no additional complaints, except as documented Cardiovascular: Cardiovascular: Reports no additional cardiovascular complaints Respiratory: Respiratory: Reports no additional respiratory complaints Gastrointestinal: Gastrointestinal: Reports no additional gastrointestinal complaints Musculoskeletal: Musculoskeletal: Reports no additional musculoskeletal complaints Integumentary/Breasts: Skin/Breast: Reports system reviewed and no additional complaints, except as docu Neurologic: Reports system reviewed and no additional complaints, except as documented [facility] Past Medical History Medical History Depression Arthritis Fibromyalgia History of gastroesophageal reflux (GERD) Diverticulitis Colitis Pneumonia Pulmonary embolism Asthma Hypertension History of hypercholesterolemia Mitral valve prolapse History of TIA (transient ischemic attack) Systemic lupus Surgical History Surgical History History of hysterectomy History of cholecystectomy Social History Social History Years smoked: 20 Smoking status: Former smoker Tobacco type: cigarettes Second hand tobacco smoke exposure: No Smoking end date: 11/29/22 Alcohol intake: former Alcohol use details: Rare Substance use: current Substance use type: marijuana, amphetamines and prescription drug Last use: 01/06/2023 Lack of Transportation: No Lack of Food: Never True Current Housing: I Have Housing Concerned About Future Housing: No Difficulty Paying Gas/Electric Bills: No Difficulty Paying for Meds: No Currently Unemployed: No Education: High School Diploma/GED Difficulty w/ Childcare or Family Care: No Living arrangements: alone Gender identity (if verbalized by the patient): Female Spiritual care concerns: Yes (Rastafarian Yazdanism) Exam Narrative: GENERAL: Well-appearing, well-nourished, and in no acute distress. HEAD: Normocephalic, atraumatic. EYES: PERRLA and EOMI. ENT: Nares clear, no rhinorrhea or epistaxis. Mucous membranes moist. NECK: Supple. CHEST: Clear to auscultation. No respiratory distress. HEART: Regular rate and rhythm. No murmur heard. Normal peripheral pulses. ABDOMEN: Soft, nontender, nondistended, normal active bowel sounds. EXTREMITIES: Normal range of motion. No edema. SKIN: Warm, dry, no rash. NEURO: No focal deficits. Alert and oriented x3. PSYCH: Normal mood and affect. Course Course Emergency Course: patient comfortably resting notified her about the lab work, CT findings. Advised her to continue home medication, follow-up with the primary doctor as needed Vital Signs Vital signs: Vital Signs Pulse Oximetry 98 06/03/25 16:43 Oxygen Delivery Room Air 06/03/25 16:43 Temperature 36.5 C 06/03/25 16:45 Pulse Rate 88 06/03/25 16:45 Respiratory Rate 16 06/03/25 16:45 Blood Pressure 128/79 06/03/25 16:45 Pulse Oximetry 98 06/03/25 16:45 Oxygen Delivery Room Air 06/03/25 16:45 MDM - Chest Pain Differential Diagnosis Differential diagnosis: Likely pneumothorax, atypical chest pain, costochondritis and biliary colic Medical Records Data Attestation: I reviewed the patient's medical records. Lab Data Attestation: I reviewed the patient's lab results. 06/03/25 16:57 06/03/25 16:57 Labs: Lab Results 06/03/25 Range/Units 16:57 WBC 4.1 L (4.8-10.8) K/mm3 RBC 4.36 (4.20-5.40) M/mm3 Hgb 13.3 (12.0-15.0) g/dL Hct 40.5 (35.0-49.0) % MCV 92.9 (78.0-102.0) fL MCH 30.5 (27.0-31.0) pg MCHC 32.8 (32-36) g/dL RDW 13.3 (11.6-14.4) % Plt Count 173 (150-420) K/mm3 MPV 9.7 (9.2-11.8) fl Immature Gran % (Auto) 0.0 (0.0-0.0) % Neut % (Auto) 49.3 L (50.0-70.0) % Lymph % (Auto) 34.3 (18.0-42.0) % Imperial % (Auto) 10.6 (2.0-11.0) % Eos % (Auto) 5.3 (1.0-6.0) % Baso % (Auto) 0.5 (0.0-1.0) % Lymph # (Auto) 1.42 (1.10-4.50) K/mm3 Imperial # (Auto) 0.44 (0.10-0.90) K/mm3 Eos # (Auto) 0.22 (0.02-0.50) K/mm3 Baso # (Auto) 0.02 (0.00-0.10) K/mm3 Abs Immat Gran (auto) 0.00 (0.00-0.00) K/mm3 Absolute Neuts (auto) 2.04 (1.70-7.20) K/mm3 Absolute Nucleated RBC 0.00 (0.00-0.00) K/mm3 Nucleated RBC % 0.0 (0-0.0) % PT 23.2 H (9.50-12.1) Seconds INR 2.3 Sodium 143 (137-145) mmol/L Potassium 4.4 (3.4-5.0) mmol/L Chloride 110 H (98-107) mmol/L Carbon Dioxide 28 (22-30) mmol/L Anion Gap 5 (4-12) mmol/L BUN 18 H (7-17) mg/dL Creatinine 1.00 (0.7-1.0) mg/dL Estim Creat Clear Calc 73 ml/min Estimated GFR 57 L (59 - ) Glucose 65 (65-110) mg/dL Calculated Osmolality 295 (285-295) mOsm/kg Calcium 9.4 (8.4-10.2) mg/dL Total Bilirubin 0.5 (0.2-1.3) mg/dL AST 33 (14-36) U/L ALT 39 H (6-35) U/L Alkaline Phosphatase 73 (38-126) U/L Troponin I < 0.012 (0.000-0.034) ng/mL NT-Pro-B Natriuret Pep 37 (19.9-100) pg/mL Total Protein 6.4 (6.3-8.2) g/dL Albumin 3.6 (3.5-5.1) g/dL Imaging Data Radiologist's impression: ITS Impressions Chest X-Ray 06/03/25 17:18 IMPRESSION: 1: NO ACUTE CARDIOPULMONARY DISEASE. Chest CTA 06/03/25 18:00 IMPRESSION: 1. No acute cardiopulmonary disease. ECG Data EKG #1: ECG completion date: 06/03/25 ECG completion time: 16:51 EKG Interpretation: normal rate (87), no ectopy, normal QRS and normal QT Discharge Plan Discharge Clinical Impression: Chest pain Qualifiers: Chest pain type: unspecified Qualified Code(s): R07.9 - Chest pain, unspecified Patient Disposition: Home Condition: Stable Instructions: Chest Pain (ED) Additional Instructions: continue home medication, follow with her primary doctor Patient Language: Mozambican Prescriptions: No Action budesonide-formoterol [Symbicort] 80-4.5 mcg/actuation HFA aerosol inhaler 2 inh INHALATION BID Tylenol 1,000 mg PO Q8H dextroamphetamine-amphetamine 20 mg tablet 20 mg PO DAILY metoprolol succinate [Toprol XL] 25 mg tablet extended release 24 hr 25 mg PO DAILY lisinopril 40 mg tablet 40 mg PO DAILY bismuth subsalicylate 262 mg Tablet,Chewable 2 tablet PO Q1H PRN (Reason: upset stomach) Rx Instructions: do not exceed 16 tabs per 24 hrs aripiprazole 10 mg Tablet 10 mg DAILY Xarelto 20 mg tablet 20 mg PO DAILY Qty: 30 0RF Rx Instructions: must administer with evening meal ropinirole 0.25 mg tablet 0.25 mg PO DAILY Mounjaro 7.5 mg/0.5 mL pen injector 7.5 mg SUBCUT WEEKLY meclizine 25 mg tablet 25 mg PO TID PRN (Reason: dizziness) Qty: 30 0RF hydrocodone-acetaminophen 5-325 mg tablet 1 tablet PO Q8H PRN (Reason: pain) Qty: 20 0RF Rx Instructions: 1-2 tabs per dose cephalexin 500 mg capsule 500 mg PO BID 7 Days Qty: 14 0RF methylprednisolone 4 mg tablets,dose pack See Rx Instructions .ROUTE .COMPLEX Qty: 21 0RF Rx Instructions: for 6 days ondansetron HCl 4 mg tablet 4 mg PO Q6H PRN (Reason: nausea and vomiting) Qty: 14 0RF doxycycline hyclate 100 mg tablet 100 mg PO Q12H Qty: 20 0RF amoxicillin-pot clavulanate [Augmentin] 500-125 mg tablet 1 tablet PO TID Qty: 30 0RF tramadol 50 mg tablet 50 mg PO Q6H PRN (Reason: pain) Qty: 20 0RF aripiprazole 5 mg tablet 5 mg PO DAILY omeprazole 20 mg capsule,delayed release(DR/EC) 20 mg PO DAILY diclofenac sodium 50 mg tablet,delayed release (DR/EC) 50 mg PO BID bupropion HCl 100 mg tablet 100 mg PO ONCE buspirone 15 mg tablet 15 mg PO BID multivitamin Tablet 1 tablet PO DAILY metoclopramide HCl [Reglan] 10 mg tablet 10 mg PO BID Qty: 60 4RF Rx Instructions: Take before largest meal of the day and at bedtime. duloxetine 60 mg Capsule,Delayed Release(Dr/Ec) 120 mg PO DAILY Wakix 17.8 mg Tablet 17.8 mg PO DAILY Follow-up/Referrals: Odin,Taylor [Other] Time of Disposition: 18:23
== END 2025-06-03 18:31 | disposition home or self-care (01) ==
PROVIDERS: Emergency Provider Family Medicine
DX: R07.9 Chest pain, unspecified (principal); I10 Essential (primary) hypertension; Z79.01 Long term (current) use of anticoagulants; Z86.73 Personal history of transient ischemic attack (TIA), and cerebral infarction without residual deficits; Z87.891 Personal history of nicotine dependence
CPT/HCPCS: 36415; 71045; 71275; 80053; 83880; 84484; 85025; 85610; 93005; 99284; Q9967

== ENCOUNTER 2025-07-01 13:57 | Outpatient (RCR) | payer MEDICARE, SELFPAY ==
[2025-05-15 16:21] LABS: INR 1.3; Prothrombin Time 13.8 Seconds (9.50-12.1)
[2025-05-24 12:37] LABS: INR 1.9; Prothrombin Time 19.5 Seconds (9.50-12.1)
[2025-05-27 12:31] LABS: INR 1.3; Prothrombin Time 13.8 Seconds (9.50-12.1)
[2025-05-29 10:47] LABS: INR 1.5; Prothrombin Time 16.1 Seconds (9.50-12.1)
[2025-05-31 19:26] LABS: INR 2.2; Prothrombin Time 23.0 Seconds (9.50-12.1)
[2025-06-03 09:50] LABS: INR 2.4; Prothrombin Time 24.4 Seconds (9.50-12.1)
[2025-06-17 18:34] LABS: INR 3.2; Prothrombin Time 31.4 Seconds (9.50-12.1)
[2025-07-01 14:35] LABS: INR 4.3; Prothrombin Time 41.3 Seconds (9.50-12.1)
== END 2025-08-13 23:59 | disposition home or self-care (01) ==
LOC: CHSLAB 13:57
DX: I26.99 Other pulmonary embolism without acute cor pulmonale (principal)
CPT/HCPCS: 36415; 85610

== ENCOUNTER 2025-07-22 12:05 | Outpatient (CLI) | payer MEDICARE, SELFPAY ==
--- NOTE | ~2025-07-22 | XR_ITS ---
EXAMINATION: XR knee RT 3V, 07/22/2025 12:45 MD PSYCHIATRY HISTORY: severe chronic rheu arthritis COMPARISON: No comparisons available. Findings: No acute fracture or malalignment. Minimal tricompartmental degenerative changes, Soft tissues unremarkable. Impression: No acute fracture or malalignment. Reviewed, dictated and finalized at location P. PSYCHIATRY Impression: No acute fracture or malalignment.
--- NOTE | ~2025-07-22 | XR_ITS ---
EXAMINATION: XR knee LT 3V, 07/22/2025 12:45 BREAK OUT WORKER HISTORY: severe chronic rheu arthritis COMPARISON: No comparisons available. Findings: No acute fracture or malalignment. Minimal tricompartmental degenerative changes Soft tissues unremarkable. Impression: No acute fracture or malalignment. Reviewed, dictated and finalized at location P. K OUT WORKER Impression: No acute fracture or malalignment.
--- NOTE | ~2025-07-22 | CT_ITS ---
EXAMINATION: CT abdomen pelvis w con DATE: 07/22/2025 12:53 INDICATION: Right lower quadrant rebound tenderness. TECHNIQUE: Computed tomography (CT) of the abdomen and pelvis was performed with 100 mL Omnipaque 350 intravenous contrast. Automated exposure control and iterative reconstruction technique were employed. The dose-length product was 1395.12 mGy-cm. COMPARISON: CT abdomen and pelvis 07/28/2024, 10/08/20 FINDINGS: The visualized portions of the lung bases demonstrate mild atelectasis. A calcified right lung nodule is consistent with old granulomatous disease. No pleural effusion. The heart size is normal. No pericardial effusion. The liver is normal. There is a 6 mm cyst in the spleen. There are changes of cholecystectomy. The common duct is dilated to 13 mm, stable from 10/08/2020. The pancreas, adrenal glands, and kidneys are normal. There is an anastomosis in the rectosigmoid. There is diverticulosis of the colon without evidence of diverticulitis. There are no dilated loops of bowel. The appendix is normal. There are no pathologically enlarged lymph nodes. There is no free intraperitoneal fluid. There are multiple subcutaneous masses in anterior abdominal wall, likely injection sites. There is mild thoracic spondylosis and severe lumbar spondylosis. There is a hemangioma in lower thoracic spine. IMPRESSION: 1. No etiology for the patient's symptoms. Reviewed, dictated and finalized at location E. EPERSON
[2025-07-22 12:36] LABS: Hematocrit 43.3 % (35.0-49.0); Hemoglobin 14.4 g/dL (12.0-15.0); Immature Granulocyte Percent A 0.2 % (0.0-0.0); Lymphocytes Absolute Auto 1.46 K/mm3 (1.10-4.50); Mean Corpuscular HGB Conc 33.3 g/dL (32-36); Mean Corpuscular Hemoglobin 30.4 pg (27.0-31.0); Mean Corpuscular Volume 91.4 fL (78.0-102.0); Nucleated Red Blood Cells Absolute Auto 0.00 K/mm3 (0.00-0.00); Nucleated Red Blood Cells Perc 0.0 % (0-0.0); Platelet Count Result 188 K/mm3 (150-420); Red Blood Count 4.74 M/mm3 (4.20-5.40); White Blood Count 4.4 K/mm3 (4.8-10.8)
--- OUTSIDE RECORDS SUMMARY | 2025-07-22 12:37 | XMS_ITS | Encounter Summary ---
Author Organization [facility] Healthcare Address [address] [place] [address] Care Team Providers Care Fourth Hand Name Role Phone Reggie Kimbrough MD Unavailable [phone] Mike Monsivais MD Unavailable [phone] Mynor Biswas MD Unavailable [phone] Clementina Polo MD Unavailable Martina Yanez Primary Care Provider [phone] Jorge Maravilla MD Primary Care Provider [phone] Taylor Newby Primary Care Provider Kieran Massey MD Unavailable [phone] Reason for Visit * Reason Onset Date Comments Scheduling Appointments 03/19/2020 Called f or DEXA appointment, No answer Encounter Details Date Type Department Care Team (Late st Contact Info) Description 03/19/2020 Telephone [facility] [address] [place] [id number] Jackie Tong RT Scheduling Appointments (Called for [...] on file Legal Sex Female 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 Not on file Not on file Not on file documented as of this encounter Functional Status documented as of this encounter Plan of [...] result. 07/03/2020 07/03/2020 07/17/2020 3:0 6 AM IMAGE SCIENTIST COVID: Suspected 11/05/2020 11/06/2020 11/06/2020 11:21 PM IMAGE SCIENTIST COVID: Suspected 05/21/2021 05/22/2021 05/22/2021 6:46 PM CDT COVID: Suspected 08/20/2021 08/20/2021 08/20/2021 8:02 PM IMAGE SCIENTIST documented as of this encounter Care Teams Fourth Hand Relationship Specialty Start Date End Date Martina Yanez PA [address] [place] [address] PCP - General Internal Medicine 12/05/19 10/18/21 Jorge Maravilla MD [address] [place] [address] PCP - General Internal Medicine 10/19/21 01/16/23 Taylor Newby PA [address] [place] [id number] PCP - General Physician Property Management Supervisor 01/17/23 [place] [address] [place] [address] Consulting Physician Pain Management 01/12/18 09/26/24 Mike Monsivais MD [address] [facility] [address] [place] [address] Consulting Physician Rheumatology 05/11/18 09/26/24 [place] [address] [facility] [address] [place] [address] Consulting Physician Ophthalmology 08/12/18 09/26/24 [place] [address] [facility] [address] [place] [address] Consulting Physician Obstetrics and Gynecology 10/09/19 09/26/24 Kieran Massey MD [address] [place], [place] [id number] Consulting Physician Internal Medicine 05/25/23 5 documented as of this encounter
--- OUTSIDE RECORDS SUMMARY | 2025-07-22 12:37 | XMS_ITS | Clinical Summary ---
Author Organization [facility] Address [address] [place] [id number] Care Team Providers Care Speech And Hearing Director Name Role Phone Taylor Newby Primary Care [...] Take 1 tablet by mouth daily Active budesonide-form oteroL (SYMBICORT) 80-4.5 mcg/actuation inhaler Inhale 2 puffs [...] mg total) by mouth daily Active lisinopriL (PRINIVIL,ZESTR IL) 5 mg tablet Take 1 tablet (5 mg total) by mouth daily 4 Active rOPINIRole (REQUIP) 1 mg tablet Take 1 tablet (1 mg total) by mouth daily 4 Active Mounjaro 7.5 mg/0.5 mL pen injector INJECT 7.5 MG UNDER THE SKIN EVERY WEEK 4 Active Wakix 17.8 mg tabletIndicatio ns: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 30 tablet 3 5 01/26/20 26 Active warfarin (COUMADIN) 1 mg tabletIndicatio ns:Chronic anticoagulation ,History of pulmonary embolism Take 4 tablets (4 mg) by mouth daily or as directed by MD office. Take 4 tblets (4 mg) with Warfarin 5 mg to equal 9 mg Warfarin per day. 120 tablet 5 5 02/07/20 26 Active dextroamphetami ne-amphetamine (ADDERALL) 30 mg tablet Take 1 tablet (30 mg total) by mouth 2 (two) times a day 60 tablet 5 Active dextroamphetami ne-amphetamine (ADDERALL) 30 mg tablet Take 1 tablet (30 mg total) by mouth 2 (two) times a day 60 tablet 5 06/29/20 25 Discontinu ed(Reorder ) dextroamphetami ne-amphetamine (ADDERALL) 30 mg tablet Take 1 tablet (30 mg total) by mouth 2 (two) times a day 60 tablet 5 07/01/20 25 Discontinu ed(Reorder ) dextroamphetami ne-amphetamine (ADDERALL) 30 mg tablet Take 1 tablet (30 mg total) by mouth 2 (two) times a day 60 tablet 5 07/02/20 25 Discontinu ed(Reorder ) Active Problems Problem Noted Date Diagnosed Date [...] 08/08/2021 Assessment & Plan (08/08/2021 7:58 PM BASTING CLEANER): Patient was persistent cervical thoracic and lumbar back pain. She also has rheumatoid on symptoms. She has not been responding to those medicines only. Mushroom Grower is concerned something else may be come [...] 08/08/2021 Assessment & Plan (08/08/2021 7:58 PM BASTING CLEANER): Patient was persistent cervical thoracic and lumbar back pain. She also has rheumatoid on symptoms. She has not been responding to those medicines only. Mushroom Grower is concerned something else may be come [...] 08/08/2021 Assessment & Plan (08/08/2021 7:59 PM BASTING CLEANER): Patient was persistent cervical thoracic and lumbar back pain. She also has rheumatoid on symptoms. She has not been responding to those medicines only. Mushroom Grower is concerned something else may be come [...] 08/08/2021 Assessment & Plan (08/08/2021 7:58 PM BASTING CLEANER): Check hip x-rays and start physical therapy. Cigarette smoker 06/06/2021 Rhinorrhea 06/06/2021 Assessment & Plan (06/06/2021 11:30 PM CDT): Patient to presume positive COVID until results are available and self isolate for 10 days from the onset of sxs. Check COVID test thru [facility] collection site in [place]. If positive, complete quarantine and consider monoclonal [...] water often. If needed, use a hand projection welding machine operator that contains at least 60% alcohol. Clean [...] to a clean dry area. Use hairspring setter after shower. Will also try short course [...] 11/05/2020 Assessment & Plan (11/05/2020 10:07 AM BASTING CLEANER): Start antibiotic, antihistamine (Claritin OR Zyrtec), Mucinex 12hour and Steroid nasal spray (Flonase). Push fluids. Rest. Supportive care. If sxs worsen or don\'t improve, pt is to followup in the office. Advised this still could be COVID sxs so will test. See Congestion below Chronic nasal congestion 11/05/2020 Assessment & Plan (11/05/2020 10:08 AM BASTING CLEANER): Patient to presume positive COVID until results are available and self isolate for 10 days from the onset of sxs. If negative, isolate until on antibiotic x 24hours and fever free x 24 hours without medication. Check COVID test thru [facility] collection site in [place]. Treat sxs with Tylenol, Cough/cold medication otc [...] water often. If needed, use a hand projection welding machine operator that contains at least 60% alcohol. Clean [...] (05/21/2020): Added automatically from request for surgery [id number] Hemorrhoid 04/09/2020 Overview (04/09/2020): Added automatically from request for surgery [id number] Assessment & Plan (04/12/2020 9:34 AM CDT): [...] Monsivais Assessment & Plan (08/10/2019 4:56 AM BASTING CLEANER): Patient states she is on Butrans patch [...] amlodipine Assessment & Plan (08/10/2019 4:44 AM BASTING CLEANER): Continue Norvasc with hold parameters GERD (gastroesophageal [...] in 2011. Request records from [facility] in [place] to determine clotting factor. Assessment & Plan (03/02/2020 4:12 PM CDT): Encouraged patient to followup with pharmacist as I can not explain why her AC is so much as this is preferred by [facility]. Assessment & Plan (02/05/2020 10:23 PM CDT): History PE in 2011. Request records from [facility] in [place] to determine clotting factor. Assessment & Plan (08/10/2019 4:55 AM BASTING CLEANER): Continue Xarelto. Patient counseled on the importance [...] cymbalta Assessment & Plan (10/16/2017 3:50 PM BASTING CLEANER): Plan to refill alprazaolam to Xanax 0.25 [...] Monsivais Assessment & Plan (08/10/2019 4:44 AM BASTING CLEANER): With mixed connective tissue disorder. Continue with [...] 11/07/2008 Overview (02/05/2020): 2003 - dx at [facility] with spinal tap No current sxs. Resolved Problems Problem Noted Date Diagnosed Date Resolved Date BMI 45.0-49.9, adult 10/15/2020 021 Morbid obesity 10/15/2020 03/05/2021 Assessment & Plan (10/15/2020 7:43 AM BASTING CLEANER): Obesity is unchanged. Discussed the patient's BMI. [...] 02/05/2020 Assessment & Plan (08/10/2019 4:42 AM BASTING CLEANER): Suspected. Continue with ceftriaxone and azithromycin. Will order respiratory virus panel to rule out viral infection. Continue to monitor. Asthma exacerbation 08/10/2019 02/05/20 20 Assessment & Plan (08/10/2019 4:43 AM BASTING CLEANER): With possible undiagnosed COPD. Patient still having [...] 01/12/2018 Assessment & Plan (10/16/2017 3:51 PM BASTING CLEANER): As above. Mass 10/11/2017 01/12/2018 Assessment & Plan (10/16/2017 3:49 PM BASTING CLEANER): Plan to obtain CT scan of chest without contrast. Atypical chest pain 08/25/2017 02/05/20 20 Nausea & vomiting 08/25/2017 04/05/2018 Near syncope 08/25/2017 04/05/2018 Carbuncle, thigh 07/01/2017 01/12/2018 Assessment & Plan (07/06/2017 1:35 PM CDT): Plan to start Bactrim DS BID x 10 days. Continue with washing with mild soap. Apply warm compresses Multiple joint pain 02/28/2017 02/05/20 20 Overview (01/21/2018): Scheduled with [facility] 02/07/18 Assessment & Plan (02/28/2017 1:25 PM CDT): Awaiting lab results today-has appt with Dr. Monsivais this afternoon. ? If related to lupus. Racing heart beat 02/28/2017 04/05/2018 Assessment & Plan (02/28/2017 8:50 PM CDT): Plan to check thyroid profile. Morbid obesity due to excess calories 02/28/2017 04/05/2018 Assessment & Plan (10/16/2017 3:50 PM BASTING CLEANER): Obesity is unchanged. Discussed the patient's BMI. [...] Depression Assessment & Plan (08/10/2019 4:45 AM BASTING CLEANER): Continue Zoloft Assessment & Plan (02/28/2017 8:49 [...] Encounters Date Type Department Care Team Description 07/15/2025 9:45 AM BASTING CLEANER Office Visit [facility] [address] [place] [address] [address] [place] [address] Liang Falk MD 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); BMI 40.0-44.9, adult (HCC); Primary snoring 06/10/2025 9:00 AM CDT Office Visit [facility] [address] [place] [address] [address] [place] [address] Raleigh Mcguire MD Pulmonary embolism, unspecified chronicity, unspecified pulmonary embolism type, unspecified whether acute cor pulmonale present (HCC); Chronic anticoagulation 06/10/2025 8:30 AM CDT Lab [facility] [address] [place] [address] Pulmonary embolism, unspecified chronicity, unspecified pulmonary embolism type, unspecified whether acute cor pulmonale present (HCC); Chronic anticoagulation 05/28/2025 Telephone [facility] [address] [place] [address] [address] [place] [address] Geetha Calvillo RN 05/27/2025 10:15 AM CDT Office Visit [facility] [address] [place] [address] [address] [place] [address] Liang Falk MD 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); Primary snoring 05/23/2025 Documentation [facility] [address] [place] [address] [address] [place] [address] Mariana Kimbrough RN 05/21/2025 2:45 PM CDT Office Visit [facility] [address] [place] [address] [address] [place] [phone] Jhoana Berg, SENIOR ANALYST Pulmonary embolism, unspecified chronicity, unspecified pulmonary embolism type, unspecified whether acute cor pulmonale present (HCC) (Primary Dx); Chronic anticoagulation 05/21/2025 2:15 PM CDT Lab [facility] [address] [facility] [address] [place] [address] Pulmonary embolism, unspecified chronicity, unspecified pulmonary embolism type, unspecified whether acute cor pulmonale present (HCC) 05/16/2025 Orders Only [facility] [address] [place] [address] [address] [place] [phone] Raleigh Mcguire MD Pulmonary embolism, unspecified chronicity, unspecified pulmonary embolism type, unspecified whether acute cor pulmonale present (HCC) (Primary Dx); Chronic anticoagulation 05/14/2025 Orders Only [facility] [address] [place] [address] [address] [place] [phone] Chris Mera MD Pulmonary embolism, unspecified chronicity, unspecified pulmonary embolism type, unspecified whether acute cor pulmonale present (HCC) (Primary Dx); Chronic anticoagulation 05/14/2025 Telephone [facility] [address] [place] [address] [address] [place] [phone] Gabbi Ha, FERNANDA 05/09/2025 Documentation [facility] [address] [place] [address] [address] [place] [phone] aMriana Kimbrough, FERNANDA 05/02/2025 3:15 PM CDT Office Visit [facility] [address] [place] [address] [address] [place] [phone] Jhoana Berg, SENIOR ANALYST Pulmonary embolism, unspecified chronicity, unspecified pulmonary embolism type, unspecified whether acute cor pulmonale present (HCC) (Primary Dx) 05/02/2025 2:45 PM CDT Lab [address] [place] [address] Pulmonary embolism, unspecified chronicity, unspecified pulmonary embolism type, unspecified whether acute cor pulmonale present (HCC); Chronic anticoagulation 05/02/2025 Orders Only [facility] [address] [place] [address] [address] [place] [address] Raleigh Mcguire MD Recurrent pulmonary embolism (HCC) (Primary Dx); Chronic anticoagulation 05/02/2025 Orders Only [facility] [address] [place] [address] [address] [place] [address] Raleigh Mcguire MD Pulmonary embolism, unspecified chronicity, unspecified pulmonary embolism type, unspecified whether acute cor pulmonale present (HCC) (Primary Dx); Chronic anticoagulation 05/01/2025 Telephone [facility] [address] [place] [address] [address] [place] [phone] Мария Wing MA 04/26/2025 Orders Only [facility] [address] [place] [address] [address] [place] [address] Raleigh Mcguire MD Chronic anticoagulation (Primary Dx); Recurrent pulmonary embolism (HCC) 04/25/2025 Orders Only [facility] [address] [place] [address] [address] [place] [phone] Raleigh Mcguire MD Recurrent pulmonary emboli (HCC) (Primary Dx); shelter (current) use of anticoagulants; Chronic anticoagulation 04/23/2025 12:00 PM CDT Lab [address] [place] [address] Pulmonary embolism, unspecified chronicity, unspecified pulmonary embolism type, unspecified whether acute cor pulmonale present (HCC) 04/22/2025 Orders Only [facility] [address] [place] [address] [address] [place] [phone] Raleigh Mcguire MD Pulmonary embolism, unspecified chronicity, unspecified pulmonary embolism type, unspecified whether acute cor pulmonale present (HCC) (Primary Dx) from Last 3 Months Immunizations Immunization Administration Dates Next Due Influenza, Quadrivalent, Spl it, Intramuscular 05/29/2019,06/29/2017 Influenza, Quadrivalent, Spl it, Preservative Free, Intradermal 06/24/2016 Influenza, Quadrivalent, Spl it, Preservative Free, Intramuscular 06/28/2017 Influenza, Trivalent, IM (MDV) 06/19/2024,2015 Influenza, Trivalent, Preser vative Free, Intramuscular 06/24/2016 Influenza, Unspecified 06/19/2024,2020(Deferred: Patient Refused),06/29/2020(Deferred: Patient Refused),06/12/2019,05/29/2019, 017,06/24/2016,09/18/2015 Pneumococcal Conjugate PCV 13 09/18/2015 Pneumococcal Conjugate Pcv20 06/26/2024 Pneumococcal Conjugate, Unspecified 09/18/2015 Pneumococcal Polysaccharide PPV23 05/29/2019,06/2014 Pneumococcal, Unspecified 05/29/2019 Surgical History Surgery Date Site/Laterality Comments CHOLECYSTECTOMY [...] atoid arthritis; Comments: SAVI 09/30/2014 - Adenomyosis 1992 Adenomyosis; Com ments: MU 06/05/2014 - Bilateral pulmonary embolism (HCC) 01/2012 Bilateral pulmonary emboli Diverticulosis 12/2009 diverticulosis; Comments: MU 06/05/2014 - Obesity Restless leg syndrome Mixed connective tissue disease Nodule of right lung 10/21/2016 stable on r epeat imaging Hepatic steatosis Hypertension Anxiety Narcolepsy 06/2020 Pulmonary embolism Pulmonary embolism Pulmonary embolism Pulmonary embolism Diabetes mellitus Family History Medical History Relation Name Comments [...] often do you attend chur ch or sikh services? Never 05/25/2023 Do you belong to any clubs o r organizations such as scientology groups, unions, fraternal or athletic groups, or [...] place to sleep or slept in a intermediate (including now)? No 05/25/2023 Personal Safety Answer Date Recorded Have you ever been in or are you currently in a harmful physical or emotional relationship or is someone making you feel afraid or unsafe? Denies 12/08/2024 Comments No Sex and Gender Information Value Date Recorded Sex Assigned at Not on file Legal Sex Female 7:20 PM BASTING CLEANER Gender Identity Not on file Sexual Orientation [...] Sign Reading Time Taken Comments Blood Pressure 125/86 07/15/2025 9:51 AM BASTING CLEANER Pulse 75 07/15/2025 9:51 AM BASTING CLEANER Temperature 36.2 C (97.1 F) 06/10/2025 8:37 AM CDT Respiratory Rate 20 06/10/2025 8:37 AM CDT Oxygen Saturation 96% 07/15/2025 9:51 AM BASTING CLEANER Inhaled Oxygen Concentration - - Weight 118.8 kg (261 lb 12.8 oz) 07/15/2025 9:51 AM BASTING CLEANER Height 170.2 cm (5' 7.01) 07/15/2025 9:51 AM CS T Body Mass Index 40.99 07/15/2025 9:51 AM BASTING CLEANER Plan of Treatment Health Maintenance Due Date [...] 06/24/2022 06/24/2021, 05/20/2021, 04/24/2021, Additional history exists Lipid Panel 11/29/2024 11/30/2023, 07/0 03/2021, 03/18/2017, Additional history exists Influenza Vaccine (#1) 2025 , 06/19/2024, 06/12/2019, Additional history exists Colon Cancer Screening-Colonoscopy 06/16/2025 06/16/2020, 12/13/2017, 07/28/2015 eGFR 04/18/2026 04/18/2025, 0305/2025, 06/25/2024, Additional history exists Hepatitis C Screening Completed 03/18/2015, 014 Colon Cancer Screening-CT Colonography Discontinued 06/16/2020, 12/13/2017, 07/28/2015 Colon Cancer Screening-DNA Stool Discontinued 06/16/2020, 12/13/2017, 07/28/2015 Colon Cancer Screening-FIT Discontinued 06/16, 12/13/2017, 07/28/2015 Colon Cancer Screening-Sigmoidoscopy Discontinued 06/16/2020, 12/13/2017, 07/28/2015 Pneumococcal vaccine <65 Completed 024, 05/29/2019, 05/29/2019, Additional history exists Procedures Procedure Name Priority Date/Time Associated Diagnosis Comments PROTIME-INR Routine 06/10/2025 8:40 AM CDT Pulmonary embolism, unspecified chronicity, unspecified pulmonary embolism type, unspecified whether acute cor pulmonale present (HCC) Chronic anticoagulation DIFFERENTIAL AUTO Routine 06/10/2025 8:2 5 AM CDT Pulmonary embolism, unspecified chronicity, unspecified pulmonary embolism type, unspecified whether acute cor pulmonale present (HCC) Chronic anticoagulation CBC WITH AUTO DIFFERENTIAL Routine 06/10/2025 8:25 AM CDT Pulmonary embolism, unspecified chronicity, unspecified pulmonary embolism type, unspecified whether acute cor pulmonale present (HCC) Chronic anticoagulation DIFFERENTIAL AUTO Routine 05/21/2025 2:1 0 PM [...] to Health Maintenance Results * (ABNORMAL) Protime-INR (06/10/2025 8:40 AM CDT) PT 35.4(H) 10.2 - 13.5 sec [facility] ([place]) Comment:Testing performed by : [place], [address] INR 3.21(H) 0.90 - 1.20 [facility] ([place]) Comment: Interpretive data Oral anticoagulant therapeutic ranges: Venous thromboembolism prophylaxis or treatment: 2.0-3.0 CARDIOLOGY Standard range: 2.0-3.0 High-intensity range: 2.5-3.5 Refer to indication-specific guidelines for appropriate target ranges for prosthetic heart valve replacement. Current interpretive data was last revised on 2019. Testing performed by: [place], [address] Blood 06/10/2025 8:40 AM CDT 06/10/2025 8:57 AM CDT Estelle Dillraealphonse SENIOR ANALYST LAB BLOOD ORDERABLES Final Result [facility] ([place]) [address] [facility] Department [place] [address] * Differential, auto (06/10/2025 8:25 AM CDT) Neutrophil abs 2.07 1.50 - 6.50 K/cumm [facility] ([place]) Comment:Testing performed by : [facility] [address], Medical Office [facility] [address], [place] [address] Imm gran abs 0.01 0.00 - 0.10 K/cumm [facility] ([place]) Comment:Testing performed by : [facility] [address], Medical Office [facility] [address], [place] [address] Lymphocyte abs 1.07 0.80 - 3.30 K/cumm [facility] ([place]) Comment:Testing performed by : [facility] [address], Medical Office [facility] [address], [place] [address] Monocyte abs 0.39 0.20 - 0.80 K/cumm [facility] ([place]) Comment:Testing performed by : [facility] [address], Medical Office [facility] [address], [place] [address] Eosinophil abs 0.12 0.00 - 0.50 K/cumm [facility] ([place]) Comment:Testing performed by : [facility] [address], Medical Office [facility] [address], [place] [address] Basophil abs 0.03 0.00 - 0.10 K/cumm [facility] ([place]) Comment:Testing performed by : [facility] [address], Medical Office [facility] [address], [place] [address] Neutrophil pct 56.0 % [facility] ([place]) Comment: Interpretive Data Percent cell count reference ranges are not reported, since discordance with absolute values may lead to misinterpretation of CBC data. Current Interpretive Data was last revised on 2022. Testing performed by: [facility] [address], Medical Office [facility] [address], [place] [address] Imm gran pct 0.3 % [facility] ([place]) Comment: Interpretive Data Percent cell count reference ranges are not reported, since discordance with absolute values may lead to misinterpretation of CBC data. Current Interpretive Data was last revised on 2022. Testing performed by: [facility] [address], Medical Office [facility] [address], [place] [address] Lymphocyte pct 29.0 % [facility] ([place]) Comment: Interpretive Data Percent cell count reference ranges are not reported, since discordance with absolute values may lead to misinterpretation of CBC data. Current Interpretive Data was last revised on 2022. Testing performed by: [facility] [address], Medical Office [facility] [address], [place] [address] Monocyte pct 10.6 % [facility] ([place]) Comment: Interpretive Data Percent cell count reference ranges are not reported, since discordance with absolute values may lead to misinterpretation of CBC data. Current Interpretive Data was last revised on 2022. Testing performed by: [facility] [address], Medical Office [facility] [address], [place] [address] Eosinophil pct 3.3 % [facility] ([place]) Comment: Interpretive Data Percent cell count reference ranges are not reported, since discordance with absolute values may lead to misinterpretation of CBC data. Current Interpretive Data was last revised on 2022. Testing performed by: [facility] [address], Medical Office [facility] [address], [place] [address] Basophil pct 0.8 % [facility] ([place]) Comment: Interpretive Data Percent cell count reference ranges are not reported, since discordance with absolute values may lead to misinterpretation of CBC data. Current Interpretive Data was last revised on 2022. Testing performed by: [facility] [address], Medical Office [facility] [address], [place] [address] Blood 06/10/2025 8:25 AM CDT 06/10/2025 8:32 AM CDT Estelle Garg SENIOR ANALYST LAB BLOOD ORDERABLES Final Result [facility] ([place]) [address] [facility] Department [place] [address] * (ABNORMAL) CBC with auto differential (06/10/2025 8:25 AM CDT) WBC 3.69(L) 3.80 - 9.90 K/cumm [facility] ([place]) Comment:Testing performed by : [facility] [address], Medical Office [facility] [address], [place] [address] Hgb 13.3 11.9 - 15.5 g/dL [facility] ([place]) Comment:Testing performed by : [facility] [address], Medical Office [facility] [address], [place] [address] Hct 40.0 35.6 - 45.5 % [facility] ([place]) Comment:Testing performed by : [facility] [address], Medical Office [facility] [address], [place] [address] Plt 204 150 - 400 K/cumm [facility] ([place]) Comment:Testing performed by : [facility] [address], Medical Office [facility] [address], [place] [address] MPV 10.0 9.1 - 12.3 fL [facility] ([place]) Comment:Testing performed by : [facility] [address], Medical Office [facility] [address], [place] [address] RBC 4.32 3.90 - 5.20 M/cumm [facility] ([place]) Comment:Testing performed by : [facility] [address], Medical Office [facility] [address], [place] [address] MCV 92.6 81.3 - 96.4 fL [facility] ([place]) Comment:Testing performed by : [facility] [address], Medical Office [facility] [address], [place] [address] MCH 30.8 27.1 - 33.3 pg [facility] ([place]) Comment:Testing performed by : [facility] [address], Medical Office [facility] [address], [place], [place] [address] MCHC 33.3 32.3 - 35.7 g/dL [facility] ([place]) Comment:Testing performed by : [facility] [address], Medical Office [facility] B [facility] [address], [place] [address] RDW CV 13.4 11.1 - 14.9 % [facility] ([place]) Comment:Testing performed by : [facility] [address], Medical Office [facility] B [facility] [address], [place] [address] RDW SD 45.7 35.7 - 48.1 fL [facility] ([place]) Comment:Testing performed by : [facility] [address], Medical Office [facility] [address], [place] [address] Blood 06/10/2025 8:25 AM CDT 06/10/2025 8:32 AM CDT Estelle Garg SENIOR ANALYST LAB BLOOD ORDERABLES Final Result Performing Organization Address City/State/[facility] Co de Phone Number [facility] ([place]) 1 Formerly [facility] Department [place] [address] * Differential, auto (05/21/2025 2:10 PM CDT) Neutrophil abs 3.67 1.50 - 6.50 K/cumm [facility] ([place]) Comment:Testing performed by : [facility] [address], Medical Office [facility] [address], [place] [address] Imm gran abs 0.01 0.00 - 0.10 K/cumm [facility] ([place]) Comment:Testing performed by : [facility] [address], Medical Office [facility] [address], [place] [address] Lymphocyte abs 0.94 0.80 - 3.30 K/cumm [facility] ([place]) Comment:Testing performed by : [facility] [address], Medical Office [facility] B [facility] [address], [place] [address] Monocyte abs 0.29 0.20 - 0.80 K/cumm [facility] ([place]) Comment:Testing performed by : [facility] [address], Medical Office [facility] B [facility] [address], [place] [address] Eosinophil abs 0.15 0.00 - 0.50 K/cumm [facility] ([place]) Comment:Testing performed by : [facility] [address], Medical Office [facility] [address], [place] [address] Basophil abs 0.03 0.00 - 0.10 K/cumm [facility] ([place]) Comment:Testing performed by : [facility] [address], Medical Office [facility] B [facility] [address], [place] [address] Neutrophil pct 72.1 % [facility] ([place]) Comment: Interpretive Data Percent cell count reference ranges are not reported, since discordance with absolute values may lead to misinterpretation of CBC data. Current Interpretive Data was last revised on 2022. Testing performed by: [facility] [address], Medical Office [facility] [address], [place] [address] Imm gran pct 0.2 % [facility] ([place]) Comment: Interpretive Data Percent cell count reference ranges are not reported, since discordance with absolute values may lead to misinterpretation of CBC data. Current Interpretive Data was last revised on 2022. Testing performed by: [facility] [address], Medical Office [facility] [address], [place] [address] Lymphocyte pct 18.5 % [facility] ([place]) Comment: Interpretive Data Percent cell count reference ranges are not reported, since discordance with absolute values may lead to misinterpretation of CBC data. Current Interpretive Data was last revised on 2022. Testing performed by: [facility] [address], Medical Office [facility] [address], [place] [address] Monocyte pct 5.7 % [facility] ([place]) Comment: Interpretive Data Percent cell count reference ranges are not reported, since discordance with absolute values may lead to misinterpretation of CBC data. Current Interpretive Data was last revised on 2022. Testing performed by: [facility] [address], Medical Office [facility] [address], [place] [address] Eosinophil pct 2.9 % [facility] ([place]) Comment: Interpretive Data Percent cell count reference ranges are not reported, since discordance with absolute values may lead to misinterpretation of CBC data. Current Interpretive Data was last revised on 2022. Testing performed by: [facility] [address], Medical Office [facility] B [facility] [address], [place] [address] Basophil pct 0.6 % [facility] ([place]) Comment: Interpretive Data Percent cell count reference ranges are not reported, since discordance with absolute values may lead to misinterpretation of CBC data. Current Interpretive Data was last revised on 2022. Testing performed by: [facility] [address], Medical Office [facility] [address], [place] [address] Blood 05/21/2025 2:10 PM CDT 05/21/2025 2:16 PM CDT Estelle Garg SENIOR ANALYST LAB BLOOD ORDERABLES Final Result [facility] ([place]) 1 [facility]ly [facility] [place] [address] * CBC with auto differential (05/21/2025 2:10 PM CDT) WBC 5.09 3.80 - 9.90 K/cumm [facility] ([place]) Comment:Testing performed by : [facility] [address], Medical Office [facility] B [facility] [address], [place] [address] Hgb 13.7 11.9 - 15.5 g/dL [facility] ([place]) Comment:Testing performed by : [facility] [address], Medical Office [facility] [address], [place] [address] Hct 41.1 35.6 - 45.5 % [facility] ([place]) Comment:Testing performed by : [facility] [address], Medical Office [facility] [address], [place] [address] Plt 181 150 - 400 K/cumm [facility] ([place]) Comment:Testing performed by : [facility] [address], Medical Office [facility] B [facility] [address], [place] [address] MPV 10.2 9.1 - 12.3 fL [facility] ([place]) Comment:Testing performed by : [facility] [address], Medical Office [facility] [address], [place] [address] RBC 4.44 3.90 - 5.20 M/cumm [facility] ([place]) Comment:Testing performed by : [facility] [address], Medical Office [facility] [address], [place] [address] MCV 92.6 81.3 - 96.4 fL [facility] ([place]) Comment:Testing performed by : [facility] [address], Medical Office [facility] [address], [place] [address] MCH 30.9 27.1 - 33.3 pg [facility] ([place]) Comment:Testing performed by : [facility] [address], Medical Office [facility] [address], [place] [address] MCHC 33.3 32.3 - 35.7 g/dL [facility] ([place]) Comment:Testing performed by : [facility] [address], Medical Office [facility] [address], [place] [address] RDW CV 13.2 11.1 - 14.9 % [facility] ([place]) Comment:Testing performed by : [facility] [address], Medical Office [facility] B [facility] [address], [place] [address] RDW SD 45.6 35.7 - 48.1 fL [facility] ([place]) Comment:Testing performed by : [facility] [address], Medical Office [facility] B [facility] [address], [place] [address] Blood 05/21/2025 2:10 PM CDT 05/21/2025 2:16 PM CDT Estelle Garg SENIOR ANALYST LAB BLOOD ORDERABLES Final Result [facility] ([place]) 1 [facility]ly [facility] Department [place] [address] * (ABNORMAL) Protime-INR (05/21/2025 2:10 PM CDT) PT 18.9(H) 10.2 - 13.5 sec [facility] ([place]) Comment:Testing performed by : [place], [address] INR 1.69(H) 0.90 - 1.20 [facility] ([place]) Comment: Interpretive data Oral anticoagulant therapeutic ranges: Venous thromboembolism prophylaxis or treatment: 2.0-3.0 CARDIOLOGY Standard range: 2.0-3.0 High-intensity range: 2.5-3.5 Refer to indication-specific guidelines for appropriate target ranges for prosthetic heart valve replacement. Current interpretive data was last revised on 2019. Testing performed by: [place], [address] Blood 05/21/2025 2:10 PM CDT 05/21/2025 2:45 PM CDT Narrative [facility] ([place]) - 05/21/2025 2:54 PM CDT 05/06, 05/08, 05/10, 05/14, 05/16 Estelle Garg NP LAB BLOOD ORDERABLES Final Result [facility] ([place]) 1 [facility] Department [place] [address] * (ABNORMAL) Protime-INR (05/02/2025 2:40 PM CDT) PT 20.4(H) 10.2 - 13.5 sec [facility] ([place]) Comment:Testing performed by : [place], [address] INR 1.83(H) 0.90 - 1.20 [facility] ([place]) Comment: Interpretive data Oral anticoagulant therapeutic ranges: Venous thromboembolism prophylaxis or treatment: 2.0-3.0 CARDIOLOGY Standard range: 2.0-3.0 High-intensity range: 2.5-3.5 Refer to indication-specific guidelines for appropriate target ranges for prosthetic heart valve replacement. Current interpretive data was last revised on 2019. Testing performed by: [facility], [place], [address] Blood 05/02/2025 2:40 PM CDT 05/02/2025 2:51 PM CDT Narrative [facility]) - 05/02/2025 3:08 PM CDT Add PT/INR today us Raleigh Mcguire MD LAB BLOOD ORDERABLES Nava l Result [facility] ([place]) 1 [facility] Department [place] [address] * (ABNORMAL) Protime-INR (04/23/2025 12:05 PM CDT) PT 14.8(H) 10.2 - 13.5 sec [facility] ([place]) Comment:Testing performed by : [facility], [place], [address] INR 1.32(H) 0.90 - 1.20 [facility] ([place]) Comment: Interpretive data Oral anticoagulant therapeutic ranges: Venous thromboembolism prophylaxis or treatment: 2.0-3.0 CARDIOLOGY Standard range: 2.0-3.0 High-intensity range: 2.5-3.5 Refer to indication-specific guidelines for appropriate target ranges for prosthetic heart valve replacement. Current interpretive data was last revised on 2019. Testing performed by: [place], [address] Blood 04/23/2025 12:0 5 PM CDT 04/23/2025 12:42 PM CDT Narrative [facility] ([place]) - 04/23/2025 1:06 PM CDT Starting on 04/22, 04/24, 04/26, 04/29, 05/02, us Jhoana Berg NP LAB BLOOD ORDERABLES Final Result [facility]) 1 [facility] Department [place] [address] * eGFR (04/18/2025 1:45 PM CDT) eGFR [...] was last reviewed 2021. Testing performed by: [facility], [facility], [place], [address] Blood 04/18/2025 1:45 PM CDT 04/18/2025 2:02 PM CDT Raleigh Mcguire MD LAB BLOOD ORDERABLES Nava l Result [facility] 1 [facility] Department [place] [address] * Hemoglobin A1c (03/18/2021) SCRIBED Hemoglobin A1c [...] Aguilar MD - 06/16/2020 9:32 AM CDT [facility] Patient Name: Azul Carlson Procedure Date: 06/16/2020 9:32 AM Date of : 1970 Admit Type: Outpatient Age: 50 Gender: Female Attending MD: Caio Aguilar M.D. Room: [facility] ENDOSCOPY ROOM 2 Note Status: Finalized [...] was passed under direct vision. The Colonoscope [id number] was introduced through the anusand advanced to [...] 9:32 AM Procedure Code(s): --- Professional --- 53997, Colonoscopy, flexible; diagnostic, including collection of specimen(s) by brushing or washing, when performed (separateprocedure) Diagnosis Code(s): --- Professional --- K57.30, Diverticulosis of large intestine without perforation orabscess without bleeding Z98.0, Intestinal bypass and anastomosis status K64.9, Unspecified hemorrhoids CPT copyright 2017 [employer]. All rights reserved. The codes documented in this report are preliminary and upon principal mechanical engineer reviewmay be revised to meet current compliance requirements. Recognized by the [employer] for promoting quality in endoscopy us Caio Aguilar MD ENDOSCOPY PROCEDURES Final Re sult * DIAGNOSTIC MAMMOGRAM BILATERAL W BOB (04/01/2016 12:40 PM CDT) Anatomical Region Laterality Modality Breast Bilateral Mammography 04/01/2016 12:4 0 PM CDT Narrative 04/01/2016 4:03 PM CDT Acc#: [id number] [facility] 0031 - Diag Mamm W Bob [...] NEGATIVE TECHNOLOGIST: RADHA PILLAI TECHNOLOGIST MEDICAL IMAGING [employer]: DD2 TRANSCRIBE DATE/TIME: Apr 01 2016 1:43P RADIOLOGIST: LAURI GREEN M.D. READ ON: Apr 01 2016 1:34P ORDERING DR: ART TEJADA N.P. THIS DOCUMENT HAS BEEN ELECTRONICALLY SIGNED BY: LAURI GREEN M.D. ON: Apr 01 2016 4:03P Attending: ART TEJADA Requesting: ART TEJADA Requesting Attending Attending ID: [id number] Requesting ID: [id number] Report To 1 ID: Report To 1 Name: , Report To 1 FAX: -- Report To 2 ID: Report To 2 Name: , Report To 2 FAX: -- NextGen Order #: Procedure Note Provider, MD Emigdio - 01/04/2017 Acc#: [id number] [facility] 0031 - Diag Mamm W Bob [...] NEGATIVE TECHNOLOGIST: RADHA PILLAI TECHNOLOGIST MEDICAL IMAGING [employer]: DD2 TRANSCRIBE DATE/TIME: Apr 01 2016 1:43P RADIOLOGIST: LAURI GREEN M.D. READ ON: Apr 01 2016 1:34P ORDERING DR: ART TEJDAA N.P. THIS DOCUMENT HAS BEEN ELECTRONICALLY SIGNED BY: LAURI GREEN M.D. ON: Apr 01 2016 4:03P Attending: ART TEJADA Requesting: ART TEJADA Requesting Attending Attending ID: [id number] Requesting ID: [id number] Report To 1 ID: Report To 1 [...] Serum 03/18/2015 4:25 PM CDT Mimi Kelley SENIOR ANALYST LAB BLOOD ORDERABLES Nava l Result HISTORICAL RESULTS from Last 3 Months or Most Recently Relevant to Health Maintenance Insurance MEDICARE [facility] MEDICARE ADVANTAGE Advance Directives For more information, please contact: [phone] * Full Code (Latest Code Status on File) Date Activated Date Inactivated Comments 05/23/2023 10:43 PM 05/25/2023 7:39 PM * Full Code Date Activated Date Inactivated Comments 06/16/2020 9:20 AM 06/16/2020 3:35 PM * Full Code Date Activated Date Inactivated Comments 08/10/2019 4:24 AM 08/14/2019 10:24 PM Care Teams Speech And Hearing Director Relationship Specialty Start Date End Date Taylor Newby PA [address] [place] [address] PCP - General Physician Revenue Cycle Consultant 01/17/23
--- OUTSIDE RECORDS SUMMARY | 2025-07-22 12:37 | XMS_ITS | Clinical Summary ---
Author Organization [facility] Address [address] [place] [address] Care Team Providers Care Crystal Grinder Name Role Phone Unavailable Primary Care Provider [...] Encounters Date Type Department Care Team Description 07/10/2025 External Device Data [facility] ABSTRACTION Provider, Abstract 07/10/2025 External Device Data [facility] ABSTRACTION Provider, Abstract 07/03/2025 External Device Data [facility] ABSTRACTION Provider, Abstract 05/28/2025 External Device Data [facility] ABSTRACTION Provider, [...] Flex Sig/CT Colonography Q 5 years Discontinued Insurance [facility] [id number] [place] [id number]
[2025-07-22 12:56] LABS: Alanine Aminotransferase 45 U/L (6-35); Albumin Level 3.6 g/dL (3.5-5.1); Alkaline Phosphatase 98 U/L (38-126); Anion Gap 3 mmol/L (4-12); Aspartate Amino Transferase 40 U/L (14-36); Bilirubin,Total 2.1 mg/dL (0.2-1.3); Blood Urea Nitrogen 16 mg/dL (7-17); CRP 0.5 mg/dL (<1.0); Calcium 8.9 mg/dL (8.4-10.2); Carbon Dioxide 30 mmol/L (22-30); Chloride 108 mmol/L (98-107); Estimated Glomerular Filt Rate > 60; Glucose 90 mg/dL (65-110); Osmolality Calculated 293 mOsm/kg (285-295); Potassium 4.0 mmol/L (3.4-5.0); Sodium 141 mmol/L (137-145); Total Protein 5.9 g/dL (6.3-8.2)
[2025-07-22 13:03] LABS: INR 2.3; Prothrombin Time 23.2 Seconds (9.50-12.1)
== END 2025-07-22 12:06 | disposition home or self-care (01) ==
DX: M05.79 Rheumatoid arthritis with rheumatoid factor of multiple sites without organ or systems involvement (principal); I73.00 Raynaud's syndrome without gangrene; M54.50 Low back pain, unspecified; Z79.899 Other long term (current) drug therapy
CPT/HCPCS: 36415; 73562; 74177; 80053; 85025; 85610; 86140; Q9967

== ENCOUNTER 2025-09-08 13:30 | Emergency (ER) | payer MEDICARE, SELFPAY ==
[2025-09-08 13:30] VITALS: BP 105/64; PULSE 20; RESP 20; TEMP 30.5; O2SAT 96
--- NOTE | 2025-09-08 13:43 | ED.SKABFB ---
HPI - Skin/Abscess/Foreign Bdy General Chief complaint: Skin/Abscess/Foreign Body Stated complaint: bruise to inner right thigh Time Seen by Provider: 09/08/25 13:42 Source: patient Mode of arrival: ambulatory Limitations: no limitations History of Present Illness HPI narrative: Patient is a 55-year-old female with a right groin/right thigh ecchymosis which started in the past week and this is the 4th occasion that is occurred over the past few months. It is tender today. The right ecchymosis has pain today. 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 MD complaint: other (Right groin ecchymosis) Onset (ago): month(s) (A few) Tetanus up to date: unsure Location: RLE (Right thigh inner) Severity: moderate Severity scale (1-10): 5 Quality: sharp Pain Consistency: constant Relieving factors: none Exacerbating factors: none Context: other (Patient has a right groin ecchymosis x4 over the past few months. We will refer patient to [facility] for DVT ultrasound today.) Associated symptoms: denies other symptoms Treatments prior to arrival: none Related Data Home Medications ?Medication ?Instructions ?Recorded ?Confirmed ?Last Taken ?Type Tylenol 1,000 mg PO Q8H 10/23/21 08/05/23 01/20/23 History budesonide-formoterol HFA 80 2 inh inhalation BID 10/23/21 08/05/23 01/20/23 History mcg-4.5 mcg/actuation aerosol inhaler (Symbicort) duloxetine 60 mg capsule,delayed 120 mg PO DAILY 02/25/22 08/05/23 1 Day Ago History release ~01/19/23 pitolisant 17.8 mg tablet (Wakix) 17.8 mg PO DAILY 02/25/22 08/05/23 01/20/23 History dextroamphetamine-amphetamine 20 20 mg PO DAILY 04/20/22 08/05/23 01/20/23 History mg tablet aripiprazole 10 mg tablet 10 mg DAILY 01/20/23 08/05/23 01/20/23 History bismuth subsalicylate 262 mg 2 tablet PO Q1H PRN upset stomach 01/20/23 08/05/23 01/20/23 History chewable tablet lisinopril 40 mg tablet 40 mg PO DAILY 01/20/23 08/05/23 1 Day Ago History ~01/19/23 metoprolol succinate 25 mg 25 mg PO DAILY 01/20/23 08/05/23 01/20/23 History tablet,extended release 24 hr (Toprol XL) aripiprazole 5 mg tablet 5 mg PO DAILY 07/06/23 08/05/23 Unknown History bupropion HCl 100 mg tablet 100 mg PO ONCE 07/06/23 08/05/23 Unknown History buspirone 15 mg tablet 15 mg PO BID 07/06/23 08/05/23 Unknown History diclofenac sodium 50 mg 50 mg PO BID 07/06/23 08/05/23 Unknown History tablet,delayed release multivitamin 1 tablet PO DAILY 07/06/23 08/05/23 Unknown History omeprazole 20 mg capsule,delayed 20 mg PO DAILY 07/06/23 08/05/23 Unknown History release ropinirole 0.25 mg tablet 0.25 mg PO DAILY 08/05/23 08/05/23 Unknown History tirzepatide 7.5 mg/0.5 mL 7.5 mg subcut WEEKLY 08/05/23 08/05/23 Unknown History subcutaneous pen injector (Brynn) warfarin 1 mg tablet 4 mg PO DAILY 09/08/25 Unknown History warfarin 5 mg tablet 5 mg PO DAILY 09/08/25 Unknown History Allergies Allergy/AdvReac Type Severity Reaction Status Date / Time amitriptyline Allergy Intermediate Other Verified 09/08/25 13:45 aspartame Allergy Intermediate Other Verified 09/08/25 13:45 atomoxetine Allergy Intermediate Unknown Verified 09/08/25 13:45 gabapentin Allergy Intermediate Other Verified 09/08/25 13:45 nortriptyline Allergy Intermediate Other Verified 09/08/25 13:45 prednisone Allergy Intermediate Hyperactive Verified 09/08/25 13:45 cyclobenzaprine Allergy Anxiety Verified 09/08/25 13:45 fluoxetine Allergy Unknown Verified 09/08/25 13:45 pregabalin Allergy Anxiety Verified 09/08/25 13:45 sulfasalazine Allergy Unknown Verified 09/08/25 13:45 sumatriptan Allergy Unknown Verified 09/08/25 13:45 methotrexate AdvReac Intermediate Diarrhea Verified 09/08/25 13:45 methylprednisolone AdvReac Agitated Verified 09/08/25 13:45 Review of Systems Review of Systems: All systems reviewed & are unremarkable except as noted in HPI and below Constitutional: Constitutional: Reports no additional constitutional complaints Eyes: Eyes: Reports no additional eye complaints ENT: Reports system reviewed and no additional complaints, except as documented Cardiovascular: Cardiovascular: Reports no additional cardiovascular complaints Respiratory: Respiratory: Reports no additional respiratory complaints Gastrointestinal: Gastrointestinal: Reports no additional gastrointestinal complaints Genitourinary: Genitourinary: Reports no additional female genitourinary complaints Musculoskeletal: Musculoskeletal: Reports no additional musculoskeletal complaints Integumentary/Breasts: Skin/Breast: Reports system reviewed and no additional complaints, except as docu Neurologic: Reports system reviewed and no additional complaints, except as documented Psychiatric: Psychiatric: Reports no additional psychiatric complaints Endocrine: Endocrine: Reports no additional endocrine complaints Hematologic/Lymphatic: Hematologic/Lymphatic: Reports no additional hematologic/lymphatic complaints Allergic/Immunologic: Allergic/Immunologic: Reports no additional allergic/immunologic complaints PMFSH Past Medical History Medical History Depression Arthritis Fibromyalgia History of gastroesophageal reflux (GERD) Diverticulitis Colitis Pneumonia Pulmonary embolism Asthma Hypertension History of hypercholesterolemia Mitral valve prolapse History of TIA (transient ischemic attack) Systemic lupus Surgical History Surgical History History of hysterectomy History of cholecystectomy Social History Social History Years smoked: 20 Smoking status: Former smoker Tobacco type: cigarettes Second hand tobacco smoke exposure: No Smoking end date: 11/29/22 Alcohol intake: former Alcohol use details: Rare Substance use: current Substance use type: marijuana, amphetamines and prescription drug Last use: 01/06/2023 Lack of Transportation: No Lack of Food: Never True Current Housing: I Have Housing Concerned About Future Housing: No Difficulty Paying Gas/Electric Bills: No Difficulty Paying for Meds: No Currently Unemployed: No Education: High School Diploma/GED Difficulty w/ Childcare or Family Care: No Living arrangements: alone Gender identity (if verbalized by the patient): Female Spiritual care concerns: Yes (Sabianism Islam) Exam Const: General: no acute distress Nutritional Appearance: well nourished Orientation/consciousness: patient oriented x3 Limitations: no limitations HENMT: Head: normal to inspection Ears: external ears normal Face/Nose/Sinus: Normal external nose present Eyes: Conjunctivae: conjunctivae normal Pupils: Equal, round and reactive pupils present EOM: EOMs intact bilaterally Neck: Neck: normal visual inspection Chest: Chest palpation & inspection: normal inspection of the chest Resp: Effort & Inspection: normal respiratory effort and not labored Auscultation: clear to auscultation bilaterally and no crackles Cardio: Rate: regular rate Rhythm: regular rhythm Heart sounds: no murmurs GI: Auscultation: normal bowel sounds : General: Yes bladder normal to palpation Back/Spine/Pelvis: Back: no CVA tenderness Skin: General skin exam: No normal color Rashes: no rashes Wounds: no wounds Other: Right inner thigh has a large ecchymosis in a rectangular shape that could represent a blood vessel shape/femoral vein which is tender to palpation Neuro: General: patient oriented x3, moves all extremities and no meningeal signs Cranial nerves: Yes Nystagmus not present Speech: normal speech Gait exam (Neuro): Normal gait present Extrem: General: normal to inspection Psych: Mental Status: mental status grossly normal Affect: normal affect Attitude: cooperative Course Vital Signs Vital signs: Vital Signs Temperature 30.5 C L 09/08/25 13:30 Pulse Rate 20 L 09/08/25 13:30 Respiratory Rate 20 09/08/25 13:30 Blood Pressure 105/64 09/08/25 13:30 Pulse Oximetry 96 09/08/25 13:30 Oxygen Delivery Room Air 09/08/25 13:30 Temperature 30.5 C L 09/08/25 13:30 Pulse Rate 20 L 09/08/25 13:30 Respiratory Rate 20 09/08/25 13:30 Blood Pressure 105/64 09/08/25 13:30 Pulse Oximetry 96 09/08/25 13:30 Oxygen Delivery Room Air 09/08/25 13:30 [facility] MDM Narrative Medical decision making narrative: Patient is a 55-year-old female with a right groin ecchymosis on her 4th occasion for unclear etiology. Patient is on Coumadin. We will get an ultrasound for DVT at this time and refer to vascular surgery if positive and large. ER to ER transfer patient for higher level medical care; patient will see Dr. Green and he accepted the patient and he will get an ultrasound for DVT today; her medical care will be taken over by Dr. Green in the ER at [place] Differential Diagnosis Differential Diagnosis: DVT, traumatic area of skin Lab Data Labs: Deferred till next ER Imaging Data Radiologist's impression: Deferred till next ER Discharge Plan Discharge Clinical Impression: Multiple ecchymoses of thigh Patient Disposition: Acute Care Hospital Condition: Stable Patient Language: Kinyarwanda Prescriptions: No Action budesonide-formoterol [Symbicort] 80-4.5 mcg/actuation HFA aerosol inhaler 2 inh INHALATION BID Tylenol 1,000 mg PO Q8H dextroamphetamine-amphetamine 20 mg tablet 20 mg PO DAILY metoprolol succinate [Toprol XL] 25 mg tablet extended release 24 hr 25 mg PO DAILY lisinopril 40 mg tablet 40 mg PO DAILY bismuth subsalicylate 262 mg Tablet,Chewable 2 tablet PO Q1H PRN (Reason: upset stomach) Rx Instructions: do not exceed 16 tabs per 24 hrs aripiprazole 10 mg Tablet 10 mg DAILY ropinirole 0.25 mg tablet 0.25 mg PO DAILY Mounjaro 7.5 mg/0.5 mL pen injector 7.5 mg SUBCUT WEEKLY meclizine 25 mg tablet 25 mg PO TID PRN (Reason: dizziness) Qty: 30 0RF hydrocodone-acetaminophen 5-325 mg tablet 1 tablet PO Q8H PRN (Reason: pain) Qty: 20 0RF Rx Instructions: 1-2 tabs per dose ondansetron HCl 4 mg tablet 4 mg PO Q6H PRN (Reason: nausea and vomiting) Qty: 14 0RF tramadol 50 mg tablet 50 mg PO Q6H PRN (Reason: pain) Qty: 20 0RF warfarin 5 mg tablet 5 mg PO DAILY Patient Comments: tuesday warfarin 1 mg tablet 4 mg PO DAILY Patient Comments: tuesday,tuesday, aripiprazole 5 mg tablet 5 mg PO DAILY omeprazole 20 mg capsule,delayed release(DR/EC) 20 mg PO DAILY diclofenac sodium 50 mg tablet,delayed release (DR/EC) 50 mg PO BID bupropion HCl 100 mg tablet 100 mg PO ONCE buspirone 15 mg tablet 15 mg PO BID multivitamin Tablet 1 tablet PO DAILY metoclopramide HCl [Reglan] 10 mg tablet 10 mg PO BID Qty: 60 4RF Rx Instructions: Take before largest meal of the day and at bedtime. duloxetine 60 mg Capsule,Delayed Release(Dr/Ec) 120 mg PO DAILY Wakix 17.8 mg Tablet 17.8 mg PO DAILY Follow-up/Referrals: UNKNOWN,DOCTOR [Non-Staff] Time of Disposition: 14:07
--- OUTSIDE RECORDS SUMMARY | 2025-09-08 14:05 | XMS_ITS | Clinical Summary ---
Author Organization [facility] Address [address] [place] [id number] Care Team Providers Care Television Production Clerk Name Role Phone Taylor Newby Primary [...] by MD office. 30 tablet 3 5 05/16/20 26 Active warfarin (COUMADIN) 1 mg tabletIndicatio [...] (two) times a day 60 tablet 5 08/29/20 25 Discontinu ed(Reorder ) Active Problems Problem [...] 08/08/2021 Assessment & Plan (08/08/2021 7:58 PM RESIDENCE LEASING AGENT): Patient was persistent cervical thoracic and lumbar back pain. She also has rheumatoid on symptoms. She has not been responding to those medicines only. Bicycle Assembler is concerned something else may be come [...] 08/08/2021 Assessment & Plan (08/08/2021 7:58 PM RESIDENCE LEASING AGENT): Patient was persistent cervical thoracic and lumbar back pain. She also has rheumatoid on symptoms. She has not been responding to those medicines only. Bicycle Assembler is concerned something else may be come [...] 08/08/2021 Assessment & Plan (08/08/2021 7:59 PM RESIDENCE LEASING AGENT): Patient was persistent cervical thoracic and lumbar back pain. She also has rheumatoid on symptoms. She has not been responding to those medicines only. Bicycle Assembler is concerned something else may be come [...] 08/08/2021 Assessment & Plan (08/08/2021 7:58 PM RESIDENCE LEASING AGENT): Check hip x-rays and start physical therapy. Cigarette smoker 06/06/2021 Rhinorrhea 06/06/2021 Assessment & Plan (06/06/2021 11:30 PM CDT): Patient to presume positive COVID until results are available and self isolate for 10 days from the onset of sxs. Check COVID test thru [facility] collection site in [place]. If positive, complete quarantine and consider monoclonal [...] water often. If needed, use a hand department director that contains at least 60% alcohol. Clean [...] lotrisone to a clean dry area. Use office chair assembler after shower. Will also try short course [...] 11/05/2020 Assessment & Plan (11/05/2020 10:07 AM RESIDENCE LEASING AGENT): Start antibiotic, antihistamine (Claritin OR Zyrtec), Mucinex 12hour and Steroid nasal spray (Flonase). Push fluids. Rest. Supportive care. If sxs worsen or don\'t improve, pt is to followup in the office. Advised this still could be COVID sxs so will test. See Congestion below Chronic nasal congestion 11/05/2020 Assessment & Plan (11/05/2020 10:08 AM RESIDENCE LEASING AGENT): Patient to presume positive COVID until results are available and self isolate for 10 days from the onset of sxs. If negative, isolate until on antibiotic x 24hours and fever free x 24 hours without medication. Check COVID test thru [facility] collection site in [place]. Treat sxs with Tylenol, Cough/cold medication otc [...] water often. If needed, use a hand department director that contains at least 60% alcohol. Clean [...] (05/21/2020): Added automatically from request for surgery [id number] Hemorrhoid 04/09/2020 Overview (04/09/2020): Added automatically from request for surgery [id number] Assessment & Plan (04/12/2020 9:34 AM CDT): [...] Monsivais Assessment & Plan (08/10/2019 4:56 AM RESIDENCE LEASING AGENT): Patient states she is on Butrans patch [...] amlodipine Assessment & Plan (08/10/2019 4:44 AM RESIDENCE LEASING AGENT): Continue Norvasc with hold parameters GERD (gastroesophageal [...] in 2011. Request records from [facility] in [place] to determine clotting factor. Assessment & Plan (03/02/2020 4:12 PM CDT): Encouraged patient to followup with pharmacist as I can not explain why her AC is so much as this is preferred by [facility]. Assessment & Plan (02/05/2020 10:23 PM CDT): History PE in 2011. Request records from [facility] in [place] to determine clotting factor. Assessment & Plan (08/10/2019 4:55 AM RESIDENCE LEASING AGENT): Continue Xarelto. Patient counseled on the importance [...] cymbalta Assessment & Plan (10/16/2017 3:50 PM RESIDENCE LEASING AGENT): Plan to refill alprazaolam to Xanax 0.25 [...] Monsivais Assessment & Plan (08/10/2019 4:44 AM RESIDENCE LEASING AGENT): With mixed connective tissue disorder. Continue with [...] 11/07/2008 Overview (02/05/2020): 2003 - dx at [facility] with spinal tap No current sxs. Resolved Problems Problem Noted Date Diagnosed Date Resolved Date BMI 45.0-49.9, adult 10/15/2020 021 Morbid obesity 10/15/2020 03/05/2021 Assessment & Plan (10/15/2020 7:43 AM RESIDENCE LEASING AGENT): Obesity is unchanged. Discussed the patient's BMI. [...] 02/05/2020 Assessment & Plan (08/10/2019 4:42 AM RESIDENCE LEASING AGENT): Suspected. Continue with ceftriaxone and azithromycin. Will order respiratory virus panel to rule out viral infection. Continue to monitor. Asthma exacerbation 08/10/2019 02/05/20 20 Assessment & Plan (08/10/2019 4:43 AM RESIDENCE LEASING AGENT): With possible undiagnosed COPD. Patient still having [...] 01/12/2018 Assessment & Plan (10/16/2017 3:51 PM RESIDENCE LEASING AGENT): As above. Mass 10/11/2017 01/12/2018 Assessment & Plan (10/16/2017 3:49 PM RESIDENCE LEASING AGENT): Plan to obtain CT scan of chest without contrast. Atypical chest pain 08/25/2017 02/05/20 20 Nausea & vomiting 08/25/2017 04/05/2018 Near syncope 08/25/2017 04/05/2018 Carbuncle, thigh 07/01/2017 01/12/2018 Assessment & Plan (07/06/2017 1:35 PM CDT): Plan to start Bactrim DS BID x 10 days. Continue with washing with mild soap. Apply warm compresses Multiple joint pain 02/28/2017 02/05/20 20 Overview (01/21/2018): Scheduled with [facility] 02/07/18 Assessment & Plan (02/28/2017 1:25 PM CDT): Awaiting lab results today-has appt with Dr. Monsivais this afternoon. ? If related to lupus. Racing heart beat 02/28/2017 04/05/2018 Assessment & Plan (02/28/2017 8:50 PM CDT): Plan to check thyroid profile. Morbid obesity due to excess calories 02/28/2017 04/05/2018 Assessment & Plan (10/16/2017 3:50 PM RESIDENCE LEASING AGENT): Obesity is unchanged. Discussed the patient's BMI. [...] Depression Assessment & Plan (08/10/2019 4:45 AM RESIDENCE LEASING AGENT): Continue Zoloft Assessment & Plan (02/28/2017 8:49 [...] Encounters Date Type Department Care Team Description 08/16/2025 Telephone [facility] Medicine Physicians [facility] Oncology [address] [place] [address] Medical Office [facility] [address] [place] [address] Eduarda Vann, Diamond 07/15/2025 9:45 AM RESIDENCE LEASING AGENT Office Visit [facility] [place] [place] [facility] [address] [facility] [address] [place] [phone] Liang Falk MD 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); BMI 40.0-44.9, adult (HCC); Primary snoring 06/10/2025 9:00 AM CDT Office Visit [facility] [place] [facility] [address] [place] [address] Medical [address] [place] [address] Raleigh Mcguire MD Pulmonary embolism, unspecified chronicity, unspecified pulmonary embolism type, unspecified whether acute cor pulmonale present (HCC); Chronic anticoagulation 06/10/2025 8:30 AM CDT [facility] [address] [facility] [address] [place] [address] Pulmonary embolism, unspecified chronicity, unspecified pulmonary embolism type, unspecified whether acute cor pulmonale present (HCC); Chronic anticoagulation from Last 3 Months Immunizations Immunization Administration [...] History Date Comments Asthma Asthma; Comments : [facility] 09/30/2014 - Depression Depression Hx Other Medical abdominal pain Hx Other Medical Abdominal pain; Outcome: improved Inflammatory bowel disease Infla mmatory bowel disease Fibromyalgia IBS (irritable bowel syndrome) History of colon resection Rheumatoid arthritis (HCC) Rheum atoid arthritis; Comments: [facility] 09/30/2014 - Adenomyosis 1992 Adenomyosis; Com ments: [...] week 05/25/2023 How often do you attend [facility] or scientologist services? Never 05/25/2023 Do you belong to any clubs o r organizations such as bahai groups, unions, fraternal or athletic groups, or [...] place to sleep or slept in a mcfp (including now)? No 05/25/2023 Personal Safety Answer Date Recorded Have you ever been in or are you currently in a harmful physical or emotional relationship or is someone making you feel afraid or unsafe? Denies 12/08/2024 Comments No Sex and Gender Information Value Date Recorded Sex Assigned at Not on file Legal Sex Female 7:20 PM RESIDENCE LEASING AGENT Gender Identity Not on file Sexual Orientation [...] Comments Blood Pressure 125/86 07/15/2025 9:51 AM RESIDENCE LEASING AGENT Pulse 75 07/15/2025 9:51 AM RESIDENCE LEASING AGENT Temperature 36.2 C (97.1 F) 06/10/2025 8:37 AM CDT Respiratory Rate 20 06/10/2025 8:37 AM CDT Oxygen Saturation 96% 07/15/2025 9:51 AM RESIDENCE LEASING AGENT Inhaled Oxygen Concentration - - Weight 118.8 kg (261 lb 12.8 oz) 07/15/2025 9:51 AM RESIDENCE LEASING AGENT Height 170.2 cm (5' 7.01) 07/15/2025 9:51 AM CS T Body Mass Index 40.99 07/15/2025 9:51 AM RESIDENCE LEASING AGENT Plan of Treatment Health Maintenance Due Date [...] acute cor pulmonale present (HCC) Chronic anticoagulation EGFR Routine 04/18/2025 1:45 PM CDT Pulmonary [...] 35.4(H) 10.2 - 13.5 sec [facility] ([place]) Comment:Testing performed by : [facility], [place], [address] INR 3.21(H) 0.90 - 1.20 [facility] ([place]) Comment: Interpretive data Oral anticoagulant therapeutic ranges: Venous thromboembolism prophylaxis or treatment: 2.0-3.0 CARDIOLOGY Standard range: 2.0-3.0 High-intensity range: 2.5-3.5 Refer to indication-specific guidelines for appropriate target ranges for prosthetic heart valve replacement. Current interpretive data was last revised on 2019. Testing performed by: [place], [address] Blood 06/10/2025 8:40 AM CDT 06/10/2025 8:57 AM CDT us Estelle Silvestre NP LAB BLOOD ORDERABLES F inal Result [facility] ([place]) [address] [facility] Department [place] [address] * Differential, auto (06/10/2025 8:25 AM CDT) Neutrophil abs 2.07 1.50 - 6.50 K/cumm [facility] ([place]) Comment:Testing performed by : [facility] [address], Medical Office [facility] [address], [place] [address] Imm gran abs 0.01 0.00 - 0.10 K/cumm [facility] ([place]) Comment:Testing performed by : [facility] [address], Medical Office [facility] [address], [place] [address] Lymphocyte abs 1.07 0.80 - 3.30 K/cumm [facility] ([place]) Comment:Testing performed by : [facility] [address], Medical Office [facility] [address], [place] [address] Monocyte abs 0.39 0.20 - 0.80 K/cumm [facility] ([place]) Comment:Testing performed by : [facility] [address], Medical Office [facility] [address], [place] [address] Eosinophil abs 0.12 0.00 - 0.50 K/cumm [facility] ([place]) Comment:Testing performed by : [facility] [address], Medical Office [facility] [address], [place] [address] Basophil abs 0.03 0.00 - 0.10 K/cumm [facility] ([place]) Comment:Testing performed by : [facility] [address], Medical Office [facility] [address], [place] [address] Neutrophil pct 56.0 % [facility] ([place]) Comment: Interpretive Data Percent cell count reference ranges are not reported, since discordance with absolute values may lead to misinterpretation of CBC data. Current Interpretive Data was last revised on 2022. Testing performed by: [facility] [address], Medical Office [facility] [address], [place] [address] Imm gran pct 0.3 % [facility] ([place]) Comment: Interpretive Data Percent cell count reference ranges are not reported, since discordance with absolute values may lead to misinterpretation of CBC data. Current Interpretive Data was last revised on 2022. Testing performed by: [facility] [address], Medical Office [facility] [address], [place] [address] Lymphocyte pct 29.0 % [facility] ([place]) Comment: Interpretive Data Percent cell count reference ranges are not reported, since discordance with absolute values may lead to misinterpretation of CBC data. Current Interpretive Data was last revised on 2022. Testing performed by: [facility] [address], Medical Office [facility] [address], [place] [address] Monocyte pct 10.6 % [facility] ([place]) Comment: Interpretive Data Percent cell count reference ranges are not reported, since discordance with absolute values may lead to misinterpretation of CBC data. Current Interpretive Data was last revised on 2022. Testing performed by: [facility] [address], Medical Office [facility] [address], [place] [address] Eosinophil pct 3.3 % [facility] ([place]) Comment: Interpretive Data Percent cell count reference ranges are not reported, since discordance with absolute values may lead to misinterpretation of CBC data. Current Interpretive Data was last revised on 2022. Testing performed by: [facility] [address], Medical Office [facility] [address], [place] [address] Basophil pct 0.8 % [facility] ([place]) Comment: Interpretive Data Percent cell count reference ranges are not reported, since discordance with absolute values may lead to misinterpretation of CBC data. Current Interpretive Data was last revised on 2022. Testing performed by: [facility] [address], Medical Office [facility] [address], [place] [address] Blood 06/10/2025 8:25 AM CDT 06/10/2025 8:32 AM CDT Estelle Silvestre INSULATION HELPER LAB BLOOD ORDERABLES F inal Result [facility] ([place]) [address] [facility] [place] [address] * (ABNORMAL) CBC with auto differential (06/10/2025 8:25 AM CDT) WBC 3.69(L) 3.80 - 9.90 K/cumm [facility] ([place]) Comment:Testing performed by : [facility] [address], Medical Office [address], [place] [address] Hgb 13.3 11.9 - 15.5 g/dL [facility] ([place]) Comment:Testing performed by : [facility] [address], Medical Office [facility] [address], [place] [address] Hct 40.0 35.6 - 45.5 % [facility] ([place]) Comment:Testing performed by : [facility] [address], Medical Office [facility] [address], [place] [address] Plt 204 150 - 400 K/cumm [facility] ([place]) Comment:Testing performed by : [facility] [address], Medical Office [facility] [address], [place] [address] MPV 10.0 9.1 - 12.3 fL [facility] ([place]) Comment:Testing performed by : [facility] [address], Medical Office [facility] [address], [place] [address] RBC 4.32 3.90 - 5.20 M/cumm [facility] ([place]) Comment:Testing performed by : [facility] [address], Medical Office [facility] [address], [place] [address] MCV 92.6 81.3 - 96.4 fL [facility] ([place]) Comment:Testing performed by : [facility] [address], Medical Office [facility] [address], [place] [address] MCH 30.8 27.1 - 33.3 pg [facility] ([place]) Comment:Testing performed by : [facility] [address], Medical Office [address], [place] [address] MCHC 33.3 32.3 - 35.7 g/dL [facility] ([place]) Comment:Testing performed by : [facility] [address], Medical Office [address], [place] [address] RDW CV 13.4 11.1 - 14.9 % [facility] ([place]) Comment:Testing performed by : [facility] [address], Medical Office [address], [place] [address] RDW SD 45.7 35.7 - 48.1 fL [facility] ([place]) Comment:Testing performed by : [facility] [place] [address], Medical Office [facility] [address], [place] [address] Blood 06/10/2025 8:25 AM CDT 06/10/2025 8:32 AM CDT Estelle Silvestre INSULATION HELPER LAB BLOOD ORDERABLES F inal Result [facility] ([place]) [address] [facility] Department [place] [address] * eGFR (04/18/2025 1:45 PM CDT) eGFR [...] was last reviewed 2021. Testing performed by: [facility], [address], [place], [address] Blood 04/18/2025 1:45 PM CDT 04/18/2025 2:02 PM CDT us Raleigh Mcguire MD LAB BLOOD ORDERABLES Nava l Result [facility] ([place]) [address] [facility] Department [place] [address] * Hemoglobin A1c (03/18/2021) SCRIBED Hemoglobin A1c 5.4 <5.7 [facility] Blood specimen (specimen) 03/18/2021 us Martina LOWERY LAB BLOOD ORDERABLES Final Result [facility] * Lipid panel (03/18/2021) SCRIBED Cholesterol, Total 136 0 - 200 [facility] SCRIBED HDL 69 0 [facility] SCRIBED LDL 50 0 [facility] SCRIBED Triglycerides 77 <150 [facility] Blood specimen (specimen) 03/18/2021 us Martina LOWERY LAB BLOOD ORDERABLES Final Result [facility] * COLONOSCOPY (06/16/2020 9:32 AM CDT) Anatomical Region Laterality Modality Other Narrative Procedure Note Caio Aguilar MD - 06/16/2020 9:32 AM CDT [facility] Patient Name: Azul Carlson Procedure Date: 06/16/2020 9:32 AM Date of : 1970 Admit Type: Outpatient Age: 50 Gender: Female Attending MD: Caio Aguilar M.D. Room: [facility] END[facility]COPY ROOM 2 Note Status: Finalized Patient [...] was passed under direct vision. The Colonoscope [id number] was introduced through the anusand advanced to [...] 9:32 AM Procedure Code(s): --- Professional --- 29226, Colonoscopy, flexible; diagnostic, including collection of specimen(s) by brushing or washing, when performed (separateprocedure) Diagnosis Code(s): --- Professional --- K57.30, Diverticulosis of large intestine without perforation orabscess without bleeding Z98.0, Intestinal bypass and anastomosis status K64.9, Unspecified hemorrhoids CPT copyright 2017 [employer]. All rights reserved. The codes documented in this report are preliminary and upon statement distribution clerk reviewmay be revised to meet current compliance requirements. Recognized by the [employer] for promoting quality in endoscopy Caio Aguilar MD ENDOSCOPY PROCEDURES Final Re sult * DIAGNOSTIC MAMMOGRAM BILATERAL W BOB (04/01/2016 12:40 PM CDT) Anatomical Region Laterality Modality Breast Bilateral Mammography 04/01/2016 12:4 0 PM CDT Narrative 04/01/2016 4:03 PM CDT Acc#: [id number] [facility] [place] 0031 - Diag Mamm W Bob Bi [...] NEGATIVE TECHNOLOGIST: RADHA PILLAI TECHNOLOGIST MEDICAL IMAGING SCARRER: DDMariya TRANSCRIBE DATE/TIME: Apr 01 2016 1:43P RADIOLOGIST: LAURI GREEN M.D. READ ON: Apr 01 2016 1:34P ORDERING DR: ART TEJADA N.P. THIS DOCUMENT HAS BEEN ELECTRONICALLY SIGNED BY: LAURI GREEN M.D. ON: Apr 01 2016 4:03P Attending: ART TEJADA Requesting: ART TEJADA Requesting Attending Attending ID: [id number] Requesting ID: [id number] Report To 1 ID: Report To 1 Name: , Report To 1 FAX: -- Report To 2 ID: Report To 2 Name: , Report To 2 FAX: -- NextGen Order #: Procedure Note Provider, MD Emigdio - 01/04/2017 Acc#: [id number] [facility] [place] 0031 - Diag Mamm W Bob Bi [...] NEGATIVE TECHNOLOGIST: RADHA PILLAI TECHNOLOGIST MEDICAL IMAGING SCARRER: SUNI TRANSCRIBE DATE/TIME: Apr 01 2016 1:43P RADIOLOGIST: LAURI GREEN M.D. READ ON: Apr 01 2016 1:34P ORDERING DR: ART TEJADA N.P. THIS DOCUMENT HAS BEEN ELECTRONICALLY SIGNED BY: LAURI GREEN M.D. ON: Apr 01 2016 4:03P Attending: ART TEJADA Requesting: ART TEJADA Requesting Attending Attending ID: [id number] Requesting ID: [id number] Report To 1 ID: Report To 1 [...] Serum 03/18/2015 4:25 PM CDT Mimi Kelley INSULATION HELPER LAB BLOOD ORDERABLES Nava l Result HISTORICAL RESULTS from Last 3 Months or Most Recently Relevant to Health Maintenance Insurance [facility] MEDICARE ADVANTAGE MEDICARE MEDICARE ADVANTAGE Advance Directives For more information, please contact: [phone] * Full Code (Latest Code Status on File) Date Activated Date Inactivated Comments 05/23/2023 10:43 PM 05/25/2023 7:39 PM * Full Code Date Activated Date Inactivated Comments 06/16/2020 9:20 AM 06/16/2020 3:35 PM * Full Code Date Activated Date Inactivated Comments 08/10/2019 4:24 AM 08/14/2019 10:24 PM Care Teams Television Production Clerk Relationship Specialty Start Date End Date Taylor Newby PA [address] [place] [id number] PCP - General Physician Director Security Risk Management 01/17/23
--- OUTSIDE RECORDS SUMMARY | 2025-09-08 14:05 | XMS_ITS | Clinical Summary ---
Author Organization [facility] Address [address] [place] [address] Care Team Providers Care Mysql Database Administrator Name Role Phone Unavailable Primary Care Provider [...] Encounters Date Type Department Care Team Description 08/27/2025 External Device Data [facility] ABSTRACTION Provider, Abstract 08/27/2025 External Device Data [facility] ABSTRACTION Provider, Abstract 08/20/2025 External Device Data [facility] ABSTRACTION Provider, Abstract 07/30/2025 External Device Data [facility] ABSTRACTION Provider, Abstract [...] Sig/CT Colonography Q 5 years Discontinued Insurance [facility] [id number]
--- OUTSIDE RECORDS SUMMARY | 2025-09-08 14:05 | XMS_ITS | Encounter Summary ---
Author Organization [facility] Healthcare Address [address] [place] [address] Care Team Providers Care Toolmaker Grade Three Name Role Phone Reggie Kimbrough MD Unavailable [phone] Mike Monsivais MD Unavailable [phone] Mynor Biswas MD Unavailable [phone] Clementina Polo MD Unavailable Martina Yanez Primary Care Provider [phone] Jorge Maravilla MD Primary Care Provider [phone] Taylor Newby Primary Care Provider Kieran Massey MD Unavailable [phone] Reason for Visit * Reason Onset Date Comments Scheduling Appointments 03/19/2020 Called f or DEXA appointment, No answer Encounter Details Date Type Department Care Team (Late st Contact Info) Description 03/19/2020 Telephone [facility] [address] [place] [phone] Jackie Tong RT Scheduling Appointments (Called for [...] on file Legal Sex Female 7:20 PM CONFERENCE SERVICES MANAGER Gender Identity Not on file Sexual [...] result. 07/03/2020 07/03/2020 07/17/2020 3:0 6 AM CONFERENCE SERVICES MANAGER COVID: Suspected 11/05/2020 11/06/2020 11/06/2020 11:21 PM CONFERENCE SERVICES MANAGER COVID: Suspected 05/21/2021 05/22/2021 05/22/2021 6:46 PM CDT COVID: Suspected 08/20/2021 08/20/2021 08/20/2021 8:02 PM CONFERENCE SERVICES MANAGER documented as of this encounter Care Teams Toolmaker Grade Three Relationship Specialty Start Date End Date Martina Yanez PA [address] [place] [address] PCP - General Internal Medicine 12/05/19 10/18/21 Jorge Maravilla MD [address] [place] [address] PCP - General Internal Medicine 10/19/21 01/16/23 Taylor Newby PA [address] [place] [id number] PCP - General Physician Consulting Utility Forester 01/17/23 [place] [address] [place] [address] Consulting Physician Pain Management 01/12/18 09/26/24 Mike Monsivais MD [address] [facility] [address] [place] [address] Consulting Physician Rheumatology 05/11/18 09/26/24 [place] [address] [facility] [address] [place] [address] Consulting Physician Ophthalmology 08/12/18 09/26/24 [place] [address] [facility] [address] [place] [address] Consulting Physician Obstetrics and Gynecology 10/09/19 09/26/24 Kieran Massey MD [address] [place] [address] Consulting Physician Internal Medicine 05/25/23 5 documented as of this encounter
[2025-09-08 14:18] VITALS: BP 104/74; PULSE 78; RESP 20; O2SAT 96
--- NOTE | 2025-09-08 14:46 | ECG_ITS ---
Test Date: 2025-09-08 14:51:04 Measurements Intervals [place] Rate: 74 P: 26 MO: 164 QRS: -26 QRSD: 87 T: 16 QT: 396 QTc: 441 Interpretive Statements SINUS RHYTHM INFERIOR INFARCT, AGE INDETERMINATE BASELINE ARTIFACT- I, II, AVR, AVL, AVF ABNORMAL ECG Compared to ECG 06/03/2025 16:51:36 No significant changes Electronically Signed On 09-09-2025 08:46:43 STEAM BRUSH OPERATOR by Yariel Beltran D.O.
--- NOTE | 2025-09-08 14:47 | PC.NURSE ---
UPON ENTERING ROOM TO LOAD TO EMS COT, PT STATES IM HAVE A LITTLE CHEST PAIN THAT COMES AND GOES. DR PALACIOS NOTIFIED/EKG ORDERED.
[2025-09-08 14:48] VITALS: BP 96/64; PULSE 79; RESP 20; O2SAT 98
[2025-09-08 15:07] VITALS: BP 96/74; PULSE 79; RESP 20; O2SAT 95
[2025-09-08 15:09] LABS: Hematocrit 43.0 % (35.0-49.0); Hemoglobin 14.0 g/dL (12.0-15.0); Immature Granulocyte Percent A 0.2 % (0.0-0.0); Lymphocytes Absolute Auto 1.72 K/mm3 (1.10-4.50); Mean Corpuscular HGB Conc 32.6 g/dL (32-36); Mean Corpuscular Hemoglobin 30.0 pg (27.0-31.0); Mean Corpuscular Volume 92.3 fL (78.0-102.0); Nucleated Red Blood Cells Absolute Auto 0.00 K/mm3 (0.00-0.00); Nucleated Red Blood Cells Perc 0.0 % (0-0.0); Platelet Count Result 163 K/mm3 (150-420); Red Blood Count 4.66 M/mm3 (4.20-5.40); White Blood Count 4.7 K/mm3 (4.8-10.8)
[2025-09-08 15:19] LABS: Alanine Aminotransferase 29 U/L (6-35); Albumin Level 3.7 g/dL (3.5-5.1); Alkaline Phosphatase 111 U/L (38-126); Anion Gap 7 mmol/L (4-12); Aspartate Amino Transferase 38 U/L (14-36); Bilirubin,Total 0.9 mg/dL (0.2-1.3); Blood Urea Nitrogen 10 mg/dL (7-17); Calcium 9.1 mg/dL (8.4-10.2); Carbon Dioxide 27 mmol/L (22-30); Chloride 110 mmol/L (98-107); Estimated CRCL calculation 73 ml/min; Estimated Glomerular Filt Rate 59; Glucose 87 mg/dL (65-110); Osmolality Calculated 296 mOsm/kg (285-295); Potassium 4.2 mmol/L (3.4-5.0); Sodium 144 mmol/L (137-145); Total Protein 6.2 g/dL (6.3-8.2)
[2025-09-08 15:21] LABS: INR 1.7; Partial Thromboplastin Time 33.9 Sec (23.9-30.70); Prothrombin Time 17.9 Seconds (9.50-12.1)
[2025-09-08 15:31] LABS: Troponin I < 0.012 ng/mL (0.000-0.034)
== END 2025-09-08 15:07 | disposition short-term general hospital (02) ==
LOC: CHSED 14:02
PROVIDERS: Emergency Provider Emergency Medicine
DX: R58 Hemorrhage, not elsewhere classified (principal); I10 Essential (primary) hypertension; Z86.718 Personal history of other venous thrombosis and embolism; Z79.01 Long term (current) use of anticoagulants; Z87.891 Personal history of nicotine dependence
CPT/HCPCS: 36415; 80053; 84484; 85025; 85610; 85730; 93005; 99285

== ENCOUNTER 2025-09-08 16:15 | Emergency (ER) | payer MEDICARE, SELFPAY ==
--- NOTE | ~2025-09-08 | CT_ITS ---
EXAMINATION: CTA chest PE protocol DATE: 09/08/2025 20:34 INDICATION: Prior pulmonary embolism presenting with chest pain TECHNIQUE: Computed tomography (CT) pulmonary angiogram of the chest was performed with 100 mL Omnipaque-350 intravenous contrast. Additional 3D reconstructions utilizing coronal maximum intensity projection (MIP) were performed. Automated exposure control and iterative reconstruction technique were employed. The dose-length product was 747.08 mGy-cm. COMPARISON: 06/03/2025 FINDINGS: No pulmonary embolism. No pneumonia, pulmonary edema, pleural effusion or pneumothorax. Calcified right lower and left upper lobe nodules consistent with old granulomatous disease. Heart size is normal. No pericardial effusion. Thoracic aorta is normal in caliber with no dissection. No pathologically e nlarged thoracic lymphadenopathy. Cholecystectomy clips at the gallbladder fossa. There is a chronic dilated portosystemic collaterals extending between the main portal vein and the left renal vein suggesting portal venous hypertension. Mild thoracic spondylosis with large T12 hemangioma. IMPRESSION: 1. No pulmonary embolism or other acute cardiopulmonary disease. 2. Portosystemic collaterals suggesting pulmonary venous hypertension. Reviewed, dictated and finalized at location A. STRIAL LABORER
--- NOTE | ~2025-09-08 | US_ITS ---
EXAMINATION: US venous doppler LE RT DATE: 09/08/2025 16:42 INDICATION: Right lower extremity pain. TECHNIQUE: Grayscale ultrasound images without and with compression and Doppler ultrasound images of the right lower extremity veins were obtained. COMPARISON: None. FINDINGS: The visualized portions of right common femoral vein, profunda (deep) femoral vein, femoral vein, popliteal vein, peroneal veins, posterior tibial veins, and greater saphenous vein outflow are patent. IMPRESSION: 1. No deep venous thrombosis of major veins of right lower extremity.. Reviewed, dictated and finalized at location T. GER FLOOR
--- NOTE | ~2025-09-08 | XR_ITS ---
EXAMINATION: XR chest 2V DATE: 09/08/2025 17:07 INDICATION: Chest pain. TECHNIQUE: Frontal and lateral views of the chest were obtained. COMPARISON: Chest x-ray dated 06/03/2025. FINDINGS: Heart size is normal. Lungs are clear of acute processes. Iesha and mediastinum are normal. Degenerative disc changes of mid and lower thoracic discs. IMPRESSION: 1. No acute pulmonary findings. Reviewed, dictated and finalized at location T. ING WAITER OR WAITRESS
[2025-09-08 15:55] VITALS: BP 92/61; PULSE 70; RESP 16; TEMP 36.4; O2SAT 99
--- NOTE | 2025-09-08 16:12 | ECG_ITS ---
Test Date: 2025-09-08 16:36:39 Measurements Intervals [place] Rate: 77 P: 35 AR: 154 QRS: -26 QRSD: 86 T: 39 QT: 386 QTc: 437 Interpretive Statements SINUS RHYTHM INFERIOR INFARCT, AGE INDETERMINATE BASELINE ARTIFACT- I, II, III, AVR, AVL, AVF, V1, V3 ABNORMAL ECG Compared to ECG 09/08/2025 14:51:04 NO SIGNIFICANT CHANGE Electronically Signed On 09-08-2025 20:08:26 FAMILY PRESERVATION OFFICER by Yariel Beltran D.O.
--- NOTE | 2025-09-08 16:51 | ED.CHESTPAIN ---
HPI - Chest Pain General Chief Complaint: Extremity Problem,Nontraumatic Stated Complaint: DVT ruleout right leg, CP History of Present Illness HPI narrative: Patient is a 55-year-old female who presents to the ER with bilateral lower extremity edema and chest pain. She reports she has noticed the bilateral edema for the past 2 days. Patient reports she is on chronic anticoagulation but has been diagnosed with blood clots while taking different anticoagulant. She reports she is currently on Coumadin 5 mg Tuesday, 4 mg every other day. Patient reports her lower extremity edema has increased and decreased. Earlier today she was at [place] ER when she started experiencing chest pain. Patient denies any shortness a breath, cough, recent fevers. She endorses a history a ?mixed connective tissue disorder, lupus, RA, fibromyalgia, and gastroparesis. Related Data Home Medications ?Medication ?Instructions ?Recorded ?Confirmed ?Last Taken ?Type Tylenol 1,000 mg PO Q8H 10/23/21 08/05/23 01/20/23 History budesonide-formoterol HFA 80 2 inh inhalation BID 10/23/21 08/05/23 01/20/23 History mcg-4.5 mcg/actuation aerosol inhaler (Symbicort) duloxetine 60 mg capsule,delayed 120 mg PO DAILY 02/25/22 08/05/23 1 Day Ago History release ~01/19/23 pitolisant 17.8 mg tablet (Wakix) 17.8 mg PO DAILY 02/25/22 08/05/23 01/20/23 History dextroamphetamine-amphetamine 20 20 mg PO DAILY 04/20/22 08/05/23 01/20/23 History mg tablet aripiprazole 10 mg tablet 10 mg DAILY 01/20/23 08/05/23 01/20/23 History bismuth subsalicylate 262 mg 2 tablet PO Q1H PRN upset stomach 01/20/23 08/05/23 01/20/23 History chewable tablet lisinopril 40 mg tablet 40 mg PO DAILY 01/20/23 08/05/23 1 Day Ago History ~01/19/23 metoprolol succinate 25 mg 25 mg PO DAILY 01/20/23 08/05/23 01/20/23 History tablet,extended release 24 hr (Toprol XL) aripiprazole 5 mg tablet 5 mg PO DAILY 07/06/23 08/05/23 Unknown History bupropion HCl 100 mg tablet 100 mg PO ONCE 07/06/23 08/05/23 Unknown History buspirone 15 mg tablet 15 mg PO BID 07/06/23 08/05/23 Unknown History diclofenac sodium 50 mg 50 mg PO BID 07/06/23 08/05/23 Unknown History tablet,delayed release multivitamin 1 tablet PO DAILY 07/06/23 08/05/23 Unknown History omeprazole 20 mg capsule,delayed 20 mg PO DAILY 07/06/23 08/05/23 Unknown History release ropinirole 0.25 mg tablet 0.25 mg PO DAILY 08/05/23 08/05/23 Unknown History tirzepatide 7.5 mg/0.5 mL 7.5 mg subcut WEEKLY 08/05/23 08/05/23 Unknown History subcutaneous pen injector (Brynn) warfarin 1 mg tablet 4 mg PO DAILY 09/08/25 Unknown History warfarin 5 mg tablet 5 mg PO DAILY 09/08/25 Unknown History Allergies Allergy/AdvReac Type Severity Reaction Status Date / Time amitriptyline Allergy Intermediate Other Verified 09/08/25 20:07 aspartame Allergy Intermediate Other Verified 09/08/25 20:07 atomoxetine Allergy Intermediate Unknown Verified 09/08/25 20:07 gabapentin Allergy Intermediate Other Verified 09/08/25 20:07 nortriptyline Allergy Intermediate Other Verified 09/08/25 20:07 prednisone Allergy Intermediate Hyperactive Verified 09/08/25 20:07 cyclobenzaprine Allergy Anxiety Verified 09/08/25 20:07 fluoxetine Allergy Unknown Verified 09/08/25 20:07 pregabalin Allergy Anxiety Verified 09/08/25 20:07 sulfasalazine Allergy Unknown Verified 09/08/25 20:07 sumatriptan Allergy Unknown Verified 09/08/25 20:07 methotrexate AdvReac Intermediate Diarrhea Verified 09/08/25 20:07 methylprednisolone AdvReac Agitated Verified 09/08/25 20:07 Review of Systems Review of Systems: All systems reviewed & are unremarkable except as noted in HPI and below PMFSH Past Medical History Medical History Depression Arthritis Fibromyalgia History of gastroesophageal reflux (GERD) Diverticulitis Colitis Pneumonia Pulmonary embolism Asthma Hypertension History of hypercholesterolemia Mitral valve prolapse History of TIA (transient ischemic attack) Systemic lupus Surgical History Surgical History History of hysterectomy History of cholecystectomy Social History Social History Years smoked: 20 Smoking status: Former smoker Tobacco type: cigarettes Second hand tobacco smoke exposure: No Smoking end date: 11/29/22 Alcohol intake: former Alcohol use details: Rare Substance use: current Substance use type: marijuana, amphetamines and prescription drug Last use: 01/06/2023 Lack of Transportation: No Lack of Food: Never True Current Housing: I Have Housing Concerned About Future Housing: No Difficulty Paying Gas/Electric Bills: No Difficulty Paying for Meds: No Currently Unemployed: No Education: High School Diploma/GED Difficulty w/ Childcare or Family Care: No Living arrangements: alone Gender identity (if verbalized by the patient): Female Spiritual care concerns: Yes ([employer]) Exam Narrative: GENERAL: Well appearing, obese, non-toxic, in no acute distress. HEAD: Normocephalic, atraumatic. NECK: Supple. No adenopathy, no masses. RESPIRATORY: Airway patent, respirations nonlabored. Clear to auscultation bilaterally, no rales, rhonchi, wheezing. CARDIOVASCULAR: Regular rate and rhythm without murmurs, rubs, or gallops. Peripheral pulses 2+ and equal bilaterally. ABDOMINAL: Soft, nontender, nondistended, no hepatosplenomegaly. Normoactive BS. MUSCULOSKELETAL: Moves all extremities. Strength/ROM intact without gross deformities. SKIN: Warm, dry, normal color. No rashes. NEURO: A&O X3. Speech clear. Cranial nerves II-XII intact. No ataxic movements. PSYCHIATRIC: Appropriate mood and affect. Normal interaction. Course Vital Signs Vital signs: Vital Signs Temperature 36.4 C 09/08/25 15:55 Pulse Rate 70 09/08/25 15:55 Respiratory Rate 16 09/08/25 15:55 Blood Pressure 92/61 L 09/08/25 15:55 Pulse Oximetry 99 09/08/25 15:55 Oxygen Delivery Room Air 09/08/25 15:55 Temperature 36.8 C 09/08/25 20:07 Pulse Rate 78 09/08/25 20:07 Respiratory Rate 17 09/08/25 20:07 Blood Pressure 110/63 09/08/25 20:07 Pulse Oximetry 97 09/08/25 20:07 Oxygen Delivery Room Air 09/08/25 15:55 [facility] MDM Narrative Medical decision making narrative: Patient is a 55-year-old female who presents to the ER with bilateral lower extremity edema and chest pain. She reports she has noticed the bilateral edema for the past 2 days. Patient reports she is on chronic anticoagulation but has been diagnosed with blood clots while taking different anticoagulant. She reports she is currently on Coumadin 5 mg Tuesday, 4 mg every other day. Patient reports her lower extremity edema has increased and decreased. Earlier today she was at [place] ER when she started experiencing chest pain. Patient denies any shortness a breath, cough, recent fevers. She endorses a history a ?mixed connective tissue disorder, lupus, RA, fibromyalgia, and gastroparesis. Labs Ordered: CBC, CMP, PTT, INR, troponin, proBNP Imaging Ordered: Chest x-ray, CTA Medications Ordered: None necessary Results: Patient's CTA indicates the pulmonary arterial tree is well opacified with contrast. No pulmonary embolism is identified. The thoracic aorta is nondilated. There is no aneurysm or dissection. The heart is not enlarged. No pericardial effusion is seen. No mediastinal or axillary lymphadenopathy or Mass. Lungs are well inflated. There is mild central bronchial wall thickening suggesting bronchitis. No acute focal infiltrate or consolidation is seen. Mild multilevel degenerative changes throughout the spine. No acute fracture destructive bone lesion is seen. There is a benign osseous hemangioma in the T12 level. No fractures. Diagnosis: Risks: HEART score, PECARN score, CURB-65 score Consults: Age-Adjusted D-dimer for Venous Thromboembolism (VTE) from [email or web address] on 09/08/2025 All calculations should be rechecked by clinician prior to use RESULT SUMMARY: 570 ?g/L Age-adjusted D-dimer cutoff, FEU VTE unlikely Reported D-dimer is less than or equal to cutoff; consider alternative diagnosis INPUTS: Age ?> 55 years D-dimer level reported by lab ?> 0.58 ?g/L D-dimer unit type ?> 0 = FEU (unadjusted cutoff typically ~500 or 0.50) Patient Education/Shared MDM: 1930-after further discussion, it was agreed upon that patient should receive the CT scan to rule out any pulmonary embolism as she has had multiple in the past. Results of lab work and imaging shared with patient. She endorses relief with her results. Patient strongly advised to follow-up with her PCP as soon as possible for further evaluation. She will be discharged home with no new prescriptions. Strict return precautions provided. Patient verbalized understanding and is in agreement with plan. Vital signs stable at time of discharge. All questions answered. Differential Diagnosis Differential Diagnosis: Pulmonary embolism, DVT, abnormal clotting factors, atypical chest pain, pneumonia Lab Data [facility] Lab Attestation statement: I personally reviewed the patient's lab results. 09/08/25 17:00 09/08/25 17:00 Labs: Lab Results 09/08/25 09/08/25 Range/Units 17:00 19:57 WBC 4.6 (4.5-10.0) K/mm3 RBC 4.84 (4.2-5.4) M/mm3 Hgb 14.6 (12.0-15.0) g/dL Hct 44.3 (37.0-47.0) % MCV 91.5 (80-100) fl MCH 30.2 (26-34) pg MCHC 33.0 (32-36) g/dl RDW 13.3 (11.5-14.5) % Plt Count 161 (150-375) k/mm3 MPV 10.8 H (7.4-10.4) fl Immature Gran % (Auto) 0.2 (0-0.5) % Neut % (Auto) 42.4 L (45.5-73.1) % Lymph % (Auto) 38.7 (18.3-44.2) % [place] % (Auto) 11.3 H (2.6-8.5) % Eos % (Auto) 5.9 H (0-4.4) % Baso % (Auto) 1.5 H (0.2-1.2) % Lymph # (Auto) 1.78 (0.9-3.2) K/mm3 [place] # (Auto) 0.5 (0.1-0.6) K/mm3 Eos # (Auto) 0.3 (0-0.3) K/mm3 Baso # (Auto) 0.1 (0.0-0.1) K/mm3 Abs Immat Gran (auto) 0.01 (0.00-0.031) K/mm3 Absolute Neuts (auto) 2.0 (1.3-6.7) K/mm3 Absolute Nucleated RBC 0.000 (0.0-0.012) K/mm3 Nucleated RBC % 0.0 (0.0-0.2) % PT 21.8 H (11.1-14.7) Seconds INR 2.0 APTT 35.0 (22.3-36.8) Seconds D-Dimer 0.58 H (<0.48) ug/mL Sodium 138 (137-145) mmol/L Potassium 3.7 (3.4-5.0) mmol/L Chloride 107 (98-107) mmol/L Carbon Dioxide 29 (22-30) mmol/L Anion Gap 2 L (4-12) mmol/L BUN 10 (7-17) mg/dL Creatinine 0.91 (0.7-1.0) mg/dL Estim Creat Clear Calc 76 ml/min Estimated GFR > 60 (59 - ) Glucose 79 (65-110) mg/dL Calcium 9.0 (8.4-10.2) mg/dL Total Bilirubin 1.1 (0.2-1.3) mg/dL AST 34 (14-36) U/L ALT 26 (6-35) U/L Alkaline Phosphatase 116 (38-126) U/L Troponin I < 0.012 < 0.012 (0.000-0.034) ng/mL NT-Pro-B Natriuret Pep 35 (19.9-100) pg/mL Total Protein 6.2 L (6.3-8.2) g/dL Albumin 3.5 (3.5-5.1) g/dL Imaging Data Attestation: I personally reviewed and interpreted this imaging study as follows: My impression: Patient's CTA indicates the pulmonary arterial tree is well opacified with contrast. No pulmonary embolism is identified. The thoracic aorta is nondilated. There is no aneurysm or dissection. The heart is not enlarged. No pericardial effusion is seen. No mediastinal or axillary lymphadenopathy or Mass. Lungs are well inflated. There is mild central bronchial wall thickening suggesting bronchitis. No acute focal infiltrate or consolidation is seen. Mild multilevel degenerative changes throughout the spine. No acute fracture destructive bone lesion is seen. There is a benign osseous hemangioma in the T12 level. No fractures. Radiologist's impression: ITS Impressions Venous Doppler Study 09/08/25 16:44 IMPRESSION: 1. No deep venous thrombosis of major veins of right lower extremity.. Chest X-Ray 09/08/25 17:07 IMPRESSION: 1. No acute pulmonary findings. Discharge Plan Discharge Clinical Impression: Atypical chest pain, Edema of right lower extremity, Hematoma of right lower leg, History of pulmonary embolism Patient Disposition: Home Condition: Stable Instructions: Antibiotic Form, Hematoma (ED) Additional Instructions: Please return to the ER with any worsening symptoms, including worsening chest pain, increased shortness of breath, or acute back pain. Follow-up with primary care provider as soon as possible for further evaluation. Take all medications as prescribed, including regularly scheduled medications. Patient Language: Romansh Prescriptions: No Action budesonide-formoterol [Symbicort] 80-4.5 mcg/actuation HFA aerosol inhaler 2 inh INHALATION BID Tylenol 1,000 mg PO Q8H dextroamphetamine-amphetamine 20 mg tablet 20 mg PO DAILY metoprolol succinate [Toprol XL] 25 mg tablet extended release 24 hr 25 mg PO DAILY lisinopril 40 mg tablet 40 mg PO DAILY bismuth subsalicylate 262 mg Tablet,Chewable 2 tablet PO Q1H PRN (Reason: upset stomach) Rx Instructions: do not exceed 16 tabs per 24 hrs aripiprazole 10 mg Tablet 10 mg DAILY ropinirole 0.25 mg tablet 0.25 mg PO DAILY Mounjaro 7.5 mg/0.5 mL pen injector 7.5 mg SUBCUT WEEKLY meclizine 25 mg tablet 25 mg PO TID PRN (Reason: dizziness) Qty: 30 0RF hydrocodone-acetaminophen 5-325 mg tablet 1 tablet PO Q8H PRN (Reason: pain) Qty: 20 0RF Rx Instructions: 1-2 tabs per dose ondansetron HCl 4 mg tablet 4 mg PO Q6H PRN (Reason: nausea and vomiting) Qty: 14 0RF tramadol 50 mg tablet 50 mg PO Q6H PRN (Reason: pain) Qty: 20 0RF warfarin 5 mg tablet 5 mg PO DAILY Patient Comments: tuesday warfarin 1 mg tablet 4 mg PO DAILY Patient Comments: tuesday,tuesday, aripiprazole 5 mg tablet 5 mg PO DAILY omeprazole 20 mg capsule,delayed release(DR/EC) 20 mg PO DAILY diclofenac sodium 50 mg tablet,delayed release (DR/EC) 50 mg PO BID bupropion HCl 100 mg tablet 100 mg PO ONCE buspirone 15 mg tablet 15 mg PO BID multivitamin Tablet 1 tablet PO DAILY metoclopramide HCl [Reglan] 10 mg tablet 10 mg PO BID Qty: 60 4RF Rx Instructions: Take before largest meal of the day and at bedtime. duloxetine 60 mg Capsule,Delayed Release(Dr/Ec) 120 mg PO DAILY Wakix 17.8 mg Tablet 17.8 mg PO DAILY Follow-up/Referrals: PHYSICIAN NOT ON STAFF,NONSTAFF [Primary Care Provider] Stand Alone Forms: Work/School Release IP Time of Disposition: 22:31
[2025-09-08 17:07] LABS: Hematocrit 44.3 % (37.0-47.0); Hemoglobin 14.6 g/dL (12.0-15.0); Immature Granulocyte Percent A 0.2 % (0-0.5); Lymphocytes Absolute Auto 1.78 K/mm3 (0.9-3.2); Mean Corpuscular HGB Conc 33.0 g/dl (32-36); Mean Corpuscular Hemoglobin 30.2 pg (26-34); Mean Corpuscular Volume 91.5 fl (80-100); Nucleated Red Blood Cells Absolute Auto 0.000 K/mm3 (0.0-0.012); Nucleated Red Blood Cells Perc 0.0 % (0.0-0.2); Platelet Count Result 161 k/mm3 (150-375); Red Blood Count 4.84 M/mm3 (4.2-5.4); White Blood Count 4.6 K/mm3 (4.5-10.0)
[2025-09-08 17:19] LABS: INR 2.0; Partial Thromboplastin Time 35.0 Seconds (22.3-36.8); Prothrombin Time 21.8 Seconds (11.1-14.7)
[2025-09-08 17:29] LABS: Alanine Aminotransferase 26 U/L (6-35); Albumin Level 3.5 g/dL (3.5-5.1); Alkaline Phosphatase 116 U/L (38-126); Anion Gap 2 mmol/L (4-12); Aspartate Amino Transferase 34 U/L (14-36); Bilirubin,Total 1.1 mg/dL (0.2-1.3); Blood Urea Nitrogen 10 mg/dL (7-17); Calcium 9.0 mg/dL (8.4-10.2); Carbon Dioxide 29 mmol/L (22-30); Chloride 107 mmol/L (98-107); Estimated CRCL calculation 76 ml/min; Estimated Glomerular Filt Rate > 60; Glucose 79 mg/dL (65-110); Potassium 3.7 mmol/L (3.4-5.0); Sodium 138 mmol/L (137-145); Total Protein 6.2 g/dL (6.3-8.2)
[2025-09-08 17:36] LABS: NT Pro B Type Natriuretic Pept 35 pg/mL (19.9-100); Troponin I < 0.012 ng/mL (0.000-0.034)
--- NOTE | 2025-09-08 19:17 | PC.NURSE ---
Report received from FERNANDA Palma. Assumed care of patient at this time.
--- NOTE | 2025-09-08 19:30 | ECG_ITS ---
Test Date: 2025-09-08 20:01:09 Measurements Intervals [place] Rate: 69 P: 26 ID: [id number] QRS: -34 QRSD: 94 T: 30 QT: 412 QTc: 444 Interpretive Statements SINUS RHYTHM LEFT AXIS DEVIATION DELAYED PRECORDIAL R/S TRANSITION INFERIOR INFARCT, AGE INDETERMINATE ABNORMAL ECG Compared to ECG 09/08/2025 16:36:39 NO SIGNIFICANT CHANGE Electronically Signed On 09-08-2025 20:14:04 MAJOR CASE DETECTIVE by Yariel Beltran D.O.
--- NOTE | 2025-09-08 19:40 | PC.NURSE ---
Patient in CT at this time.
[2025-09-08 20:07] VITALS: BP 110/63; PULSE 78; RESP 17; TEMP 36.8; O2SAT 97
[2025-09-08 20:46] LABS: Troponin I < 0.012 ng/mL (0.000-0.034)
[2025-09-08 22:42] VITALS: BP 114/68; PULSE 72; RESP 18; O2SAT 98
== END 2025-09-08 22:44 | disposition home or self-care (01) ==
PROVIDERS: Emergency Provider Registered Nurse
DX: R07.89 Other chest pain (principal); R60.0 Localized edema; S80.11XA Contusion of right lower leg, initial encounter; Z79.01 Long term (current) use of anticoagulants; M32.9 Systemic lupus erythematosus, unspecified; K21.9 Gastro-esophageal reflux disease without esophagitis; I10 Essential (primary) hypertension; Z86.73 Personal history of transient ischemic attack (TIA), and cerebral infarction without residual deficits; Z86.711 Personal history of pulmonary embolism; E78.00 Pure hypercholesterolemia, unspecified; Z87.891 Personal history of nicotine dependence
CPT/HCPCS: 36415; 71046; 71275; 80053; 83880; 84484; 85025; 85380; 85610; 85730; 93005; 93971; 99284; Q9967